=== PATIENT | male | born 1955 | race African-American/Black ===

== ENCOUNTER 2018-02-17 14:49 | Inpatient (IN) | payer OTHER ==
[~2018-02-17] VITALS: Ht 195.6 cm; Wt 140.7 kg
[~2018-02-17 14:49] MED LIST: CLOP75TA57 PO; DIAZ10TA PO; HYDR-2679 PO; LEVO50TA5 PO
[2018-02-17] MEDS ORDERED: MAG HYDROX/AL HYDROX/SIMETH 30 ML ORAL.SUSP PO PRN (15:15)
[2018-02-17] MEDS ORDERED: METHYL SALICYLATE/MENTHOL TOPICAL OINTMENT 29GM TUBE. TP PRN (15:15)
--- NOTE | 2018-02-17 15:15 | NUR ---
Admission Note with Justification for Admission to [facility] Patient admitted to [facility] for protective oversight for emergency stabilization of acute psychiatric crisis. Pt admitted from: [facility] Mode of arrival: EMS Accompanied By: EMS Precipitating behaviors that initiated intake and admission: making HI/SI statements, hallucinating, delusional Description of failure of out patient attempts at stabilization in previous setting list behavior and medication trials: Behaviors and assessment findings upon admission: Pt A/O to self and location, believes he is here for rehabilitation. Pt legally blind. Pt irritable with assessment questions. Pt arrived on unit with no personal belongings, except wheelchair and walker. Pt noted with hx of pretibial mexedema. Pictures taken. Plan: Admit for protective oversight for adjustment and stabilization of medications, behaviors and mood. Intense treatment regimen including groups, medication adjustments, therapy, consistent regimen for ADL's, self care, and sleep hygiene. Daily monitoring by Inpatient staff, Psychiatry, and Medical Physician.
--- NOTE | 2018-02-17 15:28 | NUR ---
[place] [id number]. Grejosesito Zan upon arrival. Observed him to participate in [employer] activity this afternoon.
[2018-02-17 16:03] VITALS: BP 156/83
[2018-02-17] MEDS ORDERED: PRAZ1CAP2 PO (17:07)
[2018-02-17] MEDS ORDERED: DIAZ5TAB4 PO (17:07)
[2018-02-17] MEDS ORDERED: CHOL10003 PO (17:07)
[2018-02-17] MEDS ORDERED: DOCU-109 PO (17:07)
[2018-02-17] MEDS ORDERED: GABA-585 PO (17:07)
[2018-02-17] MEDS ORDERED: LEVO125T PO (17:07)
[2018-02-17] MEDS ORDERED: ATOR40TA PO (17:07)
[2018-02-17] MEDS ORDERED: LIDO700A39 TP (17:07)
[2018-02-17] MEDS ORDERED: CARV12.5 PO (17:07)
[2018-02-17] MEDS ORDERED: LISI40TA PO (17:07)
[2018-02-17] MEDS ORDERED: INSU100I17 SQ (17:07)
[2018-02-17] MEDS ORDERED: AMLO10TA6 PO (17:07)
[2018-02-17] MEDS ORDERED: INSU100I13 SQ (17:07)
[2018-02-17] MEDS ORDERED: ASPI-630 PO (17:07)
[2018-02-17] MEDS ORDERED: RANI150T2 PO (17:07)
[2018-02-17] MEDS ORDERED: ENOX40DI SQ (17:07)
[2018-02-17] MEDS: GABAPENTIN 100 MG CAPSULE. PO SCH ×2 (18:00→20:52)
[2018-02-17] MEDS ORDERED: DIAZEPAM 10 MG PO SCH (18:00)
[2018-02-17] MEDS ORDERED: BISACODYL 10 MG SUPP.RECT PR PRN (20:45)
--- NOTE | 2018-02-17 20:46 | PDOC ---
Exam Note: Ishaan Note: Please also refer to the separate dictated note~for this date of service dictated separately.~Patient seen individually. Discussed the patient with Nursing staff reviewed the chart.~Reviewed interim history and current functioning. Reviewed vital signs,~Labs/ Radiology~and current medications noted below. Continue current treatment with the changes noted in the dictated addendum note Assessment: Vital Signs: Vital Signs Date Time Temp Pulse Resp B/P (MAP) Pulse Ox O2 Delivery O2 Flow Rate FiO2 02/17/18 16:03 97.3 78 20 156/83 (107) 97 Room Air Labs: Laboratory Tests Test 02/17/18 16:21 Glucose (Fingerstick) 146 mg/dL (70-99) H Current Medications: Meds: Current Medications Acetaminophen (Tylenol) 650 mg PRN Q6HRS PRN PO PAIN / TEMP; Start 02/17/18 at 15:15 Multi-Ingredient Ointment (Analgesic [place]) 1 neha PRN QID PRN TP MUSCLE PAIN; Start 02/17/18 at 15:15 Al Hydroxide/Mg Hydroxide (Mylanta Plus Xs) 15 ml PRN AFTMEALHC PRN PO DYSPEPSIA; Start 02/17/18 at 15:15 Magnesium Hydroxide (Milk Of Magnesia) 2,400 mg PRN QHS PRN PO CONSTIPATION; Start 02/17/18 at 15:15 Vitamin D (Vitamin D3) 1,000 unit DAILY PO ; Start 02/18/18 at 09:00 Diazepam (Valium) 5 mg Q8HRS PO ; Start 02/17/18 at 22:00 Gabapentin (Neurontin) 200 mg Q6HRS PO Last administered on 02/17/18at 18:00; Start 02/17/18 at 18:00 Insulin Glargine (Lantus) 45 units QHS SQ ; Start 02/17/18 at 21:00 Amlodipine Besylate (Norvasc) 10 mg DAILY PO ; Start 02/18/18 at 09:00 Aspirin (Children'S Aspirin) 81 mg DAILYWBKFT PO ; Start 02/18/18 at 08:00 Atorvastatin Calcium (Lipitor) 40 mg QHS PO ; Start 02/17/18 at 21:00 Carvedilol (Coreg) 12.5 mg BIDWMEALS PO ; Start 02/18/18 at 08:00 Non-Formulary Medication (Diazepam (Valium)) 10 mg Q6HRS PO ; Start 02/17/18 at 18:00; Status UNV Docusate Sodium (Colace) 100 mg DAILY PO ; Start 02/18/18 at 09:00 Enoxaparin Sodium (Lovenox 40mg Syringe) 40 mg QHS SQ ; Start 02/17/18 at 21:00 Insulin Human Lispro (HumaLOG) 12 units TIDWMEALS SQ ; Start 02/18/18 at 08:00 Levothyroxine Sodium (Synthroid) 125 mcg DAILY06 PO ; Start 02/18/18 at 06:00 Lidocaine (Lidoderm) 1 patch DAILY TD ; Start 02/18/18 at 09:00 Lisinopril (Prinivil) 40 mg DAILY PO ; Start 02/18/18 at 09:00 Prazosin HCl (Minipress) 1 mg QHS PO ; Start 02/17/18 at 21:00 Famotidine (Pepcid) 20 mg BID PO ; Start 02/17/18 at 21:00 Influenza Virus Vaccine (Afluria Trivalent [id number] Syringe) 0.5 ml ONCE ONCE VAX IM ; Start 02/18/18 at 09:00; Stop 02/18/18 at 09:01 Insulin Human Lispro (HumaLOG) 0-7 UNITS TIDWMEALS SQ ; Start 02/18/18 at 08:00 Miscellaneous (Lidoderm Patch Removal) 1 ea QHS MC ; Start 02/17/18 at 21:00 Bisacodyl (Dulcolax Supp) 10 mg PRN DAILY PRN [place] CONSTIPATION; Start 02/17/18 at 20:45; Status UNV Active Scripts Active Reported Lovenox (Enoxaparin Sodium) 40 Mg/0.4 Ml Disp.syrin 40 Mg SQ QHS Gabapentin 100 Mg Capsule 200 Mg PO Q6HRS Diazepam 5 Mg Tablet 5 Mg PO Q8HRS Ranitidine Hcl 150 Mg Tablet 150 Mg PO BID Amlodipine Besylate 10 Mg Tablet 10 Mg PO DAILY Aspirin 81 Mg Tab.chew 81 Mg PO DAILY Vitamin D3 (Cholecalciferol (Vitamin D3)) 1,000 Unit Tablet 1,000 Unit PO DAILY Synthroid (Levothyroxine Sodium) 125 Mcg Tablet 125 Mcg PO DAILYAC Lisinopril 40 Mg Tablet 40 Mg PO DAILY Lantus Solostar (Insulin Glargine,Hum.rec.anlog) 100 Unit/1 Ml Insuln.pen 45 Unit SQ QHS Lidocaine 1 Each Adh..patch 1 Each TP DAILY Lipitor (Atorvastatin Calcium) 40 Mg Tablet 40 Mg PO QHS Prazosin Hcl 1 Mg Capsule 1 Mg PO QHS Colace (Docusate Sodium) 100 Mg Capsule 100 Mg PO DAILY Coreg (Carvedilol) 12.5 Mg Tablet 12.5 Mg PO BIDWMEALS Novolog Flexpen (Insulin Aspart) 100 Unit/1 Ml Insuln.pen 12 Unit SQ TID Plavix (Clopidogrel Bisulfate) 75 Mg Tablet 75 Mg PO DAILY Levothyroxine Sodium 50 Mcg Tablet 50 Mcg PO DAILY Lortab 7.5-325 mg Tablet (Hydrocodone/Acetaminophen) 1 Each Tablet 1 Tab PO TID PRN I have reviewed the current psychotropics carefully including drug interactions. Risk benefit ratio favors no change other than as noted in my dictated progress note. Diagnosis: Problems: (1) Anxiety disorder (2) Impulse control disorder (3) Schizophrenia, disorganized, subchronic with acute exacerbation (4) Schizoaffective disorder, bipolar type (5) Major neurocognitive disorder, due to vascular disease, with behavioral disturbance, mild (6) Mixed Alzheimer's and vascular dementia with behavior disturbances JALEEL AGUIRRE MD Feb 17, 2018 20:46
[2018-02-17] MEDS: diazePAM 5 MG TABLET PO SCH (20:49)
[2018-02-17] MEDS: ATORVASTATIN CALCIUM 20 MG TABLET PO SCH (20:49)
[2018-02-17] MEDS: PRAZOSIN 1 MG CAPSULE. PO SCH (20:49)
[2018-02-17] MEDS: ENOXAPARIN 40 MG/0.4 ML SYRINGE. SQ SCH (20:49)
[2018-02-17] MEDS: FAMOTIDINE 20 MG TABLET PO SCH (20:52)
[2018-02-17] MEDS: INSULIN GLARGINE 300 UNITS/3 ML INSULN.PEN. SQ SCH (20:56)
[2018-02-17] MEDS: PATCH REMOVAL. MC SCH (21:00)
--- NOTE | 2018-02-17 21:00 | NUR ---
Behavior Intervention Response and Plan: BIRP Note: Behavior: Assumed Care of patient, patient located in Patient Room at shift change. Patient exhibited the following behavior Irritable, Restless, Cooperative. Brief assessment on rounds of vital signs, medication needs, lab studies, and pain. Treatment plan problems . Intervention: Patient assessed and the following interventions initiated safety checks 15 Minute Checks Cognitive Assessment , Head to toe Assessment , Medications. Response: After interactions and interventions patient responded in the following manner, Calm , Social ,Drowsy. Continue to assess behaviors and condition will continue to monitor throughout the shift as needed. Patient educated on ADL's, and hand hygiene. 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 Continue to assess patient for changes in above assessment. Monitor for medication needs, pain, and safety concerns. Hourly rounding performed to ensure safe environment.
[2018-02-18] MEDS: MAGNESIUM HYDROXIDE 2,400 MG/30 ML ORAL.SUSP. PO PRN (05:33)
[2018-02-18] MEDS: GABAPENTIN 100 MG CAPSULE. PO SCH ×3 (05:33→17:28)
[2018-02-18] MEDS: diazePAM 5 MG TABLET PO SCH ×3 (05:33→20:38)
[2018-02-18] MEDS: LEVOTHYROXINE 125 MCG TABLET PO SCH (05:33)
[2018-02-18 05:52] VITALS: BP 114/72
[2018-02-18 07:07] LABS: BACTERIA,URINE 0 /HPF (0-FEW); BILIRUBIN,URINE NEG (NEG); CLARITY,URINE CLEAR; COLOR,URINE YELLOW; GLUCOSE,URINE 100 mg/dL (NEG); NITRITE,URINE NEG (NEG); RBC,URINE 0 /HPF (0-2); SQUAMOUS EPITHELIAL CELL,UR OCC /LPF; UROBILINOGEN,URINE 0.2 mg/dL (0.2 mg/dL); WBC,URINE 0 /HPF (0-4)
[2018-02-18] MEDS: CARVEDILOL 12.5 MG TABLET PO SCH ×2 (08:00→17:00)
[2018-02-18] MEDS: ASPIRIN 81 MG TAB.CHEW PO SCH (08:35)
[2018-02-18] MEDS: amLODIPine BESYLATE 10 MG TABLET PO SCH (08:37)
[2018-02-18] MEDS: DOCUSATE SODIUM 100 MG CAPSULE PO SCH (08:37)
[2018-02-18] MEDS: FAMOTIDINE 20 MG TABLET PO SCH ×2 (08:38→20:37)
[2018-02-18] MEDS: LISINOPRIL 20 MG TABLET PO SCH (08:38)
[2018-02-18] MEDS: CHOLECALCIFEROL (VITAMIN D3) 1,000 UNIT TABLET PO SCH (08:38)
[2018-02-18] MEDS: LIDOCAINE (700MG/PATCH) PATCH. TD SCH (08:39)
[2018-02-18] MEDS: INSULIN LISPRO 300 UNITS/3 ML INSULN.PEN. SQ SCH ×6 (08:40→17:41)
[2018-02-18 12:17] LABS: BASO % 1 % (0-3); EOS # 0.1 x10^3/uL (0.0-0.7); EOS % 2 % (0-3); HEMATOCRIT 36.4 % (39.0-53.0); HEMOGLOBIN 12.3 g/dL (13.0-17.5); LYMPH % 28 % (24-48); MEAN CORPUSCULAR HEMOGLOBIN 30 pg (25-35); MEAN CORPUSCULAR HGB CONC 34 g/dL (31-37); MEAN CORPUSCULAR VOLUME 90 fL (79-100); MONO # 0.6 x10^3/uL (0.0-1.1); MONO % 8 % (0-9); NEUT # 4.6 x10^3uL (1.8-7.7); NEUT % 62 % (31-73); PLATELET COUNT 201 x10^3/uL (140-400); RED BLOOD COUNT 4.04 x10^6/uL (4.30-5.70); RED CELL DISTRIBUTION WIDTH 14.9 % (11.5-14.5); WHITE BLOOD COUNT 7.3 x10^3/uL (4.0-11.0)
[2018-02-18 12:21] LABS: ALBUMIN 3.4 g/dL (3.4-5.0); ALBUMIN/GLOBULIN RATIO 0.9 (1.0-1.7); CREATININE 1.5 mg/dL (0.7-1.3); GFR 57.4; MAGNESIUM 2.1 mg/dL (1.8-2.4); POTASSIUM 4.3 mmol/L (3.5-5.1); TOTAL BILIRUBIN 0.3 mg/dL (0.2-1.0)
--- NOTE | 2018-02-18 13:26 | NUR ---
Assumed care of pt @ approx 0700. Pt was sitting up in chair in the Dining Room @ the time of our initial encounter. Pt oriented to self and location. Pt states that he is "completely blind" and cannot see at all. Pt was pleasant, but very particular about how he gets his meds and insulin. Compliant w/meds. No signs of hallucinations, delusions, or paranoia noted. Pt has trouble feeding himself with utensils due to his blindness, so this RN called the kitchen and requested a finger food diet w/drinks in styrofoam cups, to make it easier for the pt to feed himself. Pt c/o pain in his lower back - lidoderm patch applied. Flu vaccine was administered, as well, as his sister, Richa (DPOA), gave consent upon his admission. The pt indicated that his sister "isn't really in charge of anything, I just chose her because she has pretty good judgement, but there are no papers or anything that put her in charge." However, he agreed to let me administer the flu shot because "it's probably a good idea." Pt worked briefly with therapist, transferred from chair to bed to use bedpan. Pt currently c/o constipation and requesting "something to help" with this issue. Will look at his eMAR and administer PRN med for constipation if ordered. Otherwise, will speak with Dr. Daniels re: this when he makes rounds. Will continue to monitor and assist pt in working towards his treatment and discharge goals.
[2018-02-18 15:48] VITALS: BP 101/61
[2018-02-18 15:54] LABS: THYROID STIM HORMONE (TSH) 27.325 uIU/mL (0.358-3.740)
[2018-02-18] MEDS: PRAZOSIN 1 MG CAPSULE. PO SCH (20:38)
[2018-02-18] MEDS: ATORVASTATIN CALCIUM 20 MG TABLET PO SCH (20:38)
[2018-02-18] MEDS: ENOXAPARIN 40 MG/0.4 ML SYRINGE. SQ SCH (20:39)
[2018-02-18] MEDS: PATCH REMOVAL. MC SCH (20:40)
--- NOTE | 2018-02-18 20:43 | HP ---
ADMIT DATE: 02/17/2018 PSYCHIATRIC ADMISSION HISTORY/EVALUATION This late entry 02/17/2018 covers elements not covered in my initial note of 02/17/2018. IDENTIFYING DATA: The patient is a 62-year-old -French male referred to us from the [facility] after he was evaluated there by a psychologist following the patient making vague suicidal and homicidal statements and noted to be extremely paranoid, having auditory and visual hallucinations within the context of his diagnosis of schizophrenia, chronic paranoid type with acute exacerbation. The patient was deemed a potential danger to himself and nonspecifically to others, referred for inpatient psychiatric stabilization. Prior to [facility], he had been living at the [facility] and had refused to return there consequent to his paranoia and nonspecific reasons. We were contacted by the nurse, collection coordinator from the [facility] requesting this admission for inpatient psychiatric stabilization and approved by his sister, who lives in [place], Gill Jessica, who is his power of real estate attorney. CHIEF COMPLAINT: ''Yes, I said that. They are doing things. My memory is fine." Despite the latter, the patient does have short-term memory deficits and as noted below, was unable to tell me who the president was, the one before the current president. HISTORY OF PRESENT ILLNESS: Reportedly, the patient has a long history of schizophrenia versus schizoaffective disorder, bipolar type. In addition, he is legally blind, which further impairs his communication. He was at [facility], transferred to the [facility], was increasingly psychotic, paranoid, depressed, making the above statements prompting this referral. He does have a history of mood swings. He denies active current suicidal or homicidal ideation as I questioned him shortly after he was admitted on the unit. PAST PSYCHIATRIC HISTORY: As above. The patient has a history of PTSD, details unclear. PAST MEDICAL HISTORY: Positive for hypothyroidism, hypertension, diabetes mellitus, legal blindness, status post VT, chronic kidney disease, hyperkalemia, neck pain, obesity, GERD, neuropathy, history of fall, schizophrenia, polysubstance abuse, personality disorder, coronary artery disease with stent, pretibial myxedema, diabetes mellitus. ACCU-CHEKS: A.c. and at bedtime. DIET: Regular. AMBULATES: Wheelchair, Mandy lift. CODE STATUS: Full code. ALLERGIES: THORAZINE, ABILIFY. CURRENT PSYCHOTROPICS: Valium 5 mg q. 8 hours. The patient refuses to take any other psychotropics. Prazosin 1 mg p.o. at bedtime. FAMILY HISTORY: Noncontributory. SOCIAL HISTORY: The patient had been living in his apartment prior to [facility], but apparently was unable to maintain himself there, then transferred to [facility] prior to the [facility]. Drug abuse history is noted. Details are unclear. The patient is not very forthcoming. No physical, sexual or elder abuse history is noted. Not known to be a perpetrator. REACTION TO HOSPITALIZATION: The patient accepting of it. ASSETS: Support from the [facility]. MENTAL STATUS EXAM: The patient was seen individually in evening of 02/17/2018. He is oriented to himself, knew it was 01/2018, was unaware of the name of the president, the one before him who he thought was president Zane. He refused to do serial 7's. Attention span short. Language function intact. Appears somewhat Paranoid, depressed. No active suicidal or homicidal ideation. Attention span short. Language function intact. LABORATORY DATA: Reviewed. IMPRESSION: Schizophrenia, chronic paranoid with acute exacerbation versus schizoaffective disorder, bipolar type, mixed with psychotic features; anxiety disorder, unspecified; impulse control disorder, unspecified. Rest as above. PLAN: Admit to Geropsychiatry Unit at [facility]. I will see the patient daily individually from a psychiatric standpoint, medical followup per Dr. Daniels/Dr. Pitts. Continue the patient on his current psychotropics. He does seem to need to be on an atypical antipsychotic, perhaps a mood stabilizer, but at this stage he is refusing to make any changes in his psychotropics and we will encourage him as he adjusted to the unit. We will get his past records. We will make further changes once we have a chance to evaluate him baseline. JALEEL AGIURRE MD DR: DIYA/valeria JOB#: [id number] / [id number]
--- NOTE | 2018-02-18 21:00 | NUR ---
Behavior Intervention Response and Plan: BIRP Note: Behavior: Assumed Care of patient, patient located in Patient Room at shift change. Patient exhibited the following behavior Disorganized, Irritable, Anxious. Brief assessment on rounds of vital signs, medication needs, lab studies, and pain. Treatment plan problems . Intervention: Patient assessed and the following interventions initiated safety checks 15 Minute Checks Cognitive Assessment , Head to toe Assessment , Medications. Response: After interactions and interventions patient responded in the following manner, Drowsy , Calm ,Cooperative. Continue to assess behaviors and condition will continue to monitor throughout the shift as needed. Patient educated on ADL's, and hand hygiene. Plan: Continue to monitor Master Treatment Plan for patient's progress toward short term goals of Decreased Agitation, No harm To self/ others, terminal computer operator goals to return to previous living setting vs placement. Continue to assess patient for changes in above assessment. Monitor for medication needs, pain, and safety concerns. Hourly rounding performed to ensure safe environment.
[2018-02-18] MEDS: INSULIN GLARGINE 300 UNITS/3 ML INSULN.PEN. SQ SCH (21:03)
--- NOTE | 2018-02-18 23:02 | PDOC ---
Exam Note: Ishaan Note: Please also refer to the separate dictated note~for this date of service dictated separately.~Patient seen individually. Discussed the patient with Nursing staff reviewed the chart.~Reviewed interim history and current functioning. Reviewed vital signs,~Labs/ Radiology~and current medications noted below. Continue current treatment with the changes noted in the dictated addendum note Assessment: Vital Signs: Vital Signs Date Time Temp Pulse Resp B/P (MAP) Pulse Ox O2 Delivery O2 Flow Rate FiO2 02/18/18 20:38 79 101/61 02/18/18 15:48 97.9 22 97 02/18/18 05:52 Room Air I&O Intake and Output 02/18/18 07:00 Intake Total 240 ml Balance 240 ml Intake Oral 240 ml # Bowel Movements 1 Labs: Laboratory Tests Test 02/18/18 06:27 02/18/18 07:17 02/18/18 11:40 02/18/18 11:47 Urine Collection Type Unknown Urine Color Yellow Urine Clarity Clear Urine pH 5.5 Urine Specific [place] 1.010 Urine Protein Neg (NEG-TRACE) Urine Glucose (UA) 100 mg/dL (NEG) Urine Ketones (Stick) Neg mg/dL (NEG) Urine Blood Neg (NEG) Urine Nitrite Neg (NEG) Urine Bilirubin Neg (NEG) Urine Urobilinogen Dipstick 0.2 mg/dL (0.2 mg/dL) Urine Leukocyte Esterase Neg (NEG) Urine RBC 0 /HPF (0-2) Urine WBC 0 /HPF (0-4) Urine Squamous Epithelial Cells Occ /LPF Urine Bacteria 0 /HPF (0-FEW) Glucose (Fingerstick) 151 mg/dL (70-99) H 266 mg/dL (70-99) H White Blood Count 7.3 x10^3/uL (4.0-11.0) Red Blood Count 4.04 x10^6/uL (4.30-5.70) L Hemoglobin 12.3 g/dL (13.0-17.5) L Hematocrit 36.4 % (39.0-53.0) L Mean Corpuscular Volume 90 fL (79-100) Mean Corpuscular Hemoglobin 30 pg (25-35) Mean Corpuscular Hemoglobin Concent 34 g/dL (31-37) Red Cell Distribution Width 14.9 % (11.5-14.5) H Platelet Count 201 x10^3/uL (140-400) Neutrophils (%) (Auto) 62 % (31-73) Lymphocytes (%) (Auto) 28 % (24-48) Monocytes (%) (Auto) 8 % (0-9) Eosinophils (%) (Auto) 2 % (0-3) Basophils (%) (Auto) 1 % (0-3) Neutrophils # (Auto) 4.6 x10^3uL (1.8-7.7) Lymphocytes # (Auto) 2.0 x10^3/uL (1.0-4.8) Monocytes # (Auto) 0.6 x10^3/uL (0.0-1.1) Eosinophils # (Auto) 0.1 x10^3/uL (0.0-0.7) Basophils # (Auto) 0.0 x10^3/uL (0.0-0.2) Sodium Level 137 mmol/L (136-145) Potassium Level 4.3 mmol/L (3.5-5.1) Chloride Level 100 mmol/L (98-107) Carbon Dioxide Level 33 mmol/L (21-32) H Anion Gap 4 (6-14) L Blood Urea Nitrogen 25 mg/dL (8-26) Creatinine 1.5 mg/dL (0.7-1.3) H Estimated GFR (Cockcroft-Gault) 57.4 BUN/Creatinine Ratio 17 (6-20) Glucose Level 271 mg/dL (70-99) H Calcium Level 9.0 mg/dL (8.5-10.1) Magnesium Level 2.1 mg/dL (1.8-2.4) Iron Level 90 ug/dL (65-175) Total Iron Binding Capacity 255 ug/dL (250-450) Iron Saturation 35 % (15-34) H Total Bilirubin 0.3 mg/dL (0.2-1.0) Aspartate Amino Transferase (AST) 28 U/L (15-37) Alanine Aminotransferase (ALT) 61 U/L (16-63) Alkaline Phosphatase 83 U/L (46-116) Total Protein 7.0 g/dL (6.4-8.2) Albumin 3.4 g/dL (3.4-5.0) Albumin/Globulin Ratio 0.9 (1.0-1.7) L Triglycerides Level 221 mg/dL (0-150) H Cholesterol Level 163 mg/dL (0-200) LDL Cholesterol, Calculated 77 mg/dL (0-100) VLDL Cholesterol, Calculated 44 mg/dL (0-40) H Non-HDL Cholesterol Calculated 121 mg/dL (0-129) HDL Cholesterol 42 mg/dL (40-60) Cholesterol/HDL Ratio 3.0 Thyroid Stimulating Hormone (TSH) 27.325 uIU/mL (0.358-3.740) Test 02/18/18 16:42 02/18/18 19:55 Glucose (Fingerstick) 137 mg/dL (70-99) H 222 mg/dL (70-99) H Current Medications: Meds: Current Medications Acetaminophen (Tylenol) 650 mg PRN Q6HRS PRN PO PAIN / TEMP; Start 02/17/18 at 15:15 Multi-Ingredient Ointment (Analgesic [place]) 1 neha PRN QID PRN TP MUSCLE PAIN; Start 02/17/18 at 15:15 Al Hydroxide/Mg Hydroxide (Mylanta Plus Xs) 15 ml PRN AFTMEALHC PRN PO DYSPEPSIA; Start 02/17/18 at 15:15 Magnesium Hydroxide (Milk Of Magnesia) 2,400 mg PRN QHS PRN PO CONSTIPATION Last administered on 02/18/18at 05:33; Start 02/17/18 at 15:15 Vitamin D (Vitamin D3) 1,000 unit DAILY PO Last administered on 02/18/18at 08:38 ; Start 02/18/18 at 09:00 Diazepam (Valium) 5 mg Q8HRS PO Last administered on 02/18/18at 20:38; Start at 22:00 Gabapentin (Neurontin) 200 mg Q6HRS PO Last administered on 02/18/18at 17:28; Start 02/17/18 at 18:00 Insulin Glargine (Lantus) 45 units QHS SQ Last administered on 02/18/18at 21:03 ; Start 02/17/18 at 21:00 Amlodipine Besylate (Norvasc) 10 mg DAILY PO ; Start 02/18/18 at 09:00 Aspirin (Children'S Aspirin) 81 mg DAILYWBKFT PO Last administered on at 08:35; Start 02/18/18 at 08:00 Atorvastatin Calcium (Lipitor) 40 mg QHS PO Last administered on 02/18/18at 20: 38; Start 02/17/18 at 21:00 Carvedilol (Coreg) 12.5 mg BIDWMEALS PO ; Start 02/18/18 at 08:00 Non-Formulary Medication (Diazepam (Valium)) 10 mg Q6HRS PO ; Start 02/17/18 at 18:00; Status UNV Docusate Sodium (Colace) 100 mg DAILY PO Last administered on 02/18/18 08:37; Start 02/18/18 at 09:00 Enoxaparin Sodium (Lovenox 40mg Syringe) 40 mg QHS SQ Last administered on 02/18 20:39; Start 02/17/18 at 21:00 Insulin Human Lispro (HumaLOG) 12 units TIDWMEALS SQ Last administered on 17:41; Start 02/18/18 at 08:00 Levothyroxine Sodium (Synthroid) 125 mcg DAILY06 PO Last administered on 05:33; Start 02/18/18 at 06:00 Lidocaine (Lidoderm) 1 patch DAILY TD Last administered on 02/18/18 08:39; Start 02/18/18 at 09:00 Lisinopril (Prinivil) 40 mg DAILY PO ; Start 02/18/18 at 09:00 Prazosin HCl (Minipress) 1 mg QHS PO Last administered on 02/18/18 20:38; Start 02/17/18 at 21:00 Famotidine (Pepcid) 20 mg BID PO Last administered on 02/18/18 20:37; Start at 21:00 Influenza Virus Vaccine (Afluria Trivalent [id number] Syringe) 0.5 ml ONCE ONCE VAX IM Last administered on 02/18/18 12:05; Start 02/18/18 at 09:00; Stop at 09:01; Status DC Insulin Human Lispro (HumaLOG) 0-7 UNITS TIDWMEALS SQ Last administered on 02/18 12:00; Start 02/18/18 at 08:00 Miscellaneous (Lidoderm Patch Removal) 1 ea QHS MC Last administered on 9/29/ 18at 20:40; Start 02/17/18 at 21:00 Bisacodyl (Dulcolax Supp) 10 mg PRN DAILY PRN [place] CONSTIPATION Last administered on 02/17/18at 21:40; Start 02/17/18 at 20:45 Active Scripts Active Reported Lovenox (Enoxaparin Sodium) 40 Mg/0.4 Ml Disp.syrin 40 Mg SQ QHS Gabapentin 100 Mg Capsule 200 Mg PO Q6HRS Diazepam 5 Mg Tablet 5 Mg PO Q8HRS Ranitidine Hcl 150 Mg Tablet 150 Mg PO BID Amlodipine Besylate 10 Mg Tablet 10 Mg PO DAILY Aspirin 81 Mg Tab.chew 81 Mg PO DAILY Vitamin D3 (Cholecalciferol (Vitamin D3)) 1,000 Unit Tablet 1,000 Unit PO DAILY Synthroid (Levothyroxine Sodium) 125 Mcg Tablet 125 Mcg PO DAILYAC Lisinopril 40 Mg Tablet 40 Mg PO DAILY Lantus Solostar (Insulin Glargine,Hum.rec.anlog) 100 Unit/1 Ml Insuln.pen 45 Unit SQ QHS Lidocaine 1 Each Adh..patch 1 Each TP DAILY Lipitor (Atorvastatin Calcium) 40 Mg Tablet 40 Mg PO QHS Prazosin Hcl 1 Mg Capsule 1 Mg PO QHS Colace (Docusate Sodium) 100 Mg Capsule 100 Mg PO DAILY Coreg (Carvedilol) 12.5 Mg Tablet 12.5 Mg PO BIDWMEALS Novolog Flexpen (Insulin Aspart) 100 Unit/1 Ml Insuln.pen 12 Unit SQ TID Plavix (Clopidogrel Bisulfate) 75 Mg Tablet 75 Mg PO DAILY Levothyroxine Sodium 50 Mcg Tablet 50 Mcg PO DAILY Lortab 7.5-325 mg Tablet (Hydrocodone/Acetaminophen) 1 Each Tablet 1 Tab PO TID PRN I have reviewed the current psychotropics carefully including drug interactions. Risk benefit ratio favors no change other than as noted in my dictated progress note. Diagnosis: Problems: (1) Anxiety disorder (2) Impulse control disorder (3) Schizophrenia, disorganized, subchronic with acute exacerbation (4) Schizoaffective disorder, bipolar type (5) Major neurocognitive disorder, due to vascular disease, with behavioral disturbance, mild (6) Mixed Alzheimer's and vascular dementia with behavior disturbances JALEEL AGUIRRE MD Feb 18, 2018 23:02
[2018-02-18 23:10] LABS: THYROXINE 5.8 ug/dL (4.5-12.0)
[2018-02-19 00:07] LABS: HEMOGLOBIN A1C 8.3 % (4.8-5.6)
--- NOTE | 2018-02-19 01:32 | PN ---
DATE: 02/18/2018 This note covers elements not covered in my initial note of 02/18/2018. SUBJECTIVE: The patient was seen individually evening of 02/18/2018. The patient slept 4 hours previous evening. He is alert, oriented to himself and his date of , compliant with medications, was irritable that he had to put his money in the hospital safe. States he did not sleep well last night, but refuses any addition to his psychotropics specifically for his schizophrenia/schizoaffective disorder. He lonely accepts continuation of Valium and prazosin for now and I addressed this with him at some length. REVIEW OF SYSTEMS: Bilateral blindness, impaired ambulation. No CV, , pulmonary system symptoms on review. MENTAL STATUS EXAM: Oriented as noted. Speech has some latency, coherent. Abstraction fair, computation unable to do any steps of serial sevens, remains paranoid, though he minimizes that. No active suicidal or homicidal ideation. IMPRESSION: Schizophrenia, chronic paranoid with acute exacerbation, schizoaffective disorder, bipolar type, mixed with psychotic features; anxiety disorder, unspecified; cognitive disorder, unspecified versus major neurocognitive disorder, possibly vascular with delusion, depression. PLAN: From a psychiatric standpoint, we will continue the Valium and prazosin for now, but he may benefit from the addition of Risperdal if he will accept it and Depakote as a mood stabilizer. We will get past psychiatric records as well for clarification of diagnosis. MAN Dilma AGUIRRE MD DR: DIYA/valeria JOB#: [id number] / [id number]
--- NOTE | 2018-02-19 03:29 | CONS ---
DATE OF CONSULTATION: 02/18/2018 REASON FOR CONSULTATION: Medical management. HISTORY OF PRESENT ILLNESS: The patient is a 62-year-old -[place] male patient, who apparently was transferred from [facility] on account of refusal to return to [facility]. He is suicidal or homicidal, threatening staff members, hallucinating, delusional, and was [facility] for inpatient psychiatric stabilization. PAST MEDICAL HISTORY: Significant for type 2 diabetes with peripheral neuropathy, acute kidney injury on chronic kidney disease, chronic pain syndrome, hypertension, hyperlipidemia, gastroesophageal reflux disease, coronary artery disease, status post PCI with stent deployment, anxiety, and excessive Valium use. He also has deconditioning, weakness, and hypothyroidism. He apparently has a history of Graves' disease, treated with surgery and radioactive iodine. PAST SURGICAL HISTORY: Significant for right eye enucleation, thyroidectomy. ALLERGIES: He is allergic to ARIPIPRAZOLE and CHLORPROMAZINE. MEDICATIONS: He is currently on following medications: He is on Lovenox 40 mg subcutaneous once a day for DVT prophylaxis, clopidogrel bisulfate 75 mg once a day, atorvastatin calcium 40 mg at bedtime, prazosin 1 mg at bedtime, carvedilol 12.5 mg twice a day, amlodipine 10 mg once a day, lisinopril 40 mg daily. He is on aspirin 81 mg once a day, hydrocodone/APAP 7.5/325 one tablet 3 times a day as needed for pain. He is on gabapentin 200 mg every 6 hours, diazepam 5 mg every 8 hours, Colace 100 mg once a day range, ranitidine 150 mg twice a day. He is on NovoLog insulin 12 units before meals and Lantus 45 units at bedtime. He is on levothyroxine, a total of 175 mcg once a day, Lidoderm patch 1 patch topically daily and vitamin D (ergocalciferol) 1000 international unit once a day. FAMILY HISTORY: Unremarkable. SOCIAL HISTORY: The patient stated that he has 4 sons and 1 daughter. It is difficult to know exactly where he lives as I am not unable to distinguish what is real and what is imagined. He was unable to tell me where actually he was living. PAST PSYCHIATRIC HISTORY: Significant for, he has anxiety disorder, impulse control disorder, schizophrenia, disorganized, sub-chronic with acute exacerbation. 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 PHYSICAL EXAMINATION: GENERAL: When I examined him this afternoon, he was sitting comfortably in his wheelchair, in no apparent distress. He was pale, he was not jaundiced, cyanosis or thyromegaly. No jugular venous distension, has marked bilateral lower extremity lymphedema. VITAL SIGNS: His heart rate was 51, blood pressure 114/72, temperature was 97.5, respiratory rate 22 and oxygen saturation was 98%. HEAD, EYES, EARS, NOSE, AND THROAT: Normocephalic, atraumatic. NECK: Supple. HEART: Showed normal first and second heart sounds with no gallop, rub or murmur. CHEST: Clear to auscultation. No crepitation or rhonchi. ABDOMEN: Distended, soft, nontender. No guarding or rigidity. No organomegaly. Hernial orifices intact. Bowel sounds normal. 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 He said that he appreciates light in his left eye with marked proptosis in the left thalamus. All his cranial nerves other than that are intact. He moves his upper extremities too much with a concern, the greater extent than his lower extremities. He is mostly bedbound, chair bound. EXTREMITIES: Examination of both lower extremities showed no clubbing, cyanosis, but marked bilateral lower extremity lymphedema. LABORATORY DATA: Showed a white cell count 7300, hemoglobin 12, hematocrit 36, MCV 90, and platelet count 202,000. His chemistry showed a serum sodium 137, potassium 4.3, chloride 100, bicarbonate 33, anion gap of 4, BUN 25, creatinine 1.5, estimated GFR was 57 mL per minute. His glucose was 271, calcium was 9, magnesium 2.1. Total bilirubin, AST, ALT, alkaline phosphatase were normal. His total protein 7, albumin was 3.4. Urinalysis was essentially unremarkable. ASSESSMENT AND PLAN: In summary, this is a 62-year-old -[place] male patient who was admitted from [facility] on the account of being suicidal and homicidal, hallucinating, delusional. He has multiple psychiatric problems including schizophrenia, disorganized subacute with acute exacerbation, schizoaffective disorder, major neurocognitive disorder, and Alzheimer disease. Medically, he has multiple medical problems including type 2 diabetes mellitus with diabetic peripheral neuropathy, chronic kidney disease, chronic hypertension, hyperlipidemia, gastroesophageal reflux disease, coronary artery disease, status post stent deployment, anxiety, and chronic volume use, deconditioning, weakness, and hypothyroidism with proptosis. He is blind in his right eye. 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 He also complained of severe constipation, has not had bowel movement for almost 10 days now. PLAN: According to him, my plan is to obviously continue with all his current medication. I will arrange for him to have a KUB. We will add also magnesium citrate and if the x-ray showed that he is severely constipated, we might have to add Relistor and Amitiza. Thank you, Dr. Christianson for allowing me to participate in the care of this patient. JESSICA SMALLS MD DR: RAVINDER/valeria JOB#: [id number] / [id number]
[2018-02-19 05:45] VITALS: BP 135/82
[2018-02-19] MEDS: diazePAM 5 MG TABLET PO SCH ×3 (06:14→19:56)
[2018-02-19] MEDS: GABAPENTIN 100 MG CAPSULE. PO SCH ×5 (06:14→16:59)
[2018-02-19] MEDS: LEVOTHYROXINE 125 MCG TABLET PO SCH (06:15)
[2018-02-19] MEDS: INSULIN LISPRO 300 UNITS/3 ML INSULN.PEN. SQ SCH ×6 (08:00→17:26)
[2018-02-19] MEDS: ASPIRIN 81 MG TAB.CHEW PO SCH (08:06)
[2018-02-19] MEDS: DOCUSATE SODIUM 100 MG CAPSULE PO SCH ×2 (08:07→19:56)
[2018-02-19] MEDS: CARVEDILOL 12.5 MG TABLET PO SCH ×2 (08:07→16:58)
[2018-02-19] MEDS: FAMOTIDINE 20 MG TABLET PO SCH ×2 (08:08→19:51)
[2018-02-19] MEDS: LISINOPRIL 20 MG TABLET PO SCH (08:08)
[2018-02-19] MEDS: amLODIPine BESYLATE 10 MG TABLET PO SCH (08:08)
[2018-02-19] MEDS: LIDOCAINE (700MG/PATCH) PATCH. TD SCH (08:09)
[2018-02-19] MEDS: CHOLECALCIFEROL (VITAMIN D3) 1,000 UNIT TABLET PO SCH (08:09)
--- NOTE | 2018-02-19 09:51 | NUR ---
Assumed care of pt @ approx 0700. Pt was sitting up in chair in the Dining Room @ the time of our initial encounter. Pt oriented to self and location. Pt states that he is "completely blind" and cannot see at all. Pt was pleasant, but very particular about how he gets his meds and insulin. Compliant w/meds. Pt delusional - talking about how the people at the last facility he was in carried guns. He also mentioned that he "escaped from that internment camp" before coming here. No signs of auditory or visual hallucinations at this time. Pt c/o pain in his lower back - lidoderm patch applied. Pt currently c/o constipation and requesting "something to help" with this issue. Per Dr. Daniels's instructions from yesterday, we are waiting results of KUB before addressing the pt's c/o constipation. Will continue to monitor and assist pt in working towards his treatment and discharge goals.
--- NOTE | 2018-02-19 10:03 | RAD ---
Examination: KUB History: chronic constipation, senior behavioral [facility] patient and had to do portable Comparison/Correlation: None Findings: Portable KUB exam was performed with the patient supine. Moderate to large quantity of stool is present within the colon. No suspicious abdominal calcifications. Pelvic calcifications probably represent phleboliths. No evidence of bowel obstruction. Impression: Moderate to large quantity of stool in the colon. Electronically signed by: Demario Gonzalez MD (02/19/2018 9:59 AM) [facility]
[2018-02-19] MEDS ORDERED: MAGNESIUM CITRATE 296 ML SOLUTION. PO ONE (12:15)
[2018-02-19 15:13] VITALS: BP 134/72
--- NOTE | 2018-02-19 18:58 | PN ---
DATE: SUBJECTIVE: The patient was seen yesterday. We did a KUB as he was complaining of constipation and it did show that he has a moderate to large quantity of stool in the colon. Therefore, I increased his to Colace 100 mg twice a day, started him on MiraLax. He is already on Dulcolax and milk of magnesia and was started on mag citrate 1 bottle once today. I reviewed also his labs that are pending yesterday and his TSH was elevated at 27.3. His total T4 was within normal range. However, total T3 was low at 55 and therefore, I increased his Synthroid to 175 mcg and will repeat his T3, T4, free T4 in a week's time. JESSICA SMALLS MD DR: RAVINDER/valeria JOB#: [id number] / [id number]
[2018-02-19] MEDS: ENOXAPARIN 40 MG/0.4 ML SYRINGE. SQ SCH (19:51)
[2018-02-19] MEDS: PRAZOSIN 1 MG CAPSULE. PO SCH (19:52)
[2018-02-19] MEDS: ATORVASTATIN CALCIUM 20 MG TABLET PO SCH (19:53)
[2018-02-19] MEDS: risperiDONE 0.5 MG TABLET. PO SCH (19:56)
[2018-02-19] MEDS: INSULIN GLARGINE 300 UNITS/3 ML INSULN.PEN. SQ SCH (19:58)
--- NOTE | 2018-02-19 20:02 | PDOC ---
Exam Note: Ishaan Note: Please also refer to the separate dictated note~for this date of service dictated separately.~Patient seen individually. Discussed the patient with Nursing staff reviewed the chart.~Reviewed interim history and current functioning. Reviewed vital signs,~Labs/ Radiology~and current medications noted below. Continue current treatment with the changes noted in the dictated addendum note Assessment: Vital Signs: Vital Signs Date Time Temp Pulse Resp B/P (MAP) Pulse Ox O2 Delivery O2 Flow Rate FiO2 02/19/18 19:52 80 134/72 02/19/18 15:13 97.4 20 96 02/19/18 05:45 Room Air I&O Intake and Output 02/19/18 07:00 Intake Total 550 ml Balance 550 ml Intake Oral 550 ml Labs: Laboratory Tests Test 02/19/18 07:17 02/19/18 11:13 02/19/18 16:56 Glucose (Fingerstick) 86 mg/dL (70-99) 226 mg/dL (70-99) H 178 mg/dL (70-99) H Current Medications: Meds: Current Medications Acetaminophen (Tylenol) 650 mg PRN Q6HRS PRN PO PAIN / TEMP; Start 02/17/18 at 15:15 Multi-Ingredient Ointment (Analgesic [place]) 1 neha PRN QID PRN TP MUSCLE PAIN; Start 02/17/18 at 15:15 Al Hydroxide/Mg Hydroxide (Mylanta Plus Xs) 15 ml PRN AFTMEALHC PRN PO DYSPEPSIA; Start 02/17/18 at 15:15 Magnesium Hydroxide (Milk Of Magnesia) 2,400 mg PRN QHS PRN PO CONSTIPATION Last administered on 02/18/18at 05:33; Start 02/17/18 at 15:15 Vitamin D (Vitamin D3) 1,000 unit DAILY PO Last administered on 02/19/18at 08:09 ; Start 02/18/18 at 09:00 Diazepam (Valium) 5 mg Q8HRS PO Last administered on 02/19/18at 19:56; Start at 22:00 Gabapentin (Neurontin) 200 mg Q6HRS PO Last administered on 02/19/18at 06:14; Start 02/17/18 at 18:00 Insulin Glargine (Lantus) 45 units QHS SQ Last administered on 02/19/18 19:58 ; Start 02/17/18 at 21:00 Amlodipine Besylate (Norvasc) 10 mg DAILY PO Last administered on 02/19/18 08: 08; Start 02/18/18 at 09:00 Aspirin (Children'S Aspirin) 81 mg DAILYWBKFT PO Last administered on 08:06; Start 02/18/18 at 08:00 Atorvastatin Calcium (Lipitor) 40 mg QHS PO Last administered on 02/19/18 19: 53; Start 02/17/18 at 21:00 Carvedilol (Coreg) 12.5 mg BIDWMEALS PO Last administered on 02/19/18 16:58; Start 02/18/18 at 08:00 Non-Formulary Medication (Diazepam (Valium)) 10 mg Q6HRS PO ; Start 02/17/18 at 18:00; Status UNV Docusate Sodium (Colace) 100 mg DAILY PO Last administered on 02/19/18 08:07; Start 02/18/18 at 09:00; Stop 02/19/18 at 12:17; Status DC Enoxaparin Sodium (Lovenox 40mg Syringe) 40 mg QHS SQ Last administered on 02/19 19:51; Start 02/17/18 at 21:00 Insulin Human Lispro (HumaLOG) 12 units TIDWMEALS SQ Last administered on 17:25; Start 02/18/18 at 08:00 Levothyroxine Sodium (Synthroid) 125 mcg DAILY06 PO Last administered on 06:15; Start 02/18/18 at 06:00; Stop 02/19/18 at 12:22; Status DC Lidocaine (Lidoderm) 1 patch DAILY TD Last administered on 02/19/18 08:09; Start 02/18/18 at 09:00 Lisinopril (Prinivil) 40 mg DAILY PO Last administered on 02/19/18 08:08; Start 02/18/18 at 09:00 Prazosin HCl (Minipress) 1 mg QHS PO Last administered on 02/19/18 19:52; Start 02/17/18 at 21:00 Famotidine (Pepcid) 20 mg BID PO Last administered on 02/19/18 19:51; Start at 21:00 Influenza Virus Vaccine (Afluria Trivalent [id number] Syringe) 0.5 ml ONCE ONCE VAX IM Last administered on 02/18/18at 12:05; Start 02/18/18 at 09:00; Stop at 09:01; Status DC Insulin Human Lispro (HumaLOG) 0-7 UNITS TIDWMEALS SQ Last administered on 02/19at 17:26; Start 02/18/18 at 08:00 Miscellaneous (Lidoderm Patch Removal) 1 ea QHS MC Last administered on 20:40; Start 02/17/18 at 21:00 Bisacodyl (Dulcolax Supp) 10 mg PRN DAILY PRN [place] CONSTIPATION Last administered on 02/17/18 21:40; Start 02/17/18 at 20:45 Docusate Sodium (Colace) 100 mg BID PO Last administered on 02/19/18at 19:56; Start 02/19/18 at 21:00 Polyethylene Glycol (miraLAX) 17 gm DAILY PO ; Start 02/20/18 at 09:00 Magnesium Citrate (Citroma) 296 ml 1X ONCE PO Last administered on 02/19/18 12:31; Start 02/19/18 at 12:15; Stop 02/19/18 at 12:21; Status DC Levothyroxine Sodium (Synthroid) 175 mcg DAILY06 PO ; Start 02/20/18 at 06:00 Risperidone (RisperDAL) 0.5 mg HS PO Last administered on 02/19/18at 19:56; Start 02/19/18 at 21:00 Active Scripts Active Reported Lovenox (Enoxaparin Sodium) 40 Mg/0.4 Ml Disp.syrin 40 Mg SQ QHS Gabapentin 100 Mg Capsule 200 Mg PO Q6HRS Diazepam 5 Mg Tablet 5 Mg PO Q8HRS Ranitidine Hcl 150 Mg Tablet 150 Mg PO BID Amlodipine Besylate 10 Mg Tablet 10 Mg PO DAILY Aspirin 81 Mg Tab.chew 81 Mg PO DAILY Vitamin D3 (Cholecalciferol (Vitamin D3)) 1,000 Unit Tablet 1,000 Unit PO DAILY Synthroid (Levothyroxine Sodium) 125 Mcg Tablet 125 Mcg PO DAILYAC Lisinopril 40 Mg Tablet 40 Mg PO DAILY Lantus Solostar (Insulin Glargine,Hum.rec.anlog) 100 Unit/1 Ml Insuln.pen 45 Unit SQ QHS Lidocaine 1 Each Adh..patch 1 Each TP DAILY Lipitor (Atorvastatin Calcium) 40 Mg Tablet 40 Mg PO QHS Prazosin Hcl 1 Mg Capsule 1 Mg PO QHS Colace (Docusate Sodium) 100 Mg Capsule 100 Mg PO DAILY Coreg (Carvedilol) 12.5 Mg Tablet 12.5 Mg PO BIDWMEALS Novolog Flexpen (Insulin Aspart) 100 Unit/1 Ml Insuln.pen 12 Unit SQ TID Plavix (Clopidogrel Bisulfate) 75 Mg Tablet 75 Mg PO DAILY Levothyroxine Sodium 50 Mcg Tablet 50 Mcg PO DAILY Lortab 7.5-325 mg Tablet (Hydrocodone/Acetaminophen) 1 Each Tablet 1 Tab PO TID PRN I have reviewed the current psychotropics carefully including drug interactions. Risk benefit ratio favors no change other than as noted in my dictated progress note. Diagnosis: Problems: (1) Anxiety disorder (2) Impulse control disorder (3) Schizophrenia, disorganized, subchronic with acute exacerbation (4) Schizoaffective disorder, bipolar type (5) Major neurocognitive disorder, due to vascular disease, with behavioral disturbance, mild (6) Mixed Alzheimer's and vascular dementia with behavior disturbances JALEEL AGUIRRE MD Feb 19, 2018 20:02
[2018-02-19] MEDS: PATCH REMOVAL. MC SCH (21:00)
[2018-02-19] MEDS: HYDROcodone/APAP 7.5/325MG 1 TAB TABLET PO PRN (21:25)
--- NOTE | 2018-02-19 23:05 | NUR ---
Nursing Note Pt pleasant and cooperative this pm. Is still delusional about his NH thinking that all staff carry 38 caliber pistols in their pockets. Consistent in his delusion, but is legally blind so possibly is misperceiving what he is seeing.
[2018-02-20 05:29] VITALS: BP 117/73
[2018-02-20] MEDS: GABAPENTIN 100 MG CAPSULE. PO SCH ×4 (06:15→17:34)
[2018-02-20] MEDS: diazePAM 5 MG TABLET PO SCH ×3 (06:15→23:32)
[2018-02-20] MEDS: LEVOTHYROXINE 125 MCG TABLET PO SCH (06:15)
[2018-02-20] MEDS: CARVEDILOL 12.5 MG TABLET PO SCH ×2 (08:53→17:41)
[2018-02-20] MEDS: ASPIRIN 81 MG TAB.CHEW PO SCH (08:53)
[2018-02-20] MEDS: INSULIN LISPRO 300 UNITS/3 ML INSULN.PEN. SQ SCH ×6 (08:55→17:43)
[2018-02-20] MEDS: POLYETHYLENE GLYCOL 3350 17 GM PACKET. PO SCH (08:56)
[2018-02-20] MEDS: DOCUSATE SODIUM 100 MG CAPSULE PO SCH ×2 (08:56→20:34)
[2018-02-20] MEDS: FAMOTIDINE 20 MG TABLET PO SCH ×2 (08:56→20:34)
[2018-02-20] MEDS: CHOLECALCIFEROL (VITAMIN D3) 1,000 UNIT TABLET PO SCH (08:57)
[2018-02-20] MEDS: amLODIPine BESYLATE 10 MG TABLET PO SCH (08:57)
[2018-02-20] MEDS: LIDOCAINE (700MG/PATCH) PATCH. TD SCH (08:58)
[2018-02-20] MEDS: LISINOPRIL 20 MG TABLET PO SCH (09:00)
[2018-02-20] MEDS: HYDROcodone/APAP 7.5/325MG 1 TAB TABLET PO PRN (09:09)
--- NOTE | 2018-02-20 10:00 | NUR ---
ACTIVITY THERAPY ASSESSMENT Completed based on observation and interview. Pt. was agreeable to speak with CAKE FORMER outside on the patio. Pt. stated he didn't know where he was exactly when asked if he knew his current location. CAKE FORMER explained he was in [facility] from the [place]. CAKE FORMER confirmed Pt. 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 When asked what other things he enjoyed doing now that he is no longer in the , Pt. stated he liked to watch TV about science stuff and news, likes to see what the President is doing. He went on to talk about war and how there are "no winners in war." He also explained when people thank those for being in the , they are really saying two things: thank you and "glad it wasn't me." He talked more about being called a "baby killer" in the past and explained the reality he faced. Pt. stated he has been in this facility for two weeks and when asked what brought him here, he explained he's mostly here to adjust his medication and pain management. He said he "escaped" from the " house," some place like [facility] which is normal during the day but bad at night with people walking the halls with pistols. When redirected to talk about more leisure preferences, Pt. stated he likes blues and jazz music. He reported he has 10 sisters and nine brothers but they were more like "enemies." He enjoys chatting with friends and stated anxiety and stress is not really an issue for him. He said his head is fine, he just needs help with pain. Pt. is visually impaired and has special shoes that help him balance when walking but doesn't have those here. He stated "stupid people" or "uneducated people" get in the way of him participating in activities. He went on to explain those people are into drugs and making "bathtub gin." Pt. was able to laugh and make a few jokes. He is pleasant to be around and willing to engage in activities with assistance as needed but doesn't appear to ask for help, it's usually offered. Initial goal aimed to increase socialization and assertiveness: Pt. will participate in at least one group per day and will ask for/ initiate help with a task at least once before discharge.
--- NOTE | 2018-02-20 15:58 | NUR ---
Assumed care of pt @ approx 0700. Pt was sitting up in chair in the Dining Room @ the time of our initial encounter. Pt oriented to self and location. Pt was pleasant, and compliant with meds and insulin. Pt c/o pain in his lower back - lidoderm patch applied. Pt indicated that the mag citrate that he was given yesterday afternoon worked very well for his constipation, and he is feeling much better. Will continue to monitor and assist pt in working towards his treatment and discharge goals.
[2018-02-20 16:11] VITALS: BP 127/91
--- NOTE | 2018-02-20 20:18 | PDOC ---
Exam Note: Ishaan Note: Please also refer to the separate dictated note~for this date of service dictated separately.~Patient seen individually. Discussed the patient with Nursing staff reviewed the chart.~Reviewed interim history and current functioning. Reviewed vital signs,~Labs/ Radiology~and current medications noted below. Continue current treatment with the changes noted in the dictated addendum note Assessment: Vital Signs: Vital Signs Date Time Temp Pulse Resp B/P (MAP) Pulse Ox O2 Delivery O2 Flow Rate FiO2 02/20/18 17:41 59 127/91 02/20/18 16:11 96.4 18 97 02/20/18 09:09 Room Air I&O Intake and Output 02/20/18 07:00 Intake Total 600 ml Balance 600 ml Intake Oral 600 ml # Bowel Movements 1 Labs: Laboratory Tests Test 02/20/18 07:19 02/20/18 11:57 02/20/18 17:02 Glucose (Fingerstick) 151 mg/dL (70-99) H 235 mg/dL (70-99) H 267 mg/dL (70-99) H Current Medications: Meds: Current Medications Acetaminophen (Tylenol) 650 mg PRN Q6HRS PRN PO PAIN / TEMP; Start 02/17/18 at 15:15 Multi-Ingredient Ointment (Analgesic [place]) 1 neha PRN QID PRN TP MUSCLE PAIN; Start 02/17/18 at 15:15 Al Hydroxide/Mg Hydroxide (Mylanta Plus Xs) 15 ml PRN AFTMEALHC PRN PO DYSPEPSIA; Start 02/17/18 at 15:15 Magnesium Hydroxide (Milk Of Magnesia) 2,400 mg PRN QHS PRN PO CONSTIPATION Last administered on 02/18/18at 05:33; Start 02/17/18 at 15:15 Vitamin D (Vitamin D3) 1,000 unit DAILY PO Last administered on 02/20/18at 08:57 ; Start 02/18/18 at 09:00 Diazepam (Valium) 5 mg Q8HRS PO Last administered on 02/20/18at 12:00; Start at 22:00 Gabapentin (Neurontin) 200 mg Q6HRS PO Last administered on 02/20/18at 06:15; Start 02/17/18 at 18:00 Insulin Glargine (Lantus) 45 units QHS SQ Last administered on 02/19/18 19:58 ; Start 02/17/18 at 21:00 Amlodipine Besylate (Norvasc) 10 mg DAILY PO Last administered on 02/20/18 08: 57; Start 02/18/18 at 09:00 Aspirin (Children'S Aspirin) 81 mg DAILYWBKFT PO Last administered on 08:53; Start 02/18/18 at 08:00 Atorvastatin Calcium (Lipitor) 40 mg QHS PO Last administered on 02/19/18 19: 53; Start 02/17/18 at 21:00 Carvedilol (Coreg) 12.5 mg BIDWMEALS PO Last administered on 02/20/18 17:41; Start 02/18/18 at 08:00 Non-Formulary Medication (Diazepam (Valium)) 10 mg Q6HRS PO ; Start 02/17/18 at 18:00; Status UNV Docusate Sodium (Colace) 100 mg DAILY PO Last administered on 02/19/18 08:07; Start 02/18/18 at 09:00; Stop 02/19/18 at 12:17; Status DC Enoxaparin Sodium (Lovenox 40mg Syringe) 40 mg QHS SQ Last administered on 02/19 19:51; Start 02/17/18 at 21:00 Insulin Human Lispro (HumaLOG) 12 units TIDWMEALS SQ Last administered on 17:42; Start 02/18/18 at 08:00 Levothyroxine Sodium (Synthroid) 125 mcg DAILY06 PO Last administered on 06:15; Start 02/18/18 at 06:00; Stop 02/19/18 at 12:22; Status DC Lidocaine (Lidoderm) 1 patch DAILY TD Last administered on 02/20/18 08:58; Start 02/18/18 at 09:00 Lisinopril (Prinivil) 40 mg DAILY PO Last administered on 02/20/18 09:00; Start 02/18/18 at 09:00 Prazosin HCl (Minipress) 1 mg QHS PO Last administered on 02/19/18 19:52; Start 02/17/18 at 21:00 Famotidine (Pepcid) 20 mg BID PO Last administered on 02/20/18 08:56; Start at 21:00 Influenza Virus Vaccine (Afluria Trivalent [id number] Syringe) 0.5 ml ONCE ONCE VAX IM Last administered on 02/18/18 12:05; Start 02/18/18 at 09:00; Stop at 09:01; Status DC Insulin Human Lispro (HumaLOG) 0-7 UNITS TIDWMEALS SQ Last administered on 02/20 17:43; Start 02/18/18 at 08:00 Miscellaneous (Lidoderm Patch Removal) 1 ea QHS MC Last administered on 21:00; Start 02/17/18 at 21:00 Bisacodyl (Dulcolax Supp) 10 mg PRN DAILY PRN [place] CONSTIPATION Last administered on 02/17/18 21:40; Start 02/17/18 at 20:45 Docusate Sodium (Colace) 100 mg BID PO Last administered on 02/20/18 08:56; Start 02/19/18 at 21:00 Polyethylene Glycol (miraLAX) 17 gm DAILY PO Last administered on 02/20/18 08: 56; Start 02/20/18 at 09:00 Magnesium Citrate (Citroma) 296 ml 1X ONCE PO Last administered on 02/19/18 12:31; Start 02/19/18 at 12:15; Stop 02/19/18 at 12:21; Status DC Levothyroxine Sodium (Synthroid) 175 mcg DAILY06 PO Last administered on 06:15; Start 02/20/18 at 06:00 Risperidone (RisperDAL) 0.5 mg HS PO Last administered on 02/19/18 19:56; Start 02/19/18 at 21:00 Acetaminophen/ Hydrocodone Bitart (Lortab 7.5/325) 1 tab PRN TID PRN PO PAIN Last administered on 02/20/18 09:09; Start 02/19/18 at 20:45 Active Scripts Active Reported Lovenox (Enoxaparin Sodium) 40 Mg/0.4 Ml Disp.syrin 40 Mg SQ QHS Gabapentin 100 Mg Capsule 200 Mg PO Q6HRS Diazepam 5 Mg Tablet 5 Mg PO Q8HRS Ranitidine Hcl 150 Mg Tablet 150 Mg PO BID Amlodipine Besylate 10 Mg Tablet 10 Mg PO DAILY Aspirin 81 Mg Tab.chew 81 Mg PO DAILY Vitamin D3 (Cholecalciferol (Vitamin D3)) 1,000 Unit Tablet 1,000 Unit PO DAILY Synthroid (Levothyroxine Sodium) 125 Mcg Tablet 125 Mcg PO DAILYAC Lisinopril 40 Mg Tablet 40 Mg PO DAILY Lantus Solostar (Insulin Glargine,Hum.rec.anlog) 100 Unit/1 Ml Insuln.pen 45 Unit SQ QHS Lidocaine 1 Each Adh..patch 1 Each TP DAILY Lipitor (Atorvastatin Calcium) 40 Mg Tablet 40 Mg PO QHS Prazosin Hcl 1 Mg Capsule 1 Mg PO QHS Colace (Docusate Sodium) 100 Mg Capsule 100 Mg PO DAILY Coreg (Carvedilol) 12.5 Mg Tablet 12.5 Mg PO BIDWMEALS Novolog Flexpen (Insulin Aspart) 100 Unit/1 Ml Insuln.pen 12 Unit SQ TID Plavix (Clopidogrel Bisulfate) 75 Mg Tablet 75 Mg PO DAILY Levothyroxine Sodium 50 Mcg Tablet 50 Mcg PO DAILY Lortab 7.5-325 mg Tablet (Hydrocodone/Acetaminophen) 1 Each Tablet 1 Tab PO TID PRN I have reviewed the current psychotropics carefully including drug interactions. Risk benefit ratio favors no change other than as noted in my dictated progress note. Diagnosis: Problems: (1) Anxiety disorder (2) Impulse control disorder (3) Schizophrenia, disorganized, subchronic with acute exacerbation (4) Schizoaffective disorder, bipolar type (5) Major neurocognitive disorder, due to vascular disease, with behavioral disturbance, mild (6) Mixed Alzheimer's and vascular dementia with behavior disturbances JALEEL AGUIRRE MD Feb 20, 2018 20:18
[2018-02-20] MEDS: PRAZOSIN 1 MG CAPSULE. PO SCH (20:34)
[2018-02-20] MEDS: ATORVASTATIN CALCIUM 20 MG TABLET PO SCH (20:34)
[2018-02-20] MEDS: risperiDONE 0.5 MG TABLET. PO SCH (20:34)
[2018-02-20] MEDS: ENOXAPARIN 40 MG/0.4 ML SYRINGE. SQ SCH (20:34)
[2018-02-20] MEDS: INSULIN GLARGINE 300 UNITS/3 ML INSULN.PEN. SQ SCH (20:36)
[2018-02-20] MEDS: PATCH REMOVAL. MC SCH (21:00)
--- NOTE | 2018-02-20 21:39 | PN ---
DATE: 02/19/2018 PSYCHIATRIC PROGRESS NOTE This late entry 02/19/2018 covers elements not covered in my initial note. SUBJECTIVE: I met with the patient at length on evening of 02/19/2018. The patient slept 7-1/2 hours previous evening. We have requested past psychiatric records. He was having some constipation. KUB showed stool plus plus and he has received mag citrate to help with this. He has been somewhat delusional, talking about having escaped from an internment camp and believes carrying guns and he is paranoid, suspicious, compliant with his medications. REVIEW OF SYSTEMS: Ambulation impaired, in wheelchair. Bilateral blindness. No CV, , pulmonary, eye, ENT system symptoms on review. MENTAL STATUS EXAM: Oriented to himself and situation. Speech has some latency, low in volume. Abstraction fair. Computation, unable to do serial 7's. Attention span short. Language function intact. Mood and affect somewhat withdrawn at times, labile, remains paranoid, delusional. No suicidal or homicidal ideation. LABORATORY DATA: Reviewed. IMPRESSION: Schizoaffective disorder, bipolar type, mixed with psychotic features, schizophrenia, chronic paranoid type with acute exacerbation; anxiety disorder, unspecified; major neurocognitive disorder, Alzheimer, vascular with delusion, depression. Rest unchanged. PLAN: Continue Valium 5 mg q. 8 hours, prazosin 1 mg at bedtime. Start Risperdal 0.5 mg p.o. at bedtime. Consider Depakote as a mood stabilizer. Await past records, then decide further course. MAN Dilma AGUIRRE MD DR: DIYA/valeria JOB#: [id number] / [id number]
--- NOTE | 2018-02-21 01:42 | NUR ---
Nursing Note Patient is located in patient room/day room for shift assessment and medication pass. Patient is alert and oriented to self only. Patient does not want this nurse to oriented him and becomes irritated when informed he is in [place]. The patient was compliant with cares and medications while in day room and patient room but was very disorganized, paranoid and argumentative when he was in bed. The patient made statements that the staff had locked him in the closet. This nurse and several other staff members discussed this with the patient but were unable to reorient the patient. The patient is currently sleeping in the patient room.
[2018-02-21 05:31] VITALS: BP 153/84
[2018-02-21] MEDS: LEVOTHYROXINE 125 MCG TABLET PO SCH (05:52)
[2018-02-21] MEDS: diazePAM 5 MG TABLET PO SCH ×3 (05:53→20:28)
[2018-02-21] MEDS: GABAPENTIN 100 MG CAPSULE. PO SCH ×4 (05:54→17:41)
[2018-02-21] MEDS: INSULIN LISPRO 300 UNITS/3 ML INSULN.PEN. SQ SCH ×6 (08:00→17:05)
[2018-02-21] MEDS: DOCUSATE SODIUM 100 MG CAPSULE PO SCH ×2 (08:29→20:25)
[2018-02-21] MEDS: CHOLECALCIFEROL (VITAMIN D3) 1,000 UNIT TABLET PO SCH (08:29)
[2018-02-21] MEDS: LIDOCAINE (700MG/PATCH) PATCH. TD SCH (08:29)
[2018-02-21] MEDS: amLODIPine BESYLATE 10 MG TABLET PO SCH (08:30)
[2018-02-21] MEDS: LISINOPRIL 20 MG TABLET PO SCH (08:30)
[2018-02-21] MEDS: ASPIRIN 81 MG TAB.CHEW PO SCH (08:31)
[2018-02-21] MEDS: CARVEDILOL 12.5 MG TABLET PO SCH ×2 (08:31→16:48)
[2018-02-21] MEDS: FAMOTIDINE 20 MG TABLET PO SCH ×2 (08:31→20:25)
[2018-02-21] MEDS: POLYETHYLENE GLYCOL 3350 17 GM PACKET. PO SCH (08:32)
--- NOTE | 2018-02-21 10:20 | NUR ---
Psychosocial Assessment Admit Date: 02/17/18 Psychiatrist: Faviola Medical Physician: Dr. Carbone Assessment Informants: Pt and pt sister Sex of Patient: Male Race: -Cymraes Age: 62 Living Situation: currently no placement Plans For Return: pt has no place to live at this time Legal status: DPOA Name of Legally Responsible Person: Richa Jessica -- sister Contacts: Name: Richa Jessica; sister Family Background and Relationships Marital status: Single; does have 3 kids (2 girls and a 1 boy) Marital (Cohabitation)/Sexual Orientation Issues: Heterosexual Family support And their Participation in therapy: pt sister Richa is his primary support person; is available to confirm information as needed; but pt is "his own person" Personal Background Education History: high school Vocational History: career 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 Pt is one of 12 (4 brothers and 7 sisters). Pt reports that his father had gotten into some trouble that ended his career. Cultural/Spiritual History Factors that may impact treatment: None History of Sexual/Physical Abuse of Neglect: None noted History of Substance Abuse: None in the last 12 months Psychiatric History: Pt reports prior stays at [place] facilities in [facility] Presenting Problems Presenting Problems/Criteria for admission: refusal to return to skilled nursing; SI, HI and threatening behaviors; hallucinations/delusions Patient's Current Intrinsic Strengths: vocal, financial support, [facility] support system Patient's Current Intrinsic Weaknesses: poor coping skills, potential embellishment of stories Social Work Treatment Plan Identified Problems 1.) no housing options 2.) poor local family support 3.) pt hx of psychiatric stays Goals for Treatment: behavior modification and appropriate placement at discharge Family Goals for Treatment: placement and medication management Social work Intervention: Group therapy per week:2-5x To increase positive, calm feelings. To Increase Socialization. To Teach and Practice Effective coping skills in a social setting. Individual Therapy Per Week: As needed. Using validation to increase calm and positive feelings. To encourage self-expression. To work on grief/loss and adjustment issues. To teach and practice effective coping skills. To educate about diagnoses, team recommendations etc.. Family Support and Education: As needed. Support family grief/adjustment process. Educate about Psychiatric/Behavioral problems and treatment recommendations. Patient's Educational Needs to be addressed in Treatment: Diagnosis, Treatment plan, Medication and Discharge Planning. Initial Discharge Plan: Continue to assess pt and discuss in team medications, goals and ELOS. Plan for communication of Psychiatric Follow up and Continuing Care Instructions to family and Care Givers: Written and verbal communication. Additional Notes: SW met with pt who was alert and very talkative. Pt reports that this is his first time on [facility] and hopes to discharge home from here. Pt reports that his sister, Richa is his DPOA in times that he cannot make decisions. But he is able to make decisions and "runs the show". Pt reports that his family has a town that they "own" as they were all raised there and has a cemetery between [facility]. Pt reports that his father got into trouble with bootlegging, tax invasion and running a prostitution ring, which ended his career. Pt parents both in 1998 one month apart from each other. Pt reports that his father had a heart attack and his mother followed. Pt feels that loneliness is his biggest barrier and felt that he needed to get himself together before he could hopefully discharge back into the community. Pt does not wish to live in a LTC facility. Pt sister was able to clarify information pertaining to pt assessment.
[2018-02-21 15:54] VITALS: BP 147/85
[2018-02-21] MEDS ORDERED: traZODone 100 MG TABLET. PO PRN (16:45)
--- NOTE | 2018-02-21 17:35 | NUR ---
Nursing Note Patient has been calm, cooperative and appropriate. He has been compliant with medications and assessment. Patient continues to have delusions throughout the day. He has been interactive, participating in all group activities and socializing with other patients and staff members. No negative moods or behaviors observed thus far. Will continue to monitor.
[2018-02-21] MEDS: HYDROcodone/APAP 7.5/325MG 1 TAB TABLET PO PRN (17:41)
[2018-02-21] MEDS: ATORVASTATIN CALCIUM 20 MG TABLET PO SCH (20:25)
[2018-02-21] MEDS: PATCH REMOVAL. MC SCH (20:25)
[2018-02-21] MEDS: risperiDONE 0.5 MG TABLET. PO SCH (20:26)
[2018-02-21] MEDS: PRAZOSIN 1 MG CAPSULE. PO SCH (20:26)
[2018-02-21] MEDS: ENOXAPARIN 40 MG/0.4 ML SYRINGE. SQ SCH (20:26)
[2018-02-21] MEDS: INSULIN GLARGINE 300 UNITS/3 ML INSULN.PEN. SQ SCH (20:29)
[2018-02-21] MEDS: traZODone 100 MG TABLET. PO SCH (20:30)
--- NOTE | 2018-02-21 20:42 | PDOC ---
Exam Note: Ishaan Note: Please also refer to the separate dictated note~for this date of service dictated separately.~Patient seen individually. Discussed the patient with Nursing staff reviewed the chart.~Reviewed interim history and current functioning. Reviewed vital signs,~Labs/ Radiology~and current medications noted below. Continue current treatment with the changes noted in the dictated addendum note Assessment: Vital Signs: Vital Signs Date Time Temp Pulse Resp B/P (MAP) Pulse Ox O2 Delivery O2 Flow Rate FiO2 02/21/18 20:26 96 147/85 02/21/18 18:41 20 93 02/21/18 15:54 97.1 Room Air I&O Intake and Output 02/21/18 07:00 Intake Total 960 ml Output Total 750 ml Balance 210 ml Intake Oral 960 ml Output Urine Total 750 ml Labs: Laboratory Tests Test 02/21/18 07:34 02/21/18 07:57 02/21/18 12:05 02/21/18 16:17 Glucose (Fingerstick) 67 mg/dL (70-99) L 74 mg/dL (70-99) 300 mg/dL (70-99) H 299 mg/dL (70-99) H Test 02/21/18 19:36 Glucose (Fingerstick) 253 mg/dL (70-99) H Current Medications: Meds: Current Medications Acetaminophen (Tylenol) 650 mg PRN Q6HRS PRN PO PAIN / TEMP; Start 02/17/18 at 15:15 Multi-Ingredient Ointment (Analgesic [place]) 1 neha PRN QID PRN TP MUSCLE PAIN; Start 02/17/18 at 15:15 Al Hydroxide/Mg Hydroxide (Mylanta Plus Xs) 15 ml PRN AFTMEALHC PRN PO DYSPEPSIA; Start 02/17/18 at 15:15 Magnesium Hydroxide (Milk Of Magnesia) 2,400 mg PRN QHS PRN PO CONSTIPATION Last administered on 02/18/18at 05:33; Start 02/17/18 at 15:15 Vitamin D (Vitamin D3) 1,000 unit DAILY PO Last administered on 02/21/18at 08:29 ; Start 02/18/18 at 09:00 Diazepam (Valium) 5 mg Q8HRS PO Last administered on 02/21/18at 20:28; Start at 22:00 Gabapentin (Neurontin) 200 mg Q6HRS PO Last administered on 02/21/18 17:41; Start 02/17/18 at 18:00 Insulin Glargine (Lantus) 45 units QHS SQ Last administered on 02/21/18 20:29 ; Start 02/17/18 at 21:00 Amlodipine Besylate (Norvasc) 10 mg DAILY PO Last administered on 02/21/18 08: 30; Start 02/18/18 at 09:00 Aspirin (Children'S Aspirin) 81 mg DAILYWBKFT PO Last administered on 08:31; Start 02/18/18 at 08:00 Atorvastatin Calcium (Lipitor) 40 mg QHS PO Last administered on 02/21/18 20: 25; Start 02/17/18 at 21:00 Carvedilol (Coreg) 12.5 mg BIDWMEALS PO Last administered on 02/21/18 16:48; Start 02/18/18 at 08:00 Non-Formulary Medication (Diazepam (Valium)) 10 mg Q6HRS PO ; Start 02/17/18 at 18:00; Status UNV Docusate Sodium (Colace) 100 mg DAILY PO Last administered on 02/19/18 08:07; Start 02/18/18 at 09:00; Stop 02/19/18 at 12:17; Status DC Enoxaparin Sodium (Lovenox 40mg Syringe) 40 mg QHS SQ Last administered on 02/21 20:26; Start 02/17/18 at 21:00 Insulin Human Lispro (HumaLOG) 12 units TIDWMEALS SQ Last administered on 16:50; Start 02/18/18 at 08:00 Levothyroxine Sodium (Synthroid) 125 mcg DAILY06 PO Last administered on 06:15; Start 02/18/18 at 06:00; Stop 02/19/18 at 12:22; Status DC Lidocaine (Lidoderm) 1 patch DAILY TD Last administered on 02/21/18 08:29; Start 02/18/18 at 09:00 Lisinopril (Prinivil) 40 mg DAILY PO Last administered on 02/21/18 08:30; Start 02/18/18 at 09:00 Prazosin HCl (Minipress) 1 mg QHS PO Last administered on 02/21/18 20:26; Start 02/17/18 at 21:00 Famotidine (Pepcid) 20 mg BID PO Last administered on 02/21/18 20:25; Start at 21:00 Influenza Virus Vaccine (Afluria Trivalent [id number] Syringe) 0.5 ml ONCE ONCE VAX IM Last administered on 02/18/18 12:05; Start 02/18/18 at 09:00; Stop at 09:01; Status DC Insulin Human Lispro (HumaLOG) 0-7 UNITS TIDWMEALS SQ Last administered on 02/21 17:05; Start 02/18/18 at 08:00 Miscellaneous (Lidoderm Patch Removal) 1 ea QHS MC Last administered on 20:25; Start 02/17/18 at 21:00 Bisacodyl (Dulcolax Supp) 10 mg PRN DAILY PRN [place] CONSTIPATION Last administered on 02/17/18 21:40; Start 02/17/18 at 20:45 Docusate Sodium (Colace) 100 mg BID PO Last administered on 02/21/18 20:25; Start 02/19/18 at 21:00 Polyethylene Glycol (miraLAX) 17 gm DAILY PO Last administered on 02/21/18 08: 32; Start 02/20/18 at 09:00 Magnesium Citrate (Citroma) 296 ml 1X ONCE PO Last administered on 02/19/18 12:31; Start 02/19/18 at 12:15; Stop 02/19/18 at 12:21; Status DC Levothyroxine Sodium (Synthroid) 175 mcg DAILY06 PO Last administered on 05:52; Start 02/20/18 at 06:00 Risperidone (RisperDAL) 0.5 mg HS PO Last administered on 02/21/18 20:26; Start 02/19/18 at 21:00 Acetaminophen/ Hydrocodone Bitart (Lortab 7.5/325) 1 tab PRN TID PRN PO PAIN Last administered on 02/21/18 17:41; Start 02/19/18 at 20:45 Trazodone HCl (Desyrel) 100 mg QHS PO Last administered on 02/21/18at 20:30; Start 02/21/18 at 21:00 Trazodone HCl (Desyrel) 100 mg PRN QHS PRN PO INSOMNIA; Start 02/21/18 at 16:45 Active Scripts Active Reported Lovenox (Enoxaparin Sodium) 40 Mg/0.4 Ml Disp.syrin 40 Mg SQ QHS Gabapentin 100 Mg Capsule 200 Mg PO Q6HRS Diazepam 5 Mg Tablet 5 Mg PO Q8HRS Ranitidine Hcl 150 Mg Tablet 150 Mg PO BID Amlodipine Besylate 10 Mg Tablet 10 Mg PO DAILY Aspirin 81 Mg Tab.chew 81 Mg PO DAILY Vitamin D3 (Cholecalciferol (Vitamin D3)) 1,000 Unit Tablet 1,000 Unit PO DAILY Synthroid (Levothyroxine Sodium) 125 Mcg Tablet 125 Mcg PO DAILYAC Lisinopril 40 Mg Tablet 40 Mg PO DAILY Lantus Solostar (Insulin Glargine,Hum.rec.anlog) 100 Unit/1 Ml Insuln.pen 45 Unit SQ QHS Lidocaine 1 Each Adh..patch 1 Each TP DAILY Lipitor (Atorvastatin Calcium) 40 Mg Tablet 40 Mg PO QHS Prazosin Hcl 1 Mg Capsule 1 Mg PO QHS Colace (Docusate Sodium) 100 Mg Capsule 100 Mg PO DAILY Coreg (Carvedilol) 12.5 Mg Tablet 12.5 Mg PO BIDWMEALS Novolog Flexpen (Insulin Aspart) 100 Unit/1 Ml Insuln.pen 12 Unit SQ TID Plavix (Clopidogrel Bisulfate) 75 Mg Tablet 75 Mg PO DAILY Levothyroxine Sodium 50 Mcg Tablet 50 Mcg PO DAILY Lortab 7.5-325 mg Tablet (Hydrocodone/Acetaminophen) 1 Each Tablet 1 Tab PO TID PRN I have reviewed the current psychotropics carefully including drug interactions. Risk benefit ratio favors no change other than as noted in my dictated progress note. Diagnosis: Problems: (1) Anxiety disorder (2) Impulse control disorder (3) Schizophrenia, disorganized, subchronic with acute exacerbation (4) Schizoaffective disorder, bipolar type (5) Major neurocognitive disorder, due to vascular disease, with behavioral disturbance, mild (6) Mixed Alzheimer's and vascular dementia with behavior disturbances JALEEL AGUIRRE MD Feb 21, 2018 20:42
--- NOTE | 2018-02-21 21:22 | PN ---
DATE: 02/20/2018 This is a late entry for 02/20/2018 covers elements not covered in my initial note. SUBJECTIVE: I met with the patient in the evening. Overall, per nursing report, the patient slept 7-1/2 hours previous night. He has been doing a little better, still paranoid, anxious. REVIEW OF SYSTEMS: Bilateral blindness, impaired ambulation, in wheelchair. No CV, , pulmonary system symptoms on review. MENTAL STATUS EXAM: Oriented to himself and situation. Speech moderate latency, low in volume, coherent, abstraction fair, computation impaired, language function intact. He remains somewhat paranoid, suspicious. No active suicidal or homicidal ideation. IMPRESSION: Schizoaffective disorder, bipolar type, mixed with psychotic features; major neurocognitive disorder, Alzheimer, vascular with delusion, depression. Rest unchanged. PLAN: Maintain prazosin 1 mg at bedtime, Risperdal 0.5 mg at bedtime, Valium p.r.n. May add Depakote as a mood stabilizer depending on his progress. JALEEL AGUIRRE MD DR: DIYA/valeria JOB#: [id number] / [id number]
--- NOTE | 2018-02-21 23:04 | NUR ---
Behavior Intervention Response and Plan: BIRP Note: Behavior: Assumed Care of patient, patient located in Day Room at shift change. Patient exhibited the following behavior Calm, Interactive, Able to Focus on Task. Brief assessment on rounds of vital signs, medication needs, lab studies, and pain. Treatment plan problems . Intervention: Patient assessed and the following interventions initiated safety checks 15 Minute Checks Head to toe Assessment , Cognitive Assessment , Medications. Response: After interactions and interventions patient responded in the following manner, Appropriate , Disorganized ,Social. Continue to assess behaviors and condition will continue to monitor throughout the shift as needed. Patient educated on ADL's, and hand hygiene. Plan: Continue to monitor Master Treatment Plan for patient's progress toward short term goals of Improved Mood, Decreased Agitation, ad terminal makeup operator goals to return to previous living setting vs placement. Continue to assess patient for changes in above assessment. Monitor for medication needs, pain, and safety concerns. Hourly rounding performed to ensure safe environment.
[2018-02-22 05:20] VITALS: BP 136/82
[2018-02-22] MEDS: diazePAM 5 MG TABLET PO SCH ×4 (05:58→20:12)
[2018-02-22] MEDS: LEVOTHYROXINE 125 MCG TABLET PO SCH (05:58)
[2018-02-22] MEDS: GABAPENTIN 100 MG CAPSULE. PO SCH ×5 (05:58→17:56)
[2018-02-22] MEDS: LIDOCAINE (700MG/PATCH) PATCH. TD SCH (07:41)
[2018-02-22] MEDS: DOCUSATE SODIUM 100 MG CAPSULE PO SCH ×2 (07:53→20:09)
[2018-02-22] MEDS: CHOLECALCIFEROL (VITAMIN D3) 1,000 UNIT TABLET PO SCH (07:54)
[2018-02-22] MEDS: FAMOTIDINE 20 MG TABLET PO SCH ×2 (07:54→20:09)
[2018-02-22] MEDS: ASPIRIN 81 MG TAB.CHEW PO SCH (07:54)
[2018-02-22] MEDS: POLYETHYLENE GLYCOL 3350 17 GM PACKET. PO SCH (07:55)
[2018-02-22] MEDS: INSULIN LISPRO 300 UNITS/3 ML INSULN.PEN. SQ SCH ×6 (08:00→17:59)
--- NOTE | 2018-02-22 08:07 | NUR ---
Assumed care of pt approx 0700. Pt sitting up in bed getting dressed for the day. Pt C/O mid to lower back pain- lidocaine patch applied. Pt compliant w/ assessment with oral meds in dining room. Pt oriented to self and year; however, thought he was in a jail house.
[2018-02-22] MEDS: amLODIPine BESYLATE 10 MG TABLET PO SCH (09:00)
[2018-02-22 09:01] VITALS: BP 139/81
[2018-02-22] MEDS: CARVEDILOL 12.5 MG TABLET PO SCH ×2 (09:02→17:59)
[2018-02-22] MEDS: LISINOPRIL 20 MG TABLET PO SCH (09:03)
[2018-02-22] MEDS: SULFACETAMIDE 10% OPHTH SOLUTION 15ML BOTTLE. OS SCH ×3 (13:47→20:29)
--- NOTE | 2018-02-22 14:17 | NUR ---
Nursing Note: Pt refused to work with OT saying that he could not perform the exercises on a full stomach. No matter how much OT staff tried to explain that the exercises would not be so strenuous enough to cause stomach upset, pt still refused and even found other reason not to participate.
[2018-02-22 16:31] VITALS: BP 124/91
[2018-02-22] MEDS: traZODone 100 MG TABLET. PO SCH (20:09)
[2018-02-22] MEDS: PRAZOSIN 1 MG CAPSULE. PO SCH (20:10)
[2018-02-22] MEDS: ATORVASTATIN CALCIUM 20 MG TABLET PO SCH (20:10)
[2018-02-22] MEDS: PATCH REMOVAL. MC SCH (20:10)
[2018-02-22] MEDS: ENOXAPARIN 40 MG/0.4 ML SYRINGE. SQ SCH (20:11)
[2018-02-22] MEDS: risperiDONE 0.25 MG TABLET. PO SCH (20:13)
[2018-02-22] MEDS: INSULIN GLARGINE 300 UNITS/3 ML INSULN.PEN. SQ SCH (20:15)
[2018-02-22] MEDS: ERYTHROMYCIN 0.5% OPHTH OINTMENT 1GM TUBE. OS SCH (21:00)
--- NOTE | 2018-02-22 21:06 | PDOC ---
Exam Note: Ishaan Note: Please also refer to the separate dictated note~for this date of service dictated separately.~Patient seen individually. Discussed the patient with Nursing staff reviewed the chart.~Reviewed interim history and current functioning. Reviewed vital signs,~Labs/ Radiology~and current medications noted below. Continue current treatment with the changes noted in the dictated addendum note Assessment: Vital Signs: Vital Signs Date Time Temp Pulse Resp B/P (MAP) Pulse Ox O2 Delivery O2 Flow Rate FiO2 02/22/18 20:10 73 124/91 02/22/18 16:31 97.4 18 97 Room Air I&O Intake and Output 02/22/18 07:00 Intake Total 960 ml Balance 960 ml Intake Oral 960 ml Labs: Laboratory Tests Test 02/22/18 07:30 02/22/18 09:58 02/22/18 11:43 02/22/18 16:26 Glucose (Fingerstick) 68 mg/dL (70-99) L 117 mg/dL (70-99) H 135 mg/dL (70-99) H 164 mg/dL (70-99) H Test 02/22/18 19:19 Glucose (Fingerstick) 193 mg/dL (70-99) H Current Medications: Meds: Current Medications Acetaminophen (Tylenol) 650 mg PRN Q6HRS PRN PO PAIN / TEMP; Start 02/17/18 at 15:15 Multi-Ingredient Ointment (Analgesic [place]) 1 neha PRN QID PRN TP MUSCLE PAIN; Start 02/17/18 at 15:15 Al Hydroxide/Mg Hydroxide (Mylanta Plus Xs) 15 ml PRN AFTMEALHC PRN PO DYSPEPSIA; Start 02/17/18 at 15:15 Magnesium Hydroxide (Milk Of Magnesia) 2,400 mg PRN QHS PRN PO CONSTIPATION Last administered on 02/18/18at 05:33; Start 02/17/18 at 15:15 Vitamin D (Vitamin D3) 1,000 unit DAILY PO Last administered on 02/22/18at 07:54 ; Start 02/18/18 at 09:00 Diazepam (Valium) 5 mg Q8HRS PO Last administered on 02/22/18at 20:12; Start at 22:00 Gabapentin (Neurontin) 200 mg Q6HRS PO Last administered on 02/22/18 17:56; Start 02/17/18 at 18:00 Insulin Glargine (Lantus) 45 units QHS SQ Last administered on 02/22/18 20:15 ; Start 02/17/18 at 21:00 Amlodipine Besylate (Norvasc) 10 mg DAILY PO Last administered on 02/22/18at 09: 00; Start 02/18/18 at 09:00 Aspirin (Children'S Aspirin) 81 mg DAILYWBKFT PO Last administered on at 07:54; Start 02/18/18 at 08:00 Atorvastatin Calcium (Lipitor) 40 mg QHS PO Last administered on 02/22/18 20: 10; Start 02/17/18 at 21:00 Carvedilol (Coreg) 12.5 mg BIDWMEALS PO Last administered on 02/22/18at 17:59; Start 02/18/18 at 08:00 Non-Formulary Medication (Diazepam (Valium)) 10 mg Q6HRS PO ; Start 02/17/18 at 18:00; Status UNV Docusate Sodium (Colace) 100 mg DAILY PO Last administered on 02/19/18 08:07; Start 02/18/18 at 09:00; Stop 02/19/18 at 12:17; Status DC Enoxaparin Sodium (Lovenox 40mg Syringe) 40 mg QHS SQ Last administered on 02/22at 20:11; Start 02/17/18 at 21:00 Insulin Human Lispro (HumaLOG) 12 units TIDWMEALS SQ Last administered on at 17:57; Start 02/18/18 at 08:00 Levothyroxine Sodium (Synthroid) 125 mcg DAILY06 PO Last administered on at 06:15; Start 02/18/18 at 06:00; Stop 02/19/18 at 12:22; Status DC Lidocaine (Lidoderm) 1 patch DAILY TD Last administered on 02/22/18at 07:41; Start 02/18/18 at 09:00 Lisinopril (Prinivil) 40 mg DAILY PO Last administered on 02/22/18at 09:03; Start 02/18/18 at 09:00 Prazosin HCl (Minipress) 1 mg QHS PO Last administered on 02/22/18 20:10; Start 02/17/18 at 21:00 Famotidine (Pepcid) 20 mg BID PO Last administered on 02/22/18 20:09; Start at 21:00 Influenza Virus Vaccine (Afluria Trivalent [id number] Syringe) 0.5 ml ONCE ONCE VAX IM Last administered on 02/18/18at 12:05; Start 02/18/18 at 09:00; Stop at 09:01; Status DC Insulin Human Lispro (HumaLOG) 0-7 UNITS TIDWMEALS SQ Last administered on 02/22 17:59; Start 02/18/18 at 08:00 Miscellaneous (Lidoderm Patch Removal) 1 ea QHS MC Last administered on 20:10; Start 02/17/18 at 21:00 Bisacodyl (Dulcolax Supp) 10 mg PRN DAILY PRN [place] CONSTIPATION Last administered on 02/17/18at 21:40; Start 02/17/18 at 20:45 Docusate Sodium (Colace) 100 mg BID PO Last administered on 02/22/18 20:09; Start 02/19/18 at 21:00 Polyethylene Glycol (miraLAX) 17 gm DAILY PO Last administered on 02/22/18at 07: 55; Start 02/20/18 at 09:00 Magnesium Citrate (Citroma) 296 ml 1X ONCE PO Last administered on 02/19/18at 12:31; Start 02/19/18 at 12:15; Stop 02/19/18 at 12:21; Status DC Levothyroxine Sodium (Synthroid) 175 mcg DAILY06 PO Last administered on 05:58; Start 02/20/18 at 06:00 Risperidone (RisperDAL) 0.5 mg HS PO Last administered on 02/21/18 20:26; Start 02/19/18 at 21:00; Stop 02/22/18 at 16:49; Status DC Acetaminophen/ Hydrocodone Bitart (Lortab 7.5/325) 1 tab PRN TID PRN PO PAIN Last administered on 02/21/18 17:41; Start 02/19/18 at 20:45 Trazodone HCl (Desyrel) 100 mg QHS PO Last administered on 02/22/18at 20:09; Start 02/21/18 at 21:00 Trazodone HCl (Desyrel) 100 mg PRN QHS PRN PO INSOMNIA; Start 02/21/18 at 16:45 Sulfacetamide Sodium (Sulf-10) 1 drop Q4H OS Last administered on 02/22/18at 13: 47; Start 02/22/18 at 12:30 Erythromycin (Romycin) 0.25 inch QHS OS ; Start 02/22/18 at 21:00 Risperidone (RisperDAL) 0.75 mg QHS PO Last administered on 02/22/18at 20:13; Start 02/22/18 at 21:00 Active Scripts Active Reported Lovenox (Enoxaparin Sodium) 40 Mg/0.4 Ml Disp.syrin 40 Mg SQ QHS Gabapentin 100 Mg Capsule 200 Mg PO Q6HRS Diazepam 5 Mg Tablet 5 Mg PO Q8HRS Ranitidine Hcl 150 Mg Tablet 150 Mg PO BID Amlodipine Besylate 10 Mg Tablet 10 Mg PO DAILY Aspirin 81 Mg Tab.chew 81 Mg PO DAILY Vitamin D3 (Cholecalciferol (Vitamin D3)) 1,000 Unit Tablet 1,000 Unit PO DAILY Synthroid (Levothyroxine Sodium) 125 Mcg Tablet 125 Mcg PO DAILYAC Lisinopril 40 Mg Tablet 40 Mg PO DAILY Lantus Solostar (Insulin Glargine,Hum.rec.anlog) 100 Unit/1 Ml Insuln.pen 45 Unit SQ QHS Lidocaine 1 Each Adh..patch 1 Each TP DAILY Lipitor (Atorvastatin Calcium) 40 Mg Tablet 40 Mg PO QHS Prazosin Hcl 1 Mg Capsule 1 Mg PO QHS Colace (Docusate Sodium) 100 Mg Capsule 100 Mg PO DAILY Coreg (Carvedilol) 12.5 Mg Tablet 12.5 Mg PO BIDWMEALS Novolog Flexpen (Insulin Aspart) 100 Unit/1 Ml Insuln.pen 12 Unit SQ TID Plavix (Clopidogrel Bisulfate) 75 Mg Tablet 75 Mg PO DAILY Levothyroxine Sodium 50 Mcg Tablet 50 Mcg PO DAILY Lortab 7.5-325 mg Tablet (Hydrocodone/Acetaminophen) 1 Each Tablet 1 Tab PO TID PRN I have reviewed the current psychotropics carefully including drug interactions. Risk benefit ratio favors no change other than as noted in my dictated progress note. Diagnosis: Problems: (1) Anxiety disorder (2) Impulse control disorder (3) Schizophrenia, disorganized, subchronic with acute exacerbation (4) Schizoaffective disorder, bipolar type (5) Major neurocognitive disorder, due to vascular disease, with behavioral disturbance, mild (6) Mixed Alzheimer's and vascular dementia with behavior disturbances JALEEL AGUIRRE MD Feb 22, 2018 21:06
--- NOTE | 2018-02-22 22:14 | NUR ---
Pt was sitting up in w/c at shift change. Pt A/O to self, [facility] not believe [facility] but from a home in [place]. Pt resistive but compliant w/HS medications when this nurse told pt what he was taking. Pt resistive w/his Risperdal and Prazosin stating " I don't need to take these psychiatric drugs. Those are the ones that mess you up." This nurse attempted to explain the medication indications and reasons for being compliant with the medication regime, however, pt remained insistent that he not take them. This nurse placed them in the med cup when pt not watching adn he took all of his medications. At approx 2130, pt sitting up in his w/c in the day room and it appeared he had vomit on his shirt. Pt VSS, and pt reports feeling fine. Pt then began to demand that someone bring him the urinal. Several staff explained to pt that he would be taken back to his room to use the urinal but pt became argumentative, yelling at staff to bring him the urinal. Staff explained to pt several times that he could not use the urinal in the day room to urinate. Pt then stated he did not have to urinate but wanted the urinal because staff had told him he vomited on his shirt. Staff then proceeded to tell pt that he would be provided with a basin in order to vomit should he need to but pt continued to argue and yell at staff. Pt was then told by several staff members that he would be getting his shower. Once staff had pt in shower room and were attempting to assist him to the shower chair, pt was uncooperative and combative attempting to hit the 3 NAILER HAND's that were transferring him. Pt then refused to help with the transfer, would not bear weight and staff then lowered him to the floor of the shower room and called for this nurse. This nurse attempted to talk to pt and ask him what was going on when pt began yelling at this nurse, calling staff names, was being very condescending. Pt refused to help staff get him up off the floor and then reported that he had " weighted" on purpose. Pt was assisted off of the floor and into his w/c by 4 staff members and taken to his room. Once in his room, pt again refused to stand to transfer at which point staff retrieved the sit to stand lift in order to help pt into bed. Pt initially refused to comply with staff orders to grab the safety handles on the lift and wanted to know "why are y'all handcuffing me?" Pt was assured that handcuffs were not being used and that we were just trying to help him into bed. Pt did eventually grab the safety bars on the lift and allowed staff to assist him to his bed where he insisted on sitting at the edge of the bed for "5 minutes" to which staff complied and waited in the room with the pt. Pt then allowed staff to assist him with laying down, pt covered up, bed lowered, and lights turned off.
--- NOTE | 2018-02-22 23:45 | PN ---
DATE: 02/21/2018 PSYCHIATRIC PROGRESS NOTE This late entry 02/21/2018 covers elements not covered in my initial note. SUBJECTIVE: I met with the patient in the evening. I have returned a call from Dr. Pati Maloney, patient's primary care physician on 2 or 3 separate occasions waiting for a call back as Dr. Maloney wanted an update on the patient with his upcoming discharge Per nursing report, the patient has been doing reasonably well. He remains somewhat hyperverbal, but no suicidal ideation noted. REVIEW OF SYSTEMS: Ambulation impaired, in wheelchair. No CV, , pulmonary, eye system symptoms on review. MENTAL STATUS EXAMINATION DICTATION ENDS HERE MAN Dilma AGUIRRE MD DR: DIYA/valeria JOB#: [id number] / [id number]
--- NOTE | 2018-02-22 23:54 | PN ---
DATE: 02/21/2018 PSYCHIATRIC PROGRESS NOTE This late entry 02/21/2018, covers elements not covered in my initial note. SUBJECTIVE: I met with the patient in the evening of 02/21/2018. Overall, the patient has been somewhat withdrawn, refused physical therapy, somewhat delusional per nursing report. Previous evening, he was telling the nursing staff that everyone is going to be put in a wall. He slept just 3 hours previous evening. REVIEW OF SYSTEMS: He has bilateral/legal blindness, impaired ambulation, in wheelchair. No CV, , pulmonary, ENT system symptoms on review. MENTAL STATUS EXAM: Oriented to himself and situation. Speech moderate latency, low in rate and rhythm, low in volume. Abstraction fair, computation impaired, language function intact, attention span short. Mood and affect withdrawn. LABORATORY DATA: Reviewed. IMPRESSION: Schizoaffective disorder, bipolar type, mixed with psychotic features; anxiety disorder, unspecified; major neurocognitive disorder, Alzheimer, vascular with delusion, depression. PLAN: Increase trazodone to 100 mg at bedtime, may repeat x 1 p.r.n. insomnia due to his marked insomnia. Continue Risperdal 0.5 mg at bedtime, may need to increase this, maintain Minipress 1 mg at bedtime for his PTSD symptoms and Valium, which we will attempt to taper in due course and consider adding Depakote as a mood stabilizer. MAN Dilma AGUIRRE MD DR: DIYA/valeria JOB#: [id number] / [id number]
[2018-02-23] MEDS: SULFACETAMIDE 10% OPHTH SOLUTION 15ML BOTTLE. OS SCH ×6 (00:16→21:01)
[2018-02-23 05:51] VITALS: BP 148/84
[2018-02-23] MEDS: GABAPENTIN 100 MG CAPSULE. PO SCH ×4 (06:00→18:00)
[2018-02-23] MEDS: diazePAM 5 MG TABLET PO SCH ×3 (06:00→21:02)
[2018-02-23] MEDS: LEVOTHYROXINE 125 MCG TABLET PO SCH (06:00)
--- NOTE | 2018-02-23 06:40 | NUR ---
Pt refused his morning medications. Pt stated, "If it's not time for breakfast, leave me alone."
[2018-02-23] MEDS: INSULIN LISPRO 300 UNITS/3 ML INSULN.PEN. SQ SCH ×6 (08:00→17:20)
--- NOTE | 2018-02-23 08:55 | NUR ---
Nursing Note: Pt speaking rudely to staff and refusing to assist staff in helping to get him dress for the day. This nurse informed pt that things are not going to be done on his time. Meals are served at a certain time and; therefore, he needed to assist staff and stop being resistive and argumentative. Pt continued to be resistive for 5 + minutes then assisted staff to include scooting himself to the side of the bed and performing most of the transferring of himself to the wheelchair.
[2018-02-23] MEDS: LISINOPRIL 20 MG TABLET PO SCH (09:20)
[2018-02-23] MEDS: ASPIRIN 81 MG TAB.CHEW PO SCH (09:21)
[2018-02-23] MEDS: CHOLECALCIFEROL (VITAMIN D3) 1,000 UNIT TABLET PO SCH (09:21)
[2018-02-23] MEDS: FAMOTIDINE 20 MG TABLET PO SCH ×2 (09:21→21:02)
[2018-02-23] MEDS: amLODIPine BESYLATE 10 MG TABLET PO SCH (09:21)
[2018-02-23] MEDS: POLYETHYLENE GLYCOL 3350 17 GM PACKET. PO SCH (09:21)
[2018-02-23] MEDS: CARVEDILOL 12.5 MG TABLET PO SCH ×2 (09:21→17:20)
[2018-02-23] MEDS: LIDOCAINE (700MG/PATCH) PATCH. TD SCH (09:22)
--- NOTE | 2018-02-23 09:25 | NUR ---
WEEKLY ACTIVITY THERAPY NOTE Date of Admission: 02/17/2018 Date of AT Assessment: 02/20/2018 Goal aimed: to increase socialization and assertiveness Initial goal: Pt. will participate in at least one group per day and will ask for/ initiate help with a task at least once before discharge. Weekly progress towards goal: achieved group participation goal; on track for initiate help goal Group participation level: moderate Behaviors observed: Pt. has become more engaged as the week has progressed. Pt. is generally pleasant in his interactions but is soft spoken at times; Pt. will engage with minimal prompting Plan: no change to goal
[2018-02-23] MEDS: DOCUSATE SODIUM 100 MG CAPSULE PO SCH ×2 (09:26→21:02)
[2018-02-23] MEDS ORDERED: traZODone 150 MG TABLET. PO PRN (10:00)
--- NOTE | 2018-02-23 14:40 | NUR ---
WEEKLY NOTE: Pt continues to be difficult in that he refuses certain medications and attempts to refuse groups and other staff requests. Pt does not wish to discharge to a facility and wants to discharge home. Pt has unrealistic expectations and believes that his way is the only way at this time. SW and staff will continue to attempt to work with pt on his expectations. Recommendations will be made for a more home-like setting but with appropriate nursing services available (e.g. domiciliary, [facility] or [place])
--- NOTE | 2018-02-23 14:45 | NUR ---
Nursing Note: Pt repeatedly argued that he had already been given his 1400 dose of Valium. Then he argued that he didn't understand why he was "sitting in the freezing part of the room." Offered pt a warm blanket, but pt just continued to repeat himself and then began to bring up issues from the shift coordinator. Asked pt again if he wanted to take his 1400 dose of Valium, pt again insisted that he had taken med from another person. Pt could not be convinced otherwise. Med hidden in drink. Will continue to monitor. Dr. Christianson had asked in treatment team what pt was taking Valim for and if it was for muscle spasm if Dr. Daniels could instead try Baclofen. After looking through pt's chart, Valium is being given for anxiety. Will pass this information to Dr. Christianson in report.
[2018-02-23 15:40] VITALS: BP 127/74
--- NOTE | 2018-02-23 15:57 | NUR ---
Behavior Intervention Response and Plan: BIRP Note: Behavior: Assumed Care of patient, patient located in Patient Room at shift change. Patient exhibited the following behavior Demanding, Irritable, Agitated. Brief assessment on rounds of vital signs, medication needs, lab studies, and pain. Treatment plan problems altered thought process and fall risk. Intervention: Patient assessed and the following interventions initiated safety checks 15 Minute Checks Head to toe Assessment , Cognitive Assessment , Medications. Response: After interactions and interventions patient responded in the following manner, Irritable , Resistive ,Agitated. Continue to assess behaviors and condition will continue to monitor throughout the shift as needed. Patient educated on ADL's, and hand hygiene. 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 Continue to assess patient for changes in above assessment. Monitor for medication needs, pain, and safety concerns. Hourly rounding performed to ensure safe environment.
--- NOTE | 2018-02-23 18:29 | NUR ---
Nursing Note: Pt refused Neurontin stating, "It makes my feet hurt more."
--- NOTE | 2018-02-23 20:49 | PDOC ---
Exam Note: Ishaan Note: Please also refer to the separate dictated note~for this date of service dictated separately.~Patient seen individually. Discussed the patient with Nursing staff reviewed the chart.~Reviewed interim history and current functioning. Reviewed vital signs,~Labs/ Radiology~and current medications noted below. Continue current treatment with the changes noted in the dictated addendum note Assessment: Vital Signs: Vital Signs Date Time Temp Pulse Resp B/P (MAP) Pulse Ox O2 Delivery O2 Flow Rate FiO2 02/23/18 17:20 70 127/74 02/23/18 15:40 97.1 22 98 02/22/18 16:31 Room Air I&O Intake and Output 02/23/18 07:00 Intake Total 1020 ml Balance 1020 ml Intake Oral 1020 ml # Voids 1 Labs: Laboratory Tests Test 02/22/18 21:19 02/23/18 07:24 02/23/18 11:31 02/23/18 16:31 Glucose (Fingerstick) 208 mg/dL (70-99) H 150 mg/dL (70-99) H 286 mg/dL (70-99) H 271 mg/dL (70-99) H Test 02/23/18 19:46 Glucose (Fingerstick) 365 mg/dL (70-99) H Current Medications: Meds: Current Medications Acetaminophen (Tylenol) 650 mg PRN Q6HRS PRN PO PAIN / TEMP; Start 02/17/18 at 15:15 Multi-Ingredient Ointment (Analgesic [place]) 1 neha PRN QID PRN TP MUSCLE PAIN; Start 02/17/18 at 15:15 Al Hydroxide/Mg Hydroxide (Mylanta Plus Xs) 15 ml PRN AFTMEALHC PRN PO DYSPEPSIA; Start 02/17/18 at 15:15 Magnesium Hydroxide (Milk Of Magnesia) 2,400 mg PRN QHS PRN PO CONSTIPATION Last administered on 02/18/18at 05:33; Start 02/17/18 at 15:15 Vitamin D (Vitamin D3) 1,000 unit DAILY PO Last administered on 02/23/18at 09:21 ; Start 02/18/18 at 09:00 Diazepam (Valium) 5 mg Q8HRS PO Last administered on 02/23/18at 14:58; Start at 22:00 Gabapentin (Neurontin) 200 mg Q6HRS PO Last administered on 02/23/18 12:35; Start 02/17/18 at 18:00 Insulin Glargine (Lantus) 45 units QHS SQ Last administered on 02/22/18 20:15 ; Start 02/17/18 at 21:00 Amlodipine Besylate (Norvasc) 10 mg DAILY PO Last administered on 02/23/18 09: 21; Start 02/18/18 at 09:00 Aspirin (Children'S Aspirin) 81 mg DAILYWBKFT PO Last administered on 09:21; Start 02/18/18 at 08:00 Atorvastatin Calcium (Lipitor) 40 mg QHS PO Last administered on 02/22/18 20: 10; Start 02/17/18 at 21:00 Carvedilol (Coreg) 12.5 mg BIDWMEALS PO Last administered on 02/23/18 17:20; Start 02/18/18 at 08:00 Non-Formulary Medication (Diazepam (Valium)) 10 mg Q6HRS PO ; Start 02/17/18 at 18:00; Status UNV Docusate Sodium (Colace) 100 mg DAILY PO Last administered on 02/19/18 08:07; Start 02/18/18 at 09:00; Stop 02/19/18 at 12:17; Status DC Enoxaparin Sodium (Lovenox 40mg Syringe) 40 mg QHS SQ Last administered on 02/22 20:11; Start 02/17/18 at 21:00 Insulin Human Lispro (HumaLOG) 12 units TIDWMEALS SQ Last administered on 17:18; Start 02/18/18 at 08:00 Levothyroxine Sodium (Synthroid) 125 mcg DAILY06 PO Last administered on 06:15; Start 02/18/18 at 06:00; Stop 02/19/18 at 12:22; Status DC Lidocaine (Lidoderm) 1 patch DAILY TD Last administered on 02/23/18 09:22; Start 02/18/18 at 09:00 Lisinopril (Prinivil) 40 mg DAILY PO Last administered on 02/23/18 09:20; Start 02/18/18 at 09:00 Prazosin HCl (Minipress) 1 mg QHS PO Last administered on 02/22/18 20:10; Start 02/17/18 at 21:00 Famotidine (Pepcid) 20 mg BID PO Last administered on 02/23/18 09:21; Start at 21:00 Influenza Virus Vaccine (Afluria Trivalent [id number] Syringe) 0.5 ml ONCE ONCE VAX IM Last administered on 02/18/18at 12:05; Start 02/18/18 at 09:00; Stop at 09:01; Status DC Insulin Human Lispro (HumaLOG) 0-7 UNITS TIDWMEALS SQ Last administered on 02/23 17:20; Start 02/18/18 at 08:00 Miscellaneous (Lidoderm Patch Removal) 1 ea QHS MC Last administered on 20:10; Start 02/17/18 at 21:00 Bisacodyl (Dulcolax Supp) 10 mg PRN DAILY PRN AR CONSTIPATION Last administered on 02/17/18at 21:40; Start 02/17/18 at 20:45 Docusate Sodium (Colace) 100 mg BID PO Last administered on 02/23/18 09:26; Start 02/19/18 at 21:00 Polyethylene Glycol (miraLAX) 17 gm DAILY PO Last administered on 02/23/18 09: 21; Start 02/20/18 at 09:00 Magnesium Citrate (Citroma) 296 ml 1X ONCE PO Last administered on 02/19/18 12:31; Start 02/19/18 at 12:15; Stop 02/19/18 at 12:21; Status DC Levothyroxine Sodium (Synthroid) 175 mcg DAILY06 PO Last administered on 05:58; Start 02/20/18 at 06:00 Risperidone (RisperDAL) 0.5 mg HS PO Last administered on 02/21/18 20:26; Start 02/19/18 at 21:00; Stop 02/22/18 at 16:49; Status DC Acetaminophen/ Hydrocodone Bitart (Lortab 7.5/325) 1 tab PRN TID PRN PO PAIN Last administered on 02/21/18 17:41; Start 02/19/18 at 20:45 Trazodone HCl (Desyrel) 100 mg QHS PO Last administered on 02/22/18at 20:09; Start 02/21/18 at 21:00; Stop 02/23/18 at 09:47; Status DC Trazodone HCl (Desyrel) 100 mg PRN QHS PRN PO INSOMNIA; Start 02/21/18 at 16:45 ; Stop 02/23/18 at 09:47; Status DC Sulfacetamide Sodium (Sulf-10) 1 drop Q4H OS Last administered on 02/23/18at 12: 35; Start 02/22/18 at 12:30 Erythromycin (Romycin) 0.25 inch QHS OS ; Start 02/22/18 at 21:00 Risperidone (RisperDAL) 0.75 mg QHS PO Last administered on 02/22/18at 20:13; Start 02/22/18 at 21:00 Trazodone HCl (Desyrel) 150 mg PRN QHS PRN PO INSOMNIA; Start 02/23/18 at 10:00 Trazodone HCl (Desyrel) 150 mg QHS PO ; Start 02/23/18 at 21:00 Divalproex Sodium (Depakote Er) 500 mg QHS PO ; Start 02/23/18 at 21:00 Active Scripts Active Reported Lovenox (Enoxaparin Sodium) 40 Mg/0.4 Ml Disp.syrin 40 Mg SQ QHS Gabapentin 100 Mg Capsule 200 Mg PO Q6HRS Diazepam 5 Mg Tablet 5 Mg PO Q8HRS Ranitidine Hcl 150 Mg Tablet 150 Mg PO BID Amlodipine Besylate 10 Mg Tablet 10 Mg PO DAILY Aspirin 81 Mg Tab.chew 81 Mg PO DAILY Vitamin D3 (Cholecalciferol (Vitamin D3)) 1,000 Unit Tablet 1,000 Unit PO DAILY Synthroid (Levothyroxine Sodium) 125 Mcg Tablet 125 Mcg PO DAILYAC Lisinopril 40 Mg Tablet 40 Mg PO DAILY Lantus Solostar (Insulin Glargine,Hum.rec.anlog) 100 Unit/1 Ml Insuln.pen 45 Unit SQ QHS Lidocaine 1 Each Adh..patch 1 Each TP DAILY Lipitor (Atorvastatin Calcium) 40 Mg Tablet 40 Mg PO QHS Prazosin Hcl 1 Mg Capsule 1 Mg PO QHS Colace (Docusate Sodium) 100 Mg Capsule 100 Mg PO DAILY Coreg (Carvedilol) 12.5 Mg Tablet 12.5 Mg PO BIDWMEALS Novolog Flexpen (Insulin Aspart) 100 Unit/1 Ml Insuln.pen 12 Unit SQ TID Plavix (Clopidogrel Bisulfate) 75 Mg Tablet 75 Mg PO DAILY Levothyroxine Sodium 50 Mcg Tablet 50 Mcg PO DAILY Lortab 7.5-325 mg Tablet (Hydrocodone/Acetaminophen) 1 Each Tablet 1 Tab PO TID PRN I have reviewed the current psychotropics carefully including drug interactions. Risk benefit ratio favors no change other than as noted in my dictated progress note. Diagnosis: Problems: (1) Anxiety disorder (2) Impulse control disorder (3) Schizophrenia, disorganized, subchronic with acute exacerbation (4) Schizoaffective disorder, bipolar type (5) Major neurocognitive disorder, due to vascular disease, with behavioral disturbance, mild (6) Mixed Alzheimer's and vascular dementia with behavior disturbances JALEEL AGUIRRE MD Feb 23, 2018 20:49
[2018-02-23] MEDS: PATCH REMOVAL. MC SCH (21:00)
[2018-02-23] MEDS: DIVALPROEX ER 500 MG TAB.ER.24H PO SCH (21:00)
[2018-02-23] MEDS: ENOXAPARIN 40 MG/0.4 ML SYRINGE. SQ SCH (21:01)
[2018-02-23] MEDS: ATORVASTATIN CALCIUM 20 MG TABLET PO SCH (21:01)
[2018-02-23] MEDS: traZODone 150 MG TABLET. PO SCH (21:01)
[2018-02-23] MEDS: risperiDONE 0.25 MG TABLET. PO SCH (21:02)
[2018-02-23] MEDS: PRAZOSIN 1 MG CAPSULE. PO SCH (21:02)
[2018-02-23] MEDS: ERYTHROMYCIN 0.5% OPHTH OINTMENT 1GM TUBE. OS SCH (21:02)
[2018-02-23] MEDS: INSULIN GLARGINE 300 UNITS/3 ML INSULN.PEN. SQ SCH (21:03)
--- NOTE | 2018-02-23 22:24 | NUR ---
Behavior Intervention Response and Plan: BIRP Note: Behavior: Assumed Care of patient, patient located in Day Room at shift change. Patient exhibited the following behavior Calm, Social, Cooperative. Brief assessment on rounds of vital signs, medication needs, lab studies, and pain. Treatment plan problems . Intervention: Patient assessed and the following interventions initiated safety checks 15 Minute Checks Personal Alarm in place , Cognitive Assessment , Head to toe Assessment. Response: After interactions and interventions patient responded in the following manner, Calm , Social ,Attention Seeking. Continue to assess behaviors and condition will continue to monitor throughout the shift as needed. Patient educated on ADL's, and hand hygiene. Plan: Continue to monitor Master Treatment Plan for patient's progress toward short term goals of Improved Mood, No harm To self/ others, residential goals to return to previous living setting vs placement. Continue to assess patient for changes in above assessment. Monitor for medication needs, pain, and safety concerns. Hourly rounding performed to ensure safe environment.
--- NOTE | 2018-02-23 23:08 | PN ---
DATE: 02/22/2018 This late entry for 02/22/2018 covers elements not covered in my initial note. SUBJECTIVE: I met with the patient in the evening. The patient slept 6 hours previous night. He is compliant with his medications. Per nursing report, he is quite demanding, wants everything on his timetable, oriented to the year and to himself. He felt he was in a longterm house rather than at a hospital. He is quite irritable, angry as I met with him in the evening, feeling staff are not attending to him as fast as he wants them to and just wants to go home. In fact, he has no home to go to. [facility]. REVIEW OF SYSTEMS: Bilateral blindness, impaired ambulation, in wheelchair. No CV, , pulmonary system symptoms on review. MENTAL STATUS EXAM: Oriented to himself. Insight, judgment, recent and remote memory, attention, concentration, fund of knowledge poor, consistent with his diagnosis. IMPRESSION: Schizoaffective disorder, bipolar type, mixed with psychotic features; major neurocognitive disorder, Alzheimer, vascular with delusion, behavioral disturbance. Rest unchanged. PLAN: Continue psychotropics. Continue Risperdal 0.5 mg at bedtime to 0.75 mg at bedtime. MAN Dilma AGUIRRE MD DR: DIYA/valeria JOB#: [id number] / [id number]
[2018-02-24] MEDS: SULFACETAMIDE 10% OPHTH SOLUTION 15ML BOTTLE. OS SCH ×6 (00:30→19:44)
--- NOTE | 2018-02-24 00:37 | NUR ---
Patient sleep during midnight eye drop and gabapentin administration. Did not administer meds.
[2018-02-24] MEDS: HYDROcodone/APAP 7.5/325MG 1 TAB TABLET PO PRN (05:45)
[2018-02-24] MEDS: LEVOTHYROXINE 125 MCG TABLET PO SCH (05:46)
--- NOTE | 2018-02-24 05:52 | NUR ---
Patient refused 0600 gabapentin and diazepam, will advise day nurse to attempt to administer them with his 0900 meds. Gave patient lortab 0545 c/o pain generalized 12/30
[2018-02-24 06:08] VITALS: BP 136/79
[2018-02-24] MEDS: ASPIRIN 81 MG TAB.CHEW PO SCH (07:43)
[2018-02-24] MEDS: DOCUSATE SODIUM 100 MG CAPSULE PO SCH ×2 (07:43→19:40)
[2018-02-24] MEDS: GABAPENTIN 100 MG CAPSULE. PO SCH ×3 (07:43→12:00)
[2018-02-24] MEDS: amLODIPine BESYLATE 10 MG TABLET PO SCH (07:43)
[2018-02-24] MEDS: diazePAM 5 MG TABLET PO SCH ×3 (07:44→19:41)
[2018-02-24] MEDS: FAMOTIDINE 20 MG TABLET PO SCH ×2 (07:44→19:40)
[2018-02-24] MEDS: CHOLECALCIFEROL (VITAMIN D3) 1,000 UNIT TABLET PO SCH (07:44)
[2018-02-24] MEDS: POLYETHYLENE GLYCOL 3350 17 GM PACKET. PO SCH (07:44)
[2018-02-24] MEDS: CARVEDILOL 12.5 MG TABLET PO SCH ×2 (07:44→18:29)
[2018-02-24] MEDS: LISINOPRIL 20 MG TABLET PO SCH (07:44)
[2018-02-24] MEDS: LIDOCAINE (700MG/PATCH) PATCH. TD SCH (07:45)
[2018-02-24] MEDS: INSULIN LISPRO 300 UNITS/3 ML INSULN.PEN. SQ SCH ×6 (07:47→18:32)
--- NOTE | 2018-02-24 10:52 | NUR ---
Behavior Intervention Response and Plan: BIRP Note: Behavior: Assumed Care of patient, patient located in Dining Room at shift change. Patient exhibited the following behavior Withdrawn, Calm, Compliant. Brief assessment on rounds of vital signs, medication needs, lab studies, and pain. Treatment plan problems . Intervention: Patient assessed and the following interventions initiated safety checks 15 Minute Checks Cognitive Assessment , Head to toe Assessment , Medications. Response: After interactions and interventions patient responded in the following manner, Calm , Compliant ,Drowsy. Continue to assess behaviors and condition will continue to monitor throughout the shift as needed. Patient educated on ADL's, and hand hygiene. 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 Continue to assess patient for changes in above assessment. Monitor for medication needs, pain, and safety concerns. Hourly rounding performed to ensure safe environment.
[2018-02-24 16:15] VITALS: BP 115/68
--- NOTE | 2018-02-24 16:54 | NUR ---
pt up in [place] for meals. compliant with meds. has been drowsy on and off today.
[2018-02-24] MEDS: PRAZOSIN 1 MG CAPSULE. PO SCH (19:39)
[2018-02-24] MEDS: DIVALPROEX ER 500 MG TAB.ER.24H PO SCH (19:40)
[2018-02-24] MEDS: risperiDONE 0.25 MG TABLET. PO SCH (19:40)
[2018-02-24] MEDS: ATORVASTATIN CALCIUM 20 MG TABLET PO SCH (19:40)
[2018-02-24] MEDS: traZODone 150 MG TABLET. PO SCH (19:40)
[2018-02-24] MEDS: ENOXAPARIN 40 MG/0.4 ML SYRINGE. SQ SCH (19:41)
[2018-02-24] MEDS: INSULIN GLARGINE 300 UNITS/3 ML INSULN.PEN. SQ SCH (19:42)
[2018-02-24] MEDS: ERYTHROMYCIN 0.5% OPHTH OINTMENT 1GM TUBE. OS SCH (19:43)
[2018-02-24] MEDS: PATCH REMOVAL. MC SCH (19:44)
--- NOTE | 2018-02-24 20:15 | PDOC ---
Exam Note: Ishaan Note: Please also refer to the separate dictated note~for this date of service dictated separately.~Patient seen individually. Discussed the patient with Nursing staff reviewed the chart.~Reviewed interim history and current functioning. Reviewed vital signs,~Labs/ Radiology~and current medications noted below. Continue current treatment with the changes noted in the dictated addendum note Assessment: Vital Signs: Vital Signs Date Time Temp Pulse Resp B/P (MAP) Pulse Ox O2 Delivery O2 Flow Rate FiO2 02/24/18 19:39 65 115/68 02/24/18 16:15 98.2 20 99 Room Air I&O Intake and Output 02/24/18 07:00 Intake Total 1680 ml Balance 1680 ml Intake Oral 1680 ml Labs: Laboratory Tests Test 02/24/18 07:43 02/24/18 11:25 02/24/18 16:32 02/24/18 19:09 Glucose (Fingerstick) 97 mg/dL (70-99) 111 mg/dL (70-99) H 198 mg/dL (70-99) H 177 mg/dL (70-99) H Current Medications: Meds: Current Medications Acetaminophen (Tylenol) 650 mg PRN Q6HRS PRN PO PAIN / TEMP; Start 02/17/18 at 15:15 Multi-Ingredient Ointment (Analgesic [place]) 1 neha PRN QID PRN TP MUSCLE PAIN; Start 02/17/18 at 15:15 Al Hydroxide/Mg Hydroxide (Mylanta Plus Xs) 15 ml PRN AFTMEALHC PRN PO DYSPEPSIA; Start 02/17/18 at 15:15 Magnesium Hydroxide (Milk Of Magnesia) 2,400 mg PRN QHS PRN PO CONSTIPATION Last administered on 02/18/18at 05:33; Start 02/17/18 at 15:15 Vitamin D (Vitamin D3) 1,000 unit DAILY PO Last administered on 02/24/18at 07:44 ; Start 02/18/18 at 09:00 Diazepam (Valium) 5 mg Q8HRS PO Last administered on 02/24/18at 19:41; Start at 22:00 Gabapentin (Neurontin) 200 mg Q6HRS PO Last administered on 02/24/18at 07:43; Start 02/17/18 at 18:00; Stop 02/24/18 at 16:23; Status DC Insulin Glargine (Lantus) 45 units QHS SQ Last administered on 02/24/18 19:42 ; Start 02/17/18 at 21:00 Amlodipine Besylate (Norvasc) 10 mg DAILY PO Last administered on 02/24/18 07: 43; Start 02/18/18 at 09:00 Aspirin (Children'S Aspirin) 81 mg DAILYWBKFT PO Last administered on 07:43; Start 02/18/18 at 08:00 Atorvastatin Calcium (Lipitor) 40 mg QHS PO Last administered on 02/24/18 19: 40; Start 02/17/18 at 21:00 Carvedilol (Coreg) 12.5 mg BIDWMEALS PO Last administered on 02/24/18 18:29; Start 02/18/18 at 08:00 Non-Formulary Medication (Diazepam (Valium)) 10 mg Q6HRS PO ; Start 02/17/18 at 18:00; Status UNV Docusate Sodium (Colace) 100 mg DAILY PO Last administered on 02/19/18 08:07; Start 02/18/18 at 09:00; Stop 02/19/18 at 12:17; Status DC Enoxaparin Sodium (Lovenox 40mg Syringe) 40 mg QHS SQ Last administered on 02/24 19:41; Start 02/17/18 at 21:00 Insulin Human Lispro (HumaLOG) 12 units TIDWMEALS SQ Last administered on 18:31; Start 02/18/18 at 08:00 Levothyroxine Sodium (Synthroid) 125 mcg DAILY06 PO Last administered on 06:15; Start 02/18/18 at 06:00; Stop 02/19/18 at 12:22; Status DC Lidocaine (Lidoderm) 1 patch DAILY TD Last administered on 02/24/18 07:45; Start 02/18/18 at 09:00 Lisinopril (Prinivil) 40 mg DAILY PO Last administered on 02/24/18 07:44; Start 02/18/18 at 09:00 Prazosin HCl (Minipress) 1 mg QHS PO Last administered on 02/24/18 19:39; Start 02/17/18 at 21:00 Famotidine (Pepcid) 20 mg BID PO Last administered on 02/24/18 19:40; Start at 21:00 Influenza Virus Vaccine (Afluria Trivalent 4449-0180 Syringe) 0.5 ml ONCE ONCE VAX IM Last administered on 02/18/18 12:05; Start 02/18/18 at 09:00; Stop at 09:01; Status DC Insulin Human Lispro (HumaLOG) 0-7 UNITS TIDWMEALS SQ Last administered on 02/24 18:32; Start 02/18/18 at 08:00 Miscellaneous (Lidoderm Patch Removal) 1 ea QHS MC Last administered on 19:44; Start 02/17/18 at 21:00 Bisacodyl (Dulcolax Supp) 10 mg PRN DAILY PRN [place] CONSTIPATION Last administered on 02/17/18 21:40; Start 02/17/18 at 20:45 Docusate Sodium (Colace) 100 mg BID PO Last administered on 02/24/18 19:40; Start 02/19/18 at 21:00 Polyethylene Glycol (miraLAX) 17 gm DAILY PO Last administered on 02/24/18 07: 44; Start 02/20/18 at 09:00 Magnesium Citrate (Citroma) 296 ml 1X ONCE PO Last administered on 02/19/18 12:31; Start 02/19/18 at 12:15; Stop 02/19/18 at 12:21; Status DC Levothyroxine Sodium (Synthroid) 175 mcg DAILY06 PO Last administered on 05:46; Start 02/20/18 at 06:00 Risperidone (RisperDAL) 0.5 mg HS PO Last administered on 02/21/18 20:26; Start 02/19/18 at 21:00; Stop 02/22/18 at 16:49; Status DC Acetaminophen/ Hydrocodone Bitart (Lortab 7.5/325) 1 tab PRN TID PRN PO PAIN Last administered on 02/24/18 05:45; Start 02/19/18 at 20:45 Trazodone HCl (Desyrel) 100 mg QHS PO Last administered on 10/3/18at 20:09; Start 02/21/18 at 21:00; Stop 02/23/18 at 09:47; Status DC Trazodone HCl (Desyrel) 100 mg PRN QHS PRN PO INSOMNIA; Start 02/21/18 at 16:45 ; Stop 02/23/18 at 09:47; Status DC Sulfacetamide Sodium (Sulf-10) 1 drop Q4H OS Last administered on 02/24/18 19: 44; Start 02/22/18 at 12:30 Erythromycin (Romycin) 0.25 inch QHS OS Last administered on 02/24/18 19:43; Start 02/22/18 at 21:00 Risperidone (RisperDAL) 0.75 mg QHS PO Last administered on 02/24/18 19:40; Start 02/22/18 at 21:00 Trazodone HCl (Desyrel) 150 mg PRN QHS PRN PO INSOMNIA; Start 02/23/18 at 10:00 Trazodone HCl (Desyrel) 150 mg QHS PO Last administered on 02/24/18 19:40; Start 02/23/18 at 21:00 Divalproex Sodium (Depakote Er) 500 mg QHS PO Last administered on 02/24/18 19 :40; Start 02/23/18 at 21:00 Active Scripts Active Reported Lovenox (Enoxaparin Sodium) 40 Mg/0.4 Ml Disp.syrin 40 Mg SQ QHS Gabapentin 100 Mg Capsule 200 Mg PO Q6HRS Diazepam 5 Mg Tablet 5 Mg PO Q8HRS Ranitidine Hcl 150 Mg Tablet 150 Mg PO BID Amlodipine Besylate 10 Mg Tablet 10 Mg PO DAILY Aspirin 81 Mg Tab.chew 81 Mg PO DAILY Vitamin D3 (Cholecalciferol (Vitamin D3)) 1,000 Unit Tablet 1,000 Unit PO DAILY Synthroid (Levothyroxine Sodium) 125 Mcg Tablet 125 Mcg PO DAILYAC Lisinopril 40 Mg Tablet 40 Mg PO DAILY Lantus Solostar (Insulin Glargine,Hum.rec.anlog) 100 Unit/1 Ml Insuln.pen 45 Unit SQ QHS Lidocaine 1 Each Adh..patch 1 Each TP DAILY Lipitor (Atorvastatin Calcium) 40 Mg Tablet 40 Mg PO QHS Prazosin Hcl 1 Mg Capsule 1 Mg PO QHS Colace (Docusate Sodium) 100 Mg Capsule 100 Mg PO DAILY Coreg (Carvedilol) 12.5 Mg Tablet 12.5 Mg PO BIDWMEALS Novolog Flexpen (Insulin Aspart) 100 Unit/1 Ml Insuln.pen 12 Unit SQ TID Plavix (Clopidogrel Bisulfate) 75 Mg Tablet 75 Mg PO DAILY Levothyroxine Sodium 50 Mcg Tablet 50 Mcg PO DAILY Lortab 7.5-325 mg Tablet (Hydrocodone/Acetaminophen) 1 Each Tablet 1 Tab PO TID PRN I have reviewed the current psychotropics carefully including drug interactions. Risk benefit ratio favors no change other than as noted in my dictated progress note. Diagnosis: Problems: (1) Anxiety disorder (2) Impulse control disorder (3) Schizophrenia, disorganized, subchronic with acute exacerbation (4) Schizoaffective disorder, bipolar type (5) Major neurocognitive disorder, due to vascular disease, with behavioral disturbance, mild (6) Mixed Alzheimer's and vascular dementia with behavior disturbances JALEEL AGUIRRE MD Feb 24, 2018 20:14
--- NOTE | 2018-02-24 22:55 | NUR ---
Nursing Note Pt provided with extensive discussion and education of medications. Pt was questioning every pill, dosage, purpose, side effects and frequency. Pt argues with each med, stating that he has never taken most of what I am educating him on. After much encouragement time and effort on my part, the patient finally took his HS medications, albeit reluctantly. Pt grumbles about the fact that he is here in the hospital and would like to just go home, that he is leaving here [place]. Seems grandiose this PM, stating that he has lived here for 40 years in this town and knows more than I do about local procedure and politics. Redirected patient and HS cares given.
[2018-02-25] MEDS: SULFACETAMIDE 10% OPHTH SOLUTION 15ML BOTTLE. OS SCH ×6 (00:30→20:42)
--- NOTE | 2018-02-25 04:10 | PN ---
DATE: 02/23/2018 This is a late entry for 02/23/2018 covers elements not covered in my initial note. SUBJECTIVE: I met with the patient in the evening, staffed at a treatment team meeting with the entire team in the morning. Lengthy discussion about placement options, [facility], but the patient wants to go home, but he does not have a home to go to. He has been rude, condescending per nursing staff, somewhat manic at times, irritable. Slept 3-1/4 hours. He has 2 brothers and sister in [place] and they have essentially relegated all his decision making to himself because they state he is cognitively intact enough to make those decisions. His judgment, however, is impaired in this respect. REVIEW OF SYSTEMS: Ambulation impaired, in wheelchair. He has bilateral blindness. No CV, , pulmonary, ENT system symptoms on review. MENTAL STATUS EXAM: Oriented to himself, situation. Insight limited, judgment marginal, language function intact. Attention span short. He remains somewhat paranoid, distractible. Mood and affect labile. LABORATORY DATA: Reviewed. IMPRESSION: Schizoaffective disorder, bipolar type, mixed with psychotic features. Rest unchanged. PLAN: Increase trazodone from 100 mg at bedtime to 150 at bedtime, may repeat x 1 for insomnia. Valium is being used 5 mg q. 8 hours for anxiety and we will attempt to taper it. Maintain Risperdal and Minipress, Prazosin for now. MAN Dilma AGUIRRE MD DR: DIYA/valeria JOB#: [id number] / [id number]
[2018-02-25 05:49] VITALS: BP 143/80
[2018-02-25] MEDS: diazePAM 5 MG TABLET PO SCH ×3 (06:00→20:38)
[2018-02-25] MEDS: LEVOTHYROXINE 125 MCG TABLET PO SCH (06:10)
[2018-02-25 07:16] LABS: BASO % 1 % (0-3); EOS # 0.1 x10^3/uL (0.0-0.7); EOS % 2 % (0-3); HEMATOCRIT 30.2 % (39.0-53.0); HEMOGLOBIN 10.4 g/dL (13.0-17.5); LYMPH # 2.4 x10^3/uL (1.0-4.8); LYMPH % 38 % (24-48); MEAN CORPUSCULAR HEMOGLOBIN 31 pg (25-35); MEAN CORPUSCULAR HGB CONC 34 g/dL (31-37); MEAN CORPUSCULAR VOLUME 89 fL (79-100); MONO # 0.5 x10^3/uL (0.0-1.1); MONO % 8 % (0-9); NEUT # 3.3 x10^3uL (1.8-7.7); NEUT % 52 % (31-73); PLATELET COUNT 176 x10^3/uL (140-400); RED CELL DISTRIBUTION WIDTH 14.9 % (11.5-14.5); WHITE BLOOD COUNT 6.3 x10^3/uL (4.0-11.0)
[2018-02-25 07:39] LABS: ALBUMIN 2.9 g/dL (3.4-5.0); ALBUMIN/GLOBULIN RATIO 0.9 (1.0-1.7); CALCIUM 8.9 mg/dL (8.5-10.1); CREATININE 1.3 mg/dL (0.7-1.3); GFR 67.7; POTASSIUM 4.2 mmol/L (3.5-5.1); TOTAL BILIRUBIN 0.2 mg/dL (0.2-1.0); TOTAL PROTEIN 6.1 g/dL (6.4-8.2)
[2018-02-25] MEDS: ASPIRIN 81 MG TAB.CHEW PO SCH (07:54)
[2018-02-25] MEDS: DOCUSATE SODIUM 100 MG CAPSULE PO SCH ×2 (07:54→20:38)
[2018-02-25] MEDS: FAMOTIDINE 20 MG TABLET PO SCH ×2 (07:54→20:39)
[2018-02-25] MEDS: CHOLECALCIFEROL (VITAMIN D3) 1,000 UNIT TABLET PO SCH (07:55)
[2018-02-25] MEDS: amLODIPine BESYLATE 10 MG TABLET PO SCH (07:55)
[2018-02-25] MEDS: LISINOPRIL 20 MG TABLET PO SCH (07:55)
[2018-02-25] MEDS: POLYETHYLENE GLYCOL 3350 17 GM PACKET. PO SCH (07:56)
[2018-02-25] MEDS: INSULIN LISPRO 300 UNITS/3 ML INSULN.PEN. SQ SCH ×6 (07:59→18:02)
[2018-02-25] MEDS: LIDOCAINE (700MG/PATCH) PATCH. TD SCH (08:01)
[2018-02-25] MEDS: CARVEDILOL 12.5 MG TABLET PO SCH ×2 (08:03→17:59)
--- NOTE | 2018-02-25 09:55 | NUR ---
Behavior Intervention Response and Plan: BIRP Note: Behavior: Assumed Care of patient, patient located in Dining Room at shift change. Patient exhibited the following behavior Withdrawn, Calm, Compliant. Brief assessment on rounds of vital signs, medication needs, lab studies, and pain. Treatment plan problems . Intervention: Patient assessed and the following interventions initiated safety checks 15 Minute Checks Cognitive Assessment , Head to toe Assessment , Medications. Response: After interactions and interventions patient responded in the following manner, Calm , Compliant ,Drowsy. Continue to assess behaviors and condition will continue to monitor throughout the shift as needed. Patient educated on ADL's, and hand hygiene. 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 Continue to assess patient for changes in above assessment. Monitor for medication needs, pain, and safety concerns. Hourly rounding performed to ensure safe environment.
[2018-02-25 15:43] VITALS: BP 136/78
[2018-02-25] MEDS: HYDROcodone/APAP 7.5/325MG 1 TAB TABLET PO PRN (17:59)
--- NOTE | 2018-02-25 18:15 | NUR ---
pt has been drowsy on and off. argumentative at times. sarcastic. has been compliant with meds and cares.
[2018-02-25] MEDS: DIVALPROEX ER 500 MG TAB.ER.24H PO SCH (20:37)
[2018-02-25] MEDS: ATORVASTATIN CALCIUM 20 MG TABLET PO SCH (20:37)
[2018-02-25] MEDS: ERYTHROMYCIN 0.5% OPHTH OINTMENT 1GM TUBE. OS SCH (20:37)
[2018-02-25] MEDS: risperiDONE 0.25 MG TABLET. PO SCH (20:38)
[2018-02-25] MEDS: PRAZOSIN 1 MG CAPSULE. PO SCH (20:38)
[2018-02-25] MEDS: traZODone 150 MG TABLET. PO SCH (20:38)
[2018-02-25] MEDS: ENOXAPARIN 40 MG/0.4 ML SYRINGE. SQ SCH (20:39)
[2018-02-25] MEDS: INSULIN GLARGINE 300 UNITS/3 ML INSULN.PEN. SQ SCH (20:44)
[2018-02-25] MEDS: PATCH REMOVAL. MC SCH (21:00)
--- NOTE | 2018-02-25 22:03 | NUR ---
Behavior Intervention Response and Plan: BIRP Note: Behavior: Assumed Care of patient, patient located in Day Room at shift change. Patient exhibited the following behavior Withdrawn, Drowsy, Resistive. Brief assessment on rounds of vital signs, medication needs, lab studies, and pain. Treatment plan problems . Intervention: Patient assessed and the following interventions initiated safety checks 15 Minute Checks Cognitive Assessment , Head to toe Assessment , Medications. Response: After interactions and interventions patient responded in the following manner, Meds with encouragement, Argumentative, Drowsy. Continue to assess behaviors and condition will continue to monitor throughout the shift as needed. Patient educated on ADL's, and hand hygiene. Plan: Continue to monitor Master Treatment Plan for patient's progress toward short term goals of Decreased Agitation, Decreased Aggression, longterm goals to return to previous living setting vs placement. Continue to assess patient for changes in above assessment. Monitor for medication needs, pain, and safety concerns. Hourly rounding performed to ensure safe environment.
[2018-02-26] MEDS: SULFACETAMIDE 10% OPHTH SOLUTION 15ML BOTTLE. OS SCH ×6 (00:30→19:53)
[2018-02-26] MEDS: LEVOTHYROXINE 125 MCG TABLET PO SCH (05:07)
[2018-02-26] MEDS: diazePAM 5 MG TABLET PO SCH ×3 (05:07→19:48)
[2018-02-26 06:24] VITALS: BP 127/82
[2018-02-26 07:12] LABS: BASO % 1 % (0-3); EOS # 0.1 x10^3/uL (0.0-0.7); EOS % 2 % (0-3); HEMATOCRIT 33.5 % (39.0-53.0); HEMOGLOBIN 11.5 g/dL (13.0-17.5); LYMPH # 2.7 x10^3/uL (1.0-4.8); LYMPH % 40 % (24-48); MEAN CORPUSCULAR HEMOGLOBIN 31 pg (25-35); MEAN CORPUSCULAR HGB CONC 35 g/dL (31-37); MEAN CORPUSCULAR VOLUME 89 fL (79-100); MONO # 0.6 x10^3/uL (0.0-1.1); MONO % 9 % (0-9); NEUT # 3.2 x10^3uL (1.8-7.7); NEUT % 48 % (31-73); PLATELET COUNT 196 x10^3/uL (140-400); RED BLOOD COUNT 3.76 x10^6/uL (4.30-5.70); RED CELL DISTRIBUTION WIDTH 14.7 % (11.5-14.5); WHITE BLOOD COUNT 6.7 x10^3/uL (4.0-11.0)
[2018-02-26 07:33] LABS: ALBUMIN 3.3 g/dL (3.4-5.0); ALBUMIN/GLOBULIN RATIO 0.9 (1.0-1.7); ALK PHOS 83 U/L (46-116); ALT (SGPT) 50 U/L (16-63); ANION GAP 1 (6-14); AST (SGOT) 23 U/L (15-37); BLOOD UREA NITROGEN 21 mg/dL (8-26); BUN/CREATININE RATIO 15 (6-20); CALCIUM 9.3 mg/dL (8.5-10.1); CARBON DIOXIDE 34 mmol/L (21-32); CHLORIDE 102 mmol/L (98-107); CREATININE 1.4 mg/dL (0.7-1.3); GFR 62.1; GLUCOSE 124 mg/dL (70-99); POTASSIUM 4.4 mmol/L (3.5-5.1); SODIUM 137 mmol/L (136-145); TOTAL BILIRUBIN 0.3 mg/dL (0.2-1.0); TOTAL PROTEIN 6.9 g/dL (6.4-8.2)
[2018-02-26 07:34] LABS: VAL ACID 26 mcg/mL (50-100)
[2018-02-26] MEDS: POLYETHYLENE GLYCOL 3350 17 GM PACKET. PO SCH (07:43)
[2018-02-26] MEDS: LIDOCAINE (700MG/PATCH) PATCH. TD SCH (07:43)
[2018-02-26] MEDS: amLODIPine BESYLATE 10 MG TABLET PO SCH (07:44)
[2018-02-26] MEDS: ASPIRIN 81 MG TAB.CHEW PO SCH (07:44)
[2018-02-26] MEDS: CARVEDILOL 12.5 MG TABLET PO SCH ×2 (07:44→18:30)
[2018-02-26] MEDS: FAMOTIDINE 20 MG TABLET PO SCH ×2 (07:44→19:47)
[2018-02-26] MEDS: LISINOPRIL 20 MG TABLET PO SCH (07:45)
[2018-02-26] MEDS: DOCUSATE SODIUM 100 MG CAPSULE PO SCH ×2 (07:45→19:47)
[2018-02-26] MEDS: CHOLECALCIFEROL (VITAMIN D3) 1,000 UNIT TABLET PO SCH (07:45)
[2018-02-26] MEDS: INSULIN LISPRO 300 UNITS/3 ML INSULN.PEN. SQ SCH ×6 (07:47→18:32)
--- NOTE | 2018-02-26 10:37 | NUR ---
Behavior Intervention Response and Plan: BIRP Note: Behavior: Assumed Care of patient, patient located in Dining Room at shift change. Patient exhibited the following behavior Withdrawn, Calm, Compliant. Brief assessment on rounds of vital signs, medication needs, lab studies, and pain. Treatment plan problems . Intervention: Patient assessed and the following interventions initiated safety checks 15 Minute Checks Cognitive Assessment , Head to toe Assessment , Medications. Response: After interactions and interventions patient responded in the following manner, Calm , Compliant ,Drowsy. Continue to assess behaviors and condition will continue to monitor throughout the shift as needed. Patient educated on ADL's, and hand hygiene. 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 Continue to assess patient for changes in above assessment. Monitor for medication needs, pain, and safety concerns. Hourly rounding performed to ensure safe environment.
[2018-02-26 15:20] VITALS: BP 136/89
--- NOTE | 2018-02-26 15:57 | NUR ---
pt has been up in [place] for meals and out to group. has been in better spirits today. compliant with meds and cares. pt wants to talk with dr about going back home. suggested he speak with SW in am as they arrange for transportation.
[2018-02-26] MEDS: ATORVASTATIN CALCIUM 20 MG TABLET PO SCH (19:47)
[2018-02-26] MEDS: traZODone 150 MG TABLET. PO SCH (19:47)
[2018-02-26] MEDS: risperiDONE 0.25 MG TABLET. PO SCH (19:48)
[2018-02-26] MEDS: DIVALPROEX ER 500 MG TAB.ER.24H PO SCH (19:48)
[2018-02-26] MEDS: PRAZOSIN 1 MG CAPSULE. PO SCH (19:48)
[2018-02-26] MEDS: ENOXAPARIN 40 MG/0.4 ML SYRINGE. SQ SCH (19:48)
[2018-02-26] MEDS: ERYTHROMYCIN 0.5% OPHTH OINTMENT 1GM TUBE. OS SCH (19:51)
--- NOTE | 2018-02-26 20:10 | PDOC ---
Exam Note: Ishaan Note: Late entry for date of service February. Please also refer to the separate dictated note~for this date of service dictated separately.~Patient seen individually. Discussed the patient with Nursing staff reviewed the chart.~ Reviewed interim history and current functioning. Reviewed vital signs,~Labs/ Radiology~and current medications noted below. Continue current treatment with the changes noted in the dictated addendum note Assessment: Vital Signs: VS - Last 72 Hours, by Label Date Time Temp Pulse Resp B/P (MAP) Pulse Ox O2 Delivery O2 Flow Rate FiO2 02/26/18 19:48 71 136/89 02/26/18 18:30 71 136/89 02/26/18 15:20 97.7 71 18 136/89 (105) 98 02/26/18 07:45 64 127/82 02/26/18 07:44 64 127/82 02/26/18 07:44 62 127/82 02/26/18 06:24 97.6 52 16 127/82 (97) 99 02/25/18 20:38 76 136/78 02/25/18 20:36 98 02/25/18 17:59 76 136/78 02/25/18 15:43 97.0 76 18 136/78 (97) 98 02/25/18 08:03 64 143/80 02/25/18 07:55 64 143/80 02/25/18 07:55 64 143/80 02/25/18 05:49 96.7 50 14 143/80 (101) 98 Room Air 02/24/18 19:39 65 115/68 02/24/18 18:29 65 115/68 02/24/18 16:15 98.2 65 20 115/68 (84) 99 Room Air 02/24/18 07:44 58 136/79 02/24/18 07:44 58 136/79 02/24/18 07:43 58 136/79 02/24/18 06:08 97.7 58 20 136/79 (98) 98 Room Air 02/24/18 05:45 18 98 02/23/18 21:02 70 127/74 Vital Signs Date Time Temp Pulse Resp B/P (MAP) Pulse Ox O2 Delivery O2 Flow Rate FiO2 02/26/18 19:48 71 136/89 02/26/18 15:20 97.7 18 98 02/25/18 05:49 Room Air I&O Intake and Output 02/26/18 06:59 Intake Total 560 ml Output Total 700 ml Balance -140 ml Intake Oral 560 ml Output Urine Total 700 ml Labs: Laboratory Tests Test 02/26/18 06:54 02/26/18 07:52 02/26/18 11:57 02/26/18 16:57 White Blood Count 6.7 x10^3/uL (4.0-11.0) Red Blood Count 3.76 x10^6/uL (4.30-5.70) L Hemoglobin 11.5 g/dL (13.0-17.5) L Hematocrit 33.5 % (39.0-53.0) L Mean Corpuscular Volume 89 fL (79-100) Mean Corpuscular Hemoglobin 31 pg (25-35) Mean Corpuscular Hemoglobin Concent 35 g/dL (31-37) Red Cell Distribution Width 14.7 % (11.5-14.5) H Platelet Count 196 x10^3/uL (140-400) Neutrophils (%) (Auto) 48 % (31-73) Lymphocytes (%) (Auto) 40 % (24-48) Monocytes (%) (Auto) 9 % (0-9) Eosinophils (%) (Auto) 2 % (0-3) Basophils (%) (Auto) 1 % (0-3) Neutrophils # (Auto) 3.2 x10^3uL (1.8-7.7) Lymphocytes # (Auto) 2.7 x10^3/uL (1.0-4.8) Monocytes # (Auto) 0.6 x10^3/uL (0.0-1.1) Eosinophils # (Auto) 0.1 x10^3/uL (0.0-0.7) Basophils # (Auto) 0.0 x10^3/uL (0.0-0.2) Sodium Level 137 mmol/L (136-145) Potassium Level 4.4 mmol/L (3.5-5.1) Chloride Level 102 mmol/L (98-107) Carbon Dioxide Level 34 mmol/L (21-32) H Anion Gap 1 (6-14) L Blood Urea Nitrogen 21 mg/dL (8-26) Creatinine 1.4 mg/dL (0.7-1.3) H Estimated GFR (Cockcroft-Gault) 62.1 BUN/Creatinine Ratio 15 (6-20) Glucose Level 124 mg/dL (70-99) H Calcium Level 9.3 mg/dL (8.5-10.1) Total Bilirubin 0.3 mg/dL (0.2-1.0) Aspartate Amino Transferase (AST) 23 U/L (15-37) Alanine Aminotransferase (ALT) 50 U/L (16-63) Alkaline Phosphatase 83 U/L (46-116) Total Protein 6.9 g/dL (6.4-8.2) Albumin 3.3 g/dL (3.4-5.0) L Albumin/Globulin Ratio 0.9 (1.0-1.7) L Valproic Acid Level 26 mcg/mL (50-100) L Valproic Acid Last Dose Date 02/25/18 Valproic Acid Last Dose Time 2100 Glucose (Fingerstick) 127 mg/dL (70-99) H 231 mg/dL (70-99) H 231 mg/dL (70-99) H Test 02/26/18 19:15 Glucose (Fingerstick) 264 mg/dL (70-99) H Current Medications: Meds: Current Medications Acetaminophen (Tylenol) 650 mg PRN Q6HRS PRN PO PAIN / TEMP; Start 02/17/18 at 15:15 Multi-Ingredient Ointment (Analgesic [place]) 1 neha PRN QID PRN TP MUSCLE PAIN; Start 02/17/18 at 15:15 Al Hydroxide/Mg Hydroxide (Mylanta Plus Xs) 15 ml PRN AFTMEALHC PRN PO DYSPEPSIA; Start 02/17/18 at 15:15 Magnesium Hydroxide (Milk Of Magnesia) 2,400 mg PRN QHS PRN PO CONSTIPATION Last administered on 02/18/18at 05:33; Start 02/17/18 at 15:15 Vitamin D (Vitamin D3) 1,000 unit DAILY PO Last administered on 02/26/18at 07:45 ; Start 02/18/18 at 09:00 Diazepam (Valium) 5 mg Q8HRS PO Last administered on 02/26/18at 19:48; Start at 22:00 Gabapentin (Neurontin) 200 mg Q6HRS PO Last administered on 02/24/18 07:43; Start 02/17/18 at 18:00; Stop 02/24/18 at 16:23; Status DC Insulin Glargine (Lantus) 45 units QHS SQ Last administered on 02/25/18 20:44 ; Start 02/17/18 at 21:00 Amlodipine Besylate (Norvasc) 10 mg DAILY PO Last administered on 02/26/18 07: 44; Start 02/18/18 at 09:00 Aspirin (Children'S Aspirin) 81 mg DAILYWBKFT PO Last administered on 07:44; Start 02/18/18 at 08:00 Atorvastatin Calcium (Lipitor) 40 mg QHS PO Last administered on 02/26/18 19: 47; Start 02/17/18 at 21:00 Carvedilol (Coreg) 12.5 mg BIDWMEALS PO Last administered on 02/26/18 18:30; Start 02/18/18 at 08:00 Non-Formulary Medication (Diazepam (Valium)) 10 mg Q6HRS PO ; Start 02/17/18 at 18:00; Status UNV Docusate Sodium (Colace) 100 mg DAILY PO Last administered on 02/19/18 08:07; Start 02/18/18 at 09:00; Stop 02/19/18 at 12:17; Status DC Enoxaparin Sodium (Lovenox 40mg Syringe) 40 mg QHS SQ Last administered on 02/26 19:48; Start 02/17/18 at 21:00 Insulin Human Lispro (HumaLOG) 12 units TIDWMEALS SQ Last administered on 18:31; Start 02/18/18 at 08:00 Levothyroxine Sodium (Synthroid) 125 mcg DAILY06 PO Last administered on 06:15; Start 02/18/18 at 06:00; Stop 02/19/18 at 12:22; Status DC Lidocaine (Lidoderm) 1 patch DAILY TD Last administered on 02/26/18 07:43; Start 02/18/18 at 09:00 Lisinopril (Prinivil) 40 mg DAILY PO Last administered on 02/26/18 07:45; Start 02/18/18 at 09:00 Prazosin HCl (Minipress) 1 mg QHS PO Last administered on 02/26/18 19:48; Start 02/17/18 at 21:00 Famotidine (Pepcid) 20 mg BID PO Last administered on 02/26/18 19:47; Start at 21:00 Influenza Virus Vaccine (Afluria Trivalent [id number] Syringe) 0.5 ml ONCE ONCE VAX IM Last administered on 02/18/18at 12:05; Start 02/18/18 at 09:00; Stop at 09:01; Status DC Insulin Human Lispro (HumaLOG) 0-7 UNITS TIDWMEALS SQ Last administered on 02/26 18:32; Start 02/18/18 at 08:00 Miscellaneous (Lidoderm Patch Removal) 1 ea QHS MC Last administered on 21:00; Start 02/17/18 at 21:00 Bisacodyl (Dulcolax Supp) 10 mg PRN DAILY PRN [place] CONSTIPATION Last administered on 02/17/18at 21:40; Start 02/17/18 at 20:45 Docusate Sodium (Colace) 100 mg BID PO Last administered on 02/26/18 19:47; Start 02/19/18 at 21:00 Polyethylene Glycol (miraLAX) 17 gm DAILY PO Last administered on 02/26/18 07: 43; Start 02/20/18 at 09:00 Magnesium Citrate (Citroma) 296 ml 1X ONCE PO Last administered on 02/19/18 12:31; Start 02/19/18 at 12:15; Stop 02/19/18 at 12:21; Status DC Levothyroxine Sodium (Synthroid) 175 mcg DAILY06 PO Last administered on 05:07; Start 02/20/18 at 06:00 Risperidone (RisperDAL) 0.5 mg HS PO Last administered on 02/21/18 20:26; Start 02/19/18 at 21:00; Stop 02/22/18 at 16:49; Status DC Acetaminophen/ Hydrocodone Bitart (Lortab 7.5/325) 1 tab PRN TID PRN PO PAIN Last administered on 02/25/18 17:59; Start 02/19/18 at 20:45 Trazodone HCl (Desyrel) 100 mg QHS PO Last administered on 02/22/18 20:09; Start 02/21/18 at 21:00; Stop 02/23/18 at 09:47; Status DC Trazodone HCl (Desyrel) 100 mg PRN QHS PRN PO INSOMNIA; Start 02/21/18 at 16:45 ; Stop 02/23/18 at 09:47; Status DC Sulfacetamide Sodium (Sulf-10) 1 drop Q4H OS Last administered on 02/26/18 19: 53; Start 02/22/18 at 12:30 Erythromycin (Romycin) 0.25 inch QHS OS Last administered on 02/26/18 19:51; Start 02/22/18 at 21:00 Risperidone (RisperDAL) 0.75 mg QHS PO Last administered on 02/26/18 19:48; Start 02/22/18 at 21:00 Trazodone HCl (Desyrel) 150 mg PRN QHS PRN PO INSOMNIA; Start 02/23/18 at 10:00 Trazodone HCl (Desyrel) 150 mg QHS PO Last administered on 02/26/18 19:47; Start 02/23/18 at 21:00 Divalproex Sodium (Depakote Er) 500 mg QHS PO Last administered on 02/26/18 19 :48; Start 02/23/18 at 21:00 Active Scripts Active Reported Lovenox (Enoxaparin Sodium) 40 Mg/0.4 Ml Disp.syrin 40 Mg SQ QHS Gabapentin 100 Mg Capsule 200 Mg PO Q6HRS Diazepam 5 Mg Tablet 5 Mg PO Q8HRS Ranitidine Hcl 150 Mg Tablet 150 Mg PO BID Amlodipine Besylate 10 Mg Tablet 10 Mg PO DAILY Aspirin 81 Mg Tab.chew 81 Mg PO DAILY Vitamin D3 (Cholecalciferol (Vitamin D3)) 1,000 Unit Tablet 1,000 Unit PO DAILY Synthroid (Levothyroxine Sodium) 125 Mcg Tablet 125 Mcg PO DAILYAC Lisinopril 40 Mg Tablet 40 Mg PO DAILY Lantus Solostar (Insulin Glargine,Hum.rec.anlog) 100 Unit/1 Ml Insuln.pen 45 Unit SQ QHS Lidocaine 1 Each Adh..patch 1 Each TP DAILY Lipitor (Atorvastatin Calcium) 40 Mg Tablet 40 Mg PO QHS Prazosin Hcl 1 Mg Capsule 1 Mg PO QHS Colace (Docusate Sodium) 100 Mg Capsule 100 Mg PO DAILY Coreg (Carvedilol) 12.5 Mg Tablet 12.5 Mg PO BIDWMEALS Novolog Flexpen (Insulin Aspart) 100 Unit/1 Ml Insuln.pen 12 Unit SQ TID Plavix (Clopidogrel Bisulfate) 75 Mg Tablet 75 Mg PO DAILY Levothyroxine Sodium 50 Mcg Tablet 50 Mcg PO DAILY Lortab 7.5-325 mg Tablet (Hydrocodone/Acetaminophen) 1 Each Tablet 1 Tab PO TID PRN I have reviewed the current psychotropics carefully including drug interactions. Risk benefit ratio favors no change other than as noted in my dictated progress note. 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
[2018-02-26] MEDS: INSULIN GLARGINE 300 UNITS/3 ML INSULN.PEN. SQ SCH (20:24)
[2018-02-26] MEDS: PATCH REMOVAL. MC SCH (21:00)
[2018-02-26] MEDS: HYDROcodone/APAP 7.5/325MG 1 TAB TABLET PO PRN (22:36)
--- NOTE | 2018-02-26 23:57 | PN ---
DATE: 02/24/2018 This is a late entry for 02/24/2018 and covers elements not covered in my initial note. SUBJECTIVE: I met with the patient in the evening. The patient slept 6-1/2 hours previous night, has been somewhat sleepy, compliant with medications, refused his Neurontin, fixated on wanting to go live in an apartment by himself, even though he does not have one and we are attempting to coordinate something with the [facility] dom[facility]. REVIEW OF SYSTEMS: Bilateral blindness, impaired ambulation, in wheelchair. No CV, , GI, or pulmonary system symptoms on review. MENTAL STATUS EXAM: Oriented to himself and situation. Speech has moderate latency, coherent. Abstraction fair, computation impaired, language function intact. Attention span short. He is still somewhat paranoid. No suicidal or homicidal ideation. LABORATORY DATA: Reviewed. IMPRESSION: Unchanged from initial note. PLAN: No change from initial note. JALEEL AGUIRRE MD DR: DIYA/valeria JOB#: [id number] / [id number]
[2018-02-27] MEDS: SULFACETAMIDE 10% OPHTH SOLUTION 15ML BOTTLE. OS SCH ×6 (00:08→20:22)
--- NOTE | 2018-02-27 00:13 | NUR ---
Nursing Note Pt up in day room at shift change, states that he "doesn't take those psycho active drugs", that "they were discontinued and you need to talk to my other doctor." Assured patient that he had been taking these meds all along, that nothing was different and that they were all current orders for him. He demands a list of the medications and then tells me what he will and won't take. Later he took all medications without complaint. Lortab was given later for generalized aches.
--- NOTE | 2018-02-27 01:37 | PN ---
DATE: 02/25/2018 This is a late entry for 02/25/2018 and covers elements not covered in my initial note. SUBJECTIVE: I met with the patient in the evening. Overall, the patient has been argumentative at times, drowsy. Medication compliant. REVIEW OF SYSTEMS: Bilateral blindness, impaired ambulation, in wheelchair. No CV, , pulmonary, eye, ENT system symptoms on review. MENTAL STATUS EXAM: Oriented to himself and situation. Speech has some latency, coherent. Abstraction fair, computation impaired, language function intact. Mood and affect remain somewhat dysphoric. He is fixated, obsessed about returning to his own apartment, oblivious of his medical needs of the bilateral blindness, wheelchair and ability to take care of himself. IMPRESSION: Schizoaffective disorder, bipolar type, mixed with psychotic features, in partial remission. PLAN: No change from initial note. MAN Dilma AGUIRRE MD DR: DIYA/valeria JOB#: [id number] / [id number]
--- NOTE | 2018-02-27 01:38 | PN ---
DATE: 02/26/2018 This note covers elements not covered in my note of 02/26/2018. SUBJECTIVE: The patient slept 6-1/4 hours previous evening. He is more pleasant today, wants to go home. Medication compliant. REVIEW OF SYSTEMS: Bilateral blindness, impaired ambulation, in a wheelchair. No CV, , pulmonary, eye, ENT system symptoms on review. MENTAL STATUS EXAM: Oriented to himself and situation. Speech has moderate latency, low in rate and rhythm, low in volume. Abstraction fair, computation impaired, language function intact. Mood and affect withdrawn. LABORATORY DATA: Reviewed. IMPRESSION: Unchanged from initial note. PLAN: No change from initial note. JALEEL AGUIRRE MD DR: DIYA/valeria JOB#: [id number] / [id number]
[2018-02-27 05:47] VITALS: BP 147/78
[2018-02-27] MEDS: LEVOTHYROXINE 125 MCG TABLET PO SCH (05:52)
[2018-02-27] MEDS: diazePAM 5 MG TABLET PO SCH ×3 (05:54→20:24)
[2018-02-27] MEDS: INSULIN LISPRO 300 UNITS/3 ML INSULN.PEN. SQ SCH ×6 (08:00→17:37)
[2018-02-27] MEDS: FAMOTIDINE 20 MG TABLET PO SCH ×2 (08:02→20:22)
[2018-02-27] MEDS: amLODIPine BESYLATE 10 MG TABLET PO SCH (08:03)
[2018-02-27] MEDS: DOCUSATE SODIUM 100 MG CAPSULE PO SCH ×2 (08:03→20:22)
[2018-02-27] MEDS: LISINOPRIL 20 MG TABLET PO SCH (08:03)
[2018-02-27] MEDS: CHOLECALCIFEROL (VITAMIN D3) 1,000 UNIT TABLET PO SCH (08:03)
[2018-02-27] MEDS: CARVEDILOL 12.5 MG TABLET PO SCH ×2 (08:03→17:35)
[2018-02-27] MEDS: ASPIRIN 81 MG TAB.CHEW PO SCH (08:03)
[2018-02-27] MEDS: LIDOCAINE (700MG/PATCH) PATCH. TD SCH (08:04)
[2018-02-27] MEDS: POLYETHYLENE GLYCOL 3350 17 GM PACKET. PO SCH (08:04)
[2018-02-27] MEDS: HYDROcodone/APAP 7.5/325MG 1 TAB TABLET PO PRN ×2 (09:35→21:31)
--- NOTE | 2018-02-27 09:35 | NUR ---
Behavior Intervention Response and Plan: BIRP Note: Behavior: Assumed Care of patient, patient located in Day Room at shift change. Patient exhibited the following behavior Restless, Disorganized, Compulsive. Brief assessment on rounds of vital signs, medication needs, lab studies, and pain. Treatment plan problems 1 & 2. Intervention: Patient assessed and the following interventions initiated safety checks 15 Minute Checks Cognitive Assessment , Head to toe Assessment , Medications. Response: After interactions and interventions patient responded in the following manner, Disorganized , Withdrawn ,Compliant. Continue to assess behaviors and condition will continue to monitor throughout the shift as needed. Patient educated on ADL's, and hand hygiene. 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 Continue to assess patient for changes in above assessment. Monitor for medication needs, pain, and safety concerns. Hourly rounding performed to ensure safe environment.
--- NOTE | 2018-02-27 09:35 | NUR ---
patient complains of lower baqck pain; prn med provided per eMAR, will continue to monitor.
[2018-02-27 15:48] VITALS: BP 134/84
[2018-02-27] MEDS: traZODone 150 MG TABLET. PO SCH (20:21)
[2018-02-27] MEDS: DIVALPROEX ER 500 MG TAB.ER.24H PO SCH (20:21)
[2018-02-27] MEDS: ATORVASTATIN CALCIUM 20 MG TABLET PO SCH (20:22)
[2018-02-27] MEDS: PATCH REMOVAL. MC SCH (20:22)
[2018-02-27] MEDS: PRAZOSIN 1 MG CAPSULE. PO SCH (20:22)
[2018-02-27] MEDS: risperiDONE 0.25 MG TABLET. PO SCH (20:22)
[2018-02-27] MEDS: ENOXAPARIN 40 MG/0.4 ML SYRINGE. SQ SCH (20:23)
[2018-02-27] MEDS: ERYTHROMYCIN 0.5% OPHTH OINTMENT 1GM TUBE. OS SCH (20:24)
[2018-02-27] MEDS: INSULIN GLARGINE 300 UNITS/3 ML INSULN.PEN. SQ SCH (20:25)
--- NOTE | 2018-02-27 20:49 | PDOC ---
Exam Note: Ishaan Note: Please also refer to the separate dictated note~for this date of service dictated separately.~Patient seen individually. Discussed the patient with Nursing staff reviewed the chart.~Reviewed interim history and current functioning. Reviewed vital signs,~Labs/ Radiology~and current medications noted below. Continue current treatment with the changes noted in the dictated addendum note Assessment: Vital Signs: Vital Signs Date Time Temp Pulse Resp B/P (MAP) Pulse Ox O2 Delivery O2 Flow Rate FiO2 02/27/18 20:22 65 134/84 02/27/18 15:48 97.5 18 97 02/27/18 10:50 Room Air I&O Intake and Output 02/27/18 07:00 Intake Total 840 ml Balance 840 ml Intake Oral 840 ml # Bowel Movements 1 Labs: Laboratory Tests Test 02/27/18 07:21 02/27/18 11:36 02/27/18 17:05 02/27/18 19:17 Glucose (Fingerstick) 145 mg/dL (70-99) H 289 mg/dL (70-99) H 217 mg/dL (70-99) H 304 mg/dL (70-99) H Current Medications: Meds: Current Medications Acetaminophen (Tylenol) 650 mg PRN Q6HRS PRN PO PAIN / TEMP; Start 02/17/18 at 15:15 Multi-Ingredient Ointment (Analgesic [place]) 1 neha PRN QID PRN TP MUSCLE PAIN; Start 02/17/18 at 15:15 Al Hydroxide/Mg Hydroxide (Mylanta Plus Xs) 15 ml PRN AFTMEALHC PRN PO DYSPEPSIA; Start 02/17/18 at 15:15 Magnesium Hydroxide (Milk Of Magnesia) 2,400 mg PRN QHS PRN PO CONSTIPATION Last administered on 02/18/18at 05:33; Start 02/17/18 at 15:15 Vitamin D (Vitamin D3) 1,000 unit DAILY PO Last administered on 02/27/18at 08:03 ; Start 02/18/18 at 09:00 Diazepam (Valium) 5 mg Q8HRS PO Last administered on 02/27/18at 20:24; Start at 22:00 Gabapentin (Neurontin) 200 mg Q6HRS PO Last administered on 02/24/18at 07:43; Start 02/17/18 at 18:00; Stop 02/24/18 at 16:23; Status DC Insulin Glargine (Lantus) 45 units QHS SQ Last administered on 02/27/18 20:25 ; Start 02/17/18 at 21:00 Amlodipine Besylate (Norvasc) 10 mg DAILY PO Last administered on 02/27/18 08: 03; Start 02/18/18 at 09:00 Aspirin (Children'S Aspirin) 81 mg DAILYWBKFT PO Last administered on 08:03; Start 02/18/18 at 08:00 Atorvastatin Calcium (Lipitor) 40 mg QHS PO Last administered on 02/27/18 20: 22; Start 02/17/18 at 21:00 Carvedilol (Coreg) 12.5 mg BIDWMEALS PO Last administered on 02/27/18 17:35; Start 02/18/18 at 08:00 Non-Formulary Medication (Diazepam (Valium)) 10 mg Q6HRS PO ; Start 02/17/18 at 18:00; Status UNV Docusate Sodium (Colace) 100 mg DAILY PO Last administered on 02/19/18 08:07; Start 02/18/18 at 09:00; Stop 02/19/18 at 12:17; Status DC Enoxaparin Sodium (Lovenox 40mg Syringe) 40 mg QHS SQ Last administered on 02/27 20:23; Start 02/17/18 at 21:00 Insulin Human Lispro (HumaLOG) 12 units TIDWMEALS SQ Last administered on 17:37; Start 02/18/18 at 08:00 Levothyroxine Sodium (Synthroid) 125 mcg DAILY06 PO Last administered on 06:15; Start 02/18/18 at 06:00; Stop 02/19/18 at 12:22; Status DC Lidocaine (Lidoderm) 1 patch DAILY TD Last administered on 02/27/18 08:04; Start 02/18/18 at 09:00 Lisinopril (Prinivil) 40 mg DAILY PO Last administered on 02/27/18 08:03; Start 02/18/18 at 09:00 Prazosin HCl (Minipress) 1 mg QHS PO Last administered on 02/27/18 20:22; Start 02/17/18 at 21:00 Famotidine (Pepcid) 20 mg BID PO Last administered on 02/27/18 20:22; Start at 21:00 Influenza Virus Vaccine (Afluria Trivalent [id number] Syringe) 0.5 ml ONCE ONCE VAX IM Last administered on 02/18/18 12:05; Start 02/18/18 at 09:00; Stop at 09:01; Status DC Insulin Human Lispro (HumaLOG) 0-7 UNITS TIDWMEALS SQ Last administered on 02/27 17:37; Start 02/18/18 at 08:00 Miscellaneous (Lidoderm Patch Removal) 1 ea QHS MC Last administered on 20:22; Start 02/17/18 at 21:00 Bisacodyl (Dulcolax Supp) 10 mg PRN DAILY PRN [place] CONSTIPATION Last administered on 02/17/18at 21:40; Start 02/17/18 at 20:45 Docusate Sodium (Colace) 100 mg BID PO Last administered on 02/27/18 20:22; Start 02/19/18 at 21:00 Polyethylene Glycol (miraLAX) 17 gm DAILY PO Last administered on 02/27/18 08: 04; Start 02/20/18 at 09:00 Magnesium Citrate (Citroma) 296 ml 1X ONCE PO Last administered on 02/19/18 12:31; Start 02/19/18 at 12:15; Stop 02/19/18 at 12:21; Status DC Levothyroxine Sodium (Synthroid) 175 mcg DAILY06 PO Last administered on 05:52; Start 02/20/18 at 06:00 Risperidone (RisperDAL) 0.5 mg HS PO Last administered on 02/21/18 20:26; Start 02/19/18 at 21:00; Stop 02/22/18 at 16:49; Status DC Acetaminophen/ Hydrocodone Bitart (Lortab 7.5/325) 1 tab PRN TID PRN PO PAIN Last administered on 02/27/18 09:35; Start 02/19/18 at 20:45 Trazodone HCl (Desyrel) 100 mg QHS PO Last administered on 02/22/18 20:09; Start 02/21/18 at 21:00; Stop 02/23/18 at 09:47; Status DC Trazodone HCl (Desyrel) 100 mg PRN QHS PRN PO INSOMNIA; Start 02/21/18 at 16:45 ; Stop 02/23/18 at 09:47; Status DC Sulfacetamide Sodium (Sulf-10) 1 drop Q4H OS Last administered on 02/27/18 20: 22; Start 02/22/18 at 12:30 Erythromycin (Romycin) 0.25 inch QHS OS Last administered on 02/27/18 20:24; Start 02/22/18 at 21:00 Risperidone (RisperDAL) 0.75 mg QHS PO Last administered on 02/27/18 20:22; Start 02/22/18 at 21:00 Trazodone HCl (Desyrel) 150 mg PRN QHS PRN PO INSOMNIA; Start 02/23/18 at 10:00 Trazodone HCl (Desyrel) 150 mg QHS PO Last administered on 02/27/18 20:21; Start 02/23/18 at 21:00 Divalproex Sodium (Depakote Er) 500 mg QHS PO Last administered on 02/26/18at 19 :48; Start 02/23/18 at 21:00; Stop 02/27/18 at 16:48; Status DC Divalproex Sodium (Depakote Er) 1,000 mg QHS PO Last administered on 02/27/18 20:21; Start 02/27/18 at 21:00 Active Scripts Active Reported Lovenox (Enoxaparin Sodium) 40 Mg/0.4 Ml Disp.syrin 40 Mg SQ QHS Gabapentin 100 Mg Capsule 200 Mg PO Q6HRS Diazepam 5 Mg Tablet 5 Mg PO Q8HRS Ranitidine Hcl 150 Mg Tablet 150 Mg PO BID Amlodipine Besylate 10 Mg Tablet 10 Mg PO DAILY Aspirin 81 Mg Tab.chew 81 Mg PO DAILY Vitamin D3 (Cholecalciferol (Vitamin D3)) 1,000 Unit Tablet 1,000 Unit PO DAILY Synthroid (Levothyroxine Sodium) 125 Mcg Tablet 125 Mcg PO DAILYAC Lisinopril 40 Mg Tablet 40 Mg PO DAILY Lantus Solostar (Insulin Glargine,Hum.rec.anlog) 100 Unit/1 Ml Insuln.pen 45 Unit SQ QHS Lidocaine 1 Each Adh..patch 1 Each TP DAILY Lipitor (Atorvastatin Calcium) 40 Mg Tablet 40 Mg PO QHS Prazosin Hcl 1 Mg Capsule 1 Mg PO QHS Colace (Docusate Sodium) 100 Mg Capsule 100 Mg PO DAILY Coreg (Carvedilol) 12.5 Mg Tablet 12.5 Mg PO BIDWMEALS Novolog Flexpen (Insulin Aspart) 100 Unit/1 Ml Insuln.pen 12 Unit SQ TID Plavix (Clopidogrel Bisulfate) 75 Mg Tablet 75 Mg PO DAILY Levothyroxine Sodium 50 Mcg Tablet 50 Mcg PO DAILY Lortab 7.5-325 mg Tablet (Hydrocodone/Acetaminophen) 1 Each Tablet 1 Tab PO TID PRN I have reviewed the current psychotropics carefully including drug interactions. Risk benefit ratio favors no change other than as noted in my dictated progress note. Diagnosis: Problems: (1) Anxiety disorder (2) Impulse control disorder (3) Schizophrenia, disorganized, subchronic with acute exacerbation (4) Schizoaffective disorder, bipolar type (5) Major neurocognitive disorder, due to vascular disease, with behavioral disturbance, mild (6) Mixed Alzheimer's and vascular dementia with behavior disturbances JALEEL AGUIRRE MD Feb 27, 2018 20:49
--- NOTE | 2018-02-27 21:42 | NUR ---
Patient requested PRN pain medication R/T back pain. Administered PRN hydrocodone.
--- NOTE | 2018-02-27 23:23 | NUR ---
Behavior Intervention Response and Plan: BIRP Note: Behavior: Assumed Care of patient, patient located in Day Room at shift change. Patient exhibited the following behavior Disorganized, Compliant, Resistive. Brief assessment on rounds of vital signs, medication needs, lab studies, and pain. Treatment plan problems . Intervention: Patient assessed and the following interventions initiated safety checks 15 Minute Checks Head to toe Assessment , Cognitive Assessment , Medications. Response: After interactions and interventions patient responded in the following manner, Delusions , Hallucinating ,Drowsy. Continue to assess behaviors and condition will continue to monitor throughout the shift as needed. Patient educated on ADL's, and hand hygiene. 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 Continue to assess patient for changes in above assessment. Monitor for medication needs, pain, and safety concerns. Hourly rounding performed to ensure safe environment.
[2018-02-28] MEDS: SULFACETAMIDE 10% OPHTH SOLUTION 15ML BOTTLE. OS SCH ×6 (00:30→21:34)
[2018-02-28 05:57] VITALS: BP 129/72
[2018-02-28] MEDS: diazePAM 5 MG TABLET PO SCH ×3 (06:21→21:36)
[2018-02-28] MEDS: LEVOTHYROXINE 125 MCG TABLET PO SCH (06:21)
[2018-02-28] MEDS: INSULIN LISPRO 300 UNITS/3 ML INSULN.PEN. SQ SCH ×6 (08:00→17:21)
[2018-02-28] MEDS: CARVEDILOL 12.5 MG TABLET PO SCH ×2 (09:36→17:23)
[2018-02-28] MEDS: ASPIRIN 81 MG TAB.CHEW PO SCH (09:36)
[2018-02-28] MEDS: FAMOTIDINE 20 MG TABLET PO SCH ×2 (09:37→21:35)
[2018-02-28] MEDS: LISINOPRIL 20 MG TABLET PO SCH (09:37)
[2018-02-28] MEDS: DOCUSATE SODIUM 100 MG CAPSULE PO SCH ×2 (09:37→21:35)
[2018-02-28] MEDS: CHOLECALCIFEROL (VITAMIN D3) 1,000 UNIT TABLET PO SCH (09:37)
[2018-02-28] MEDS: amLODIPine BESYLATE 10 MG TABLET PO SCH (09:38)
[2018-02-28] MEDS: LIDOCAINE (700MG/PATCH) PATCH. TD SCH ×2 (09:38→21:34)
[2018-02-28] MEDS: POLYETHYLENE GLYCOL 3350 17 GM PACKET. PO SCH (09:38)
[2018-02-28 16:37] VITALS: BP 129/81
[2018-02-28] MEDS: PATCH REMOVAL. MC SCH (21:00)
--- NOTE | 2018-02-28 21:02 | PDOC ---
Exam Note: Ishaan Note: Please also refer to the separate dictated note~for this date of service dictated separately.~Patient seen individually. Discussed the patient with Nursing staff reviewed the chart.~Reviewed interim history and current functioning. Reviewed vital signs,~Labs/ Radiology~and current medications noted below. Continue current treatment with the changes noted in the dictated addendum note Assessment: Vital Signs: Vital Signs Date Time Temp Pulse Resp B/P (MAP) Pulse Ox O2 Delivery O2 Flow Rate FiO2 02/28/18 17:23 63 129/81 02/28/18 16:37 97.1 20 97 Simple Mask I&O Intake and Output 02/28/18 07:00 Intake Total 840 ml Balance 840 ml Intake Oral 840 ml Labs: Laboratory Tests Test 02/28/18 07:18 02/28/18 11:17 02/28/18 16:27 02/28/18 19:15 Glucose (Fingerstick) 129 mg/dL (70-99) H 282 mg/dL (70-99) H 228 mg/dL (70-99) H 209 mg/dL (70-99) H Current Medications: Meds: Current Medications Acetaminophen (Tylenol) 650 mg PRN Q6HRS PRN PO PAIN / TEMP; Start 02/17/18 at 15:15 Multi-Ingredient Ointment (Analgesic [place]) 1 neha PRN QID PRN TP MUSCLE PAIN; Start 02/17/18 at 15:15 Al Hydroxide/Mg Hydroxide (Mylanta Plus Xs) 15 ml PRN AFTMEALHC PRN PO DYSPEPSIA; Start 02/17/18 at 15:15 Magnesium Hydroxide (Milk Of Magnesia) 2,400 mg PRN QHS PRN PO CONSTIPATION Last administered on 02/18/18at 05:33; Start 02/17/18 at 15:15 Vitamin D (Vitamin D3) 1,000 unit DAILY PO Last administered on 02/28/18at 09:37 ; Start 02/18/18 at 09:00 Diazepam (Valium) 5 mg Q8HRS PO Last administered on 02/28/18at 13:44; Start at 22:00 Gabapentin (Neurontin) 200 mg Q6HRS PO Last administered on 02/24/18at 07:43; Start 02/17/18 at 18:00; Stop 02/24/18 at 16:23; Status DC Insulin Glargine (Lantus) 45 units QHS SQ Last administered on 02/27/18 20:25 ; Start 02/17/18 at 21:00 Amlodipine Besylate (Norvasc) 10 mg DAILY PO Last administered on 02/28/18 09: 38; Start 02/18/18 at 09:00 Aspirin (Children'S Aspirin) 81 mg DAILYWBKFT PO Last administered on 09:36; Start 02/18/18 at 08:00 Atorvastatin Calcium (Lipitor) 40 mg QHS PO Last administered on 02/27/18 20: 22; Start 02/17/18 at 21:00 Carvedilol (Coreg) 12.5 mg BIDWMEALS PO Last administered on 02/28/18 17:23; Start 02/18/18 at 08:00 Non-Formulary Medication (Diazepam (Valium)) 10 mg Q6HRS PO ; Start 02/17/18 at 18:00; Status UNV Docusate Sodium (Colace) 100 mg DAILY PO Last administered on 02/19/18 08:07; Start 02/18/18 at 09:00; Stop 02/19/18 at 12:17; Status DC Enoxaparin Sodium (Lovenox 40mg Syringe) 40 mg QHS SQ Last administered on 02/27 20:23; Start 02/17/18 at 21:00 Insulin Human Lispro (HumaLOG) 12 units TIDWMEALS SQ Last administered on 17:20; Start 02/18/18 at 08:00 Levothyroxine Sodium (Synthroid) 125 mcg DAILY06 PO Last administered on 06:15; Start 02/18/18 at 06:00; Stop 02/19/18 at 12:22; Status DC Lidocaine (Lidoderm) 1 patch DAILY TD Last administered on 02/28/18 09:38; Start 02/18/18 at 09:00 Lisinopril (Prinivil) 40 mg DAILY PO Last administered on 02/28/18 09:37; Start 02/18/18 at 09:00 Prazosin HCl (Minipress) 1 mg QHS PO Last administered on 02/27/18 20:22; Start 02/17/18 at 21:00 Famotidine (Pepcid) 20 mg BID PO Last administered on 02/28/18 09:37; Start at 21:00 Influenza Virus Vaccine (Afluria Trivalent [id number] Syringe) 0.5 ml ONCE ONCE VAX IM Last administered on 02/18/18 12:05; Start 02/18/18 at 09:00; Stop at 09:01; Status DC Insulin Human Lispro (HumaLOG) 0-7 UNITS TIDWMEALS SQ Last administered on 02/28 17:21; Start 02/18/18 at 08:00 Miscellaneous (Lidoderm Patch Removal) 1 ea QHS MC Last administered on 20:22; Start 02/17/18 at 21:00 Bisacodyl (Dulcolax Supp) 10 mg PRN DAILY PRN [place] CONSTIPATION Last administered on 02/17/18 21:40; Start 02/17/18 at 20:45 Docusate Sodium (Colace) 100 mg BID PO Last administered on 02/28/18 09:37; Start 02/19/18 at 21:00 Polyethylene Glycol (miraLAX) 17 gm DAILY PO Last administered on 02/28/18 09: 38; Start 02/20/18 at 09:00 Magnesium Citrate (Citroma) 296 ml 1X ONCE PO Last administered on 02/19/18 12:31; Start 02/19/18 at 12:15; Stop 02/19/18 at 12:21; Status DC Levothyroxine Sodium (Synthroid) 175 mcg DAILY06 PO Last administered on 06:21; Start 02/20/18 at 06:00 Risperidone (RisperDAL) 0.5 mg HS PO Last administered on 02/21/18 20:26; Start 02/19/18 at 21:00; Stop 02/22/18 at 16:49; Status DC Acetaminophen/ Hydrocodone Bitart (Lortab 7.5/325) 1 tab PRN TID PRN PO PAIN Last administered on 02/27/18 21:31; Start 02/19/18 at 20:45 Trazodone HCl (Desyrel) 100 mg QHS PO Last administered on 02/22/18 20:09; Start 02/21/18 at 21:00; Stop 02/23/18 at 09:47; Status DC Trazodone HCl (Desyrel) 100 mg PRN QHS PRN PO INSOMNIA; Start 02/21/18 at 16:45 ; Stop 02/23/18 at 09:47; Status DC Sulfacetamide Sodium (Sulf-10) 1 drop Q4H OS Last administered on 02/28/18 17: 19; Start 02/22/18 at 12:30 Erythromycin (Romycin) 0.25 inch QHS OS Last administered on 02/27/18 20:24; Start 02/22/18 at 21:00 Risperidone (RisperDAL) 0.75 mg QHS PO Last administered on 02/27/18 20:22; Start 02/22/18 at 21:00 Trazodone HCl (Desyrel) 150 mg PRN QHS PRN PO INSOMNIA; Start 02/23/18 at 10:00 Trazodone HCl (Desyrel) 150 mg QHS PO Last administered on 02/27/18 20:21; Start 02/23/18 at 21:00 Divalproex Sodium (Depakote Er) 500 mg QHS PO Last administered on 02/26/18 19 :48; Start 02/23/18 at 21:00; Stop 02/27/18 at 16:48; Status DC Divalproex Sodium (Depakote Er) 1,000 mg QHS PO Last administered on 02/27/18 20:21; Start 02/27/18 at 21:00 Active Scripts Active Reported Lovenox (Enoxaparin Sodium) 40 Mg/0.4 Ml Disp.syrin 40 Mg SQ QHS Gabapentin 100 Mg Capsule 200 Mg PO Q6HRS Diazepam 5 Mg Tablet 5 Mg PO Q8HRS Ranitidine Hcl 150 Mg Tablet 150 Mg PO BID Amlodipine Besylate 10 Mg Tablet 10 Mg PO DAILY Aspirin 81 Mg Tab.chew 81 Mg PO DAILY Vitamin D3 (Cholecalciferol (Vitamin D3)) 1,000 Unit Tablet 1,000 Unit PO DAILY Synthroid (Levothyroxine Sodium) 125 Mcg Tablet 125 Mcg PO DAILYAC Lisinopril 40 Mg Tablet 40 Mg PO DAILY Lantus Solostar (Insulin Glargine,Hum.rec.anlog) 100 Unit/1 Ml Insuln.pen 45 Unit SQ QHS Lidocaine 1 Each Adh..patch 1 Each TP DAILY Lipitor (Atorvastatin Calcium) 40 Mg Tablet 40 Mg PO QHS Prazosin Hcl 1 Mg Capsule 1 Mg PO QHS Colace (Docusate Sodium) 100 Mg Capsule 100 Mg PO DAILY Coreg (Carvedilol) 12.5 Mg Tablet 12.5 Mg PO BIDWMEALS Novolog Flexpen (Insulin Aspart) 100 Unit/1 Ml Insuln.pen 12 Unit SQ TID Plavix (Clopidogrel Bisulfate) 75 Mg Tablet 75 Mg PO DAILY Levothyroxine Sodium 50 Mcg Tablet 50 Mcg PO DAILY Lortab 7.5-325 mg Tablet (Hydrocodone/Acetaminophen) 1 Each Tablet 1 Tab PO TID PRN I have reviewed the current psychotropics carefully including drug interactions. Risk benefit ratio favors no change other than as noted in my dictated progress note. 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
[2018-02-28] MEDS: ATORVASTATIN CALCIUM 20 MG TABLET PO SCH (21:35)
[2018-02-28] MEDS: DIVALPROEX ER 500 MG TAB.ER.24H PO SCH (21:35)
[2018-02-28] MEDS: ERYTHROMYCIN 0.5% OPHTH OINTMENT 1GM TUBE. OS SCH (21:35)
[2018-02-28] MEDS: traZODone 150 MG TABLET. PO SCH (21:36)
[2018-02-28] MEDS: risperiDONE 0.25 MG TABLET. PO SCH (21:36)
[2018-02-28] MEDS: PRAZOSIN 1 MG CAPSULE. PO SCH (21:36)
[2018-02-28] MEDS: INSULIN GLARGINE 300 UNITS/3 ML INSULN.PEN. SQ SCH (21:37)
[2018-02-28] MEDS: ENOXAPARIN 40 MG/0.4 ML SYRINGE. SQ SCH (21:38)
--- NOTE | 2018-02-28 22:17 | NUR ---
Behavior Intervention Response and Plan: BIRP Note: Behavior: Assumed Care of patient, patient located in Patient Room at shift change. Patient exhibited the following behavior Sleeping, Calm, Compliant. Brief assessment on rounds of vital signs, medication needs, lab studies, and pain. Treatment plan problems . Intervention: Patient assessed and the following interventions initiated safety checks 15 Minute Checks Personal Alarm in place , Cognitive Assessment , Head to toe Assessment. Response: After interactions and interventions patient responded in the following manner, Calm , Sleeping ,Compliant. Continue to assess behaviors and condition will continue to monitor throughout the shift as needed. Patient educated on ADL's, and hand hygiene. 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 Continue to assess patient for changes in above assessment. Monitor for medication needs, pain, and safety concerns. Hourly rounding performed to ensure safe environment.
--- NOTE | 2018-02-28 23:04 | PN ---
DATE: 02/27/2018 This is a late entry for 02/27/2018 covers elements not covered in my initial note of 02/27/2018. SUBJECTIVE: I met with the patient in the evening. The patient slept 5 hours previous evening. He has been somewhat withdrawn, anxious, but less psychotic, less labile in his mood. REVIEW OF SYSTEMS: Bilateral blindness, impaired ambulation, in wheelchair. No CV, , pulmonary, ENT system symptoms on review. MENTAL STATUS EXAM: The patient is reasonably oriented. Speech has some latency, coherent. Abstraction fair, computation impaired, language function intact. Able to do one step on serial sevens, remembered 2/3 objects at 3 minutes. No active suicidal or homicidal ideation. Mood and affect still somewhat withdrawn. LABORATORY DATA: Valproic acid level is 26 on Depakote ER 500 mg at bedtime. IMPRESSION: Unchanged from initial note, schizoaffective disorder, bipolar type, mixed with psychotic features, in partial remission. Rest unchanged. PLAN: Increase Depakote ER to 1000 mg p.o. at bedtime. Check CBC, CMP, valproic acid level in 3 days. Continue Risperdal 0.75 mg p.o. at bedtime, trazodone. Maintain Valium, prazosin for now, but may reduce the Valium gradually. MAN Dilma AGUIRRE MD DR: DIAY/valeria JOB#: [id number] / [id number]
[2018-03-01] MEDS: SULFACETAMIDE 10% OPHTH SOLUTION 15ML BOTTLE. OS SCH ×6 (00:30→21:01)
[2018-03-01 06:03] VITALS: BP 110/69
[2018-03-01] MEDS: diazePAM 5 MG TABLET PO SCH ×3 (06:32→21:04)
[2018-03-01] MEDS: LEVOTHYROXINE 125 MCG TABLET PO SCH (06:32)
[2018-03-01] MEDS ORDERED: DEXTROSE ORAL GEL 15 GM TUBE. ONE (06:42)
--- NOTE | 2018-03-01 07:04 | NUR ---
Patient 0625 blood sugar was 49L gave patient orange juice called Dr Pitts who stated no new orders repeat the orange juice and recheck until it comes back up, rechecked and it was 53L gave glucose gel and blood sugar increased to 71, will continue to monitor patient.
[2018-03-01] MEDS: INSULIN LISPRO 300 UNITS/3 ML INSULN.PEN. SQ SCH ×6 (08:00→17:44)
[2018-03-01] MEDS: FAMOTIDINE 20 MG TABLET PO SCH ×2 (08:19→21:01)
[2018-03-01] MEDS: DOCUSATE SODIUM 100 MG CAPSULE PO SCH ×2 (08:19→21:01)
[2018-03-01] MEDS: amLODIPine BESYLATE 10 MG TABLET PO SCH (08:19)
[2018-03-01] MEDS: LISINOPRIL 20 MG TABLET PO SCH (08:20)
[2018-03-01] MEDS: ASPIRIN 81 MG TAB.CHEW PO SCH (08:21)
[2018-03-01] MEDS: CHOLECALCIFEROL (VITAMIN D3) 1,000 UNIT TABLET PO SCH (08:21)
[2018-03-01] MEDS: CARVEDILOL 12.5 MG TABLET PO SCH ×2 (08:21→17:42)
[2018-03-01] MEDS: POLYETHYLENE GLYCOL 3350 17 GM PACKET. PO SCH (08:21)
--- NOTE | 2018-03-01 08:30 | NUR ---
Behavior Intervention Response and Plan: BIRP Note: Behavior: Assumed Care of patient, patient located in Day Room at shift change. Patient exhibited the following behavior Restless, Disorganized, Compulsive. Brief assessment on rounds of vital signs, medication needs, lab studies, and pain. Treatment plan problems 1 & 2. Intervention: Patient assessed and the following interventions initiated safety checks 15 Minute Checks Cognitive Assessment , Head to toe Assessment , Medications. Response: After interactions and interventions patient responded in the following manner, Disorganized , Withdrawn ,Compliant. Continue to assess behaviors and condition will continue to monitor throughout the shift as needed. Patient educated on ADL's, and hand hygiene. 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 Continue to assess patient for changes in above assessment. Monitor for medication needs, pain, and safety concerns. Hourly rounding performed to ensure safe environment.
[2018-03-01 16:11] VITALS: BP 147/83
--- NOTE | 2018-03-01 20:46 | PN ---
DATE: 02/28/2018 PSYCHIATRIC PROGRESS NOTE This late entry 02/28/2018 covers elements not covered in my initial note. SUBJECTIVE: I met with the patient in the evening. The patient slept 4-3/4 hours previous evening. Previous night he was resistive to medications saying that staff reporting on him. He has been calmer during the day 02/28/2018. REVIEW OF SYSTEMS: Poor vision, bilateral blindness; impaired ambulation, in wheelchair. No CV, , pulmonary, ENT system symptoms on review. MENTAL STATUS EXAM: Oriented to himself and situation. Speech moderate latency, often responses monosyllabic. Abstraction fair, computation impaired, language function intact, attention span short. Mood and affect, intermittently labile, but improved. LABORATORY DATA: Reviewed. IMPRESSION: Unchanged from initial note. PLAN: No change from initial note. MAN Dilma AGUIRRE MD DR: DIYA/valeria JOB#: [id number] / [id number]
--- NOTE | 2018-03-01 20:53 | PDOC ---
Exam Note: Ishaan Note: Please also refer to the separate dictated note~for this date of service dictated separately.~Patient seen individually. Discussed the patient with Nursing staff reviewed the chart.~Reviewed interim history and current functioning. Reviewed vital signs,~Labs/ Radiology~and current medications noted below. Continue current treatment with the changes noted in the dictated addendum note Assessment: Vital Signs: Vital Signs Date Time Temp Pulse Resp B/P (MAP) Pulse Ox O2 Delivery O2 Flow Rate FiO2 03/01/18 17:42 73 147/83 03/01/18 16:11 97.6 16 97 02/28/18 16:37 Simple Mask I&O Intake and Output 03/01/18 07:00 Intake Total 1440 ml Balance 1440 ml Intake Oral 1440 ml Labs: Laboratory Tests Test 03/01/18 06:20 03/01/18 06:40 03/01/18 06:59 03/01/18 07:40 Glucose (Fingerstick) 49 mg/dL (70-99) L 53 mg/dL (70-99) L 71 mg/dL (70-99) 131 mg/dL (70-99) H Test 03/01/18 11:34 03/01/18 16:53 03/01/18 19:15 Glucose (Fingerstick) 240 mg/dL (70-99) H 206 mg/dL (70-99) H 239 mg/dL (70-99) H Current Medications: Meds: Current Medications Acetaminophen (Tylenol) 650 mg PRN Q6HRS PRN PO PAIN / TEMP; Start 02/17/18 at 15:15 Multi-Ingredient Ointment (Analgesic [place]) 1 neha PRN QID PRN TP MUSCLE PAIN; Start 02/17/18 at 15:15 Al Hydroxide/Mg Hydroxide (Mylanta Plus Xs) 15 ml PRN AFTMEALHC PRN PO DYSPEPSIA; Start 02/17/18 at 15:15 Magnesium Hydroxide (Milk Of Magnesia) 2,400 mg PRN QHS PRN PO CONSTIPATION Last administered on 02/18/18at 05:33; Start 02/17/18 at 15:15 Vitamin D (Vitamin D3) 1,000 unit DAILY PO Last administered on 03/01/18at 08: 21; Start 02/18/18 at 09:00 Diazepam (Valium) 5 mg Q8HRS PO Last administered on 03/01/18 13:56; Start at 22:00 Gabapentin (Neurontin) 200 mg Q6HRS PO Last administered on 02/24/18 07:43; Start 02/17/18 at 18:00; Stop 02/24/18 at 16:23; Status DC Insulin Glargine (Lantus) 45 units QHS SQ Last administered on 02/28/18 21:37 ; Start 02/17/18 at 21:00 Amlodipine Besylate (Norvasc) 10 mg DAILY PO Last administered on 03/01/18 08 :19; Start 02/18/18 at 09:00 Aspirin (Children'S Aspirin) 81 mg DAILYWBKFT PO Last administered on 08:21; Start 02/18/18 at 08:00 Atorvastatin Calcium (Lipitor) 40 mg QHS PO Last administered on 02/28/18 21: 35; Start 02/17/18 at 21:00 Carvedilol (Coreg) 12.5 mg BIDWMEALS PO Last administered on 03/01/18 17:42; Start 02/18/18 at 08:00 Non-Formulary Medication (Diazepam (Valium)) 10 mg Q6HRS PO ; Start 02/17/18 at 18:00; Status UNV Docusate Sodium (Colace) 100 mg DAILY PO Last administered on 02/19/18 08:07; Start 02/18/18 at 09:00; Stop 02/19/18 at 12:17; Status DC Enoxaparin Sodium (Lovenox 40mg Syringe) 40 mg QHS SQ Last administered on 02/28 21:38; Start 02/17/18 at 21:00 Insulin Human Lispro (HumaLOG) 12 units TIDWMEALS SQ Last administered on 03/01 17:43; Start 02/18/18 at 08:00 Levothyroxine Sodium (Synthroid) 125 mcg DAILY06 PO Last administered on 06:15; Start 02/18/18 at 06:00; Stop 02/19/18 at 12:22; Status DC Lidocaine (Lidoderm) 1 patch DAILY TD Last administered on 02/28/18 21:34; Start 02/18/18 at 09:00 Lisinopril (Prinivil) 40 mg DAILY PO Last administered on 03/01/18 08:20; Start 02/18/18 at 09:00 Prazosin HCl (Minipress) 1 mg QHS PO Last administered on 02/28/18at 21:36; Start 02/17/18 at 21:00 Famotidine (Pepcid) 20 mg BID PO Last administered on 03/01/18 08:19; Start 02/17/18 at 21:00 Influenza Virus Vaccine (Afluria Trivalent [id number] Syringe) 0.5 ml ONCE ONCE VAX IM Last administered on 02/18/18 12:05; Start 02/18/18 at 09:00; Stop at 09:01; Status DC Insulin Human Lispro (HumaLOG) 0-7 UNITS TIDWMEALS SQ Last administered on 17:44; Start 02/18/18 at 08:00 Miscellaneous (Lidoderm Patch Removal) 1 ea QHS MC Last administered on 21:00; Start 02/17/18 at 21:00 Bisacodyl (Dulcolax Supp) 10 mg PRN DAILY PRN [place] CONSTIPATION Last administered on 02/17/18 21:40; Start 02/17/18 at 20:45 Docusate Sodium (Colace) 100 mg BID PO Last administered on 03/01/18 08:19; Start 02/19/18 at 21:00 Polyethylene Glycol (miraLAX) 17 gm DAILY PO Last administered on 03/01/18 08 :21; Start 02/20/18 at 09:00 Magnesium Citrate (Citroma) 296 ml 1X ONCE PO Last administered on 02/19/18 12:31; Start 02/19/18 at 12:15; Stop 02/19/18 at 12:21; Status DC Levothyroxine Sodium (Synthroid) 175 mcg DAILY06 PO Last administered on 06:32; Start 02/20/18 at 06:00 Risperidone (RisperDAL) 0.5 mg HS PO Last administered on 02/21/18 20:26; Start 02/19/18 at 21:00; Stop 02/22/18 at 16:49; Status DC Acetaminophen/ Hydrocodone Bitart (Lortab 7.5/325) 1 tab PRN TID PRN PO PAIN Last administered on 02/27/18 21:31; Start 02/19/18 at 20:45 Trazodone HCl (Desyrel) 100 mg QHS PO Last administered on 02/22/18 20:09; Start 02/21/18 at 21:00; Stop 02/23/18 at 09:47; Status DC Trazodone HCl (Desyrel) 100 mg PRN QHS PRN PO INSOMNIA; Start 02/21/18 at 16:45 ; Stop 02/23/18 at 09:47; Status DC Sulfacetamide Sodium (Sulf-10) 1 drop Q4H OS Last administered on 03/01/18 17 :42; Start 02/22/18 at 12:30 Erythromycin (Romycin) 0.25 inch QHS OS Last administered on 02/28/18 21:35; Start 02/22/18 at 21:00 Risperidone (RisperDAL) 0.75 mg QHS PO Last administered on 02/28/18 21:36; Start 02/22/18 at 21:00 Trazodone HCl (Desyrel) 150 mg PRN QHS PRN PO INSOMNIA; Start 02/23/18 at 10:00 Trazodone HCl (Desyrel) 150 mg QHS PO Last administered on 02/28/18 21:36; Start 02/23/18 at 21:00 Divalproex Sodium (Depakote Er) 500 mg QHS PO Last administered on 02/26/18at 19 :48; Start 02/23/18 at 21:00; Stop 02/27/18 at 16:48; Status DC Divalproex Sodium (Depakote Er) 1,000 mg QHS PO Last administered on 02/28/18 21:35; Start 02/27/18 at 21:00 Glucose (Insta-Glucose) 15 gm STK-MED ONCE .ROUTE Last administered on 06:42; Start 03/01/18 at 06:42; Stop 03/01/18 at 06:43; Status DC Active Scripts Active Reported Lovenox (Enoxaparin Sodium) 40 Mg/0.4 Ml Disp.syrin 40 Mg SQ QHS Gabapentin 100 Mg Capsule 200 Mg PO Q6HRS Diazepam 5 Mg Tablet 5 Mg PO Q8HRS Ranitidine Hcl 150 Mg Tablet 150 Mg PO BID Amlodipine Besylate 10 Mg Tablet 10 Mg PO DAILY Aspirin 81 Mg Tab.chew 81 Mg PO DAILY Vitamin D3 (Cholecalciferol (Vitamin D3)) 1,000 Unit Tablet 1,000 Unit PO DAILY Synthroid (Levothyroxine Sodium) 125 Mcg Tablet 125 Mcg PO DAILYAC Lisinopril 40 Mg Tablet 40 Mg PO DAILY Lantus Solostar (Insulin Glargine,Hum.rec.anlog) 100 Unit/1 Ml Insuln.pen 45 Unit SQ QHS Lidocaine 1 Each Adh..patch 1 Each TP DAILY Lipitor (Atorvastatin Calcium) 40 Mg Tablet 40 Mg PO QHS Prazosin Hcl 1 Mg Capsule 1 Mg PO QHS Colace (Docusate Sodium) 100 Mg Capsule 100 Mg PO DAILY Coreg (Carvedilol) 12.5 Mg Tablet 12.5 Mg PO BIDWMEALS Novolog Flexpen (Insulin Aspart) 100 Unit/1 Ml Insuln.pen 12 Unit SQ TID Plavix (Clopidogrel Bisulfate) 75 Mg Tablet 75 Mg PO DAILY Levothyroxine Sodium 50 Mcg Tablet 50 Mcg PO DAILY Lortab 7.5-325 mg Tablet (Hydrocodone/Acetaminophen) 1 Each Tablet 1 Tab PO TID PRN I have reviewed the current psychotropics carefully including drug interactions. Risk benefit ratio favors no change other than as noted in my dictated progress note. 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
[2018-03-01] MEDS: risperiDONE 0.25 MG TABLET. PO SCH (21:00)
[2018-03-01] MEDS: PATCH REMOVAL. MC SCH (21:00)
--- NOTE | 2018-03-01 21:00 | NUR ---
Behavior Intervention Response and Plan: BIRP Note: Behavior: Assumed Care of patient, patient located in Day Room at shift change. Patient exhibited the following behavior Calm, Interactive, Compliant. Brief assessment on rounds of vital signs, medication needs, lab studies, and pain. Treatment plan problems . Intervention: Patient assessed and the following interventions initiated safety checks 15 Minute Checks Cognitive Assessment , Head to toe Assessment , Medications. Response: After interactions and interventions patient responded in the following manner, Calm , Interactive ,Compliant. Continue to assess behaviors and condition will continue to monitor throughout the shift as needed. Patient educated on ADL's, and hand hygiene. 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 Continue to assess patient for changes in above assessment. Monitor for medication needs, pain, and safety concerns. Hourly rounding performed to ensure safe environment.
[2018-03-01] MEDS: DIVALPROEX ER 500 MG TAB.ER.24H PO SCH (21:01)
[2018-03-01] MEDS: PRAZOSIN 1 MG CAPSULE. PO SCH (21:01)
[2018-03-01] MEDS: ATORVASTATIN CALCIUM 20 MG TABLET PO SCH (21:01)
[2018-03-01] MEDS: ERYTHROMYCIN 0.5% OPHTH OINTMENT 1GM TUBE. OS SCH (21:02)
[2018-03-01] MEDS: traZODone 150 MG TABLET. PO SCH (21:03)
[2018-03-01] MEDS: ENOXAPARIN 40 MG/0.4 ML SYRINGE. SQ SCH (21:03)
[2018-03-01] MEDS: HYDROcodone/APAP 7.5/325MG 1 TAB TABLET PO PRN (21:37)
[2018-03-01] MEDS: INSULIN GLARGINE 300 UNITS/3 ML INSULN.PEN. SQ SCH (21:38)
[2018-03-02] MEDS: SULFACETAMIDE 10% OPHTH SOLUTION 15ML BOTTLE. OS SCH ×7 (00:30→20:54)
[2018-03-02] MEDS: LEVOTHYROXINE 125 MCG TABLET PO SCH (05:39)
[2018-03-02] MEDS: diazePAM 5 MG TABLET PO SCH ×4 (05:40→20:55)
[2018-03-02 06:07] VITALS: BP 104/70
[2018-03-02 07:24] LABS: BASO % 0 % (0-3); EOS # 0.1 x10^3/uL (0.0-0.7); EOS % 2 % (0-3); HEMATOCRIT 34.1 % (39.0-53.0); HEMOGLOBIN 11.7 g/dL (13.0-17.5); LYMPH # 2.3 x10^3/uL (1.0-4.8); LYMPH % 38 % (24-48); MEAN CORPUSCULAR HEMOGLOBIN 31 pg (25-35); MEAN CORPUSCULAR HGB CONC 34 g/dL (31-37); MEAN CORPUSCULAR VOLUME 90 fL (79-100); MONO # 0.6 x10^3/uL (0.0-1.1); MONO % 9 % (0-9); NEUT # 3.2 x10^3uL (1.8-7.7); NEUT % 51 % (31-73); PLATELET COUNT 192 x10^3/uL (140-400); WHITE BLOOD COUNT 6.2 x10^3/uL (4.0-11.0)
[2018-03-02 07:40] LABS: ALBUMIN 3.3 g/dL (3.4-5.0); ALBUMIN/GLOBULIN RATIO 0.9 (1.0-1.7); CALCIUM 9.3 mg/dL (8.5-10.1); CREATININE 1.3 mg/dL (0.7-1.3); GFR 67.7; POTASSIUM 4.2 mmol/L (3.5-5.1); TOTAL BILIRUBIN 0.3 mg/dL (0.2-1.0); TOTAL PROTEIN 6.9 g/dL (6.4-8.2)
[2018-03-02 07:43] LABS: VAL ACID 71 mcg/mL (50-100)
[2018-03-02] MEDS: INSULIN LISPRO 300 UNITS/3 ML INSULN.PEN. SQ SCH ×8 (08:00→18:20)
[2018-03-02] MEDS: FAMOTIDINE 20 MG TABLET PO SCH ×2 (09:12→20:55)
[2018-03-02] MEDS: CHOLECALCIFEROL (VITAMIN D3) 1,000 UNIT TABLET PO SCH (09:13)
[2018-03-02] MEDS: CARVEDILOL 12.5 MG TABLET PO SCH ×2 (09:13→18:17)
[2018-03-02] MEDS: LISINOPRIL 20 MG TABLET PO SCH (09:13)
[2018-03-02] MEDS: amLODIPine BESYLATE 10 MG TABLET PO SCH (09:13)
[2018-03-02] MEDS: POLYETHYLENE GLYCOL 3350 17 GM PACKET. PO SCH (09:14)
[2018-03-02] MEDS: DOCUSATE SODIUM 100 MG CAPSULE PO SCH ×2 (09:14→20:55)
[2018-03-02] MEDS: ASPIRIN 81 MG TAB.CHEW PO SCH (09:14)
[2018-03-02] MEDS: LIDOCAINE (700MG/PATCH) PATCH. TD SCH (09:15)
--- NOTE | 2018-03-02 09:15 | NUR ---
Behavior Intervention Response and Plan: BIRP Note: Behavior: Assumed Care of patient, patient located in Day Room at shift change. Patient exhibited the following behavior Restless, Disorganized, Compulsive. Brief assessment on rounds of vital signs, medication needs, lab studies, and pain. Treatment plan problems 1 & 2. Intervention: Patient assessed and the following interventions initiated safety checks 15 Minute Checks Cognitive Assessment , Head to toe Assessment , Medications. Response: After interactions and interventions patient responded in the following manner, Disorganized , Withdrawn ,Compliant. Continue to assess behaviors and condition will continue to monitor throughout the shift as needed. Patient educated on ADL's, and hand hygiene. 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 Continue to assess patient for changes in above assessment. Monitor for medication needs, pain, and safety concerns. Hourly rounding performed to ensure safe environment.
--- NOTE | 2018-03-02 09:16 | NUR ---
WEEKLY ACTIVITY THERAPY NOTE Date of Admission: 02/17/2018 Date of AT Assessment: 02/20/2018 Goal aimed: to increase socialization and assertiveness Initial goal: Pt. will participate in at least one group per day and will ask for/ initiate help with a task at least once before discharge. Weekly progress towards goal: achieved Group participation level: varies Behaviors observed: Pt. was more engaged earlier in the week but interest seems to be declined as the week has progressed. Usually around group but quiet, pleasant, more engaged perhaps in afternoon, enjoys talking groups Plan: no change to goal
--- NOTE | 2018-03-02 14:10 | NUR ---
patient refused his insulin at lunch, stating he wanted to wait until he was done eating. He then refused his insulin, eye drops, and diazepam, stating that another nurse had already given him these meds, and that this was the fifth time someone had tried to give him medications today. He also states that his money is missing. When informed that his money was in the safe and the amount, patient stated that he had twice that much money. Patient sitting quietly in day room, will continue to monitor.
--- NOTE | 2018-03-02 16:00 | NUR ---
wound care patient seen per wound care consult. see wound assessment. patient has small area of skin tears to the right dorsal foot, the area was cleaned and measured and unable to picture at this time, redressed with a contact layer with a non adhesive foam with kerlix and tape, recommendations of changing every 2-3 days. the area had not been pictured. went to take a picture and the camera battery needed charged. patients Medigrips reapplied at this time. wound care will continue to f/u. notified HAYDE Barr that the wound needed to be pictured with the next dressing change, and notified him of the recommendations.
[2018-03-02 16:35] VITALS: BP 127/83
--- NOTE | 2018-03-02 17:40 | NUR ---
WEEKLY NOTE: Pt continues to be rude, argumentative and is resistive to medications. [facility] an [facility] for [facility]. PAULETTE will contact Luis Felipe Stokes at [phone] to get this process started.
--- NOTE | 2018-03-02 20:43 | PDOC ---
Exam Note: Ishaan Note: Please also refer to the separate dictated note~for this date of service dictated separately.~Patient seen individually. Discussed the patient with Nursing staff reviewed the chart.~Reviewed interim history and current functioning. Reviewed vital signs,~Labs/ Radiology~and current medications noted below. Continue current treatment with the changes noted in the dictated addendum note Assessment: Vital Signs: Vital Signs Date Time Temp Pulse Resp B/P (MAP) Pulse Ox O2 Delivery O2 Flow Rate FiO2 03/02/18 18:17 72 127/83 03/02/18 16:35 97.7 18 98 Room Air I&O Intake and Output 03/02/18 07:00 Intake Total 600 ml Balance 600 ml Intake Oral 600 ml Labs: Laboratory Tests Test 03/02/18 06:53 03/02/18 07:09 03/02/18 11:43 03/02/18 16:49 White Blood Count 6.2 x10^3/uL (4.0-11.0) Red Blood Count 3.80 x10^6/uL (4.30-5.70) L Hemoglobin 11.7 g/dL (13.0-17.5) L Hematocrit 34.1 % (39.0-53.0) L Mean Corpuscular Volume 90 fL (79-100) Mean Corpuscular Hemoglobin 31 pg (25-35) Mean Corpuscular Hemoglobin Concent 34 g/dL (31-37) Red Cell Distribution Width 15.0 % (11.5-14.5) H Platelet Count 192 x10^3/uL (140-400) Neutrophils (%) (Auto) 51 % (31-73) Lymphocytes (%) (Auto) 38 % (24-48) Monocytes (%) (Auto) 9 % (0-9) Eosinophils (%) (Auto) 2 % (0-3) Basophils (%) (Auto) 0 % (0-3) Neutrophils # (Auto) 3.2 x10^3uL (1.8-7.7) Lymphocytes # (Auto) 2.3 x10^3/uL (1.0-4.8) Monocytes # (Auto) 0.6 x10^3/uL (0.0-1.1) Eosinophils # (Auto) 0.1 x10^3/uL (0.0-0.7) Basophils # (Auto) 0.0 x10^3/uL (0.0-0.2) Sodium Level 139 mmol/L (136-145) Potassium Level 4.2 mmol/L (3.5-5.1) Chloride Level 102 mmol/L (98-107) Carbon Dioxide Level 33 mmol/L (21-32) H Anion Gap 4 (6-14) L Blood Urea Nitrogen 22 mg/dL (8-26) Creatinine 1.3 mg/dL (0.7-1.3) Estimated GFR (Cockcroft-Gault) 67.7 BUN/Creatinine Ratio 17 (6-20) Glucose Level 114 mg/dL (70-99) H Calcium Level 9.3 mg/dL (8.5-10.1) Total Bilirubin 0.3 mg/dL (0.2-1.0) Aspartate Amino Transferase (AST) 22 U/L (15-37) Alanine Aminotransferase (ALT) 37 U/L (16-63) Alkaline Phosphatase 78 U/L (46-116) Total Protein 6.9 g/dL (6.4-8.2) Albumin 3.3 g/dL (3.4-5.0) L Albumin/Globulin Ratio 0.9 (1.0-1.7) L Valproic Acid Level 71 mcg/mL (50-100) Valproic Acid Last Dose Date 03/01/18 Valproic Acid Last Dose Time 2100 Glucose (Fingerstick) 97 mg/dL (70-99) 171 mg/dL (70-99) H 197 mg/dL (70-99) H Test 03/02/18 19:37 Glucose (Fingerstick) 207 mg/dL (70-99) H Current Medications: Meds: Current Medications Acetaminophen (Tylenol) 650 mg PRN Q6HRS PRN PO PAIN / TEMP; Start 02/17/18 at 15:15 Multi-Ingredient Ointment (Analgesic [place]) 1 neha PRN QID PRN TP MUSCLE PAIN; Start 02/17/18 at 15:15 Al Hydroxide/Mg Hydroxide (Mylanta Plus Xs) 15 ml PRN AFTMEALHC PRN PO DYSPEPSIA; Start 02/17/18 at 15:15 Magnesium Hydroxide (Milk Of Magnesia) 2,400 mg PRN QHS PRN PO CONSTIPATION Last administered on 9/29/18at 05:33; Start 02/17/18 at 15:15 Vitamin D (Vitamin D3) 1,000 unit DAILY PO Last administered on 03/02/18 09: 13; Start 02/18/18 at 09:00 Diazepam (Valium) 5 mg Q8HRS PO Last administered on 03/02/18 05:40; Start at 22:00 Gabapentin (Neurontin) 200 mg Q6HRS PO Last administered on 02/24/18 07:43; Start 02/17/18 at 18:00; Stop 02/24/18 at 16:23; Status DC Insulin Glargine (Lantus) 45 units QHS SQ Last administered on 03/01/18 21:38 ; Start 02/17/18 at 21:00 Amlodipine Besylate (Norvasc) 10 mg DAILY PO Last administered on 03/02/18 09 :13; Start 02/18/18 at 09:00 Aspirin (Children'S Aspirin) 81 mg DAILYWBKFT PO Last administered on 09:14; Start 02/18/18 at 08:00 Atorvastatin Calcium (Lipitor) 40 mg QHS PO Last administered on 03/01/18 21: 01; Start 02/17/18 at 21:00 Carvedilol (Coreg) 12.5 mg BIDWMEALS PO Last administered on 03/02/18 18:17; Start 02/18/18 at 08:00 Non-Formulary Medication (Diazepam (Valium)) 10 mg Q6HRS PO ; Start 02/17/18 at 18:00; Status UNV Docusate Sodium (Colace) 100 mg DAILY PO Last administered on 02/19/18 08:07; Start 02/18/18 at 09:00; Stop 02/19/18 at 12:17; Status DC Enoxaparin Sodium (Lovenox 40mg Syringe) 40 mg QHS SQ Last administered on 21:03; Start 02/17/18 at 21:00 Insulin Human Lispro (HumaLOG) 12 units TIDWMEALS SQ Last administered on 03/02 18:18; Start 02/18/18 at 08:00 Levothyroxine Sodium (Synthroid) 125 mcg DAILY06 PO Last administered on 06:15; Start 02/18/18 at 06:00; Stop 02/19/18 at 12:22; Status DC Lidocaine (Lidoderm) 1 patch DAILY TD Last administered on 03/02/18 09:15; Start 02/18/18 at 09:00 Lisinopril (Prinivil) 40 mg DAILY PO Last administered on 03/02/18 09:13; Start 02/18/18 at 09:00 Prazosin HCl (Minipress) 1 mg QHS PO Last administered on 03/01/18 21:01; Start 02/17/18 at 21:00 Famotidine (Pepcid) 20 mg BID PO Last administered on 03/02/18 09:12; Start 02/17/18 at 21:00 Influenza Virus Vaccine (Afluria Trivalent [id number] Syringe) 0.5 ml ONCE ONCE VAX IM Last administered on 02/18/18 12:05; Start 02/18/18 at 09:00; Stop at 09:01; Status DC Insulin Human Lispro (HumaLOG) 0-7 UNITS TIDWMEALS SQ Last administered on 18:20; Start 02/18/18 at 08:00 Miscellaneous (Lidoderm Patch Removal) 1 ea QHS MC Last administered on 21:00; Start 02/17/18 at 21:00 Bisacodyl (Dulcolax Supp) 10 mg PRN DAILY PRN [place] CONSTIPATION Last administered on 02/17/18at 21:40; Start 02/17/18 at 20:45 Docusate Sodium (Colace) 100 mg BID PO Last administered on 03/02/18 09:14; Start 02/19/18 at 21:00 Polyethylene Glycol (miraLAX) 17 gm DAILY PO Last administered on 03/02/18 09 :14; Start 02/20/18 at 09:00 Magnesium Citrate (Citroma) 296 ml 1X ONCE PO Last administered on 02/19/18 12:31; Start 02/19/18 at 12:15; Stop 02/19/18 at 12:21; Status DC Levothyroxine Sodium (Synthroid) 175 mcg DAILY06 PO Last administered on at 05:39; Start 02/20/18 at 06:00 Risperidone (RisperDAL) 0.5 mg HS PO Last administered on 02/21/18 20:26; Start 02/19/18 at 21:00; Stop 02/22/18 at 16:49; Status DC Acetaminophen/ Hydrocodone Bitart (Lortab 7.5/325) 1 tab PRN TID PRN PO PAIN Last administered on 03/01/18 21:37; Start 02/19/18 at 20:45 Trazodone HCl (Desyrel) 100 mg QHS PO Last administered on 02/22/18 20:09; Start 02/21/18 at 21:00; Stop 02/23/18 at 09:47; Status DC Trazodone HCl (Desyrel) 100 mg PRN QHS PRN PO INSOMNIA; Start 02/21/18 at 16:45 ; Stop 02/23/18 at 09:47; Status DC Sulfacetamide Sodium (Sulf-10) 1 drop Q4H OS Last administered on 03/02/18at 18 :15; Start 02/22/18 at 12:30 Erythromycin (Romycin) 0.25 inch QHS OS Last administered on 03/01/18 21:02; Start 02/22/18 at 21:00 Risperidone (RisperDAL) 0.75 mg QHS PO Last administered on 03/01/18 21:00; Start 02/22/18 at 21:00 Trazodone HCl (Desyrel) 150 mg PRN QHS PRN PO INSOMNIA; Start 02/23/18 at 10:00 Trazodone HCl (Desyrel) 150 mg QHS PO Last administered on 03/01/18 21:03; Start 02/23/18 at 21:00 Divalproex Sodium (Depakote Er) 500 mg QHS PO Last administered on 02/26/18 19 :48; Start 02/23/18 at 21:00; Stop 02/27/18 at 16:48; Status DC Divalproex Sodium (Depakote Er) 1,000 mg QHS PO Last administered on 21:01; Start 02/27/18 at 21:00 Glucose (Insta-Glucose) 15 gm STK-MED ONCE .ROUTE Last administered on 10/10/ 18at 06:42; Start 03/01/18 at 06:42; Stop 03/01/18 at 06:43; Status DC Active Scripts Active Reported Lovenox (Enoxaparin Sodium) 40 Mg/0.4 Ml Disp.syrin 40 Mg SQ QHS Gabapentin 100 Mg Capsule 200 Mg PO Q6HRS Diazepam 5 Mg Tablet 5 Mg PO Q8HRS Ranitidine Hcl 150 Mg Tablet 150 Mg PO BID Amlodipine Besylate 10 Mg Tablet 10 Mg PO DAILY Aspirin 81 Mg Tab.chew 81 Mg PO DAILY Vitamin D3 (Cholecalciferol (Vitamin D3)) 1,000 Unit Tablet 1,000 Unit PO DAILY Synthroid (Levothyroxine Sodium) 125 Mcg Tablet 125 Mcg PO DAILYAC Lisinopril 40 Mg Tablet 40 Mg PO DAILY Lantus Solostar (Insulin Glargine,Hum.rec.anlog) 100 Unit/1 Ml Insuln.pen 45 Unit SQ QHS Lidocaine 1 Each Adh..patch 1 Each TP DAILY Lipitor (Atorvastatin Calcium) 40 Mg Tablet 40 Mg PO QHS Prazosin Hcl 1 Mg Capsule 1 Mg PO QHS Colace (Docusate Sodium) 100 Mg Capsule 100 Mg PO DAILY Coreg (Carvedilol) 12.5 Mg Tablet 12.5 Mg PO BIDWMEALS Novolog Flexpen (Insulin Aspart) 100 Unit/1 Ml Insuln.pen 12 Unit SQ TID Plavix (Clopidogrel Bisulfate) 75 Mg Tablet 75 Mg PO DAILY Levothyroxine Sodium 50 Mcg Tablet 50 Mcg PO DAILY Lortab 7.5-325 mg Tablet (Hydrocodone/Acetaminophen) 1 Each Tablet 1 Tab PO TID PRN I have reviewed the current psychotropics carefully including drug interactions. Risk benefit ratio favors no change other than as noted in my dictated progress note. 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
[2018-03-02] MEDS: ERYTHROMYCIN 0.5% OPHTH OINTMENT 1GM TUBE. OS SCH (20:54)
[2018-03-02] MEDS: traZODone 150 MG TABLET. PO SCH (20:54)
[2018-03-02] MEDS: PATCH REMOVAL. MC SCH (20:54)
[2018-03-02] MEDS: DIVALPROEX ER 500 MG TAB.ER.24H PO SCH (20:55)
[2018-03-02] MEDS: ATORVASTATIN CALCIUM 20 MG TABLET PO SCH (20:56)
[2018-03-02] MEDS: risperiDONE 0.25 MG TABLET. PO SCH (20:56)
[2018-03-02] MEDS: PRAZOSIN 1 MG CAPSULE. PO SCH (20:56)
[2018-03-02] MEDS: ENOXAPARIN 40 MG/0.4 ML SYRINGE. SQ SCH (20:57)
[2018-03-02] MEDS: INSULIN GLARGINE 300 UNITS/3 ML INSULN.PEN. SQ SCH (20:58)
[2018-03-02] MEDS: HYDROcodone/APAP 7.5/325MG 1 TAB TABLET PO PRN (22:30)
--- NOTE | 2018-03-02 22:43 | NUR ---
Behavior Intervention Response and Plan: BIRP Note: Behavior: Assumed Care of patient, patient located in Day Room at shift change. Patient exhibited the following behavior Calm, Cooperative, Compliant. Brief assessment on rounds of vital signs, medication needs, lab studies, and pain. Treatment plan problems . Intervention: Patient assessed and the following interventions initiated safety checks 15 Minute Checks Personal Alarm in place , Cognitive Assessment , Head to toe Assessment. Response: After interactions and interventions patient responded in the following manner, Calm , Compliant ,Cooperative. Continue to assess behaviors and condition will continue to monitor throughout the shift as needed. Patient educated on ADL's, and hand hygiene. 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 Continue to assess patient for changes in above assessment. Monitor for medication needs, pain, and safety concerns. Hourly rounding performed to ensure safe environment.
[2018-03-03] MEDS: SULFACETAMIDE 10% OPHTH SOLUTION 15ML BOTTLE. OS SCH ×4 (00:16→12:30)
[2018-03-03] MEDS: diazePAM 5 MG TABLET PO SCH ×3 (05:43→20:49)
[2018-03-03] MEDS: LEVOTHYROXINE 125 MCG TABLET PO SCH (05:43)
[2018-03-03 06:05] VITALS: BP 137/82
[2018-03-03] MEDS: INSULIN LISPRO 300 UNITS/3 ML INSULN.PEN. SQ SCH ×6 (08:00→17:00)
[2018-03-03] MEDS: LIDOCAINE (700MG/PATCH) PATCH. TD SCH (08:02)
[2018-03-03] MEDS: FAMOTIDINE 20 MG TABLET PO SCH ×2 (08:03→20:47)
[2018-03-03] MEDS: POLYETHYLENE GLYCOL 3350 17 GM PACKET. PO SCH (08:03)
[2018-03-03] MEDS: DOCUSATE SODIUM 100 MG CAPSULE PO SCH ×2 (08:03→20:47)
[2018-03-03] MEDS: ASPIRIN 81 MG TAB.CHEW PO SCH (08:03)
[2018-03-03] MEDS: CHOLECALCIFEROL (VITAMIN D3) 1,000 UNIT TABLET PO SCH (08:03)
[2018-03-03] MEDS: amLODIPine BESYLATE 10 MG TABLET PO SCH (08:07)
[2018-03-03] MEDS: CARVEDILOL 12.5 MG TABLET PO SCH ×2 (08:08→18:25)
[2018-03-03] MEDS: LISINOPRIL 20 MG TABLET PO SCH (08:08)
--- NOTE | 2018-03-03 09:24 | NUR ---
PAULETTE faxed over updated nursing and psychiatry notes to [facility] for continued hospital stay.
--- NOTE | 2018-03-03 10:05 | NUR ---
PAULETTE contacted Luis Felipe Stokes at [facility] [id number] and he reports that pt is not appropriate for their setting as he has been there multiple times. Pt is not physically independent enough to be at the [facility]; furthermore, they have set pt up in his home multiple times and he fails every time. Pt has had services through multiple agencies in [facility]; in which they all have refused to work with pt as he is belligerent, demanding and uses intimidation when he is not able to get his way. Luis Felipe will send PAULETTE a list of PA contracts that they have in order to show pt this is his only pt. Is free for him and appears to be his only option at this time. Luis Felipe did say if the team absolutely felt that pt can be at the [facility] because he is able to physically care for himself, and has enough mental capacity to participate in the program, then they will complete the admission process.
--- NOTE | 2018-03-03 10:33 | NUR ---
Behavior Intervention Response and Plan: BIRP Note: Behavior: Assumed Care of patient, patient located in Dining Room at shift change. Patient exhibited the following behavior Compliant, Withdrawn, Compliant. Brief assessment on rounds of vital signs, medication needs, lab studies, and pain. Treatment plan problems . Intervention: Patient assessed and the following interventions initiated safety checks 15 Minute Checks Cognitive Assessment , Head to toe Assessment , Medications. Response: After interactions and interventions patient responded in the following manner, Calm , Withdrawn ,Compliant. Continue to assess behaviors and condition will continue to monitor throughout the shift as needed. Patient educated on ADL's, and hand hygiene. 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 Continue to assess patient for changes in above assessment. Monitor for medication needs, pain, and safety concerns. Hourly rounding performed to ensure safe environment.
[2018-03-03 15:43] VITALS: BP 129/87
--- NOTE | 2018-03-03 16:37 | NUR ---
pt up in chair for meals. has been compliant with meds and cares. quiet and withdrawn.
--- NOTE | 2018-03-03 20:27 | PN ---
DATE: 03/01/2018 PSYCHIATRIC PROGRESS NOTE This late entry 03/01/2018 covers elements not covered in my initial note. SUBJECTIVE: I met with the patient in the evening. The patient slept 6-1/2 hours previous night. He is otherwise cooperative, somewhat withdrawn, stays in his wheelchair. REVIEW OF SYSTEMS: Ambulation impaired, in wheelchair, bilateral blindness. No CV, , GI, ENT system symptoms on review. MENTAL STATUS EXAM: The patient is oriented to himself and situation. Eye contact is poor. Speech moderate latency, often responses monosyllabic. Abstraction fair. Computation, able to do one step serial 7's. No active suicidal or homicidal ideation. LABORATORY DATA: Reviewed. IMPRESSION: Schizoaffective disorder, bipolar type, mixed. Rest unchanged. PLAN: No change from initial note. MAN iDlma AGUIRRE MD DR: DIYA/valeria JOB#: [id number] / [id number]
--- NOTE | 2018-03-03 20:45 | PDOC ---
Exam Note: Ishaan Note: Please also refer to the separate dictated note~for this date of service dictated separately.~Patient seen individually. Discussed the patient with Nursing staff reviewed the chart.~Reviewed interim history and current functioning. Reviewed vital signs,~Labs/ Radiology~and current medications noted below. Continue current treatment with the changes noted in the dictated addendum note Assessment: Vital Signs: Vital Signs Date Time Temp Pulse Resp B/P (MAP) Pulse Ox O2 Delivery O2 Flow Rate FiO2 03/03/18 18:25 83 129/87 03/03/18 15:43 97.3 19 97 Room Air I&O Intake and Output 03/03/18 07:00 Intake Total 1320 ml Balance 1320 ml Intake Oral 1320 ml Labs: Laboratory Tests Test 03/03/18 07:16 03/03/18 11:39 03/03/18 16:51 03/03/18 19:08 Glucose (Fingerstick) 71 mg/dL (70-99) 249 mg/dL (70-99) H 257 mg/dL (70-99) H 271 mg/dL (70-99) H Current Medications: Meds: Current Medications Acetaminophen (Tylenol) 650 mg PRN Q6HRS PRN PO PAIN / TEMP; Start 02/17/18 at 15:15 Multi-Ingredient Ointment (Analgesic Adel) 1 neha PRN QID PRN TP MUSCLE PAIN; Start 02/17/18 at 15:15 Al Hydroxide/Mg Hydroxide (Mylanta Plus Xs) 15 ml PRN AFTMEALHC PRN PO DYSPEPSIA; Start 02/17/18 at 15:15 Magnesium Hydroxide (Milk Of Magnesia) 2,400 mg PRN QHS PRN PO CONSTIPATION Last administered on 02/18/18at 05:33; Start 02/17/18 at 15:15 Vitamin D (Vitamin D3) 1,000 unit DAILY PO Last administered on 03/03/18at 08: 03; Start 02/18/18 at 09:00 Diazepam (Valium) 5 mg Q8HRS PO Last administered on 03/03/18at 14:16; Start at 22:00; Stop 03/03/18 at 16:36; Status DC Gabapentin (Neurontin) 200 mg Q6HRS PO Last administered on 02/24/18at 07:43; Start 02/17/18 at 18:00; Stop 02/24/18 at 16:23; Status DC Insulin Glargine (Lantus) 45 units QHS SQ Last administered on 03/02/18at 20:58 ; Start 02/17/18 at 21:00 Amlodipine Besylate (Norvasc) 10 mg DAILY PO Last administered on 03/03/18at 08 :07; Start 02/18/18 at 09:00 Aspirin (Children'S Aspirin) 81 mg DAILYWBKFT PO Last administered on at 08:03; Start 02/18/18 at 08:00 Atorvastatin Calcium (Lipitor) 40 mg QHS PO Last administered on 03/02/18 20: 56; Start 02/17/18 at 21:00 Carvedilol (Coreg) 12.5 mg BIDWMEALS PO Last administered on 03/03/18at 18:25; Start 02/18/18 at 08:00 Non-Formulary Medication (Diazepam (Valium)) 10 mg Q6HRS PO ; Start 02/17/18 at 18:00; Status UNV Docusate Sodium (Colace) 100 mg DAILY PO Last administered on 02/19/18at 08:07; Start 02/18/18 at 09:00; Stop 02/19/18 at 12:17; Status DC Enoxaparin Sodium (Lovenox 40mg Syringe) 40 mg QHS SQ Last administered on 04/09at 20:57; Start 02/17/18 at 21:00 Insulin Human Lispro (HumaLOG) 12 units TIDWMEALS SQ Last administered on 03/03at 17:00; Start 02/18/18 at 08:00 Levothyroxine Sodium (Synthroid) 125 mcg DAILY06 PO Last administered on at 06:15; Start 02/18/18 at 06:00; Stop 02/19/18 at 12:22; Status DC Lidocaine (Lidoderm) 1 patch DAILY TD Last administered on 03/03/18at 08:02; Start 02/18/18 at 09:00 Lisinopril (Prinivil) 40 mg DAILY PO Last administered on 03/03/18 08:08; Start 02/18/18 at 09:00 Prazosin HCl (Minipress) 1 mg QHS PO Last administered on 03/02/18at 20:56; Start 02/17/18 at 21:00 Famotidine (Pepcid) 20 mg BID PO Last administered on 03/03/18 08:03; Start 02/17/18 at 21:00 Influenza Virus Vaccine (Afluria Trivalent [id number] Syringe) 0.5 ml ONCE ONCE VAX IM Last administered on 02/18/18 12:05; Start 02/18/18 at 09:00; Stop at 09:01; Status DC Insulin Human Lispro (HumaLOG) 0-7 UNITS TIDWMEALS SQ Last administered on 17:00; Start 02/18/18 at 08:00 Miscellaneous (Lidoderm Patch Removal) 1 ea QHS MC Last administered on at 20:54; Start 02/17/18 at 21:00 Bisacodyl (Dulcolax Supp) 10 mg PRN DAILY PRN [place] CONSTIPATION Last administered on 02/17/18at 21:40; Start 02/17/18 at 20:45 Docusate Sodium (Colace) 100 mg BID PO Last administered on 03/03/18 08:03; Start 02/19/18 at 21:00 Polyethylene Glycol (miraLAX) 17 gm DAILY PO Last administered on 03/03/18 08 :03; Start 02/20/18 at 09:00 Magnesium Citrate (Citroma) 296 ml 1X ONCE PO Last administered on 02/19/18at 12:31; Start 02/19/18 at 12:15; Stop 02/19/18 at 12:21; Status DC Levothyroxine Sodium (Synthroid) 175 mcg DAILY06 PO Last administered on 05:43; Start 02/20/18 at 06:00 Risperidone (RisperDAL) 0.5 mg HS PO Last administered on 02/21/18 20:26; Start 02/19/18 at 21:00; Stop 02/22/18 at 16:49; Status DC Acetaminophen/ Hydrocodone Bitart (Lortab 7.5/325) 1 tab PRN TID PRN PO PAIN Last administered on 03/02/18 22:30; Start 02/19/18 at 20:45 Trazodone HCl (Desyrel) 100 mg QHS PO Last administered on 02/22/18at 20:09; Start 02/21/18 at 21:00; Stop 02/23/18 at 09:47; Status DC Trazodone HCl (Desyrel) 100 mg PRN QHS PRN PO INSOMNIA; Start 02/21/18 at 16:45 ; Stop 02/23/18 at 09:47; Status DC Sulfacetamide Sodium (Sulf-10) 1 drop Q4H OS Last administered on 03/03/18at 08 :03; Start 02/22/18 at 12:30; Stop 03/03/18 at 14:03; Status DC Erythromycin (Romycin) 0.25 inch QHS OS Last administered on 03/02/18at 20:54; Start 02/22/18 at 21:00 Risperidone (RisperDAL) 0.75 mg QHS PO Last administered on 03/02/18at 20:56; Start 02/22/18 at 21:00 Trazodone HCl (Desyrel) 150 mg PRN QHS PRN PO INSOMNIA; Start 02/23/18 at 10:00 Trazodone HCl (Desyrel) 150 mg QHS PO Last administered on 03/02/18at 20:54; Start 02/23/18 at 21:00 Divalproex Sodium (Depakote Er) 500 mg QHS PO Last administered on 02/26/18at 19 :48; Start 02/23/18 at 21:00; Stop 02/27/18 at 16:48; Status DC Divalproex Sodium (Depakote Er) 1,000 mg QHS PO Last administered on at 20:55; Start 02/27/18 at 21:00 Glucose (Insta-Glucose) 15 gm STK-MED ONCE .ROUTE Last administered on at 06:42; Start 03/01/18 at 06:42; Stop 03/01/18 at 06:43; Status DC Diazepam (Valium) 5 mg BID PO ; Start 03/03/18 at 21:00 Diazepam (Valium) 2.5 mg DAILY@1400 PO ; Start 03/04/18 at 14:00 Active Scripts Active Reported Lovenox (Enoxaparin Sodium) 40 Mg/0.4 Ml Disp.syrin 40 Mg SQ QHS Gabapentin 100 Mg Capsule 200 Mg PO Q6HRS Diazepam 5 Mg Tablet 5 Mg PO Q8HRS Ranitidine Hcl 150 Mg Tablet 150 Mg PO BID Amlodipine Besylate 10 Mg Tablet 10 Mg PO DAILY Aspirin 81 Mg Tab.chew 81 Mg PO DAILY Vitamin D3 (Cholecalciferol (Vitamin D3)) 1,000 Unit Tablet 1,000 Unit PO DAILY Synthroid (Levothyroxine Sodium) 125 Mcg Tablet 125 Mcg PO DAILYAC Lisinopril 40 Mg Tablet 40 Mg PO DAILY Lantus Solostar (Insulin Glargine,Hum.rec.anlog) 100 Unit/1 Ml Insuln.pen 45 Unit SQ QHS Lidocaine 1 Each Adh..patch 1 Each TP DAILY Lipitor (Atorvastatin Calcium) 40 Mg Tablet 40 Mg PO QHS Prazosin Hcl 1 Mg Capsule 1 Mg PO QHS Colace (Docusate Sodium) 100 Mg Capsule 100 Mg PO DAILY Coreg (Carvedilol) 12.5 Mg Tablet 12.5 Mg PO BIDWMEALS Novolog Flexpen (Insulin Aspart) 100 Unit/1 Ml Insuln.pen 12 Unit SQ TID Plavix (Clopidogrel Bisulfate) 75 Mg Tablet 75 Mg PO DAILY Levothyroxine Sodium 50 Mcg Tablet 50 Mcg PO DAILY Lortab 7.5-325 mg Tablet (Hydrocodone/Acetaminophen) 1 Each Tablet 1 Tab PO TID PRN I have reviewed the current psychotropics carefully including drug interactions. Risk benefit ratio favors no change other than as noted in my dictated progress note. Diagnosis: Problems: (1) Anxiety disorder (2) Impulse control disorder (3) Schizophrenia, disorganized, subchronic with acute exacerbation (4) Schizoaffective disorder, bipolar type (5) Major neurocognitive disorder, due to vascular disease, with behavioral disturbance, mild (6) Mixed Alzheimer's and vascular dementia with behavior disturbances JALEEL AGUIRRE MD Mar 03, 2018 20:45
[2018-03-03] MEDS: ERYTHROMYCIN 0.5% OPHTH OINTMENT 1GM TUBE. OS SCH (20:47)
[2018-03-03] MEDS: PRAZOSIN 1 MG CAPSULE. PO SCH (20:47)
[2018-03-03] MEDS: traZODone 150 MG TABLET. PO SCH (20:47)
[2018-03-03] MEDS: ATORVASTATIN CALCIUM 20 MG TABLET PO SCH (20:48)
[2018-03-03] MEDS: DIVALPROEX ER 500 MG TAB.ER.24H PO SCH (20:48)
[2018-03-03] MEDS: risperiDONE 0.25 MG TABLET. PO SCH (20:48)
[2018-03-03] MEDS: ENOXAPARIN 40 MG/0.4 ML SYRINGE. SQ SCH (20:49)
[2018-03-03] MEDS: PATCH REMOVAL. MC SCH (20:49)
[2018-03-03] MEDS: INSULIN GLARGINE 300 UNITS/3 ML INSULN.PEN. SQ SCH (20:53)
--- NOTE | 2018-03-03 22:09 | NUR ---
Behavior Intervention Response and Plan: BIRP Note: Behavior: Assumed Care of patient, patient located in Day Room at shift change. Patient exhibited the following behavior Calm, Cooperative, Compliant. Brief assessment on rounds of vital signs, medication needs, lab studies, and pain. Treatment plan problems . Intervention: Patient assessed and the following interventions initiated safety checks 15 Minute Checks Personal Alarm in place , Cognitive Assessment , Head to toe Assessment. Response: After interactions and interventions patient responded in the following manner, Calm , Compliant ,Compliant. Continue to assess behaviors and condition will continue to monitor throughout the shift as needed. Patient educated on ADL's, and hand hygiene. 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 Continue to assess patient for changes in above assessment. Monitor for medication needs, pain, and safety concerns. Hourly rounding performed to ensure safe environment.
--- NOTE | 2018-03-03 22:26 | PN ---
DATE: 03/02/2018 PSYCHIATRIC PROGRESS NOTE This is a late entry 03/02/2018 covers elements not covered in my initial note. SUBJECTIVE: I met with the patient in the evenings. The patient was also staffed at treatment team meeting in the morning. The patient has been fairly cooperative. The social service staff had been in contact with the [facility] dom[facility] staff to help arrange placement. REVIEW OF SYSTEMS: Ambulation impaired, in wheelchair. No CV, , GI, or pulmonary system symptoms on review. He has bilateral blindness. MENTAL STATUS EXAM: Oriented to himself and situation. Speech is low in rate and rhythm, low in volume, coherent, abstraction fair, computation impaired, language function intact, attention span short. Mood and affect somewhat withdrawn. LABORATORY DATA: Reviewed. IMPRESSION: Unchanged from initial note. PLAN: No change from initial note. MAN Dilma AGUIRRE MD DR: DIYA/valeria JOB#: [id number] / [id number]
[2018-03-04 05:39] VITALS: BP 148/60
[2018-03-04] MEDS: LEVOTHYROXINE 125 MCG TABLET PO SCH (06:09)
[2018-03-04] MEDS: ASPIRIN 81 MG TAB.CHEW PO SCH (07:55)
[2018-03-04] MEDS: DOCUSATE SODIUM 100 MG CAPSULE PO SCH ×2 (07:55→21:38)
[2018-03-04] MEDS: CARVEDILOL 12.5 MG TABLET PO SCH ×2 (07:55→18:26)
[2018-03-04] MEDS: LISINOPRIL 20 MG TABLET PO SCH (07:55)
[2018-03-04] MEDS: LIDOCAINE (700MG/PATCH) PATCH. TD SCH (07:55)
[2018-03-04] MEDS: CHOLECALCIFEROL (VITAMIN D3) 1,000 UNIT TABLET PO SCH (07:55)
[2018-03-04] MEDS: FAMOTIDINE 20 MG TABLET PO SCH ×2 (07:55→21:38)
[2018-03-04] MEDS: amLODIPine BESYLATE 10 MG TABLET PO SCH (07:56)
[2018-03-04] MEDS: diazePAM 5 MG TABLET PO SCH ×3 (07:56→21:38)
[2018-03-04] MEDS: POLYETHYLENE GLYCOL 3350 17 GM PACKET. PO SCH (07:56)
[2018-03-04] MEDS: INSULIN LISPRO 300 UNITS/3 ML INSULN.PEN. SQ SCH ×6 (08:00→17:00)
--- NOTE | 2018-03-04 10:02 | NUR ---
Behavior Intervention Response and Plan: BIRP Note: Behavior: Assumed Care of patient, patient located in Dining Room at shift change. Patient exhibited the following behavior Compliant, Withdrawn, Compliant. Brief assessment on rounds of vital signs, medication needs, lab studies, and pain. Treatment plan problems . Intervention: Patient assessed and the following interventions initiated safety checks 15 Minute Checks Cognitive Assessment , Head to toe Assessment , Medications. Response: After interactions and interventions patient responded in the following manner, Calm , Withdrawn ,Compliant. Continue to assess behaviors and condition will continue to monitor throughout the shift as needed. Patient educated on ADL's, and hand hygiene. 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 Continue to assess patient for changes in above assessment. Monitor for medication needs, pain, and safety concerns. Hourly rounding performed to ensure safe environment.
[2018-03-04 16:27] VITALS: BP 158/83
--- NOTE | 2018-03-04 18:30 | PN ---
DATE: 03/03/2018 PSYCHIATRIC PROGRESS NOTE This late entry 03/03/2018 covers elements not covered in my initial note. SUBJECTIVE: I met with the patient in the evening. The patient slept 6 hours previous night, has done better, somewhat withdrawn, may get placement at the [facility]. REVIEW OF SYSTEMS: Bilateral blindness, impaired ambulation, in wheelchair. No CV, , pulmonary, ENT system symptoms on review. Reliability varies. MENTAL STATUS EXAM: Oriented to himself and situation. Speech is low in rate and rhythm, low in volume, often responses monosyllabic. Abstraction fair, computation impaired, language function intact. Mood and affect somewhat withdrawn. LABORATORY DATA: Reviewed. IMPRESSION: Unchanged from initial note. PLAN: No change from initial note. MAN Dilma AGUIRRE MD DR: DIYA/valeria JOB#: [id number] / [id number]
--- NOTE | 2018-03-04 18:38 | NUR ---
pt up in for meals. out to day room. has been compliant with meds and cares. quiet and withdrawn. asked pt if he knee when he was leaving. pt thinks he is returning to his home. states he can transfer self to and from toilet and bed although he has not done so here. states a nurse usually sets up his meds.
[2018-03-04] MEDS: PATCH REMOVAL. MC SCH (21:00)
[2018-03-04] MEDS: traZODone 150 MG TABLET. PO SCH (21:38)
[2018-03-04] MEDS: ENOXAPARIN 40 MG/0.4 ML SYRINGE. SQ SCH (21:38)
[2018-03-04] MEDS: PRAZOSIN 1 MG CAPSULE. PO SCH (21:39)
[2018-03-04] MEDS: ATORVASTATIN CALCIUM 20 MG TABLET PO SCH (21:40)
[2018-03-04] MEDS: risperiDONE 0.25 MG TABLET. PO SCH (21:40)
[2018-03-04] MEDS: DIVALPROEX ER 500 MG TAB.ER.24H PO SCH (21:40)
[2018-03-04] MEDS: INSULIN GLARGINE 300 UNITS/3 ML INSULN.PEN. SQ SCH (21:41)
[2018-03-04] MEDS: ERYTHROMYCIN 0.5% OPHTH OINTMENT 1GM TUBE. OS SCH (21:41)
--- NOTE | 2018-03-04 22:16 | NUR ---
Behavior Intervention Response and Plan: BIRP Note: Behavior: Assumed Care of patient, patient located in Day Room at shift change. Patient exhibited the following behavior Calm, Sleeping, Cooperative. Brief assessment on rounds of vital signs, medication needs, lab studies, and pain. Treatment plan problems . Intervention: Patient assessed and the following interventions initiated safety checks 15 Minute Checks Personal Alarm in place , Cognitive Assessment , Head to toe Assessment. Response: After interactions and interventions patient responded in the following manner, Calm , Sleeping ,Compliant. Continue to assess behaviors and condition will continue to monitor throughout the shift as needed. Patient educated on ADL's, and hand hygiene. 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 Continue to assess patient for changes in above assessment. Monitor for medication needs, pain, and safety concerns. Hourly rounding performed to ensure safe environment.
--- NOTE | 2018-03-04 22:42 | PDOC ---
Exam Note: Ishaan Note: Please also refer to the separate dictated note~for this date of service dictated separately.~Patient seen individually. Discussed the patient with Nursing staff reviewed the chart.~Reviewed interim history and current functioning. Reviewed vital signs,~Labs/ Radiology~and current medications noted below. Continue current treatment with the changes noted in the dictated addendum note Assessment: Vital Signs: Vital Signs Date Time Temp Pulse Resp B/P (MAP) Pulse Ox O2 Delivery O2 Flow Rate FiO2 03/04/18 21:39 63 158/83 03/04/18 16:27 98.1 20 98 03/03/18 15:43 Room Air I&O Intake and Output 03/04/18 07:00 Intake Total 1080 ml Output Total 800 ml Balance 280 ml Intake Oral 1080 ml Output Urine Total 800 ml Labs: Laboratory Tests Test 03/04/18 07:51 03/04/18 12:00 03/04/18 16:07 03/04/18 19:19 Glucose (Fingerstick) 217 mg/dL (70-99) H 239 mg/dL (70-99) H 277 mg/dL (70-99) H 290 mg/dL (70-99) H Current Medications: Meds: Current Medications Acetaminophen (Tylenol) 650 mg PRN Q6HRS PRN PO PAIN / TEMP; Start 02/17/18 at 15:15 Multi-Ingredient Ointment (Analgesic [place]) 1 neha PRN QID PRN TP MUSCLE PAIN; Start 02/17/18 at 15:15 Al Hydroxide/Mg Hydroxide (Mylanta Plus Xs) 15 ml PRN AFTMEALHC PRN PO DYSPEPSIA; Start 02/17/18 at 15:15 Magnesium Hydroxide (Milk Of Magnesia) 2,400 mg PRN QHS PRN PO CONSTIPATION Last administered on 02/18/18at 05:33; Start 02/17/18 at 15:15 Vitamin D (Vitamin D3) 1,000 unit DAILY PO Last administered on 03/04/18at 07: 55; Start 02/18/18 at 09:00 Diazepam (Valium) 5 mg Q8HRS PO Last administered on 03/03/18at 14:16; Start at 22:00; Stop 03/03/18 at 16:36; Status DC Gabapentin (Neurontin) 200 mg Q6HRS PO Last administered on 02/24/18 07:43; Start 02/17/18 at 18:00; Stop 02/24/18 at 16:23; Status DC Insulin Glargine (Lantus) 45 units QHS SQ Last administered on 03/04/18 21:41 ; Start 02/17/18 at 21:00 Amlodipine Besylate (Norvasc) 10 mg DAILY PO Last administered on 03/04/18 07 :56; Start 02/18/18 at 09:00 Aspirin (Children'S Aspirin) 81 mg DAILYWBKFT PO Last administered on 07:55; Start 02/18/18 at 08:00 Atorvastatin Calcium (Lipitor) 40 mg QHS PO Last administered on 03/04/18 21: 40; Start 02/17/18 at 21:00 Carvedilol (Coreg) 12.5 mg BIDWMEALS PO Last administered on 03/04/18 18:26; Start 02/18/18 at 08:00 Non-Formulary Medication (Diazepam (Valium)) 10 mg Q6HRS PO ; Start 02/17/18 at 18:00; Status UNV Docusate Sodium (Colace) 100 mg DAILY PO Last administered on 02/19/18 08:07; Start 02/18/18 at 09:00; Stop 02/19/18 at 12:17; Status DC Enoxaparin Sodium (Lovenox 40mg Syringe) 40 mg QHS SQ Last administered on at 21:38; Start 02/17/18 at 21:00 Insulin Human Lispro (HumaLOG) 12 units TIDWMEALS SQ Last administered on 03/04 17:00; Start 02/18/18 at 08:00 Levothyroxine Sodium (Synthroid) 125 mcg DAILY06 PO Last administered on 06:15; Start 02/18/18 at 06:00; Stop 02/19/18 at 12:22; Status DC Lidocaine (Lidoderm) 1 patch DAILY TD Last administered on 03/04/18 07:55; Start 02/18/18 at 09:00 Lisinopril (Prinivil) 40 mg DAILY PO Last administered on 03/04/18 07:55; Start 02/18/18 at 09:00 Prazosin HCl (Minipress) 1 mg QHS PO Last administered on 03/04/18 21:39; Start 02/17/18 at 21:00 Famotidine (Pepcid) 20 mg BID PO Last administered on 03/04/18 21:38; Start 02/17/18 at 21:00 Influenza Virus Vaccine (Afluria Trivalent [id number] Syringe) 0.5 ml ONCE ONCE VAX IM Last administered on 02/18/18at 12:05; Start 02/18/18 at 09:00; Stop at 09:01; Status DC Insulin Human Lispro (HumaLOG) 0-7 UNITS TIDWMEALS SQ Last administered on 17:00; Start 02/18/18 at 08:00 Miscellaneous (Lidoderm Patch Removal) 1 ea QHS MC Last administered on 21:00; Start 02/17/18 at 21:00 Bisacodyl (Dulcolax Supp) 10 mg PRN DAILY PRN [place] CONSTIPATION Last administered on 02/17/18 21:40; Start 02/17/18 at 20:45 Docusate Sodium (Colace) 100 mg BID PO Last administered on 03/04/18 21:38; Start 02/19/18 at 21:00 Polyethylene Glycol (miraLAX) 17 gm DAILY PO Last administered on 03/04/18 07 :56; Start 02/20/18 at 09:00 Magnesium Citrate (Citroma) 296 ml 1X ONCE PO Last administered on 02/19/18 12:31; Start 02/19/18 at 12:15; Stop 02/19/18 at 12:21; Status DC Levothyroxine Sodium (Synthroid) 175 mcg DAILY06 PO Last administered on 06:09; Start 02/20/18 at 06:00 Risperidone (RisperDAL) 0.5 mg HS PO Last administered on 02/21/18 20:26; Start 02/19/18 at 21:00; Stop 02/22/18 at 16:49; Status DC Acetaminophen/ Hydrocodone Bitart (Lortab 7.5/325) 1 tab PRN TID PRN PO PAIN Last administered on 03/02/18 22:30; Start 02/19/18 at 20:45 Trazodone HCl (Desyrel) 100 mg QHS PO Last administered on 02/22/18 20:09; Start 02/21/18 at 21:00; Stop 02/23/18 at 09:47; Status DC Trazodone HCl (Desyrel) 100 mg PRN QHS PRN PO INSOMNIA; Start 02/21/18 at 16:45 ; Stop 02/23/18 at 09:47; Status DC Sulfacetamide Sodium (Sulf-10) 1 drop Q4H OS Last administered on 03/03/18 08 :03; Start 02/22/18 at 12:30; Stop 03/03/18 at 14:03; Status DC Erythromycin (Romycin) 0.25 inch QHS OS Last administered on 03/04/18 21:41; Start 02/22/18 at 21:00 Risperidone (RisperDAL) 0.75 mg QHS PO Last administered on 03/04/18 21:40; Start 02/22/18 at 21:00 Trazodone HCl (Desyrel) 150 mg PRN QHS PRN PO INSOMNIA; Start 02/23/18 at 10:00 Trazodone HCl (Desyrel) 150 mg QHS PO Last administered on 03/04/18 21:38; Start 02/23/18 at 21:00 Divalproex Sodium (Depakote Er) 500 mg QHS PO Last administered on 02/26/18at 19 :48; Start 02/23/18 at 21:00; Stop 02/27/18 at 16:48; Status DC Divalproex Sodium (Depakote Er) 1,000 mg QHS PO Last administered on 21:40; Start 02/27/18 at 21:00 Glucose (Insta-Glucose) 15 gm STK-MED ONCE .ROUTE Last administered on 06:42; Start 03/01/18 at 06:42; Stop 03/01/18 at 06:43; Status DC Diazepam (Valium) 5 mg BID PO Last administered on 03/04/18 21:38; Start 05/09 at 21:00 Diazepam (Valium) 2.5 mg DAILY@1400 PO Last administered on 10/13/18at 13:31; Start 03/04/18 at 14:00 Active Scripts Active Reported Lovenox (Enoxaparin Sodium) 40 Mg/0.4 Ml Disp.syrin 40 Mg SQ QHS Gabapentin 100 Mg Capsule 200 Mg PO Q6HRS Diazepam 5 Mg Tablet 5 Mg PO Q8HRS Ranitidine Hcl 150 Mg Tablet 150 Mg PO BID Amlodipine Besylate 10 Mg Tablet 10 Mg PO DAILY Aspirin 81 Mg Tab.chew 81 Mg PO DAILY Vitamin D3 (Cholecalciferol (Vitamin D3)) 1,000 Unit Tablet 1,000 Unit PO DAILY Synthroid (Levothyroxine Sodium) 125 Mcg Tablet 125 Mcg PO DAILYAC Lisinopril 40 Mg Tablet 40 Mg PO DAILY Lantus Solostar (Insulin Glargine,Hum.rec.anlog) 100 Unit/1 Ml Insuln.pen 45 Unit SQ QHS Lidocaine 1 Each Adh..patch 1 Each TP DAILY Lipitor (Atorvastatin Calcium) 40 Mg Tablet 40 Mg PO QHS Prazosin Hcl 1 Mg Capsule 1 Mg PO QHS Colace (Docusate Sodium) 100 Mg Capsule 100 Mg PO DAILY Coreg (Carvedilol) 12.5 Mg Tablet 12.5 Mg PO BIDWMEALS Novolog Flexpen (Insulin Aspart) 100 Unit/1 Ml Insuln.pen 12 Unit SQ TID Plavix (Clopidogrel Bisulfate) 75 Mg Tablet 75 Mg PO DAILY Levothyroxine Sodium 50 Mcg Tablet 50 Mcg PO DAILY Lortab 7.5-325 mg Tablet (Hydrocodone/Acetaminophen) 1 Each Tablet 1 Tab PO TID PRN I have reviewed the current psychotropics carefully including drug interactions. Risk benefit ratio favors no change other than as noted in my dictated progress note. 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
[2018-03-05] MEDS: LEVOTHYROXINE 125 MCG TABLET PO SCH (06:04)
[2018-03-05 06:20] VITALS: BP 133/77
[2018-03-05] MEDS: LIDOCAINE (700MG/PATCH) PATCH. TD SCH (07:43)
[2018-03-05] MEDS: DOCUSATE SODIUM 100 MG CAPSULE PO SCH ×2 (07:43→21:27)
[2018-03-05] MEDS: POLYETHYLENE GLYCOL 3350 17 GM PACKET. PO SCH (07:43)
[2018-03-05] MEDS: amLODIPine BESYLATE 10 MG TABLET PO SCH (07:44)
[2018-03-05] MEDS: diazePAM 5 MG TABLET PO SCH ×3 (07:44→21:27)
[2018-03-05] MEDS: ASPIRIN 81 MG TAB.CHEW PO SCH (07:44)
[2018-03-05] MEDS: CARVEDILOL 12.5 MG TABLET PO SCH ×2 (07:44→17:00)
[2018-03-05] MEDS: FAMOTIDINE 20 MG TABLET PO SCH ×2 (07:44→21:26)
[2018-03-05] MEDS: LISINOPRIL 20 MG TABLET PO SCH (07:58)
[2018-03-05] MEDS: CHOLECALCIFEROL (VITAMIN D3) 1,000 UNIT TABLET PO SCH (07:58)
[2018-03-05] MEDS: INSULIN LISPRO 300 UNITS/3 ML INSULN.PEN. SQ SCH ×6 (08:00→17:00)
[2018-03-05 16:06] VITALS: BP 126/82
--- NOTE | 2018-03-05 18:20 | NUR ---
pt up in [place] for meals. has been quiet and withdrawn. compliant with meds and cares.
--- NOTE | 2018-03-05 20:47 | PDOC ---
Exam Note: Ishaan Note: Please also refer to the separate dictated note~for this date of service dictated separately.~Patient seen individually. Discussed the patient with Nursing staff reviewed the chart.~Reviewed interim history and current functioning. Reviewed vital signs,~Labs/ Radiology~and current medications noted below. Continue current treatment with the changes noted in the dictated addendum note Assessment: Vital Signs: Vital Signs Date Time Temp Pulse Resp B/P (MAP) Pulse Ox O2 Delivery O2 Flow Rate FiO2 03/05/18 17:00 61 126/82 03/05/18 16:06 97.8 18 98 03/03/18 15:43 Room Air I&O Intake and Output 03/05/18 07:00 Intake Total 840 ml Balance 840 ml Intake Oral 840 ml Labs: Laboratory Tests Test 03/05/18 07:20 03/05/18 11:39 03/05/18 16:28 03/05/18 19:22 Glucose (Fingerstick) 218 mg/dL (70-99) H 255 mg/dL (70-99) H 222 mg/dL (70-99) H 250 mg/dL (70-99) H Current Medications: Meds: Current Medications Acetaminophen (Tylenol) 650 mg PRN Q6HRS PRN PO PAIN / TEMP; Start 02/17/18 at 15:15 Multi-Ingredient Ointment (Analgesic [place]) 1 neha PRN QID PRN TP MUSCLE PAIN; Start 02/17/18 at 15:15 Al Hydroxide/Mg Hydroxide (Mylanta Plus Xs) 15 ml PRN AFTMEALHC PRN PO DYSPEPSIA; Start 02/17/18 at 15:15 Magnesium Hydroxide (Milk Of Magnesia) 2,400 mg PRN QHS PRN PO CONSTIPATION Last administered on 02/18/18at 05:33; Start 02/17/18 at 15:15 Vitamin D (Vitamin D3) 1,000 unit DAILY PO Last administered on 03/05/18at 07: 58; Start 02/18/18 at 09:00 Diazepam (Valium) 5 mg Q8HRS PO Last administered on 03/03/18at 14:16; Start at 22:00; Stop 03/03/18 at 16:36; Status DC Gabapentin (Neurontin) 200 mg Q6HRS PO Last administered on 10/5/18at 07:43; Start 02/17/18 at 18:00; Stop 02/24/18 at 16:23; Status DC Insulin Glargine (Lantus) 45 units QHS SQ Last administered on 03/04/18at 21:41 ; Start 02/17/18 at 21:00 Amlodipine Besylate (Norvasc) 10 mg DAILY PO Last administered on 03/05/18 07 :44; Start 02/18/18 at 09:00 Aspirin (Children'S Aspirin) 81 mg DAILYWBKFT PO Last administered on 07:44; Start 02/18/18 at 08:00 Atorvastatin Calcium (Lipitor) 40 mg QHS PO Last administered on 03/04/18 21: 40; Start 02/17/18 at 21:00 Carvedilol (Coreg) 12.5 mg BIDWMEALS PO Last administered on 03/05/18at 17:00; Start 02/18/18 at 08:00 Non-Formulary Medication (Diazepam (Valium)) 10 mg Q6HRS PO ; Start 02/17/18 at 18:00; Status UNV Docusate Sodium (Colace) 100 mg DAILY PO Last administered on 02/19/18 08:07; Start 02/18/18 at 09:00; Stop 02/19/18 at 12:17; Status DC Enoxaparin Sodium (Lovenox 40mg Syringe) 40 mg QHS SQ Last administered on at 21:38; Start 02/17/18 at 21:00 Insulin Human Lispro (HumaLOG) 12 units TIDWMEALS SQ Last administered on 03/05at 17:00; Start 02/18/18 at 08:00 Levothyroxine Sodium (Synthroid) 125 mcg DAILY06 PO Last administered on at 06:15; Start 02/18/18 at 06:00; Stop 02/19/18 at 12:22; Status DC Lidocaine (Lidoderm) 1 patch DAILY TD Last administered on 03/05/18 07:43; Start 02/18/18 at 09:00 Lisinopril (Prinivil) 40 mg DAILY PO Last administered on 03/05/18 07:58; Start 02/18/18 at 09:00 Prazosin HCl (Minipress) 1 mg QHS PO Last administered on 03/04/18 21:39; Start 02/17/18 at 21:00 Famotidine (Pepcid) 20 mg BID PO Last administered on 03/05/18 07:44; Start 02/17/18 at 21:00 Influenza Virus Vaccine (Afluria Trivalent [id number] Syringe) 0.5 ml ONCE ONCE VAX IM Last administered on 02/18/18at 12:05; Start 02/18/18 at 09:00; Stop at 09:01; Status DC Insulin Human Lispro (HumaLOG) 0-7 UNITS TIDWMEALS SQ Last administered on 17:00; Start 02/18/18 at 08:00 Miscellaneous (Lidoderm Patch Removal) 1 ea QHS MC Last administered on 21:00; Start 02/17/18 at 21:00 Bisacodyl (Dulcolax Supp) 10 mg PRN DAILY PRN [place] CONSTIPATION Last administered on 02/17/18at 21:40; Start 02/17/18 at 20:45 Docusate Sodium (Colace) 100 mg BID PO Last administered on 03/05/18 07:43; Start 02/19/18 at 21:00 Polyethylene Glycol (miraLAX) 17 gm DAILY PO Last administered on 03/05/18 07 :43; Start 02/20/18 at 09:00 Magnesium Citrate (Citroma) 296 ml 1X ONCE PO Last administered on 02/19/18at 12:31; Start 02/19/18 at 12:15; Stop 02/19/18 at 12:21; Status DC Levothyroxine Sodium (Synthroid) 175 mcg DAILY06 PO Last administered on 06:04; Start 02/20/18 at 06:00 Risperidone (RisperDAL) 0.5 mg HS PO Last administered on 02/21/18 20:26; Start 02/19/18 at 21:00; Stop 02/22/18 at 16:49; Status DC Acetaminophen/ Hydrocodone Bitart (Lortab 7.5/325) 1 tab PRN TID PRN PO PAIN Last administered on 03/02/18 22:30; Start 02/19/18 at 20:45 Trazodone HCl (Desyrel) 100 mg QHS PO Last administered on 02/22/18 20:09; Start 02/21/18 at 21:00; Stop 02/23/18 at 09:47; Status DC Trazodone HCl (Desyrel) 100 mg PRN QHS PRN PO INSOMNIA; Start 02/21/18 at 16:45 ; Stop 02/23/18 at 09:47; Status DC Sulfacetamide Sodium (Sulf-10) 1 drop Q4H OS Last administered on 03/03/18at 08 :03; Start 02/22/18 at 12:30; Stop 03/03/18 at 14:03; Status DC Erythromycin (Romycin) 0.25 inch QHS OS Last administered on 03/04/18at 21:41; Start 02/22/18 at 21:00 Risperidone (RisperDAL) 0.75 mg QHS PO Last administered on 03/04/18at 21:40; Start 02/22/18 at 21:00 Trazodone HCl (Desyrel) 150 mg PRN QHS PRN PO INSOMNIA; Start 02/23/18 at 10:00 Trazodone HCl (Desyrel) 150 mg QHS PO Last administered on 03/04/18at 21:38; Start 02/23/18 at 21:00 Divalproex Sodium (Depakote Er) 500 mg QHS PO Last administered on 02/26/18at 19 :48; Start 02/23/18 at 21:00; Stop 02/27/18 at 16:48; Status DC Divalproex Sodium (Depakote Er) 1,000 mg QHS PO Last administered on at 21:40; Start 02/27/18 at 21:00 Glucose (Insta-Glucose) 15 gm STK-MED ONCE .ROUTE Last administered on at 06:42; Start 03/01/18 at 06:42; Stop 03/01/18 at 06:43; Status DC Diazepam (Valium) 5 mg BID PO Last administered on 03/05/18at 07:44; Start 05/09 at 21:00 Diazepam (Valium) 2.5 mg DAILY@1400 PO Last administered on 03/05/18at 14:01; Start 03/04/18 at 14:00 Active Scripts Active Reported Lovenox (Enoxaparin Sodium) 40 Mg/0.4 Ml Disp.syrin 40 Mg SQ QHS Gabapentin 100 Mg Capsule 200 Mg PO Q6HRS Diazepam 5 Mg Tablet 5 Mg PO Q8HRS Ranitidine Hcl 150 Mg Tablet 150 Mg PO BID Amlodipine Besylate 10 Mg Tablet 10 Mg PO DAILY Aspirin 81 Mg Tab.chew 81 Mg PO DAILY Vitamin D3 (Cholecalciferol (Vitamin D3)) 1,000 Unit Tablet 1,000 Unit PO DAILY Synthroid (Levothyroxine Sodium) 125 Mcg Tablet 125 Mcg PO DAILYAC Lisinopril 40 Mg Tablet 40 Mg PO DAILY Lantus Solostar (Insulin Glargine,Hum.rec.anlog) 100 Unit/1 Ml Insuln.pen 45 Unit SQ QHS Lidocaine 1 Each Adh..patch 1 Each TP DAILY Lipitor (Atorvastatin Calcium) 40 Mg Tablet 40 Mg PO QHS Prazosin Hcl 1 Mg Capsule 1 Mg PO QHS Colace (Docusate Sodium) 100 Mg Capsule 100 Mg PO DAILY Coreg (Carvedilol) 12.5 Mg Tablet 12.5 Mg PO BIDWMEALS Novolog Flexpen (Insulin Aspart) 100 Unit/1 Ml Insuln.pen 12 Unit SQ TID Plavix (Clopidogrel Bisulfate) 75 Mg Tablet 75 Mg PO DAILY Levothyroxine Sodium 50 Mcg Tablet 50 Mcg PO DAILY Lortab 7.5-325 mg Tablet (Hydrocodone/Acetaminophen) 1 Each Tablet 1 Tab PO TID PRN I have reviewed the current psychotropics carefully including drug interactions. Risk benefit ratio favors no change other than as noted in my dictated progress note. 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
[2018-03-05] MEDS: PATCH REMOVAL. MC SCH (21:00)
[2018-03-05] MEDS: PRAZOSIN 1 MG CAPSULE. PO SCH (21:26)
[2018-03-05] MEDS: ERYTHROMYCIN 0.5% OPHTH OINTMENT 1GM TUBE. OS SCH (21:26)
[2018-03-05] MEDS: traZODone 150 MG TABLET. PO SCH (21:26)
[2018-03-05] MEDS: ENOXAPARIN 40 MG/0.4 ML SYRINGE. SQ SCH (21:26)
[2018-03-05] MEDS: DIVALPROEX ER 500 MG TAB.ER.24H PO SCH (21:27)
[2018-03-05] MEDS: ATORVASTATIN CALCIUM 20 MG TABLET PO SCH (21:27)
[2018-03-05] MEDS: risperiDONE 0.25 MG TABLET. PO SCH (21:27)
[2018-03-05] MEDS: INSULIN GLARGINE 300 UNITS/3 ML INSULN.PEN. SQ SCH (21:28)
--- NOTE | 2018-03-05 22:49 | NUR ---
Behavior Intervention Response and Plan: BIRP Note: Behavior: Assumed Care of patient, patient located in Day Room at shift change. Patient exhibited the following behavior Calm, Social, Cooperative. Brief assessment on rounds of vital signs, medication needs, lab studies, and pain. Treatment plan problems . Intervention: Patient assessed and the following interventions initiated safety checks 15 Minute Checks Personal Alarm in place , Cognitive Assessment , Head to toe Assessment. Response: After interactions and interventions patient responded in the following manner, Calm , Compliant ,Cooperative. Continue to assess behaviors and condition will continue to monitor throughout the shift as needed. Patient educated on ADL's, and hand hygiene. Plan: Continue to monitor Master Treatment Plan for patient's progress toward short term goals of Decreased Agitation, Improved Mood, longterm goals to return to previous living setting vs placement. Continue to assess patient for changes in above assessment. Monitor for medication needs, pain, and safety concerns. Hourly rounding performed to ensure safe environment.
[2018-03-05] MEDS: HYDROcodone/APAP 7.5/325MG 1 TAB TABLET PO PRN (23:00)
--- NOTE | 2018-03-06 03:28 | PN ---
DATE: 03/04/2018 This is a late entry for 03/04/2018 covers elements not covered in my initial note. SUBJECTIVE: I met with the patient in the evening. The patient slept 5-1/2 hours previous evening. He remains somewhat withdrawn. REVIEW OF SYSTEMS: Ambulation impaired, in wheelchair poor. He has bilateral blindness. No CV, , GI, pulmonary system symptoms on review. MENTAL STATUS EXAM: Poor eye contact, psychomotor activity, reduced, oriented to himself and situation. Speech, low in rate and rhythm, low in volume, often responses monosyllabic. Abstraction fair. Computation able to do one step serial 7's. No suicidal or homicidal ideation. Attention span short. Language function intact. IMPRESSION: Unchanged from initial note. PLAN: No change from initial note. Valproic acid level is therapeutic. To further taper the Valium. Transition to domiciliary at the [facility] this week. MAN Dilma AGUIRRE MD DR: DIYA/valeria JOB#: [id number] / [id number]
[2018-03-06] MEDS: LEVOTHYROXINE 125 MCG TABLET PO SCH (06:27)
[2018-03-06 06:31] VITALS: BP 111/70
[2018-03-06] MEDS: FAMOTIDINE 20 MG TABLET PO SCH ×2 (08:07→20:08)
[2018-03-06] MEDS: DOCUSATE SODIUM 100 MG CAPSULE PO SCH ×2 (08:08→20:08)
[2018-03-06] MEDS: amLODIPine BESYLATE 10 MG TABLET PO SCH (08:08)
[2018-03-06] MEDS: LISINOPRIL 20 MG TABLET PO SCH (08:08)
[2018-03-06] MEDS: diazePAM 5 MG TABLET PO SCH ×3 (08:09→20:13)
[2018-03-06] MEDS: CHOLECALCIFEROL (VITAMIN D3) 1,000 UNIT TABLET PO SCH (08:09)
[2018-03-06] MEDS: ASPIRIN 81 MG TAB.CHEW PO SCH (08:09)
[2018-03-06] MEDS: CARVEDILOL 12.5 MG TABLET PO SCH ×2 (08:09→17:21)
[2018-03-06] MEDS: POLYETHYLENE GLYCOL 3350 17 GM PACKET. PO SCH (08:09)
[2018-03-06] MEDS: LIDOCAINE (700MG/PATCH) PATCH. TD SCH (08:10)
[2018-03-06] MEDS: INSULIN LISPRO 300 UNITS/3 ML INSULN.PEN. SQ SCH ×6 (08:12→17:22)
--- NOTE | 2018-03-06 14:28 | NUR ---
Behavior Intervention Response and Plan: BIRP Note: Behavior: Assumed Care of patient, patient located in Patient Room at shift change. Patient exhibited the following behavior Sleeping, , . Brief assessment on rounds of vital signs, medication needs, lab studies, and pain. Treatment plan problems 1 and 2. Intervention: Patient assessed and the following interventions initiated safety checks 15 Minute Checks Head to toe Assessment , Cognitive Assessment , Medications. Response: After interactions and interventions patient responded in the following manner, Calm , Compliant ,Withdrawn. Continue to assess behaviors and condition will continue to monitor throughout the shift as needed. Patient educated on ADL's, and hand hygiene. Plan: Continue to monitor Master Treatment Plan for patient's progress toward short term goals of Decreased Anxiety, Medication Compliance, assisted goals to return to previous living setting vs placement. Continue to assess patient for changes in above assessment. Monitor for medication needs, pain, and safety concerns. Hourly rounding performed to ensure safe environment.
[2018-03-06 16:15] VITALS: BP 126/81
[2018-03-06] MEDS: risperiDONE 0.25 MG TABLET. PO SCH (20:07)
[2018-03-06] MEDS: traZODone 150 MG TABLET. PO SCH (20:07)
[2018-03-06] MEDS: ATORVASTATIN CALCIUM 20 MG TABLET PO SCH (20:07)
[2018-03-06] MEDS: DIVALPROEX ER 500 MG TAB.ER.24H PO SCH (20:07)
[2018-03-06] MEDS: PRAZOSIN 1 MG CAPSULE. PO SCH (20:08)
[2018-03-06] MEDS: ENOXAPARIN 40 MG/0.4 ML SYRINGE. SQ SCH (20:09)
[2018-03-06] MEDS: ERYTHROMYCIN 0.5% OPHTH OINTMENT 1GM TUBE. OS SCH (20:09)
[2018-03-06] MEDS: PATCH REMOVAL. MC SCH (20:09)
[2018-03-06] MEDS: INSULIN GLARGINE 300 UNITS/3 ML INSULN.PEN. SQ SCH (20:11)
[2018-03-06] MEDS: HYDROcodone/APAP 7.5/325MG 1 TAB TABLET PO PRN (20:22)
--- NOTE | 2018-03-06 22:37 | NUR ---
Behavior Intervention Response and Plan: BIRP Note: Behavior: Assumed Care of patient, patient located in Patient Room at shift change. Patient exhibited the following behavior Calm, Able to Focus on Task, Appropriate. Brief assessment on rounds of vital signs, medication needs, lab studies, and pain. Treatment plan problems . Intervention: Patient assessed and the following interventions initiated safety checks 15 Minute Checks Head to toe Assessment , Cognitive Assessment , Medications. Response: After interactions and interventions patient responded in the following manner, Compliant , Cooperative ,Withdrawn. Continue to assess behaviors and condition will continue to monitor throughout the shift as needed. Patient educated on ADL's, and hand hygiene. Plan: Continue to monitor Master Treatment Plan for patient's progress toward short term goals of Improved Mood, Medication Compliance, half-way goals to return to previous living setting vs placement. Continue to assess patient for changes in above assessment. Monitor for medication needs, pain, and safety concerns. Hourly rounding performed to ensure safe environment.
--- NOTE | 2018-03-06 22:46 | PN ---
DATE: 03/05/2018 PSYCHIATRIC PROGRESS NOTE This late entry 03/05/2018 covers elements not covered in my initial note. SUBJECTIVE: I met with the patient in the evening. The patient slept for 7-1/4 hours previous night. He has been somewhat withdrawn, little sedated, but appropriate. REVIEW OF SYSTEMS: Bilateral blindness, impaired ambulation, in wheelchair. No CV, , pulmonary, ENT system symptoms on review. MENTAL STATUS EXAM: Oriented to himself, situation. Eye contact is poor. Psychomotor activity reduced. Speech low in rate and rhythm, low in volume, often responses monosyllabic. Mood and affect withdrawn. No active suicidal or homicidal ideation. No clear psychotic symptoms. LABORATORY DATA: Reviewed. IMPRESSION: Unchanged from initial note, schizoaffective disorder, bipolar type, mixed with psychotic features, in partial remission. Rest unchanged. PLAN: No change from initial note. To be tapering the Valium, continue Minipress, Risperdal, trazodone, and Depakote. Valproic acid level therapeutic at 71. MAN Dilma AGUIRRE MD DR: DIYA/valeria JOB#: [id number] / [id number]
[2018-03-07] MEDS: LEVOTHYROXINE 125 MCG TABLET PO SCH (06:02)
[2018-03-07 06:25] VITALS: BP 130/73
[2018-03-07] MEDS: INSULIN LISPRO 300 UNITS/3 ML INSULN.PEN. SQ SCH ×6 (08:00→17:41)
[2018-03-07] MEDS: FAMOTIDINE 20 MG TABLET PO SCH ×2 (09:48→19:37)
[2018-03-07] MEDS: DOCUSATE SODIUM 100 MG CAPSULE PO SCH ×2 (09:50→19:36)
[2018-03-07] MEDS: ASPIRIN 81 MG TAB.CHEW PO SCH (09:50)
[2018-03-07] MEDS: CHOLECALCIFEROL (VITAMIN D3) 1,000 UNIT TABLET PO SCH (09:50)
[2018-03-07] MEDS: CARVEDILOL 12.5 MG TABLET PO SCH ×2 (09:50→17:38)
--- NOTE | 2018-03-07 09:50 | NUR ---
Behavior Intervention Response and Plan: BIRP Note: Behavior: Assumed Care of patient, patient located in Day Room at shift change. Patient exhibited the following behavior Restless, Disorganized, Compulsive. Brief assessment on rounds of vital signs, medication needs, lab studies, and pain. Treatment plan problems 1 & 2. Intervention: Patient assessed and the following interventions initiated safety checks 15 Minute Checks Cognitive Assessment , Head to toe Assessment , Medications. Response: After interactions and interventions patient responded in the following manner, Disorganized , Withdrawn ,Compliant. Continue to assess behaviors and condition will continue to monitor throughout the shift as needed. Patient educated on ADL's, and hand hygiene. 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 Continue to assess patient for changes in above assessment. Monitor for medication needs, pain, and safety concerns. Hourly rounding performed to ensure safe environment.
[2018-03-07] MEDS: LISINOPRIL 20 MG TABLET PO SCH (09:51)
[2018-03-07] MEDS: POLYETHYLENE GLYCOL 3350 17 GM PACKET. PO SCH (09:51)
[2018-03-07] MEDS: amLODIPine BESYLATE 10 MG TABLET PO SCH (09:51)
[2018-03-07] MEDS: LIDOCAINE (700MG/PATCH) PATCH. TD SCH (09:52)
[2018-03-07] MEDS: diazePAM 5 MG TABLET PO SCH ×3 (09:55→19:40)
--- NOTE | 2018-03-07 10:30 | NUR ---
PAULETTE attempted to contact Breann at the [facility] to give her updates on pt case. PAULETTE informed Breann that pt was not approved to go to the [facility], so PAULETTE was sending out referrals to [facility] contracted homes.
[2018-03-07 16:29] VITALS: BP 122/74
[2018-03-07] MEDS: MAGNESIUM HYDROXIDE 2,400 MG/30 ML ORAL.SUSP. PO PRN (17:38)
[2018-03-07] MEDS: ATORVASTATIN CALCIUM 20 MG TABLET PO SCH (19:36)
[2018-03-07] MEDS: DIVALPROEX ER 500 MG TAB.ER.24H PO SCH (19:36)
[2018-03-07] MEDS: traZODone 150 MG TABLET. PO SCH (19:36)
[2018-03-07] MEDS: risperiDONE 0.25 MG TABLET. PO SCH (19:36)
[2018-03-07] MEDS: PRAZOSIN 1 MG CAPSULE. PO SCH (19:37)
[2018-03-07] MEDS: ERYTHROMYCIN 0.5% OPHTH OINTMENT 1GM TUBE. OS SCH (19:37)
[2018-03-07] MEDS: ENOXAPARIN 40 MG/0.4 ML SYRINGE. SQ SCH (19:38)
[2018-03-07] MEDS: PATCH REMOVAL. MC SCH (19:38)
[2018-03-07] MEDS: INSULIN GLARGINE 300 UNITS/3 ML INSULN.PEN. SQ SCH (19:40)
--- NOTE | 2018-03-07 22:43 | NUR ---
Behavior Intervention Response and Plan: BIRP Note: Behavior: Assumed Care of patient, patient located in Patient Room at shift change. Patient exhibited the following behavior Calm, Disorganized, Able to Focus on Task. Brief assessment on rounds of vital signs, medication needs, lab studies, and pain. Treatment plan problems . Intervention: Patient assessed and the following interventions initiated safety checks 15 Minute Checks Head to toe Assessment , Cognitive Assessment , Medications. Response: After interactions and interventions patient responded in the following manner, Withdrawn , Compliant ,Cooperative. Continue to assess behaviors and condition will continue to monitor throughout the shift as needed. Patient educated on ADL's, and hand hygiene. 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 Continue to assess patient for changes in above assessment. Monitor for medication needs, pain, and safety concerns. Hourly rounding performed to ensure safe environment.
--- NOTE | 2018-03-07 23:15 | PDOC ---
Exam Note: Ishaan Note: Please also refer to the separate dictated note~for this date of service dictated separately.~Patient seen individually. Discussed the patient with Nursing staff reviewed the chart.~Reviewed interim history and current functioning. Reviewed vital signs,~Labs/ Radiology~and current medications noted below. Continue current treatment with the changes noted in the dictated addendum note Assessment: Vital Signs: Vital Signs Date Time Temp Pulse Resp B/P (MAP) Pulse Ox O2 Delivery O2 Flow Rate FiO2 03/07/18 19:37 58 122/74 03/07/18 16:29 97.0 19 98 03/03/18 15:43 Room Air I&O Intake and Output 03/07/18 07:00 Intake Total 480 ml Balance 480 ml Intake Oral 480 ml Labs: Laboratory Tests Test 03/07/18 07:37 03/07/18 11:33 03/07/18 16:18 03/07/18 19:15 Glucose (Fingerstick) 93 mg/dL (70-99) 265 mg/dL (70-99) H 214 mg/dL (70-99) H 251 mg/dL (70-99) H Current Medications: Meds: Current Medications Acetaminophen (Tylenol) 650 mg PRN Q6HRS PRN PO PAIN / TEMP; Start 02/17/18 at 15:15 Multi-Ingredient Ointment (Analgesic [place]) 1 neha PRN QID PRN TP MUSCLE PAIN; Start 02/17/18 at 15:15 Al Hydroxide/Mg Hydroxide (Mylanta Plus Xs) 15 ml PRN AFTMEALHC PRN PO DYSPEPSIA; Start 02/17/18 at 15:15 Magnesium Hydroxide (Milk Of Magnesia) 2,400 mg PRN QHS PRN PO CONSTIPATION Last administered on 03/07/18at 17:38; Start 02/17/18 at 15:15 Vitamin D (Vitamin D3) 1,000 unit DAILY PO Last administered on 03/07/18at 09: 50; Start 02/18/18 at 09:00 Diazepam (Valium) 5 mg Q8HRS PO Last administered on 03/03/18at 14:16; Start at 22:00; Stop 03/03/18 at 16:36; Status DC Gabapentin (Neurontin) 200 mg Q6HRS PO Last administered on 02/24/18at 07:43; Start 02/17/18 at 18:00; Stop 02/24/18 at 16:23; Status DC Insulin Glargine (Lantus) 45 units QHS SQ Last administered on 03/07/18at 19:40 ; Start 02/17/18 at 21:00 Amlodipine Besylate (Norvasc) 10 mg DAILY PO Last administered on 03/07/18at 09 :51; Start 02/18/18 at 09:00 Aspirin (Children'S Aspirin) 81 mg DAILYWBKFT PO Last administered on at 09:50; Start 02/18/18 at 08:00 Atorvastatin Calcium (Lipitor) 40 mg QHS PO Last administered on 03/07/18 19: 36; Start 02/17/18 at 21:00 Carvedilol (Coreg) 12.5 mg BIDWMEALS PO Last administered on 03/07/18at 17:38; Start 02/18/18 at 08:00 Non-Formulary Medication (Diazepam (Valium)) 10 mg Q6HRS PO ; Start 02/17/18 at 18:00; Status UNV Docusate Sodium (Colace) 100 mg DAILY PO Last administered on 02/19/18 08:07; Start 02/18/18 at 09:00; Stop 02/19/18 at 12:17; Status DC Enoxaparin Sodium (Lovenox 40mg Syringe) 40 mg QHS SQ Last administered on at 19:38; Start 02/17/18 at 21:00 Insulin Human Lispro (HumaLOG) 12 units TIDWMEALS SQ Last administered on 03/07at 17:39; Start 02/18/18 at 08:00 Levothyroxine Sodium (Synthroid) 125 mcg DAILY06 PO Last administered on at 06:15; Start 02/18/18 at 06:00; Stop 02/19/18 at 12:22; Status DC Lidocaine (Lidoderm) 1 patch DAILY TD Last administered on 03/07/18at 09:52; Start 02/18/18 at 09:00 Lisinopril (Prinivil) 40 mg DAILY PO Last administered on 03/07/18at 09:51; Start 02/18/18 at 09:00 Prazosin HCl (Minipress) 1 mg QHS PO Last administered on 03/07/18 19:37; Start 02/17/18 at 21:00 Famotidine (Pepcid) 20 mg BID PO Last administered on 03/07/18 19:37; Start 02/17/18 at 21:00 Influenza Virus Vaccine (Afluria Trivalent [id number] Syringe) 0.5 ml ONCE ONCE VAX IM Last administered on 02/18/18at 12:05; Start 02/18/18 at 09:00; Stop at 09:01; Status DC Insulin Human Lispro (HumaLOG) 0-7 UNITS TIDWMEALS SQ Last administered on 17:41; Start 02/18/18 at 08:00 Miscellaneous (Lidoderm Patch Removal) 1 ea QHS MC Last administered on 19:38; Start 02/17/18 at 21:00 Bisacodyl (Dulcolax Supp) 10 mg PRN DAILY PRN [place] CONSTIPATION Last administered on 02/17/18at 21:40; Start 02/17/18 at 20:45 Docusate Sodium (Colace) 100 mg BID PO Last administered on 03/07/18 19:36; Start 02/19/18 at 21:00 Polyethylene Glycol (miraLAX) 17 gm DAILY PO Last administered on 03/07/18 09 :51; Start 02/20/18 at 09:00 Magnesium Citrate (Citroma) 296 ml 1X ONCE PO Last administered on 02/19/18at 12:31; Start 02/19/18 at 12:15; Stop 02/19/18 at 12:21; Status DC Levothyroxine Sodium (Synthroid) 175 mcg DAILY06 PO Last administered on 06:02; Start 02/20/18 at 06:00 Risperidone (RisperDAL) 0.5 mg HS PO Last administered on 02/21/18 20:26; Start 02/19/18 at 21:00; Stop 02/22/18 at 16:49; Status DC Acetaminophen/ Hydrocodone Bitart (Lortab 7.5/325) 1 tab PRN TID PRN PO PAIN Last administered on 03/06/18 20:22; Start 02/19/18 at 20:45 Trazodone HCl (Desyrel) 100 mg QHS PO Last administered on 02/22/18 20:09; Start 02/21/18 at 21:00; Stop 02/23/18 at 09:47; Status DC Trazodone HCl (Desyrel) 100 mg PRN QHS PRN PO INSOMNIA; Start 02/21/18 at 16:45 ; Stop 02/23/18 at 09:47; Status DC Sulfacetamide Sodium (Sulf-10) 1 drop Q4H OS Last administered on 03/03/18at 08 :03; Start 02/22/18 at 12:30; Stop 03/03/18 at 14:03; Status DC Erythromycin (Romycin) 0.25 inch QHS OS Last administered on 03/07/18at 19:37; Start 02/22/18 at 21:00 Risperidone (RisperDAL) 0.75 mg QHS PO Last administered on 03/07/18at 19:36; Start 02/22/18 at 21:00 Trazodone HCl (Desyrel) 150 mg PRN QHS PRN PO INSOMNIA; Start 02/23/18 at 10:00 Trazodone HCl (Desyrel) 150 mg QHS PO Last administered on 03/07/18at 19:36; Start 02/23/18 at 21:00 Divalproex Sodium (Depakote Er) 500 mg QHS PO Last administered on 02/26/18at 19 :48; Start 02/23/18 at 21:00; Stop 02/27/18 at 16:48; Status DC Divalproex Sodium (Depakote Er) 1,000 mg QHS PO Last administered on 19:36; Start 02/27/18 at 21:00 Glucose (Insta-Glucose) 15 gm STK-MED ONCE .ROUTE Last administered on at 06:42; Start 03/01/18 at 06:42; Stop 03/01/18 at 06:43; Status DC Diazepam (Valium) 5 mg BID PO Last administered on 03/06/18 08:09; Start 05/09 at 21:00; Stop 03/06/18 at 16:34; Status DC Diazepam (Valium) 2.5 mg DAILY@1400 PO Last administered on 03/06/18at 14:13; Start 03/04/18 at 14:00; Stop 03/06/18 at 16:34; Status DC Diazepam (Valium) 5 mg HS PO Last administered on 03/07/18at 19:40; Start at 21:00 Diazepam (Valium) 2.5 mg BID92 PO Last administered on 03/07/18at 13:52; Start 03/07/18 at 09:00 Artificial Tears (Refresh Classic) 1 drop PRN Q2HR PRN OS DRY EYE; Start 03/07 at 13:15 Active Scripts Active Reported Lovenox (Enoxaparin Sodium) 40 Mg/0.4 Ml Disp.syrin 40 Mg SQ QHS Gabapentin 100 Mg Capsule 200 Mg PO Q6HRS Diazepam 5 Mg Tablet 5 Mg PO Q8HRS Ranitidine Hcl 150 Mg Tablet 150 Mg PO BID Amlodipine Besylate 10 Mg Tablet 10 Mg PO DAILY Aspirin 81 Mg Tab.chew 81 Mg PO DAILY Vitamin D3 (Cholecalciferol (Vitamin D3)) 1,000 Unit Tablet 1,000 Unit PO DAILY Synthroid (Levothyroxine Sodium) 125 Mcg Tablet 125 Mcg PO DAILYAC Lisinopril 40 Mg Tablet 40 Mg PO DAILY Lantus Solostar (Insulin Glargine,Hum.rec.anlog) 100 Unit/1 Ml Insuln.pen 45 Unit SQ QHS Lidocaine 1 Each Adh..patch 1 Each TP DAILY Lipitor (Atorvastatin Calcium) 40 Mg Tablet 40 Mg PO QHS Prazosin Hcl 1 Mg Capsule 1 Mg PO QHS Colace (Docusate Sodium) 100 Mg Capsule 100 Mg PO DAILY Coreg (Carvedilol) 12.5 Mg Tablet 12.5 Mg PO BIDWMEALS Novolog Flexpen (Insulin Aspart) 100 Unit/1 Ml Insuln.pen 12 Unit SQ TID Plavix (Clopidogrel Bisulfate) 75 Mg Tablet 75 Mg PO DAILY Levothyroxine Sodium 50 Mcg Tablet 50 Mcg PO DAILY Lortab 7.5-325 mg Tablet (Hydrocodone/Acetaminophen) 1 Each Tablet 1 Tab PO TID PRN I have reviewed the current psychotropics carefully including drug interactions. Risk benefit ratio favors no change other than as noted in my dictated progress note. 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
--- NOTE | 2018-03-08 04:51 | PN ---
DATE: 03/06/2018 This is a late entry for 03/06/2018 covers elements not covered in my initial note. SUBJECTIVE: I met with the patient in the evening. The patient has been somewhat withdrawn, slept 5-3/4 hours previous evening. REVIEW OF SYSTEMS: Ambulation impaired, in wheelchair. No CV, , pulmonary, eye system symptoms on review. He has bilateral blindness, legally blind. MENTAL STATUS EXAM: Oriented to himself and situation. Speech, low in rate and rhythm, low in volume, often responses monosyllabic. Abstraction fair, computation impaired, language function intact, attention span short. Mood and affect somewhat withdrawn. He is still fixated on wanting to live on his own, limited insight into his limited ability to do this given his physical limitations including blindness, impaired ambulation. Social service staff are looking for domiciliary placement at the [facility]. No active suicidal or homicidal ideation. Attention span short. Language function intact. IMPRESSION: Schizoaffective disorder, bipolar type, mixed versus depressed with psychotic features in partial remission; anxiety disorder, unspecified. Rest unchanged. PLAN: The patient is on Valium 5 mg b.i.d., 2.5 mg a day. We will taper down 1 more step to 2.5 mg twice a day and 5 mg in the evening. Continue rest unchanged. Valproic acid level therapeutic at 71. MAN Dilma AGUIRRE MD DR: DIYA/valeria JOB#: [id number] / [id number]
[2018-03-08 06:00] VITALS: BP 118/76
[2018-03-08] MEDS: LEVOTHYROXINE 125 MCG TABLET PO SCH (06:25)
[2018-03-08] MEDS: INSULIN LISPRO 300 UNITS/3 ML INSULN.PEN. SQ SCH ×6 (08:00→17:40)
[2018-03-08] MEDS: DOCUSATE SODIUM 100 MG CAPSULE PO SCH ×2 (09:18→19:58)
[2018-03-08] MEDS: LISINOPRIL 20 MG TABLET PO SCH (09:18)
[2018-03-08] MEDS: FAMOTIDINE 20 MG TABLET PO SCH ×2 (09:18→20:01)
[2018-03-08] MEDS: ASPIRIN 81 MG TAB.CHEW PO SCH (09:18)
[2018-03-08] MEDS: amLODIPine BESYLATE 10 MG TABLET PO SCH (09:19)
[2018-03-08] MEDS: CARVEDILOL 12.5 MG TABLET PO SCH ×2 (09:20→17:37)
[2018-03-08] MEDS: LIDOCAINE (700MG/PATCH) PATCH. TD SCH (09:20)
[2018-03-08] MEDS: CHOLECALCIFEROL (VITAMIN D3) 1,000 UNIT TABLET PO SCH (09:20)
[2018-03-08] MEDS: POLYETHYLENE GLYCOL 3350 17 GM PACKET. PO SCH (09:20)
[2018-03-08] MEDS: diazePAM 5 MG TABLET PO SCH ×3 (09:23→20:06)
[2018-03-08] MEDS: POLYVINYL ALCOHOL/POVIDONE/PF OPHTH SOLUTION DROPERETTE. OS PRN ×2 (09:35→14:12)
--- NOTE | 2018-03-08 09:50 | NUR ---
Patient complains of discomfort in left eye. His left eye appears bloodshot and teary. PRN med provided per eMAR, will continue to monitor.
--- NOTE | 2018-03-08 09:50 | NUR ---
Behavior Intervention Response and Plan: BIRP Note: Behavior: Assumed Care of patient, patient located in Day Room at shift change. Patient exhibited the following behavior Restless, Disorganized, Compulsive. Brief assessment on rounds of vital signs, medication needs, lab studies, and pain. Treatment plan problems 1 & 2. Intervention: Patient assessed and the following interventions initiated safety checks 15 Minute Checks Cognitive Assessment , Head to toe Assessment , Medications. Response: After interactions and interventions patient responded in the following manner, Disorganized , Withdrawn ,Compliant. Continue to assess behaviors and condition will continue to monitor throughout the shift as needed. Patient educated on ADL's, and hand hygiene. 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 Continue to assess patient for changes in above assessment. Monitor for medication needs, pain, and safety concerns. Hourly rounding performed to ensure safe environment.
--- NOTE | 2018-03-08 14:59 | NUR ---
wound care patient seen per f/u of wound care consult. see wound assessment. patient has small area of skin tears to the right dorsal foot, left lateral lower leg and left dorsal foot, the areas were cleaned and if the 2 new wounds were measured and pictured at this time, redressed with xeroform gauz with a non adhesive foam with kerlix and tape, recommendations of changing every 2-3 days. the area had not been pictured. went to take a picture and the camera battery needed charged. patients Medigrips reapplied at this time. wound care will continue to f/u. notified HAYDE Barr that the wound needed to be pictured with the next dressing change, and notified him of the recommendations. Addendum: 03/08/18 at 1503 by CHRISTAL DE LOS SANTOS RN error to note- the pictures were taken and placed in patients chart at this time
[2018-03-08 16:27] VITALS: BP 134/84
[2018-03-08] MEDS: ERYTHROMYCIN 0.5% OPHTH OINTMENT 1GM TUBE. OS SCH ×2 (19:58→21:00)
[2018-03-08] MEDS: PATCH REMOVAL. MC SCH (19:58)
[2018-03-08] MEDS: DIVALPROEX ER 500 MG TAB.ER.24H PO SCH (19:59)
[2018-03-08] MEDS: traZODone 150 MG TABLET. PO SCH (19:59)
[2018-03-08] MEDS: ATORVASTATIN CALCIUM 20 MG TABLET PO SCH (20:00)
[2018-03-08] MEDS: risperiDONE 0.25 MG TABLET. PO SCH (20:01)
[2018-03-08] MEDS: PRAZOSIN 1 MG CAPSULE. PO SCH (20:01)
[2018-03-08] MEDS: ENOXAPARIN 40 MG/0.4 ML SYRINGE. SQ SCH (20:02)
[2018-03-08] MEDS: INSULIN GLARGINE 300 UNITS/3 ML INSULN.PEN. SQ SCH (20:04)
--- NOTE | 2018-03-08 22:45 | PN ---
DATE: 03/07/2018 PSYCHIATRIC PROGRESS NOTE This late entry 03/07/2018 covers elements not covered in my initial note. SUBJECTIVE: I met with the patient in the evening. Per nursing report, the patient slept 7 hours previous night. He has been somewhat withdrawn. 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 When I questioned him on this, he stated he had $230,000 in his bank and could use it to live alone in his home where he would be able to cook and clean for himself and get around without any help. REVIEW OF SYSTEMS: Ambulation impaired, in wheelchair, bilateral blindness. No CV, , GI, or pulmonary system symptoms on review. MENTAL STATUS EXAM: Oriented to himself, situation. Eye contact is poor. Psychomotor activity reduced. Speech, low in rate and rhythm, low in volume. Abstraction fair, computation impaired, language function intact, attention span short. Mood and affect somewhat withdrawn. LABORATORY DATA: Reviewed. IMPRESSION: Schizoaffective disorder, bipolar type, mixed with psychotic features, in partial remission. Rest unchanged. PLAN: Continue psychotropics noted in my initial note. We will continue to gradually taper the Valium. Maintain Depakote, Risperdal, prazosin, and trazodone for now. We will defer to social service staff for appropriate placement. Reportedly, he has been rejected by the [facility]. JALEEL AGUIRRE MD DR: DIYA/valeria JOB#: [id number] / [id number]
--- NOTE | 2018-03-08 23:19 | PDOC ---
Exam Note: [place] Note: Please also refer to the separate dictated note~for this date of service dictated separately.~Patient seen individually. Discussed the patient with Nursing staff reviewed the chart.~Reviewed interim history and current functioning. Reviewed vital signs,~Labs/ Radiology~and current medications noted below. Continue current treatment with the changes noted in the dictated addendum note Assessment: Vital Signs: Vital Signs Date Time Temp Pulse Resp B/P (MAP) Pulse Ox O2 Delivery O2 Flow Rate FiO2 03/08/18 20:01 71 134/84 03/08/18 16:27 98.1 20 100 03/03/18 15:43 Room Air I&O Intake and Output 03/08/18 07:00 Intake Total 1200 ml Balance 1200 ml Intake Oral 1200 ml Labs: Laboratory Tests Test 03/08/18 07:28 03/08/18 11:16 03/08/18 16:54 03/08/18 18:59 Glucose (Fingerstick) 70 mg/dL (70-99) 224 mg/dL (70-99) H 221 mg/dL (70-99) H 244 mg/dL (70-99) H Current Medications: Meds: Current Medications Acetaminophen (Tylenol) 650 mg PRN Q6HRS PRN PO PAIN / TEMP; Start 02/17/18 at 15:15 Multi-Ingredient Ointment (Analgesic Reading) 1 neha PRN QID PRN TP MUSCLE PAIN; Start 02/17/18 at 15:15 Al Hydroxide/Mg Hydroxide (Mylanta Plus Xs) 15 ml PRN AFTMEALHC PRN PO DYSPEPSIA; Start 02/17/18 at 15:15 Magnesium Hydroxide (Milk Of Magnesia) 2,400 mg PRN QHS PRN PO CONSTIPATION Last administered on 03/07/18at 17:38; Start 02/17/18 at 15:15 Vitamin D (Vitamin D3) 1,000 unit DAILY PO Last administered on 03/08/18at 09: 20; Start 02/18/18 at 09:00 Diazepam (Valium) 5 mg Q8HRS PO Last administered on 03/03/18at 14:16; Start at 22:00; Stop 03/03/18 at 16:36; Status DC Gabapentin (Neurontin) 200 mg Q6HRS PO Last administered on 02/24/18at 07:43; Start 02/17/18 at 18:00; Stop 02/24/18 at 16:23; Status DC Insulin Glargine (Lantus) 45 units QHS SQ Last administered on 03/08/18at 20:04 ; Start 02/17/18 at 21:00 Amlodipine Besylate (Norvasc) 10 mg DAILY PO Last administered on 03/08/18at 09 :19; Start 02/18/18 at 09:00 Aspirin (Children'S Aspirin) 81 mg DAILYWBKFT PO Last administered on at 09:18; Start 02/18/18 at 08:00 Atorvastatin Calcium (Lipitor) 40 mg QHS PO Last administered on 03/08/18at 20: 00; Start 02/17/18 at 21:00 Carvedilol (Coreg) 12.5 mg BIDWMEALS PO Last administered on 03/08/18at 17:37; Start 02/18/18 at 08:00 Non-Formulary Medication (Diazepam (Valium)) 10 mg Q6HRS PO ; Start 02/17/18 at 18:00; Status UNV Docusate Sodium (Colace) 100 mg DAILY PO Last administered on 02/19/18at 08:07; Start 02/18/18 at 09:00; Stop 02/19/18 at 12:17; Status DC Enoxaparin Sodium (Lovenox 40mg Syringe) 40 mg QHS SQ Last administered on at 20:02; Start 02/17/18 at 21:00 Insulin Human Lispro (HumaLOG) 12 units TIDWMEALS SQ Last administered on 03/08at 17:39; Start 02/18/18 at 08:00 Levothyroxine Sodium (Synthroid) 125 mcg DAILY06 PO Last administered on at 06:15; Start 02/18/18 at 06:00; Stop 02/19/18 at 12:22; Status DC Lidocaine (Lidoderm) 1 patch DAILY TD Last administered on 03/08/18at 09:20; Start 02/18/18 at 09:00 Lisinopril (Prinivil) 40 mg DAILY PO Last administered on 03/08/18at 09:18; Start 02/18/18 at 09:00 Prazosin HCl (Minipress) 1 mg QHS PO Last administered on 03/08/18 20:01; Start 02/17/18 at 21:00 Famotidine (Pepcid) 20 mg BID PO Last administered on 03/08/18at 20:01; Start 02/17/18 at 21:00 Influenza Virus Vaccine (Afluria Trivalent 8029-2755 Syringe) 0.5 ml ONCE ONCE VAX IM Last administered on 02/18/18at 12:05; Start 02/18/18 at 09:00; Stop at 09:01; Status DC Insulin Human Lispro (HumaLOG) 0-7 UNITS TIDWMEALS SQ Last administered on at 17:40; Start 02/18/18 at 08:00 Miscellaneous (Lidoderm Patch Removal) 1 ea QHS MC Last administered on 19:58; Start 02/17/18 at 21:00 Bisacodyl (Dulcolax Supp) 10 mg PRN DAILY PRN ND CONSTIPATION Last administered on 02/17/18at 21:40; Start 02/17/18 at 20:45 Docusate Sodium (Colace) 100 mg BID PO Last administered on 03/08/18 19:58; Start 02/19/18 at 21:00 Polyethylene Glycol (miraLAX) 17 gm DAILY PO Last administered on 03/08/18at 09 :20; Start 02/20/18 at 09:00 Magnesium Citrate (Citroma) 296 ml 1X ONCE PO Last administered on 02/19/18at 12:31; Start 02/19/18 at 12:15; Stop 02/19/18 at 12:21; Status DC Levothyroxine Sodium (Synthroid) 175 mcg DAILY06 PO Last administered on 06:25; Start 02/20/18 at 06:00 Risperidone (RisperDAL) 0.5 mg HS PO Last administered on 02/21/18 20:26; Start 02/19/18 at 21:00; Stop 02/22/18 at 16:49; Status DC Acetaminophen/ Hydrocodone Bitart (Lortab 7.5/325) 1 tab PRN TID PRN PO PAIN Last administered on 03/06/18 20:22; Start 02/19/18 at 20:45 Trazodone HCl (Desyrel) 100 mg QHS PO Last administered on 02/22/18 20:09; Start 02/21/18 at 21:00; Stop 02/23/18 at 09:47; Status DC Trazodone HCl (Desyrel) 100 mg PRN QHS PRN PO INSOMNIA; Start 02/21/18 at 16:45 ; Stop 02/23/18 at 09:47; Status DC Sulfacetamide Sodium (Sulf-10) 1 drop Q4H OS Last administered on 03/03/18at 08 :03; Start 02/22/18 at 12:30; Stop 03/03/18 at 14:03; Status DC Erythromycin (Romycin) 0.25 inch QHS OS Last administered on 03/07/18at 19:37; Start 02/22/18 at 21:00 Risperidone (RisperDAL) 0.75 mg QHS PO Last administered on 03/08/18at 20:01; Start 02/22/18 at 21:00 Trazodone HCl (Desyrel) 150 mg PRN QHS PRN PO INSOMNIA; Start 02/23/18 at 10:00 Trazodone HCl (Desyrel) 150 mg QHS PO Last administered on 03/08/18at 19:59; Start 02/23/18 at 21:00 Divalproex Sodium (Depakote Er) 500 mg QHS PO Last administered on 02/26/18at 19 :48; Start 02/23/18 at 21:00; Stop 02/27/18 at 16:48; Status DC Divalproex Sodium (Depakote Er) 1,000 mg QHS PO Last administered on at 19:59; Start 02/27/18 at 21:00 Glucose (Insta-Glucose) 15 gm STK-MED ONCE .ROUTE Last administered on at 06:42; Start 03/01/18 at 06:42; Stop 03/01/18 at 06:43; Status DC Diazepam (Valium) 5 mg BID PO Last administered on 03/06/18at 08:09; Start 05/09 at 21:00; Stop 03/06/18 at 16:34; Status DC Diazepam (Valium) 2.5 mg DAILY@1400 PO Last administered on 03/06/18at 14:13; Start 03/04/18 at 14:00; Stop 03/06/18 at 16:34; Status DC Diazepam (Valium) 5 mg HS PO Last administered on 03/08/18at 20:06; Start at 21:00 Diazepam (Valium) 2.5 mg BID92 PO Last administered on 03/08/18at 14:12; Start 03/07/18 at 09:00 Artificial Tears (Refresh Classic) 1 drop PRN Q2HR PRN OS DRY EYE Last administered on 03/08/18at 14:12; Start 03/07/18 at 13:15 Active Scripts Active Reported Lovenox (Enoxaparin Sodium) 40 Mg/0.4 Ml Disp.syrin 40 Mg SQ QHS Gabapentin 100 Mg Capsule 200 Mg PO Q6HRS Diazepam 5 Mg Tablet 5 Mg PO Q8HRS Ranitidine Hcl 150 Mg Tablet 150 Mg PO BID Amlodipine Besylate 10 Mg Tablet 10 Mg PO DAILY Aspirin 81 Mg Tab.chew 81 Mg PO DAILY Vitamin D3 (Cholecalciferol (Vitamin D3)) 1,000 Unit Tablet 1,000 Unit PO DAILY Synthroid (Levothyroxine Sodium) 125 Mcg Tablet 125 Mcg PO DAILYAC Lisinopril 40 Mg Tablet 40 Mg PO DAILY Lantus Solostar (Insulin Glargine,Hum.rec.anlog) 100 Unit/1 Ml Insuln.pen 45 Unit SQ QHS Lidocaine 1 Each Adh..patch 1 Each TP DAILY Lipitor (Atorvastatin Calcium) 40 Mg Tablet 40 Mg PO QHS Prazosin Hcl 1 Mg Capsule 1 Mg PO QHS Colace (Docusate Sodium) 100 Mg Capsule 100 Mg PO DAILY Coreg (Carvedilol) 12.5 Mg Tablet 12.5 Mg PO BIDWMEALS Novolog Flexpen (Insulin Aspart) 100 Unit/1 Ml Insuln.pen 12 Unit SQ TID Plavix (Clopidogrel Bisulfate) 75 Mg Tablet 75 Mg PO DAILY Levothyroxine Sodium 50 Mcg Tablet 50 Mcg PO DAILY Lortab 7.5-325 mg Tablet (Hydrocodone/Acetaminophen) 1 Each Tablet 1 Tab PO TID PRN I have reviewed the current psychotropics carefully including drug interactions. Risk benefit ratio favors no change other than as noted in my dictated progress note. 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
--- NOTE | 2018-03-08 23:21 | NUR ---
Assumed care of pt @ approx 1900. Pt was sitting up in W/C in Day Room at the time of our initial encounter. Pt has a flat affect, but is cooperative & compliant w/meds. Refused his eye ointment, but took all of his other medications. No signs of hallucinations, delusions, or paranoia noted this evening. Pt currently in bed, resting quietly w/eyes closed. No needs voiced @ this time. Will continue to monitor and assist pt in working towards his treatment and discharge goals.
[2018-03-09 06:10] VITALS: BP 144/73
[2018-03-09] MEDS: LEVOTHYROXINE 125 MCG TABLET PO SCH (06:23)
[2018-03-09 06:51] LABS: BASO % 0 % (0-3); EOS # 0.1 x10^3/uL (0.0-0.7); EOS % 2 % (0-3); HEMATOCRIT 31.5 % (39.0-53.0); HEMOGLOBIN 10.8 g/dL (13.0-17.5); LYMPH # 1.8 x10^3/uL (1.0-4.8); LYMPH % 27 % (24-48); MEAN CORPUSCULAR HEMOGLOBIN 31 pg (25-35); MEAN CORPUSCULAR HGB CONC 34 g/dL (31-37); MEAN CORPUSCULAR VOLUME 90 fL (79-100); MONO # 0.8 x10^3/uL (0.0-1.1); MONO % 12 % (0-9); NEUT # 3.9 x10^3uL (1.8-7.7); NEUT % 59 % (31-73); PLATELET COUNT 179 x10^3/uL (140-400); RED BLOOD COUNT 3.52 x10^6/uL (4.30-5.70); RED CELL DISTRIBUTION WIDTH 14.9 % (11.5-14.5); WHITE BLOOD COUNT 6.6 x10^3/uL (4.0-11.0)
[2018-03-09 07:12] LABS: ALBUMIN 2.6 g/dL (3.4-5.0); ALBUMIN/GLOBULIN RATIO 0.7 (1.0-1.7); CALCIUM 8.6 mg/dL (8.5-10.1); CREATININE 1.2 mg/dL (0.7-1.3); GFR 74.2; POTASSIUM 4.2 mmol/L (3.5-5.1); TOTAL BILIRUBIN 0.2 mg/dL (0.2-1.0); TOTAL PROTEIN 6.1 g/dL (6.4-8.2)
[2018-03-09] MEDS: CARVEDILOL 12.5 MG TABLET PO SCH ×2 (10:04→17:01)
[2018-03-09] MEDS: LISINOPRIL 20 MG TABLET PO SCH (10:04)
[2018-03-09] MEDS: ASPIRIN 81 MG TAB.CHEW PO SCH (10:04)
[2018-03-09] MEDS: LIDOCAINE (700MG/PATCH) PATCH. TD SCH (10:05)
[2018-03-09] MEDS: DOCUSATE SODIUM 100 MG CAPSULE PO SCH ×2 (10:05→19:50)
[2018-03-09] MEDS: POLYETHYLENE GLYCOL 3350 17 GM PACKET. PO SCH (10:05)
[2018-03-09] MEDS: CHOLECALCIFEROL (VITAMIN D3) 1,000 UNIT TABLET PO SCH (10:05)
[2018-03-09] MEDS: FAMOTIDINE 20 MG TABLET PO SCH ×2 (10:05→19:59)
[2018-03-09] MEDS: INSULIN LISPRO 300 UNITS/3 ML INSULN.PEN. SQ SCH ×6 (10:08→17:02)
[2018-03-09] MEDS: diazePAM 5 MG TABLET PO SCH ×3 (10:13→19:59)
[2018-03-09] MEDS: amLODIPine BESYLATE 10 MG TABLET PO SCH (10:16)
--- NOTE | 2018-03-09 10:20 | NUR ---
Behavior Intervention Response and Plan: BIRP Note: Behavior: Assumed Care of patient, patient located in Day Room at shift change. Patient exhibited the following behavior Restless, Disorganized, Compulsive. Brief assessment on rounds of vital signs, medication needs, lab studies, and pain. Treatment plan problems 1 & 2. Intervention: Patient assessed and the following interventions initiated safety checks 15 Minute Checks Cognitive Assessment , Head to toe Assessment , Medications. Response: After interactions and interventions patient responded in the following manner, Disorganized , Withdrawn ,Compliant. Continue to assess behaviors and condition will continue to monitor throughout the shift as needed. Patient educated on ADL's, and hand hygiene. 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 Continue to assess patient for changes in above assessment. Monitor for medication needs, pain, and safety concerns. Hourly rounding performed to ensure safe environment.
--- NOTE | 2018-03-09 10:58 | NUR ---
WEEKLY ACTIVITY THERAPY NOTE Date of Admission: 02/17/2018 Date of AT Assessment: 02/20/2018 Goal aimed: to increase socialization and assertiveness Initial goal: Pt. will participate in at least one group per day and will ask for/ initiate help with a task at least once before discharge. Weekly progress towards goal: achieved; in progress Group participation level: varies Behaviors observed: Pt. is often around group and will engage with some prompting; Pt. seems to be more engaged in the afternoon and evenings; Pt. is appropriate in his interactions with therapists and is generally compliant Plan: no change to goal
--- NOTE | 2018-03-09 12:15 | NUR ---
WEEKLY NOTE: Pt continues to refuse placement in a [facility]. Staff will need to continue to work with pt on understanding that this is his only option for placement as the [facility] will not pay for pt to have his own apartment; nor will he receive care at home as the agencies contracted through the [facility] will work with him. Pt was assessed by [facility] who has denied placement for pt. will continue to send out referrals for pt.
[2018-03-09 16:08] VITALS: BP 130/86
[2018-03-09] MEDS: ERYTHROMYCIN 0.5% OPHTH OINTMENT 1GM TUBE. OS SCH (19:49)
[2018-03-09] MEDS: PATCH REMOVAL. MC SCH (19:49)
[2018-03-09] MEDS: traZODone 150 MG TABLET. PO SCH (19:53)
[2018-03-09] MEDS: DIVALPROEX ER 500 MG TAB.ER.24H PO SCH (19:53)
[2018-03-09] MEDS: ATORVASTATIN CALCIUM 20 MG TABLET PO SCH (19:54)
[2018-03-09] MEDS: PRAZOSIN 1 MG CAPSULE. PO SCH (19:55)
[2018-03-09] MEDS: risperiDONE 0.25 MG TABLET. PO SCH (19:55)
[2018-03-09] MEDS: ENOXAPARIN 40 MG/0.4 ML SYRINGE. SQ SCH (20:00)
[2018-03-09] MEDS: INSULIN GLARGINE 300 UNITS/3 ML INSULN.PEN. SQ SCH (21:48)
[2018-03-09] MEDS: HYDROcodone/APAP 7.5/325MG 1 TAB TABLET PO PRN (21:55)
--- NOTE | 2018-03-09 22:59 | PN ---
DATE: 03/08/2018 PSYCHIATRIC PROGRESS NOTE This late entry 03/08/2018 covers elements not covered in my initial note. SUBJECTIVE: I met with the patient in the evening. Overall, the patient slept 8-1/4 hours previous evening. He has been more cooperative, stays in his wheelchair, has bilateral blindness. Eye contact remains poor, somewhat withdrawn, fixated on the fact that he can function alone in his own home and take care of everything himself and needs to get to work and to find a job. REVIEW OF SYSTEMS: No CV, , pulmonary system symptoms on review. MENTAL STATUS EXAM: Oriented to himself and situation. Speech moderate latency, low in rate and rhythm, low in volume. Abstraction fair. Computation, able to do one step on serial 7's. Attention span short. Mood and affect somewhat withdrawn. No suicidal or homicidal ideation. LABORATORY DATA: Reviewed. IMPRESSION: Schizoaffective disorder, bipolar type, mixed with psychotic features; anxiety disorder, unspecified; cognitive disorder, unspecified. PLAN: No change from initial note. MAN Dilma AGUIRRE MD DR: DIYA/valeria JOB#: [id number] / [id number]
--- NOTE | 2018-03-09 23:12 | NUR ---
Assumed care of pt @ approx 1900. Pt was sitting up in W/C in Day Room at the time of our initial encounter. Pt has a flat affect, but is cooperative & compliant w/meds. Refused his eye ointment, but took all of his other medications. Pt was noted to be "talking to himself" (hallucinating?) in the Day Room, but this RN was unable to hear what he was saying. Pt has previously expressed the delusion that they carry guns at his prior facility. Pt c/o of generalized pain at bedtime - PRN Lortab administered. Pt currently in bed, resting quietly w/eyes closed. No additional needs voiced @ this time. Will continue to monitor and assist pt in working towards his treatment and discharge goals.
--- NOTE | 2018-03-09 23:37 | PDOC ---
Exam Note: Ishaan Note: Please also refer to the separate dictated note~for this date of service dictated separately.~Patient seen individually. Discussed the patient with Nursing staff reviewed the chart.~Reviewed interim history and current functioning. Reviewed vital signs,~Labs/ Radiology~and current medications noted below. Continue current treatment with the changes noted in the dictated addendum note Assessment: Vital Signs: Vital Signs Date Time Temp Pulse Resp B/P (MAP) Pulse Ox O2 Delivery O2 Flow Rate FiO2 03/09/18 22:57 14 Room Air 03/09/18 19:55 61 130/86 03/09/18 16:08 97.3 96 I&O Intake and Output 03/09/18 07:00 Intake Total 780 ml Balance 780 ml Intake Oral 780 ml # Bowel Movements 1 Labs: Laboratory Tests Test 03/09/18 06:38 03/09/18 07:09 03/09/18 11:28 03/09/18 16:23 White Blood Count 6.6 x10^3/uL (4.0-11.0) Red Blood Count 3.52 x10^6/uL (4.30-5.70) L Hemoglobin 10.8 g/dL (13.0-17.5) L Hematocrit 31.5 % (39.0-53.0) L Mean Corpuscular Volume 90 fL (79-100) Mean Corpuscular Hemoglobin 31 pg (25-35) Mean Corpuscular Hemoglobin Concent 34 g/dL (31-37) Red Cell Distribution Width 14.9 % (11.5-14.5) H Platelet Count 179 x10^3/uL (140-400) Neutrophils (%) (Auto) 59 % (31-73) Lymphocytes (%) (Auto) 27 % (24-48) Monocytes (%) (Auto) 12 % (0-9) H Eosinophils (%) (Auto) 2 % (0-3) Basophils (%) (Auto) 0 % (0-3) Neutrophils # (Auto) 3.9 x10^3uL (1.8-7.7) Lymphocytes # (Auto) 1.8 x10^3/uL (1.0-4.8) Monocytes # (Auto) 0.8 x10^3/uL (0.0-1.1) Eosinophils # (Auto) 0.1 x10^3/uL (0.0-0.7) Basophils # (Auto) 0.0 x10^3/uL (0.0-0.2) Sodium Level 137 mmol/L (136-145) Potassium Level 4.2 mmol/L (3.5-5.1) Chloride Level 102 mmol/L (98-107) Carbon Dioxide Level 35 mmol/L (21-32) H Anion Gap 0 (6-14) L Blood Urea Nitrogen 19 mg/dL (8-26) Creatinine 1.2 mg/dL (0.7-1.3) Estimated GFR (Cockcroft-Gault) 74.2 BUN/Creatinine Ratio 16 (6-20) Glucose Level 193 mg/dL (70-99) H Calcium Level 8.6 mg/dL (8.5-10.1) Total Bilirubin 0.2 mg/dL (0.2-1.0) Aspartate Amino Transferase (AST) 22 U/L (15-37) Alanine Aminotransferase (ALT) 33 U/L (16-63) Alkaline Phosphatase 77 U/L (46-116) Total Protein 6.1 g/dL (6.4-8.2) L Albumin 2.6 g/dL (3.4-5.0) L Albumin/Globulin Ratio 0.7 (1.0-1.7) L Glucose (Fingerstick) 173 mg/dL (70-99) H 304 mg/dL (70-99) H 258 mg/dL (70-99) H Test 03/09/18 19:15 Glucose (Fingerstick) 190 mg/dL (70-99) H Current Medications: Meds: Current Medications Acetaminophen (Tylenol) 650 mg PRN Q6HRS PRN PO PAIN / TEMP; Start 02/17/18 at 15:15 Multi-Ingredient Ointment (Analgesic [place]) 1 neha PRN QID PRN TP MUSCLE PAIN; Start 02/17/18 at 15:15 Al Hydroxide/Mg Hydroxide (Mylanta Plus Xs) 15 ml PRN AFTMEALHC PRN PO DYSPEPSIA; Start 02/17/18 at 15:15 Magnesium Hydroxide (Milk Of Magnesia) 2,400 mg PRN QHS PRN PO CONSTIPATION Last administered on 03/07/18at 17:38; Start 02/17/18 at 15:15 Vitamin D (Vitamin D3) 1,000 unit DAILY PO Last administered on 03/09/18 10: 05; Start 02/18/18 at 09:00 Diazepam (Valium) 5 mg Q8HRS PO Last administered on 03/03/18at 14:16; Start at 22:00; Stop 03/03/18 at 16:36; Status DC Gabapentin (Neurontin) 200 mg Q6HRS PO Last administered on 02/24/18at 07:43; Start 02/17/18 at 18:00; Stop 02/24/18 at 16:23; Status DC Insulin Glargine (Lantus) 45 units QHS SQ Last administered on 03/09/18at 21:48 ; Start 02/17/18 at 21:00 Amlodipine Besylate (Norvasc) 10 mg DAILY PO Last administered on 03/09/18 10 :16; Start 02/18/18 at 09:00 Aspirin (Children'S Aspirin) 81 mg DAILYWBKFT PO Last administered on at 10:04; Start 02/18/18 at 08:00 Atorvastatin Calcium (Lipitor) 40 mg QHS PO Last administered on 03/09/18at 19: 54; Start 02/17/18 at 21:00 Carvedilol (Coreg) 12.5 mg BIDWMEALS PO Last administered on 03/09/18at 17:01; Start 02/18/18 at 08:00 Non-Formulary Medication (Diazepam (Valium)) 10 mg Q6HRS PO ; Start 02/17/18 at 18:00; Status UNV Docusate Sodium (Colace) 100 mg DAILY PO Last administered on 02/19/18 08:07; Start 02/18/18 at 09:00; Stop 02/19/18 at 12:17; Status DC Enoxaparin Sodium (Lovenox 40mg Syringe) 40 mg QHS SQ Last administered on at 20:00; Start 02/17/18 at 21:00 Insulin Human Lispro (HumaLOG) 12 units TIDWMEALS SQ Last administered on 03/09at 17:01; Start 02/18/18 at 08:00 Levothyroxine Sodium (Synthroid) 125 mcg DAILY06 PO Last administered on 06:15; Start 02/18/18 at 06:00; Stop 02/19/18 at 12:22; Status DC Lidocaine (Lidoderm) 1 patch DAILY TD Last administered on 03/09/18at 10:05; Start 02/18/18 at 09:00 Lisinopril (Prinivil) 40 mg DAILY PO Last administered on 03/09/18 10:04; Start 02/18/18 at 09:00 Prazosin HCl (Minipress) 1 mg QHS PO Last administered on 03/09/18at 19:55; Start 02/17/18 at 21:00 Famotidine (Pepcid) 20 mg BID PO Last administered on 03/09/18 19:59; Start 02/17/18 at 21:00 Influenza Virus Vaccine (Afluria Trivalent [id number] Syringe) 0.5 ml ONCE ONCE VAX IM Last administered on 02/18/18 12:05; Start 02/18/18 at 09:00; Stop at 09:01; Status DC Insulin Human Lispro (HumaLOG) 0-7 UNITS TIDWMEALS SQ Last administered on 17:02; Start 02/18/18 at 08:00 Miscellaneous (Lidoderm Patch Removal) 1 ea QHS MC Last administered on 19:49; Start 02/17/18 at 21:00 Bisacodyl (Dulcolax Supp) 10 mg PRN DAILY PRN [place] CONSTIPATION Last administered on 02/17/18at 21:40; Start 02/17/18 at 20:45 Docusate Sodium (Colace) 100 mg BID PO Last administered on 03/09/18at 19:50; Start 02/19/18 at 21:00 Polyethylene Glycol (miraLAX) 17 gm DAILY PO Last administered on 03/09/18 10 :05; Start 02/20/18 at 09:00 Magnesium Citrate (Citroma) 296 ml 1X ONCE PO Last administered on 02/19/18at 12:31; Start 02/19/18 at 12:15; Stop 02/19/18 at 12:21; Status DC Levothyroxine Sodium (Synthroid) 175 mcg DAILY06 PO Last administered on at 06:23; Start 02/20/18 at 06:00 Risperidone (RisperDAL) 0.5 mg HS PO Last administered on 02/21/18at 20:26; Start 02/19/18 at 21:00; Stop 02/22/18 at 16:49; Status DC Acetaminophen/ Hydrocodone Bitart (Lortab 7.5/325) 1 tab PRN TID PRN PO PAIN Last administered on 03/09/18at 21:55; Start 02/19/18 at 20:45 Trazodone HCl (Desyrel) 100 mg QHS PO Last administered on 02/22/18at 20:09; Start 02/21/18 at 21:00; Stop 02/23/18 at 09:47; Status DC Trazodone HCl (Desyrel) 100 mg PRN QHS PRN PO INSOMNIA; Start 02/21/18 at 16:45 ; Stop 02/23/18 at 09:47; Status DC Sulfacetamide Sodium (Sulf-10) 1 drop Q4H OS Last administered on 03/03/18at 08 :03; Start 02/22/18 at 12:30; Stop 03/03/18 at 14:03; Status DC Erythromycin (Romycin) 0.25 inch QHS OS Last administered on 03/07/18at 19:37; Start 02/22/18 at 21:00 Risperidone (RisperDAL) 0.75 mg QHS PO Last administered on 03/09/18at 19:55; Start 02/22/18 at 21:00 Trazodone HCl (Desyrel) 150 mg PRN QHS PRN PO INSOMNIA; Start 02/23/18 at 10:00 Trazodone HCl (Desyrel) 150 mg QHS PO Last administered on 03/09/18at 19:53; Start 02/23/18 at 21:00 Divalproex Sodium (Depakote Er) 500 mg QHS PO Last administered on 02/26/18at 19 :48; Start 02/23/18 at 21:00; Stop 02/27/18 at 16:48; Status DC Divalproex Sodium (Depakote Er) 1,000 mg QHS PO Last administered on at 19:53; Start 02/27/18 at 21:00 Glucose (Insta-Glucose) 15 gm STK-MED ONCE .ROUTE Last administered on at 06:42; Start 03/01/18 at 06:42; Stop 03/01/18 at 06:43; Status DC Diazepam (Valium) 5 mg BID PO Last administered on 03/06/18at 08:09; Start 05/09 at 21:00; Stop 03/06/18 at 16:34; Status DC Diazepam (Valium) 2.5 mg DAILY@1400 PO Last administered on 03/06/18at 14:13; Start 03/04/18 at 14:00; Stop 03/06/18 at 16:34; Status DC Diazepam (Valium) 5 mg HS PO Last administered on 03/09/18at 19:59; Start at 21:00 Diazepam (Valium) 2.5 mg BID92 PO Last administered on 03/09/18at 14:14; Start 03/07/18 at 09:00 Artificial Tears (Refresh Classic) 1 drop PRN Q2HR PRN OS DRY EYE Last administered on 03/08/18at 14:12; Start 03/07/18 at 13:15 Active Scripts Active Reported Lovenox (Enoxaparin Sodium) 40 Mg/0.4 Ml Disp.syrin 40 Mg SQ QHS Gabapentin 100 Mg Capsule 200 Mg PO Q6HRS Diazepam 5 Mg Tablet 5 Mg PO Q8HRS Ranitidine Hcl 150 Mg Tablet 150 Mg PO BID Amlodipine Besylate 10 Mg Tablet 10 Mg PO DAILY Aspirin 81 Mg Tab.chew 81 Mg PO DAILY Vitamin D3 (Cholecalciferol (Vitamin D3)) 1,000 Unit Tablet 1,000 Unit PO DAILY Synthroid (Levothyroxine Sodium) 125 Mcg Tablet 125 Mcg PO DAILYAC Lisinopril 40 Mg Tablet 40 Mg PO DAILY Lantus Solostar (Insulin Glargine,Hum.rec.anlog) 100 Unit/1 Ml Insuln.pen 45 Unit SQ QHS Lidocaine 1 Each Adh..patch 1 Each TP DAILY Lipitor (Atorvastatin Calcium) 40 Mg Tablet 40 Mg PO QHS Prazosin Hcl 1 Mg Capsule 1 Mg PO QHS Colace (Docusate Sodium) 100 Mg Capsule 100 Mg PO DAILY Coreg (Carvedilol) 12.5 Mg Tablet 12.5 Mg PO BIDWMEALS Novolog Flexpen (Insulin Aspart) 100 Unit/1 Ml Insuln.pen 12 Unit SQ TID Plavix (Clopidogrel Bisulfate) 75 Mg Tablet 75 Mg PO DAILY Levothyroxine Sodium 50 Mcg Tablet 50 Mcg PO DAILY Lortab 7.5-325 mg Tablet (Hydrocodone/Acetaminophen) 1 Each Tablet 1 Tab PO TID PRN I have reviewed the current psychotropics carefully including drug interactions. Risk benefit ratio favors no change other than as noted in my dictated progress note. 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
[2018-03-10] MEDS: LEVOTHYROXINE 125 MCG TABLET PO SCH (06:17)
[2018-03-10 06:22] VITALS: BP 127/80
[2018-03-10] MEDS: INSULIN LISPRO 300 UNITS/3 ML INSULN.PEN. SQ SCH ×6 (08:00→17:27)
--- NOTE | 2018-03-10 08:39 | NUR ---
[facility] updated [facility] on [facility] progress and plans for discharge, with placement pending.
--- NOTE | 2018-03-10 09:13 | RAD ---
Portable chest, 03/10/2018: History: Cough, coarse lung sounds The heart is mildly enlarged. There is calcific plaquing and tortuosity of the thoracic aorta. The pulmonary vascularity is normal. No pulmonary infiltrate is seen. There is no evidence of pleural fluid. IMPRESSION: 1. Mild cardiomegaly and aortic atherosclerosis. 2. No acute infiltrates. Electronically signed by: Israel Montes MD (03/10/2018 9:09 AM) [facility]
--- NOTE | 2018-03-10 09:50 | NUR ---
[facility]: [facility] Note: Behavior: Assumed Care of patient, patient located in Day Room at shift change. Patient exhibited the following behavior Restless, Disorganized, Compulsive. Brief assessment on rounds of vital signs, medication needs, lab studies, and pain. Treatment plan problems 1 & 2. Intervention: Patient assessed and the following interventions initiated safety checks 15 Minute Checks Cognitive Assessment , Head to toe Assessment , Medications. Response: After interactions and interventions patient responded in the following manner, Disorganized , Withdrawn ,Compliant. Continue to assess behaviors and condition will continue to monitor throughout the shift as needed. Patient educated on ADL's, and hand hygiene. 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 Continue to assess patient for changes in above assessment. Monitor for medication needs, pain, and safety concerns. Hourly rounding performed to ensure safe environment.
[2018-03-10] MEDS: DOCUSATE SODIUM 100 MG CAPSULE PO SCH ×2 (10:10→20:19)
[2018-03-10] MEDS: LIDOCAINE (700MG/PATCH) PATCH. TD SCH (10:10)
[2018-03-10] MEDS: POLYETHYLENE GLYCOL 3350 17 GM PACKET. PO SCH (10:10)
[2018-03-10] MEDS: CARVEDILOL 12.5 MG TABLET PO SCH ×2 (10:11→17:26)
[2018-03-10] MEDS: FAMOTIDINE 20 MG TABLET PO SCH ×2 (10:11→20:20)
[2018-03-10] MEDS: ASPIRIN 81 MG TAB.CHEW PO SCH (10:11)
[2018-03-10] MEDS: LISINOPRIL 20 MG TABLET PO SCH (10:11)
[2018-03-10] MEDS: amLODIPine BESYLATE 10 MG TABLET PO SCH (10:11)
[2018-03-10] MEDS: CHOLECALCIFEROL (VITAMIN D3) 1,000 UNIT TABLET PO SCH (10:13)
[2018-03-10] MEDS: diazePAM 5 MG TABLET PO SCH ×4 (10:14→20:19)
--- NOTE | 2018-03-10 14:00 | NUR ---
patient is refusing hsi 14:00 Valium, stating that it is too small a dose to do anything for him. He also states taht when we split the pills, it goes from milligrams to micrograms, and that he should be getting at least 10mg. Wasted the valium with a witness, will monitor for behaviours.
[2018-03-10 15:53] VITALS: BP 131/83
[2018-03-10] MEDS: PATCH REMOVAL. MC SCH (20:19)
[2018-03-10] MEDS: risperiDONE 0.25 MG TABLET. PO SCH (20:20)
[2018-03-10] MEDS: PRAZOSIN 1 MG CAPSULE. PO SCH (20:20)
[2018-03-10] MEDS: traZODone 150 MG TABLET. PO SCH (20:20)
[2018-03-10] MEDS: ATORVASTATIN CALCIUM 20 MG TABLET PO SCH (20:20)
[2018-03-10] MEDS: DIVALPROEX ER 500 MG TAB.ER.24H PO SCH (20:20)
[2018-03-10] MEDS: ERYTHROMYCIN 0.5% OPHTH OINTMENT 1GM TUBE. OS SCH (20:21)
[2018-03-10] MEDS: ENOXAPARIN 40 MG/0.4 ML SYRINGE. SQ SCH (20:23)
[2018-03-10] MEDS: INSULIN GLARGINE 300 UNITS/3 ML INSULN.PEN. SQ SCH (20:24)
--- NOTE | 2018-03-10 21:53 | NUR ---
Behavior Intervention Response and Plan: [facility] Note: Behavior: Assumed Care of patient, patient located in Day Room at shift change. Patient exhibited the following behavior Sleeping, Compliant, Calm. Brief assessment on rounds of vital signs, medication needs, lab studies, and pain. Treatment plan problems . Intervention: Patient assessed and the following interventions initiated safety checks 15 Minute Checks Personal Alarm in place , Cognitive Assessment , Head to toe Assessment. Response: After interactions and interventions patient responded in the following manner, Calm , Compliant ,Cooperative. Continue to assess behaviors and condition will continue to monitor throughout the shift as needed. Patient educated on ADL's, and hand hygiene. Plan: Continue to monitor Master Treatment Plan for patient's progress toward short term goals of Medication Compliance, Improved Mood, skilled nursing goals to return to previous living setting vs placement. Continue to assess patient for changes in above assessment. Monitor for medication needs, pain, and safety concerns. Hourly rounding performed to ensure safe environment.
--- NOTE | 2018-03-10 23:20 | PDOC ---
Exam Note: Ishaan Note: Please also refer to the separate dictated note~for this date of service dictated separately.~Patient seen individually. Discussed the patient with Nursing staff reviewed the chart.~Reviewed interim history and current functioning. Reviewed vital signs,~Labs/ Radiology~and current medications noted below. Continue current treatment with the changes noted in the dictated addendum note Assessment: Vital Signs: Vital Signs Date Time Temp Pulse Resp B/P (MAP) Pulse Ox O2 Delivery O2 Flow Rate FiO2 03/10/18 20:20 58 131/83 03/10/18 15:53 97.3 19 97 Room Air I&O Intake and Output 03/10/18 07:00 Intake Total 540 ml Balance 540 ml Intake Oral 540 ml Labs: Laboratory Tests Test 03/10/18 07:04 03/10/18 07:06 03/10/18 07:45 03/10/18 08:13 Glucose (Fingerstick) 46 mg/dL (70-99) L 43 mg/dL (70-99) L 54 mg/dL (70-99) L 78 mg/dL (70-99) Test 03/10/18 11:53 03/10/18 16:28 03/10/18 19:09 Glucose (Fingerstick) 200 mg/dL (70-99) H 280 mg/dL (70-99) H 275 mg/dL (70-99) H Current Medications: Meds: Current Medications Acetaminophen (Tylenol) 650 mg PRN Q6HRS PRN PO PAIN / TEMP; Start 02/17/18 at 15:15 Multi-Ingredient Ointment (Analgesic [place]) 1 neha PRN QID PRN TP MUSCLE PAIN; Start 02/17/18 at 15:15 Al Hydroxide/Mg Hydroxide (Mylanta Plus Xs) 15 ml PRN AFTMEALHC PRN PO DYSPEPSIA; Start 02/17/18 at 15:15 Magnesium Hydroxide (Milk Of Magnesia) 2,400 mg PRN QHS PRN PO CONSTIPATION Last administered on 03/07/18at 17:38; Start 02/17/18 at 15:15 Vitamin D (Vitamin D3) 1,000 unit DAILY PO Last administered on 03/10/18at 10: 13; Start 02/18/18 at 09:00 Diazepam (Valium) 5 mg Q8HRS PO Last administered on 03/03/18at 14:16; Start at 22:00; Stop 03/03/18 at 16:36; Status DC Gabapentin (Neurontin) 200 mg Q6HRS PO Last administered on 02/24/18at 07:43; Start 02/17/18 at 18:00; Stop 02/24/18 at 16:23; Status DC Insulin Glargine (Lantus) 45 units QHS SQ Last administered on 03/10/18at 20:24 ; Start 02/17/18 at 21:00 Amlodipine Besylate (Norvasc) 10 mg DAILY PO Last administered on 03/10/18 10 :11; Start 02/18/18 at 09:00 Aspirin (Children'S Aspirin) 81 mg DAILYWBKFT PO Last administered on 10:11; Start 02/18/18 at 08:00 Atorvastatin Calcium (Lipitor) 40 mg QHS PO Last administered on 03/10/18at 20: 20; Start 02/17/18 at 21:00 Carvedilol (Coreg) 12.5 mg BIDWMEALS PO Last administered on 03/10/18 17:26; Start 02/18/18 at 08:00 Non-Formulary Medication (Diazepam (Valium)) 10 mg Q6HRS PO ; Start 02/17/18 at 18:00; Status UNV Docusate Sodium (Colace) 100 mg DAILY PO Last administered on 02/19/18at 08:07; Start 02/18/18 at 09:00; Stop 02/19/18 at 12:17; Status DC Enoxaparin Sodium (Lovenox 40mg Syringe) 40 mg QHS SQ Last administered on at 20:23; Start 02/17/18 at 21:00 Insulin Human Lispro (HumaLOG) 12 units TIDWMEALS SQ Last administered on 03/10 17:26; Start 02/18/18 at 08:00 Levothyroxine Sodium (Synthroid) 125 mcg DAILY06 PO Last administered on at 06:15; Start 02/18/18 at 06:00; Stop 02/19/18 at 12:22; Status DC Lidocaine (Lidoderm) 1 patch DAILY TD Last administered on 03/10/18at 10:10; Start 02/18/18 at 09:00 Lisinopril (Prinivil) 40 mg DAILY PO Last administered on 03/10/18at 10:11; Start 02/18/18 at 09:00 Prazosin HCl (Minipress) 1 mg QHS PO Last administered on 03/10/18at 20:20; Start 02/17/18 at 21:00 Famotidine (Pepcid) 20 mg BID PO Last administered on 03/10/18at 20:20; Start 02/17/18 at 21:00 Influenza Virus Vaccine (Afluria Trivalent [id number] Syringe) 0.5 ml ONCE ONCE VAX IM Last administered on 02/18/18at 12:05; Start 02/18/18 at 09:00; Stop at 09:01; Status DC Insulin Human Lispro (HumaLOG) 0-7 UNITS TIDWMEALS SQ Last administered on at 17:27; Start 02/18/18 at 08:00 Miscellaneous (Lidoderm Patch Removal) 1 ea QHS MC Last administered on at 20:19; Start 02/17/18 at 21:00 Bisacodyl (Dulcolax Supp) 10 mg PRN DAILY PRN [place] CONSTIPATION Last administered on 02/17/18at 21:40; Start 02/17/18 at 20:45 Docusate Sodium (Colace) 100 mg BID PO Last administered on 03/10/18at 20:19; Start 02/19/18 at 21:00 Polyethylene Glycol (miraLAX) 17 gm DAILY PO Last administered on 03/10/18at 10 :10; Start 02/20/18 at 09:00 Magnesium Citrate (Citroma) 296 ml 1X ONCE PO Last administered on 02/19/18at 12:31; Start 02/19/18 at 12:15; Stop 02/19/18 at 12:21; Status DC Levothyroxine Sodium (Synthroid) 175 mcg DAILY06 PO Last administered on at 06:17; Start 02/20/18 at 06:00 Risperidone (RisperDAL) 0.5 mg HS PO Last administered on 02/21/18 20:26; Start 02/19/18 at 21:00; Stop 02/22/18 at 16:49; Status DC Acetaminophen/ Hydrocodone Bitart (Lortab 7.5/325) 1 tab PRN TID PRN PO PAIN Last administered on 03/09/18at 21:55; Start 02/19/18 at 20:45 Trazodone HCl (Desyrel) 100 mg QHS PO Last administered on 02/22/18 20:09; Start 02/21/18 at 21:00; Stop 02/23/18 at 09:47; Status DC Trazodone HCl (Desyrel) 100 mg PRN QHS PRN PO INSOMNIA; Start 02/21/18 at 16:45 ; Stop 02/23/18 at 09:47; Status DC Sulfacetamide Sodium (Sulf-10) 1 drop Q4H OS Last administered on 03/03/18at 08 :03; Start 02/22/18 at 12:30; Stop 03/03/18 at 14:03; Status DC Erythromycin (Romycin) 0.25 inch QHS OS Last administered on 03/10/18at 20:21; Start 02/22/18 at 21:00 Risperidone (RisperDAL) 0.75 mg QHS PO Last administered on 03/10/18 20:20; Start 02/22/18 at 21:00 Trazodone HCl (Desyrel) 150 mg PRN QHS PRN PO INSOMNIA; Start 02/23/18 at 10:00 Trazodone HCl (Desyrel) 150 mg QHS PO Last administered on 03/10/18at 20:20; Start 02/23/18 at 21:00 Divalproex Sodium (Depakote Er) 500 mg QHS PO Last administered on 02/26/18at 19 :48; Start 02/23/18 at 21:00; Stop 02/27/18 at 16:48; Status DC Divalproex Sodium (Depakote Er) 1,000 mg QHS PO Last administered on 20:20; Start 02/27/18 at 21:00 Glucose (Insta-Glucose) 15 gm STK-MED ONCE .ROUTE Last administered on 06:42; Start 03/01/18 at 06:42; Stop 03/01/18 at 06:43; Status DC Diazepam (Valium) 5 mg BID PO Last administered on 10/15/18at 08:09; Start 05/09 at 21:00; Stop 03/06/18 at 16:34; Status DC Diazepam (Valium) 2.5 mg DAILY@1400 PO Last administered on 03/06/18at 14:13; Start 03/04/18 at 14:00; Stop 03/06/18 at 16:34; Status DC Diazepam (Valium) 5 mg HS PO Last administered on 03/10/18at 20:19; Start at 21:00 Diazepam (Valium) 2.5 mg BID92 PO Last administered on 03/10/18at 10:14; Start 03/07/18 at 09:00 Artificial Tears (Refresh Classic) 1 drop PRN Q2HR PRN OS DRY EYE Last administered on 03/08/18at 14:12; Start 03/07/18 at 13:15 Active Scripts Active Reported Lovenox (Enoxaparin Sodium) 40 Mg/0.4 Ml Disp.syrin 40 Mg SQ QHS Gabapentin 100 Mg Capsule 200 Mg PO Q6HRS Diazepam 5 Mg Tablet 5 Mg PO Q8HRS Ranitidine Hcl 150 Mg Tablet 150 Mg PO BID Amlodipine Besylate 10 Mg Tablet 10 Mg PO DAILY Aspirin 81 Mg Tab.chew 81 Mg PO DAILY Vitamin D3 (Cholecalciferol (Vitamin D3)) 1,000 Unit Tablet 1,000 Unit PO DAILY Synthroid (Levothyroxine Sodium) 125 Mcg Tablet 125 Mcg PO DAILYAC Lisinopril 40 Mg Tablet 40 Mg PO DAILY Lantus Solostar (Insulin Glargine,Hum.rec.anlog) 100 Unit/1 Ml Insuln.pen 45 Unit SQ QHS Lidocaine 1 Each Adh..patch 1 Each TP DAILY Lipitor (Atorvastatin Calcium) 40 Mg Tablet 40 Mg PO QHS Prazosin Hcl 1 Mg Capsule 1 Mg PO QHS Colace (Docusate Sodium) 100 Mg Capsule 100 Mg PO DAILY Coreg (Carvedilol) 12.5 Mg Tablet 12.5 Mg PO BIDWMEALS Novolog Flexpen (Insulin Aspart) 100 Unit/1 Ml Insuln.pen 12 Unit SQ TID Plavix (Clopidogrel Bisulfate) 75 Mg Tablet 75 Mg PO DAILY Levothyroxine Sodium 50 Mcg Tablet 50 Mcg PO DAILY Lortab 7.5-325 mg Tablet (Hydrocodone/Acetaminophen) 1 Each Tablet 1 Tab PO TID PRN I have reviewed the current psychotropics carefully including drug interactions. Risk benefit ratio favors no change other than as noted in my dictated progress note. 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
--- NOTE | 2018-03-10 23:25 | PN ---
DATE: 03/09/2018 PSYCHIATRIC PROGRESS NOTE This late entry 03/09/2018 covers elements not covered in my initial note. SUBJECTIVE: I met with the patient in the evening, staffed at a treatment team meeting with the entire team in the morning. The patient slept 7-3/4 hours previous night. He has been refused admission to the [facility] , failed that placement in the past. Social Service staff discussed about possible [facility] placement as well. REVIEW OF SYSTEMS: Bilateral blindness, impaired ambulation, in wheelchair. No CV, , GI, or pulmonary system symptoms on review. MENTAL STATUS EXAM: The patient is reasonably oriented to place and situation. Speech, low in rate and rhythm, low in volume, often responses monosyllabic. Eye contact is poor. Psychomotor activity somewhat reduced. Abstraction fair. Computation, 1 step on serial 7's. Mood and affect somewhat withdrawn. No suicidal or homicidal ideation. LABORATORY DATA: Reviewed. IMPRESSION: Schizoaffective disorder, bipolar type, mixed versus depressed; anxiety disorder, unspecified; impulse control disorder, unspecified. PLAN: We will continue to taper the Valium. Maintain Risperdal 0.75 mg at bedtime, Depakote ER 1000 mg at bedtime, level therapeutic at 71, trazodone 150 at bedtime, september repeat x 1. MAN Dilma AGUIRRE MD DR: DIYA/valeria JOB#: [id number] / [id number]
[2018-03-11] MEDS: LEVOTHYROXINE 125 MCG TABLET PO SCH (05:40)
[2018-03-11 06:32] VITALS: BP 122/70
[2018-03-11] MEDS: ASPIRIN 81 MG TAB.CHEW PO SCH (09:38)
[2018-03-11] MEDS: FAMOTIDINE 20 MG TABLET PO SCH ×2 (09:38→20:20)
[2018-03-11] MEDS: CHOLECALCIFEROL (VITAMIN D3) 1,000 UNIT TABLET PO SCH (09:39)
[2018-03-11] MEDS: amLODIPine BESYLATE 10 MG TABLET PO SCH (09:39)
[2018-03-11] MEDS: CARVEDILOL 12.5 MG TABLET PO SCH ×2 (09:39→17:20)
[2018-03-11] MEDS: DOCUSATE SODIUM 100 MG CAPSULE PO SCH ×2 (09:39→20:20)
[2018-03-11] MEDS: LIDOCAINE (700MG/PATCH) PATCH. TD SCH (09:40)
[2018-03-11] MEDS: LISINOPRIL 20 MG TABLET PO SCH (09:40)
[2018-03-11] MEDS: POLYETHYLENE GLYCOL 3350 17 GM PACKET. PO SCH (09:40)
--- NOTE | 2018-03-11 09:40 | NUR ---
Behavior Intervention Response and Plan: [facility] Note: Behavior: Assumed Care of patient, patient located in Day Room at shift change. Patient exhibited the following behavior Restless, Disorganized, Compulsive. Brief assessment on rounds of vital signs, medication needs, lab studies, and pain. Treatment plan problems 1 & 2. Intervention: Patient assessed and the following interventions initiated safety checks 15 Minute Checks Cognitive Assessment , Head to toe Assessment , Medications. Response: After interactions and interventions patient responded in the following manner, Disorganized , Withdrawn ,Compliant. Continue to assess behaviors and condition will continue to monitor throughout the shift as needed. Patient educated on ADL's, and hand hygiene. 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 Continue to assess patient for changes in above assessment. Monitor for medication needs, pain, and safety concerns. Hourly rounding performed to ensure safe environment.
--- NOTE | 2018-03-11 09:40 | NUR ---
Patient complians of increased back pain; prn med provided per eMAR
[2018-03-11] MEDS: INSULIN LISPRO 300 UNITS/3 ML INSULN.PEN. SQ SCH ×6 (09:42→17:22)
[2018-03-11] MEDS: diazePAM 5 MG TABLET PO SCH ×3 (09:45→20:20)
[2018-03-11] MEDS: HYDROcodone/APAP 7.5/325MG 1 TAB TABLET PO PRN (09:46)
[2018-03-11 16:01] VITALS: BP 132/65
--- NOTE | 2018-03-11 19:52 | PN ---
DATE: 03/11/2018 SUBJECTIVE: The patient was seen today, met with the staff, chart reviewed and also covering for Dr. Christianson. Staff reports no major behavioral issues. The patient apparently has a history of auditory and visual hallucinations. He has been paranoid and delusional at times. HOSPITAL COURSE: The patient had a physical exam, routine lab work. VITAL SIGNS: Temperature 97, blood pressure 122/70, pulse 72, respirations 22, O2 sat 98%. Slept about 4 hours last night. The patient is quiet, withdrawn, makes eye contact, does not hold a conversation. The patient is also totally blind, impaired ambulation on wheelchair. The patient's medications are reviewed and is currently on diazepam 2.5 mg b.i.d. and 5 mg at night, Depakote 1000 mg at night, trazodone 150 mg at night, also Risperdal 0.75 mg at night. The patient is not having any major side effects. ASSESSMENT: Schizophrenia, chronic, paranoid. PLAN: To continue with the current treatment. JB HAWKINS MD DR: CHRIS/valeria JOB#: [id number] / [id number]
[2018-03-11] MEDS: PRAZOSIN 1 MG CAPSULE. PO SCH (20:20)
[2018-03-11] MEDS: ERYTHROMYCIN 0.5% OPHTH OINTMENT 1GM TUBE. OS SCH (20:20)
[2018-03-11] MEDS: traZODone 150 MG TABLET. PO SCH (20:20)
[2018-03-11] MEDS: risperiDONE 0.25 MG TABLET. PO SCH (20:20)
[2018-03-11] MEDS: ATORVASTATIN CALCIUM 20 MG TABLET PO SCH (20:21)
[2018-03-11] MEDS: DIVALPROEX ER 500 MG TAB.ER.24H PO SCH (20:21)
[2018-03-11] MEDS: ENOXAPARIN 40 MG/0.4 ML SYRINGE. SQ SCH (20:21)
[2018-03-11] MEDS: INSULIN GLARGINE 300 UNITS/3 ML INSULN.PEN. SQ SCH (20:22)
[2018-03-11] MEDS: PATCH REMOVAL. MC SCH (21:00)
--- NOTE | 2018-03-12 00:42 | NUR ---
Pt sitting in dayroom at shift change. Pt withdrawn to self. Compliant with medications and assessment. Denies pain. No adverse behaviors noted.
[2018-03-12] MEDS: LEVOTHYROXINE 125 MCG TABLET PO SCH (06:16)
[2018-03-12 06:20] VITALS: BP 130/83
[2018-03-12] MEDS: amLODIPine BESYLATE 10 MG TABLET PO SCH (07:50)
[2018-03-12] MEDS: DOCUSATE SODIUM 100 MG CAPSULE PO SCH ×2 (07:50→20:36)
[2018-03-12] MEDS: LISINOPRIL 20 MG TABLET PO SCH (07:51)
[2018-03-12] MEDS: CHOLECALCIFEROL (VITAMIN D3) 1,000 UNIT TABLET PO SCH (07:51)
[2018-03-12] MEDS: FAMOTIDINE 20 MG TABLET PO SCH ×2 (07:51→20:36)
[2018-03-12] MEDS: CARVEDILOL 12.5 MG TABLET PO SCH ×2 (07:51→16:51)
[2018-03-12] MEDS: INSULIN LISPRO 300 UNITS/3 ML INSULN.PEN. SQ SCH ×6 (07:52→17:49)
[2018-03-12] MEDS: POLYETHYLENE GLYCOL 3350 17 GM PACKET. PO SCH (07:52)
[2018-03-12] MEDS: LIDOCAINE (700MG/PATCH) PATCH. TD SCH (07:52)
[2018-03-12] MEDS: diazePAM 5 MG TABLET PO SCH ×3 (07:54→20:36)
[2018-03-12] MEDS: ASPIRIN 81 MG TAB.CHEW PO SCH (07:55)
--- NOTE | 2018-03-12 12:36 | NUR ---
Nursing Note Patient is up to wheelchair, he has been lethargic most of the day, hard to understand at times. He was compliant with his medications. No negative moods or behaviors observed thus far. Will continue to monitor.
[2018-03-12 16:27] VITALS: BP 129/86
[2018-03-12] MEDS: ATORVASTATIN CALCIUM 20 MG TABLET PO SCH (20:35)
[2018-03-12] MEDS: traZODone 150 MG TABLET. PO SCH (20:36)
[2018-03-12] MEDS: PRAZOSIN 1 MG CAPSULE. PO SCH (20:36)
[2018-03-12] MEDS: ERYTHROMYCIN 0.5% OPHTH OINTMENT 1GM TUBE. OS SCH (20:37)
[2018-03-12] MEDS: DIVALPROEX ER 500 MG TAB.ER.24H PO SCH (20:37)
[2018-03-12] MEDS: risperiDONE 0.25 MG TABLET. PO SCH (20:37)
[2018-03-12] MEDS: ENOXAPARIN 40 MG/0.4 ML SYRINGE. SQ SCH (20:37)
[2018-03-12] MEDS: INSULIN GLARGINE 300 UNITS/3 ML INSULN.PEN. SQ SCH (20:44)
[2018-03-12] MEDS: PATCH REMOVAL. MC SCH (21:00)
--- NOTE | 2018-03-13 00:57 | NUR ---
Behavior Intervention Response and Plan: BIRP Note: Behavior: Assumed Care of patient, patient located in Day Room at shift change. Patient exhibited the following behavior Drowsy, Calm, Cooperative. Brief assessment on rounds of vital signs, medication needs, lab studies, and pain. Treatment plan problems . Intervention: Patient assessed and the following interventions initiated safety checks 15 Minute Checks Cognitive Assessment , Head to toe Assessment , Medications. Response: After interactions and interventions patient responded in the following manner, Drowsy , Calm ,Cooperative. Continue to assess behaviors and condition will continue to monitor throughout the shift as needed. Patient educated on ADL's, and hand hygiene. Plan: Continue to monitor Master Treatment Plan for patient's progress toward short term goals of Decreased Agitation, Decreased Anxiety, [facility] goals to return to previous living setting vs placement. Continue to assess patient for changes in above assessment. Monitor for medication needs, pain, and safety concerns. Hourly rounding performed to ensure safe environment.
--- NOTE | 2018-03-13 01:04 | NUR ---
Pt in dayroom at shift change. Compliant with HS medications and assessment. No negative behaviors noted. Compliant with bed bath and dressing change.
--- NOTE | 2018-03-13 04:14 | PN ---
DATE: 03/10/2018 PSYCHIATRIC PROGRESS NOTE This late entry 03/10/2018 covers elements not covered in my initial note. SUBJECTIVE: I met with the patient in the morning. The patient slept 7 hours previous night. He sounds like he congested in the chest. Chest x-ray is negative, will defer to Dr. Daniels. He remains somewhat withdrawn. REVIEW OF SYSTEMS: Ambulation impaired, in wheelchair. Swelling of his extremities secondary to lymphedema. Bilateral blindness. No CV, , ENT system symptoms on review. MENTAL STATUS EXAMINATION: Oriented to himself and situation. Eye contact is poor and he is in a wheelchair, head bent forward typical for him. Speech moderate latency, often responses monosyllabic. Abstraction and computation, able to do one step on serial 7, did not try the second. He remembered 2/3 objects at 3 minutes. No active psychotic symptoms, suicidal or homicidal ideation. Mood and affect remain somewhat withdrawn. LABORATORY DATA: Reviewed. IMPRESSION: Schizoaffective disorder, bipolar type, mixed with psychotic features, in partial remission. Cognitive disorder, unspecified. Rest unchanged. PLAN: No change from initial note. MAN Dilma AGUIRRE MD DR: DIYA/valeria JOB#: [id number] / [id number]
[2018-03-13 06:15] VITALS: BP 132/86
[2018-03-13] MEDS: LEVOTHYROXINE 125 MCG TABLET PO SCH (06:17)
[2018-03-13] MEDS: POLYETHYLENE GLYCOL 3350 17 GM PACKET. PO SCH (07:48)
[2018-03-13] MEDS: LIDOCAINE (700MG/PATCH) PATCH. TD SCH (07:48)
[2018-03-13] MEDS: FAMOTIDINE 20 MG TABLET PO SCH ×2 (07:48→19:56)
[2018-03-13] MEDS: ASPIRIN 81 MG TAB.CHEW PO SCH (07:48)
[2018-03-13] MEDS: DOCUSATE SODIUM 100 MG CAPSULE PO SCH ×2 (07:48→19:56)
[2018-03-13] MEDS: amLODIPine BESYLATE 10 MG TABLET PO SCH (07:49)
[2018-03-13] MEDS: CHOLECALCIFEROL (VITAMIN D3) 1,000 UNIT TABLET PO SCH (07:50)
[2018-03-13] MEDS: CARVEDILOL 12.5 MG TABLET PO SCH ×2 (07:51→17:08)
[2018-03-13] MEDS: LISINOPRIL 20 MG TABLET PO SCH (07:51)
[2018-03-13] MEDS: diazePAM 5 MG TABLET PO SCH ×3 (07:52→20:04)
[2018-03-13] MEDS: INSULIN LISPRO 300 UNITS/3 ML INSULN.PEN. SQ SCH ×6 (08:00→17:10)
[2018-03-13 16:27] VITALS: BP 126/80
[2018-03-13] MEDS: DIVALPROEX ER 500 MG TAB.ER.24H PO SCH (19:56)
[2018-03-13] MEDS: ATORVASTATIN CALCIUM 20 MG TABLET PO SCH (19:56)
[2018-03-13] MEDS: traZODone 150 MG TABLET. PO SCH (20:03)
[2018-03-13] MEDS: risperiDONE 0.25 MG TABLET. PO SCH (20:03)
[2018-03-13] MEDS: PRAZOSIN 1 MG CAPSULE. PO SCH (20:04)
[2018-03-13] MEDS: ENOXAPARIN 40 MG/0.4 ML SYRINGE. SQ SCH (20:05)
[2018-03-13] MEDS: INSULIN GLARGINE 300 UNITS/3 ML INSULN.PEN. SQ SCH (20:05)
[2018-03-13] MEDS: PATCH REMOVAL. MC SCH (20:06)
[2018-03-13] MEDS: ERYTHROMYCIN 0.5% OPHTH OINTMENT 1GM TUBE. OS SCH (20:07)
--- NOTE | 2018-03-13 23:20 | PDOC ---
Exam Note: Ishaan Note: Please also refer to the separate dictated note~for this date of service dictated separately.~Patient seen individually. Discussed the patient with Nursing staff reviewed the chart.~Reviewed interim history and current functioning. Reviewed vital signs,~Labs/ Radiology~and current medications noted below. Continue current treatment with the changes noted in the dictated addendum note Assessment: Vital Signs: Vital Signs Date Time Temp Pulse Resp B/P (MAP) Pulse Ox O2 Delivery O2 Flow Rate FiO2 03/13/18 20:04 57 126/80 03/13/18 16:27 97.6 17 97 Room Air I&O Intake and Output 03/13/18 07:00 Intake Total 620 ml Output Total 400 ml Balance 220 ml Intake Oral 620 ml Output Urine Total 400 ml Labs: Laboratory Tests Test 03/13/18 07:10 03/13/18 11:38 03/13/18 16:46 03/13/18 19:45 Glucose (Fingerstick) 75 mg/dL (70-99) 169 mg/dL (70-99) H 199 mg/dL (70-99) H 196 mg/dL (70-99) H Current Medications: Meds: Current Medications Acetaminophen (Tylenol) 650 mg PRN Q6HRS PRN PO PAIN / TEMP; Start 02/17/18 at 15:15 Multi-Ingredient Ointment (Analgesic [place]) 1 neha PRN QID PRN TP MUSCLE PAIN; Start 02/17/18 at 15:15 Al Hydroxide/Mg Hydroxide (Mylanta Plus Xs) 15 ml PRN AFTMEALHC PRN PO DYSPEPSIA; Start 02/17/18 at 15:15 Magnesium Hydroxide (Milk Of Magnesia) 2,400 mg PRN QHS PRN PO CONSTIPATION Last administered on 03/07/18at 17:38; Start 02/17/18 at 15:15 Vitamin D (Vitamin D3) 1,000 unit DAILY PO Last administered on 03/13/18at 07: 50; Start 02/18/18 at 09:00 Diazepam (Valium) 5 mg Q8HRS PO Last administered on 03/03/18at 14:16; Start at 22:00; Stop 03/03/18 at 16:36; Status DC Gabapentin (Neurontin) 200 mg Q6HRS PO Last administered on 02/24/18at 07:43; Start 02/17/18 at 18:00; Stop 02/24/18 at 16:23; Status DC Insulin Glargine (Lantus) 45 units QHS SQ Last administered on 03/13/18 20:05 ; Start 02/17/18 at 21:00 Amlodipine Besylate (Norvasc) 10 mg DAILY PO Last administered on 03/13/18at 07 :49; Start 02/18/18 at 09:00 Aspirin (Children'S Aspirin) 81 mg DAILYWBKFT PO Last administered on 07:48; Start 02/18/18 at 08:00 Atorvastatin Calcium (Lipitor) 40 mg QHS PO Last administered on 03/13/18 19: 56; Start 02/17/18 at 21:00 Carvedilol (Coreg) 12.5 mg BIDWMEALS PO Last administered on 03/13/18at 17:08; Start 02/18/18 at 08:00 Non-Formulary Medication (Diazepam (Valium)) 10 mg Q6HRS PO ; Start 02/17/18 at 18:00; Status UNV Docusate Sodium (Colace) 100 mg DAILY PO Last administered on 02/19/18 08:07; Start 02/18/18 at 09:00; Stop 02/19/18 at 12:17; Status DC Enoxaparin Sodium (Lovenox 40mg Syringe) 40 mg QHS SQ Last administered on at 20:05; Start 02/17/18 at 21:00 Insulin Human Lispro (HumaLOG) 12 units TIDWMEALS SQ Last administered on 03/13at 17:09; Start 02/18/18 at 08:00 Levothyroxine Sodium (Synthroid) 125 mcg DAILY06 PO Last administered on at 06:15; Start 02/18/18 at 06:00; Stop 02/19/18 at 12:22; Status DC Lidocaine (Lidoderm) 1 patch DAILY TD Last administered on 03/13/18at 07:48; Start 02/18/18 at 09:00 Lisinopril (Prinivil) 40 mg DAILY PO Last administered on 03/13/18at 07:51; Start 02/18/18 at 09:00 Prazosin HCl (Minipress) 1 mg QHS PO Last administered on 03/13/18 20:04; Start 02/17/18 at 21:00 Famotidine (Pepcid) 20 mg BID PO Last administered on 03/13/18 19:56; Start 02/17/18 at 21:00 Influenza Virus Vaccine (Afluria Trivalent [id number] Syringe) 0.5 ml ONCE ONCE VAX IM Last administered on 02/18/18at 12:05; Start 02/18/18 at 09:00; Stop at 09:01; Status DC Insulin Human Lispro (HumaLOG) 0-7 UNITS TIDWMEALS SQ Last administered on 17:10; Start 02/18/18 at 08:00 Miscellaneous (Lidoderm Patch Removal) 1 ea QHS MC Last administered on 20:06; Start 02/17/18 at 21:00 Bisacodyl (Dulcolax Supp) 10 mg PRN DAILY PRN OR CONSTIPATION Last administered on 02/17/18at 21:40; Start 02/17/18 at 20:45 Docusate Sodium (Colace) 100 mg BID PO Last administered on 03/13/18 19:56; Start 02/19/18 at 21:00 Polyethylene Glycol (miraLAX) 17 gm DAILY PO Last administered on 03/13/18 07 :48; Start 02/20/18 at 09:00 Magnesium Citrate (Citroma) 296 ml 1X ONCE PO Last administered on 02/19/18at 12:31; Start 02/19/18 at 12:15; Stop 02/19/18 at 12:21; Status DC Levothyroxine Sodium (Synthroid) 175 mcg DAILY06 PO Last administered on 06:17; Start 02/20/18 at 06:00 Risperidone (RisperDAL) 0.5 mg HS PO Last administered on 02/21/18 20:26; Start 02/19/18 at 21:00; Stop 02/22/18 at 16:49; Status DC Acetaminophen/ Hydrocodone Bitart (Lortab 7.5/325) 1 tab PRN TID PRN PO PAIN Last administered on 03/11/18at 09:46; Start 02/19/18 at 20:45 Trazodone HCl (Desyrel) 100 mg QHS PO Last administered on 02/22/18 20:09; Start 02/21/18 at 21:00; Stop 02/23/18 at 09:47; Status DC Trazodone HCl (Desyrel) 100 mg PRN QHS PRN PO INSOMNIA; Start 02/21/18 at 16:45 ; Stop 02/23/18 at 09:47; Status DC Sulfacetamide Sodium (Sulf-10) 1 drop Q4H OS Last administered on 03/03/18at 08 :03; Start 02/22/18 at 12:30; Stop 03/03/18 at 14:03; Status DC Erythromycin (Romycin) 0.25 inch QHS OS Last administered on 03/13/18at 20:07; Start 02/22/18 at 21:00 Risperidone (RisperDAL) 0.75 mg QHS PO Last administered on 03/13/18at 20:03; Start 02/22/18 at 21:00 Trazodone HCl (Desyrel) 150 mg PRN QHS PRN PO INSOMNIA; Start 02/23/18 at 10:00 Trazodone HCl (Desyrel) 150 mg QHS PO Last administered on 03/13/18at 20:03; Start 02/23/18 at 21:00 Divalproex Sodium (Depakote Er) 500 mg QHS PO Last administered on 02/26/18at 19 :48; Start 02/23/18 at 21:00; Stop 02/27/18 at 16:48; Status DC Divalproex Sodium (Depakote Er) 1,000 mg QHS PO Last administered on at 19:56; Start 02/27/18 at 21:00 Glucose (Insta-Glucose) 15 gm STK-MED ONCE .ROUTE Last administered on 06:42; Start 03/01/18 at 06:42; Stop 03/01/18 at 06:43; Status DC Diazepam (Valium) 5 mg BID PO Last administered on 03/06/18 08:09; Start 05/09 at 21:00; Stop 03/06/18 at 16:34; Status DC Diazepam (Valium) 2.5 mg DAILY@1400 PO Last administered on 03/06/18at 14:13; Start 03/04/18 at 14:00; Stop 03/06/18 at 16:34; Status DC Diazepam (Valium) 5 mg HS PO Last administered on 03/13/18at 20:04; Start at 21:00 Diazepam (Valium) 2.5 mg BID92 PO Last administered on 03/13/18at 17:07; Start 03/07/18 at 09:00; Stop 03/13/18 at 17:59; Status DC Artificial Tears (Refresh Classic) 1 drop PRN Q2HR PRN OS DRY EYE Last administered on 03/08/18at 14:12; Start 03/07/18 at 13:15 Diazepam (Valium) 2.5 mg 1400 PO ; Start 03/14/18 at 14:00 Active Scripts Active Reported Lovenox (Enoxaparin Sodium) 40 Mg/0.4 Ml Disp.syrin 40 Mg SQ QHS Gabapentin 100 Mg Capsule 200 Mg PO Q6HRS Diazepam 5 Mg Tablet 5 Mg PO Q8HRS Ranitidine Hcl 150 Mg Tablet 150 Mg PO BID Amlodipine Besylate 10 Mg Tablet 10 Mg PO DAILY Aspirin 81 Mg Tab.chew 81 Mg PO DAILY Vitamin D3 (Cholecalciferol (Vitamin D3)) 1,000 Unit Tablet 1,000 Unit PO DAILY Synthroid (Levothyroxine Sodium) 125 Mcg Tablet 125 Mcg PO DAILYAC Lisinopril 40 Mg Tablet 40 Mg PO DAILY Lantus Solostar (Insulin Glargine,Hum.rec.anlog) 100 Unit/1 Ml Insuln.pen 45 Unit SQ QHS Lidocaine 1 Each Adh..patch 1 Each TP DAILY Lipitor (Atorvastatin Calcium) 40 Mg Tablet 40 Mg PO QHS Prazosin Hcl 1 Mg Capsule 1 Mg PO QHS Colace (Docusate Sodium) 100 Mg Capsule 100 Mg PO DAILY Coreg (Carvedilol) 12.5 Mg Tablet 12.5 Mg PO BIDWMEALS Novolog Flexpen (Insulin Aspart) 100 Unit/1 Ml Insuln.pen 12 Unit SQ TID Plavix (Clopidogrel Bisulfate) 75 Mg Tablet 75 Mg PO DAILY Levothyroxine Sodium 50 Mcg Tablet 50 Mcg PO DAILY Lortab 7.5-325 mg Tablet (Hydrocodone/Acetaminophen) 1 Each Tablet 1 Tab PO TID PRN I have reviewed the current psychotropics carefully including drug interactions. Risk benefit ratio favors no change other than as noted in my dictated progress note. Diagnosis: Problems: (1) Anxiety disorder (2) Impulse control disorder (3) Schizophrenia, disorganized, subchronic with acute exacerbation (4) Schizoaffective disorder, bipolar type (5) Major neurocognitive disorder, due to vascular disease, with behavioral disturbance, mild (6) Mixed Alzheimer's and vascular dementia with behavior disturbances JALEEL AGUIRRE MD Mar 13, 2018 23:20
[2018-03-14 05:36] VITALS: BP 147/63
[2018-03-14] MEDS: LEVOTHYROXINE 125 MCG TABLET PO SCH (05:51)
[2018-03-14] MEDS: LIDOCAINE (700MG/PATCH) PATCH. TD SCH (09:19)
[2018-03-14] MEDS: DOCUSATE SODIUM 100 MG CAPSULE PO SCH ×2 (09:21→20:01)
[2018-03-14] MEDS: FAMOTIDINE 20 MG TABLET PO SCH ×2 (09:21→20:01)
[2018-03-14] MEDS: ASPIRIN 81 MG TAB.CHEW PO SCH (09:21)
[2018-03-14] MEDS: CHOLECALCIFEROL (VITAMIN D3) 1,000 UNIT TABLET PO SCH (09:21)
[2018-03-14] MEDS: POLYETHYLENE GLYCOL 3350 17 GM PACKET. PO SCH (09:22)
[2018-03-14] MEDS: CARVEDILOL 12.5 MG TABLET PO SCH ×2 (09:26→18:03)
[2018-03-14] MEDS: LISINOPRIL 20 MG TABLET PO SCH (09:27)
[2018-03-14] MEDS: amLODIPine BESYLATE 10 MG TABLET PO SCH (09:28)
[2018-03-14] MEDS: INSULIN LISPRO 300 UNITS/3 ML INSULN.PEN. SQ SCH ×6 (09:30→18:07)
--- NOTE | 2018-03-14 12:00 | NUR ---
Earlier today PAULETTE did a review with the [facility] and they report [facility] to discharge [facility]. PAULETTE reports that is the goal for [facility]; however, the biggest barrier that we have encountered is that these facilities are meeting with pt and he refuses and says that he is going home; in which pt does not have a home to go to. PAULETTE will continue to send out referrals and see about getting pt out this week. PAULETTE and the [facility] rep, Breann, discussed having pt sister involved and having her talk to pt as he is not fully capable and in denial about being able to make this decision. SW did attempt to call pt sister and left a message asking her to return call to . She did return SW call an hour later and left a message reporting that she is in a real estate exam and would prefer to talk to SW tomorrow. SW will call sister tomorrow and ask her to have a conversation with pt as he is not able to understand that living on his own is not an option as he is not ambulatory and needs around the clock nursing care (e.g. medications, transfers, bathing, toileting). PAULETTE contacted Piedad at the [facility] to question if she knew of any potential home facilities that are run like them. They are not a [facility] contract but have a physician assisted unit that would allow them to care for and all of his needs as a high acuity unit. Piedad reports that the unit is $8200 per month which is higher than what pt receives at this time. Piedad will keep in contact with PAULETTE, as she understand PAULETTE is sending out referrals to [place] contracted facilities. PAULETTE sent referrals to: [facility] ([place]) [facility] ([place]) [facility] ([place]) [facility] ([place]) [facility] ([place]) [facility] ([place]) [facility] ([place]) [facility] ([place]) Will continue to work with pt and pt family in making arrangements for discharge within this week.
[2018-03-14] MEDS: diazePAM 5 MG TABLET PO SCH ×2 (13:30→20:02)
[2018-03-14 16:04] VITALS: BP 116/82
[2018-03-14] MEDS: ATORVASTATIN CALCIUM 20 MG TABLET PO SCH (20:00)
[2018-03-14] MEDS: ERYTHROMYCIN 0.5% OPHTH OINTMENT 1GM TUBE. OS SCH (20:01)
[2018-03-14] MEDS: DIVALPROEX ER 500 MG TAB.ER.24H PO SCH (20:01)
[2018-03-14] MEDS: PRAZOSIN 1 MG CAPSULE. PO SCH (20:01)
[2018-03-14] MEDS: risperiDONE 0.25 MG TABLET. PO SCH (20:01)
[2018-03-14] MEDS: traZODone 150 MG TABLET. PO SCH (20:01)
[2018-03-14] MEDS: ENOXAPARIN 40 MG/0.4 ML SYRINGE. SQ SCH (20:02)
[2018-03-14] MEDS: INSULIN GLARGINE 300 UNITS/3 ML INSULN.PEN. SQ SCH (20:06)
[2018-03-14] MEDS: PATCH REMOVAL. MC SCH (21:00)
--- NOTE | 2018-03-15 00:32 | NUR ---
Pt sitting in dayroom at shift change. Compliant with HS medications, assessment and evening shower. No adverse behaviors noted.
[2018-03-15 06:04] VITALS: BP 123/85
[2018-03-15] MEDS: LEVOTHYROXINE 125 MCG TABLET PO SCH (06:19)
[2018-03-15] MEDS: POLYETHYLENE GLYCOL 3350 17 GM PACKET. PO SCH (07:25)
[2018-03-15] MEDS: FAMOTIDINE 20 MG TABLET PO SCH ×2 (07:26→20:30)
[2018-03-15] MEDS: LIDOCAINE (700MG/PATCH) PATCH. TD SCH (07:26)
[2018-03-15] MEDS: CARVEDILOL 12.5 MG TABLET PO SCH ×2 (07:29→16:47)
[2018-03-15] MEDS: DOCUSATE SODIUM 100 MG CAPSULE PO SCH ×2 (07:29→20:30)
[2018-03-15] MEDS: ASPIRIN 81 MG TAB.CHEW PO SCH (07:29)
[2018-03-15] MEDS: amLODIPine BESYLATE 10 MG TABLET PO SCH (07:30)
[2018-03-15] MEDS: LISINOPRIL 20 MG TABLET PO SCH (07:30)
[2018-03-15] MEDS: CHOLECALCIFEROL (VITAMIN D3) 1,000 UNIT TABLET PO SCH (07:30)
[2018-03-15] MEDS: INSULIN LISPRO 300 UNITS/3 ML INSULN.PEN. SQ SCH ×6 (08:00→17:05)
--- NOTE | 2018-03-15 11:28 | NUR ---
Pt has been compliant and calm so far this shift. Pt took medications with no issues, lidocaine patch placed on the middle of spine. Pt ate all of breakfast and is currently participating in group.
[2018-03-15] MEDS: diazePAM 5 MG TABLET PO SCH ×2 (13:33→20:32)
[2018-03-15] MEDS: ACETAMINOPHEN 325 MG TABLET PO PRN (13:38)
[2018-03-15 16:08] VITALS: BP 108/70
--- NOTE | 2018-03-15 16:53 | PN ---
DATE: 03/13/2018 PSYCHIATRIC PROGRESS NOTE This late entry 03/13/2018 covers elements not covered in my initial note. SUBJECTIVE: I met with the patient in the evening. Overall, the patient slept 6 hours previous evening. He remains somewhat withdrawn, sedated. We will go ahead and stop the Valium 2.5 mg at 0900 and for now, continue 2.5 at 1405 mg at bedtime, then taper this further gradually. I have reviewed information from social service staff and placement is still being secured. He remains somewhat isolative, withdrawn. REVIEW OF SYSTEMS: Ambulation impaired, in wheelchair. He has bilateral blindness. No CV, , pulmonary system symptoms on review. MENTAL STATUS EXAM: Oriented to himself and situation. Speech moderate latency, low in rate and rhythm, often responses monosyllabic. Abstraction fair, computation impaired, language function intact. Psychomotor activity is reduced. No suicidal or homicidal ideation. LABORATORY DATA: Reviewed. IMPRESSION: Schizoaffective disorder, bipolar type, mixed with psychotic features, in partial remission. Rest unchanged. PLAN: No change from initial note. We will go ahead and stop the 0900 Valium 2.5 mg. Rest unchanged. MAN Dilma AGUIRRE MD DR: DIYA/valeria JOB#: [id number] / [id number]
[2018-03-15] MEDS: risperiDONE 0.25 MG TABLET. PO SCH (20:30)
[2018-03-15] MEDS: ENOXAPARIN 40 MG/0.4 ML SYRINGE. SQ SCH (20:30)
[2018-03-15] MEDS: traZODone 150 MG TABLET. PO SCH (20:30)
[2018-03-15] MEDS: PRAZOSIN 1 MG CAPSULE. PO SCH (20:31)
[2018-03-15] MEDS: DIVALPROEX ER 500 MG TAB.ER.24H PO SCH (20:31)
[2018-03-15] MEDS: ATORVASTATIN CALCIUM 20 MG TABLET PO SCH (20:31)
[2018-03-15] MEDS: ERYTHROMYCIN 0.5% OPHTH OINTMENT 1GM TUBE. OS SCH (20:33)
[2018-03-15] MEDS: INSULIN GLARGINE 300 UNITS/3 ML INSULN.PEN. SQ SCH (20:33)
[2018-03-15] MEDS: PATCH REMOVAL. MC SCH (21:00)
--- NOTE | 2018-03-15 21:16 | PDOC ---
Exam Note: Ishaan Note: Late entry for DOS 03/14/2018. Please also refer to the separate dictated note~ for this date of service dictated separately.~Patient seen individually. Discussed the patient with Nursing staff reviewed the chart.~Reviewed interim history and current functioning. Reviewed vital signs,~Labs/ Radiology~and current medications noted below. Continue current treatment with the changes noted in the dictated addendum note Assessment: Vital Signs: VS - Last 72 Hours, by Label Date Time Temp Pulse Resp B/P (MAP) Pulse Ox O2 Delivery O2 Flow Rate FiO2 03/15/18 20:31 50 108/70 03/15/18 16:47 50 108/70 03/15/18 16:08 97.5 50 20 108/70 (83) 95 03/15/18 07:30 65 123/85 03/15/18 07:30 65 123/85 03/15/18 07:29 65 123/85 03/15/18 06:04 95.6 65 20 123/85 (98) 98 03/14/18 20:01 64 116/82 03/14/18 18:03 64 116/82 03/14/18 16:04 97.6 64 20 116/82 (93) 97 Room Air 03/14/18 09:28 81 109/69 03/14/18 09:27 81 109/69 03/14/18 09:26 81 109/69 03/14/18 05:36 96.5 50 18 147/63 (91) 99 03/13/18 20:04 57 126/80 03/13/18 17:08 57 126/80 03/13/18 16:27 97.6 57 17 126/80 (95) 97 Room Air 03/13/18 07:51 52 132/86 03/13/18 07:51 52 132/86 03/13/18 07:49 52 132/86 03/13/18 06:15 97.2 52 18 132/86 (101) 99 Room Air Vital Signs Date Time Temp Pulse Resp B/P (MAP) Pulse Ox O2 Delivery O2 Flow Rate FiO2 03/15/18 20:31 50 108/70 03/15/18 16:08 97.5 20 95 03/14/18 16:04 Room Air I&O Intake and Output 03/15/18 07:00 Intake Total 580 ml Balance 580 ml Intake Oral 580 ml Labs: Laboratory Tests Test 03/15/18 07:39 03/15/18 12:03 03/15/18 16:46 03/15/18 19:33 Glucose (Fingerstick) 90 mg/dL (70-99) 193 mg/dL (70-99) H 193 mg/dL (70-99) H 155 mg/dL (70-99) H Current Medications: Meds: Current Medications Acetaminophen (Tylenol) 650 mg PRN Q6HRS PRN PO PAIN / TEMP Last administered on 03/15/18at 13:38; Start 02/17/18 at 15:15 Multi-Ingredient Ointment (Analgesic [place]) 1 neha PRN QID PRN TP MUSCLE PAIN; Start 02/17/18 at 15:15 Al Hydroxide/Mg Hydroxide (Mylanta Plus Xs) 15 ml PRN AFTMEALHC PRN PO DYSPEPSIA; Start 02/17/18 at 15:15 Magnesium Hydroxide (Milk Of Magnesia) 2,400 mg PRN QHS PRN PO CONSTIPATION Last administered on 03/07/18at 17:38; Start 02/17/18 at 15:15 Vitamin D (Vitamin D3) 1,000 unit DAILY PO Last administered on 03/15/18 07: 30; Start 02/18/18 at 09:00 Diazepam (Valium) 5 mg Q8HRS PO Last administered on 03/03/18at 14:16; Start at 22:00; Stop 03/03/18 at 16:36; Status DC Gabapentin (Neurontin) 200 mg Q6HRS PO Last administered on 02/24/18at 07:43; Start 02/17/18 at 18:00; Stop 02/24/18 at 16:23; Status DC Insulin Glargine (Lantus) 45 units QHS SQ Last administered on 03/15/18at 20:33 ; Start 02/17/18 at 21:00 Amlodipine Besylate (Norvasc) 10 mg DAILY PO Last administered on 03/15/18at 07 :30; Start 02/18/18 at 09:00 Aspirin (Children'S Aspirin) 81 mg DAILYWBKFT PO Last administered on at 07:29; Start 02/18/18 at 08:00 Atorvastatin Calcium (Lipitor) 40 mg QHS PO Last administered on 03/15/18 20: 31; Start 02/17/18 at 21:00 Carvedilol (Coreg) 12.5 mg BIDWMEALS PO Last administered on 03/15/18 16:47; Start 02/18/18 at 08:00 Non-Formulary Medication (Diazepam (Valium)) 10 mg Q6HRS PO ; Start 02/17/18 at 18:00; Status UNV Docusate Sodium (Colace) 100 mg DAILY PO Last administered on 02/19/18 08:07; Start 02/18/18 at 09:00; Stop 02/19/18 at 12:17; Status DC Enoxaparin Sodium (Lovenox 40mg Syringe) 40 mg QHS SQ Last administered on 20:30; Start 02/17/18 at 21:00 Insulin Human Lispro (HumaLOG) 12 units TIDWMEALS SQ Last administered on 03/15 17:04; Start 02/18/18 at 08:00 Levothyroxine Sodium (Synthroid) 125 mcg DAILY06 PO Last administered on 06:15; Start 02/18/18 at 06:00; Stop 02/19/18 at 12:22; Status DC Lidocaine (Lidoderm) 1 patch DAILY TD Last administered on 03/15/18 07:26; Start 02/18/18 at 09:00 Lisinopril (Prinivil) 40 mg DAILY PO Last administered on 03/15/18 07:30; Start 02/18/18 at 09:00 Prazosin HCl (Minipress) 1 mg QHS PO Last administered on 03/15/18 20:31; Start 02/17/18 at 21:00 Famotidine (Pepcid) 20 mg BID PO Last administered on 03/15/18 20:30; Start 02/17/18 at 21:00 Influenza Virus Vaccine (Afluria Trivalent [id number] Syringe) 0.5 ml ONCE ONCE VAX IM Last administered on 02/18/18 12:05; Start 02/18/18 at 09:00; Stop at 09:01; Status DC Insulin Human Lispro (HumaLOG) 0-7 UNITS TIDWMEALS SQ Last administered on 17:05; Start 02/18/18 at 08:00 Miscellaneous (Lidoderm Patch Removal) 1 ea QHS MC Last administered on 21:00; Start 02/17/18 at 21:00 Bisacodyl (Dulcolax Supp) 10 mg PRN DAILY PRN [place] CONSTIPATION Last administered on 02/17/18 21:40; Start 02/17/18 at 20:45 Docusate Sodium (Colace) 100 mg BID PO Last administered on 03/15/18 20:30; Start 02/19/18 at 21:00 Polyethylene Glycol (miraLAX) 17 gm DAILY PO Last administered on 03/15/18 07 :25; Start 02/20/18 at 09:00 Magnesium Citrate (Citroma) 296 ml 1X ONCE PO Last administered on 02/19/18 12:31; Start 02/19/18 at 12:15; Stop 02/19/18 at 12:21; Status DC Levothyroxine Sodium (Synthroid) 175 mcg DAILY06 PO Last administered on 06:19; Start 02/20/18 at 06:00 Risperidone (RisperDAL) 0.5 mg HS PO Last administered on 02/21/18 20:26; Start 02/19/18 at 21:00; Stop 02/22/18 at 16:49; Status DC Acetaminophen/ Hydrocodone Bitart (Lortab 7.5/325) 1 tab PRN TID PRN PO PAIN Last administered on 03/11/18 09:46; Start 02/19/18 at 20:45 Trazodone HCl (Desyrel) 100 mg QHS PO Last administered on 02/22/18at 20:09; Start 02/21/18 at 21:00; Stop 02/23/18 at 09:47; Status DC Trazodone HCl (Desyrel) 100 mg PRN QHS PRN PO INSOMNIA; Start 02/21/18 at 16:45 ; Stop 02/23/18 at 09:47; Status DC Sulfacetamide Sodium (Sulf-10) 1 drop Q4H OS Last administered on 03/03/18at 08 :03; Start 02/22/18 at 12:30; Stop 03/03/18 at 14:03; Status DC Erythromycin (Romycin) 0.25 inch QHS OS Last administered on 03/15/18 20:33; Start 02/22/18 at 21:00 Risperidone (RisperDAL) 0.75 mg QHS PO Last administered on 03/15/18 20:30; Start 02/22/18 at 21:00 Trazodone HCl (Desyrel) 150 mg PRN QHS PRN PO INSOMNIA; Start 02/23/18 at 10:00 Trazodone HCl (Desyrel) 150 mg QHS PO Last administered on 03/15/18 20:30; Start 02/23/18 at 21:00 Divalproex Sodium (Depakote Er) 500 mg QHS PO Last administered on 02/26/18 19 :48; Start 02/23/18 at 21:00; Stop 02/27/18 at 16:48; Status DC Divalproex Sodium (Depakote Er) 1,000 mg QHS PO Last administered on 20:31; Start 02/27/18 at 21:00 Glucose (Insta-Glucose) 15 gm STK-MED ONCE .ROUTE Last administered on 06:42; Start 03/01/18 at 06:42; Stop 03/01/18 at 06:43; Status DC Diazepam (Valium) 5 mg BID PO Last administered on 03/06/18 08:09; Start 05/09 at 21:00; Stop 03/06/18 at 16:34; Status DC Diazepam (Valium) 2.5 mg DAILY@1400 PO Last administered on 03/06/18at 14:13; Start 03/04/18 at 14:00; Stop 03/06/18 at 16:34; Status DC Diazepam (Valium) 5 mg HS PO Last administered on 03/15/18 20:32; Start at 21:00 Diazepam (Valium) 2.5 mg BID92 PO Last administered on 03/13/18 17:07; Start 03/07/18 at 09:00; Stop 03/13/18 at 17:59; Status DC Artificial Tears (Refresh Classic) 1 drop PRN Q2HR PRN OS DRY EYE Last administered on 03/08/18at 14:12; Start 03/07/18 at 13:15 Diazepam (Valium) 2.5 mg 1400 PO Last administered on 03/15/18at 13:33; Start 03/14/18 at 14:00; Stop 03/16/18 at 13:00 Active Scripts Active Reported Lovenox (Enoxaparin Sodium) 40 Mg/0.4 Ml Disp.syrin 40 Mg SQ QHS Gabapentin 100 Mg Capsule 200 Mg PO Q6HRS Diazepam 5 Mg Tablet 5 Mg PO Q8HRS Ranitidine Hcl 150 Mg Tablet 150 Mg PO BID Amlodipine Besylate 10 Mg Tablet 10 Mg PO DAILY Aspirin 81 Mg Tab.chew 81 Mg PO DAILY Vitamin D3 (Cholecalciferol (Vitamin D3)) 1,000 Unit Tablet 1,000 Unit PO DAILY Synthroid (Levothyroxine Sodium) 125 Mcg Tablet 125 Mcg PO DAILYAC Lisinopril 40 Mg Tablet 40 Mg PO DAILY Lantus Solostar (Insulin Glargine,Hum.rec.anlog) 100 Unit/1 Ml Insuln.pen 45 Unit SQ QHS Lidocaine 1 Each Adh..patch 1 Each TP DAILY Lipitor (Atorvastatin Calcium) 40 Mg Tablet 40 Mg PO QHS Prazosin Hcl 1 Mg Capsule 1 Mg PO QHS Colace (Docusate Sodium) 100 Mg Capsule 100 Mg PO DAILY Coreg (Carvedilol) 12.5 Mg Tablet 12.5 Mg PO BIDWMEALS Novolog Flexpen (Insulin Aspart) 100 Unit/1 Ml Insuln.pen 12 Unit SQ TID Plavix (Clopidogrel Bisulfate) 75 Mg Tablet 75 Mg PO DAILY Levothyroxine Sodium 50 Mcg Tablet 50 Mcg PO DAILY Lortab 7.5-325 mg Tablet (Hydrocodone/Acetaminophen) 1 Each Tablet 1 Tab PO TID PRN I have reviewed the current psychotropics carefully including drug interactions. Risk benefit ratio favors no change other than as noted in my dictated progress note. 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
--- NOTE | 2018-03-15 23:25 | PDOC ---
Exam Note: Ishaan Note: Please also refer to the separate dictated note~for this date of service dictated separately.~Patient seen individually. Discussed the patient with Nursing staff reviewed the chart.~Reviewed interim history and current functioning. Reviewed vital signs,~Labs/ Radiology~and current medications noted below. Continue current treatment with the changes noted in the dictated addendum note Assessment: Vital Signs: Vital Signs Date Time Temp Pulse Resp B/P (MAP) Pulse Ox O2 Delivery O2 Flow Rate FiO2 03/15/18 20:31 50 108/70 03/15/18 16:08 97.5 20 95 03/14/18 16:04 Room Air I&O Intake and Output 03/15/18 07:00 Intake Total 580 ml Balance 580 ml Intake Oral 580 ml Labs: Laboratory Tests Test 03/15/18 07:39 03/15/18 12:03 03/15/18 16:46 03/15/18 19:33 Glucose (Fingerstick) 90 mg/dL (70-99) 193 mg/dL (70-99) H 193 mg/dL (70-99) H 155 mg/dL (70-99) H Current Medications: Meds: Current Medications Acetaminophen (Tylenol) 650 mg PRN Q6HRS PRN PO PAIN / TEMP Last administered on 03/15/18at 13:38; Start 02/17/18 at 15:15 Multi-Ingredient Ointment (Analgesic [place]) 1 neha PRN QID PRN TP MUSCLE PAIN; Start 02/17/18 at 15:15 Al Hydroxide/Mg Hydroxide (Mylanta Plus Xs) 15 ml PRN AFTMEALHC PRN PO DYSPEPSIA; Start 02/17/18 at 15:15 Magnesium Hydroxide (Milk Of Magnesia) 2,400 mg PRN QHS PRN PO CONSTIPATION Last administered on 03/07/18at 17:38; Start 02/17/18 at 15:15 Vitamin D (Vitamin D3) 1,000 unit DAILY PO Last administered on 03/15/18at 07: 30; Start 02/18/18 at 09:00 Diazepam (Valium) 5 mg Q8HRS PO Last administered on 03/03/18at 14:16; Start at 22:00; Stop 03/03/18 at 16:36; Status DC Gabapentin (Neurontin) 200 mg Q6HRS PO Last administered on 02/24/18 07:43; Start 02/17/18 at 18:00; Stop 02/24/18 at 16:23; Status DC Insulin Glargine (Lantus) 45 units QHS SQ Last administered on 03/15/18 20:33 ; Start 02/17/18 at 21:00 Amlodipine Besylate (Norvasc) 10 mg DAILY PO Last administered on 03/15/18 07 :30; Start 02/18/18 at 09:00 Aspirin (Children'S Aspirin) 81 mg DAILYWBKFT PO Last administered on 07:29; Start 02/18/18 at 08:00 Atorvastatin Calcium (Lipitor) 40 mg QHS PO Last administered on 03/15/18 20: 31; Start 02/17/18 at 21:00 Carvedilol (Coreg) 12.5 mg BIDWMEALS PO Last administered on 03/15/18 16:47; Start 02/18/18 at 08:00 Non-Formulary Medication (Diazepam (Valium)) 10 mg Q6HRS PO ; Start 02/17/18 at 18:00; Status UNV Docusate Sodium (Colace) 100 mg DAILY PO Last administered on 02/19/18 08:07; Start 02/18/18 at 09:00; Stop 02/19/18 at 12:17; Status DC Enoxaparin Sodium (Lovenox 40mg Syringe) 40 mg QHS SQ Last administered on 20:30; Start 02/17/18 at 21:00 Insulin Human Lispro (HumaLOG) 12 units TIDWMEALS SQ Last administered on 03/15 17:04; Start 02/18/18 at 08:00 Levothyroxine Sodium (Synthroid) 125 mcg DAILY06 PO Last administered on 06:15; Start 02/18/18 at 06:00; Stop 02/19/18 at 12:22; Status DC Lidocaine (Lidoderm) 1 patch DAILY TD Last administered on 03/15/18 07:26; Start 02/18/18 at 09:00 Lisinopril (Prinivil) 40 mg DAILY PO Last administered on 03/15/18 07:30; Start 02/18/18 at 09:00 Prazosin HCl (Minipress) 1 mg QHS PO Last administered on 03/15/18 20:31; Start 02/17/18 at 21:00 Famotidine (Pepcid) 20 mg BID PO Last administered on 03/15/18 20:30; Start 02/17/18 at 21:00 Influenza Virus Vaccine (Afluria Trivalent [id number] Syringe) 0.5 ml ONCE ONCE VAX IM Last administered on 02/18/18 12:05; Start 02/18/18 at 09:00; Stop at 09:01; Status DC Insulin Human Lispro (HumaLOG) 0-7 UNITS TIDWMEALS SQ Last administered on 17:05; Start 02/18/18 at 08:00 Miscellaneous (Lidoderm Patch Removal) 1 ea QHS MC Last administered on 21:00; Start 02/17/18 at 21:00 Bisacodyl (Dulcolax Supp) 10 mg PRN DAILY PRN [place] CONSTIPATION Last administered on 02/17/18at 21:40; Start 02/17/18 at 20:45 Docusate Sodium (Colace) 100 mg BID PO Last administered on 03/15/18 20:30; Start 02/19/18 at 21:00 Polyethylene Glycol (miraLAX) 17 gm DAILY PO Last administered on 03/15/18 07 :25; Start 02/20/18 at 09:00 Magnesium Citrate (Citroma) 296 ml 1X ONCE PO Last administered on 02/19/18 12:31; Start 02/19/18 at 12:15; Stop 02/19/18 at 12:21; Status DC Levothyroxine Sodium (Synthroid) 175 mcg DAILY06 PO Last administered on 06:19; Start 02/20/18 at 06:00 Risperidone (RisperDAL) 0.5 mg HS PO Last administered on 02/21/18 20:26; Start 02/19/18 at 21:00; Stop 02/22/18 at 16:49; Status DC Acetaminophen/ Hydrocodone Bitart (Lortab 7.5/325) 1 tab PRN TID PRN PO PAIN Last administered on 03/11/18 09:46; Start 02/19/18 at 20:45 Trazodone HCl (Desyrel) 100 mg QHS PO Last administered on 02/22/18 20:09; Start 02/21/18 at 21:00; Stop 02/23/18 at 09:47; Status DC Trazodone HCl (Desyrel) 100 mg PRN QHS PRN PO INSOMNIA; Start 02/21/18 at 16:45 ; Stop 02/23/18 at 09:47; Status DC Sulfacetamide Sodium (Sulf-10) 1 drop Q4H OS Last administered on 03/03/18at 08 :03; Start 02/22/18 at 12:30; Stop 03/03/18 at 14:03; Status DC Erythromycin (Romycin) 0.25 inch QHS OS Last administered on 03/15/18at 20:33; Start 02/22/18 at 21:00 Risperidone (RisperDAL) 0.75 mg QHS PO Last administered on 03/15/18 20:30; Start 02/22/18 at 21:00 Trazodone HCl (Desyrel) 150 mg PRN QHS PRN PO INSOMNIA; Start 02/23/18 at 10:00 Trazodone HCl (Desyrel) 150 mg QHS PO Last administered on 03/15/18 20:30; Start 02/23/18 at 21:00 Divalproex Sodium (Depakote Er) 500 mg QHS PO Last administered on 02/26/18at 19 :48; Start 02/23/18 at 21:00; Stop 02/27/18 at 16:48; Status DC Divalproex Sodium (Depakote Er) 1,000 mg QHS PO Last administered on at 20:31; Start 02/27/18 at 21:00 Glucose (Insta-Glucose) 15 gm STK-MED ONCE .ROUTE Last administered on at 06:42; Start 03/01/18 at 06:42; Stop 03/01/18 at 06:43; Status DC Diazepam (Valium) 5 mg BID PO Last administered on 03/06/18at 08:09; Start 05/09 at 21:00; Stop 03/06/18 at 16:34; Status DC Diazepam (Valium) 2.5 mg DAILY@1400 PO Last administered on 03/06/18at 14:13; Start 03/04/18 at 14:00; Stop 03/06/18 at 16:34; Status DC Diazepam (Valium) 5 mg HS PO Last administered on 03/15/18at 20:32; Start at 21:00 Diazepam (Valium) 2.5 mg BID92 PO Last administered on 03/13/18at 17:07; Start 03/07/18 at 09:00; Stop 03/13/18 at 17:59; Status DC Artificial Tears (Refresh Classic) 1 drop PRN Q2HR PRN OS DRY EYE Last administered on 03/08/18at 14:12; Start 03/07/18 at 13:15 Diazepam (Valium) 2.5 mg 1400 PO Last administered on 03/15/18at 13:33; Start 03/14/18 at 14:00; Stop 03/16/18 at 13:00 Active Scripts Active Reported Lovenox (Enoxaparin Sodium) 40 Mg/0.4 Ml Disp.syrin 40 Mg SQ QHS Gabapentin 100 Mg Capsule 200 Mg PO Q6HRS Diazepam 5 Mg Tablet 5 Mg PO Q8HRS Ranitidine Hcl 150 Mg Tablet 150 Mg PO BID Amlodipine Besylate 10 Mg Tablet 10 Mg PO DAILY Aspirin 81 Mg Tab.chew 81 Mg PO DAILY Vitamin D3 (Cholecalciferol (Vitamin D3)) 1,000 Unit Tablet 1,000 Unit PO DAILY Synthroid (Levothyroxine Sodium) 125 Mcg Tablet 125 Mcg PO DAILYAC Lisinopril 40 Mg Tablet 40 Mg PO DAILY Lantus Solostar (Insulin Glargine,Hum.rec.anlog) 100 Unit/1 Ml Insuln.pen 45 Unit SQ QHS Lidocaine 1 Each Adh..patch 1 Each TP DAILY Lipitor (Atorvastatin Calcium) 40 Mg Tablet 40 Mg PO QHS Prazosin Hcl 1 Mg Capsule 1 Mg PO QHS Colace (Docusate Sodium) 100 Mg Capsule 100 Mg PO DAILY Coreg (Carvedilol) 12.5 Mg Tablet 12.5 Mg PO BIDWMEALS Novolog Flexpen (Insulin Aspart) 100 Unit/1 Ml Insuln.pen 12 Unit SQ TID Plavix (Clopidogrel Bisulfate) 75 Mg Tablet 75 Mg PO DAILY Levothyroxine Sodium 50 Mcg Tablet 50 Mcg PO DAILY Lortab 7.5-325 mg Tablet (Hydrocodone/Acetaminophen) 1 Each Tablet 1 Tab PO TID PRN I have reviewed the current psychotropics carefully including drug interactions. Risk benefit ratio favors no change other than as noted in my dictated progress note. 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
--- NOTE | 2018-03-15 23:28 | PN ---
DATE: 03/14/2018 PSYCHIATRIC PROGRESS NOTE This late entry 03/14/2018 covers elements not covered in my initial note. SUBJECTIVE: I met with the patient in the evening. The patient slept 5-1/2 hours previous evening. He is withdrawn, spends much time in his wheelchair, looking downwards. He has bilateral blindness, impaired ambulation, and we will check. Otherwise, compliant with his medications. He did attend groups, which is an improvement. REVIEW OF SYSTEMS: Bilateral blindness, impaired ambulation, in wheelchair. No CV, , GI, eye, ENT system symptoms on review. MENTAL STATUS EXAM: Oriented to himself and situation. Speech moderate latency, often responses monosyllabic. Abstraction fair. Computation, able to do one step on serial sevens. No suicidal or homicidal ideation. Mood and affect is withdrawn. IMPRESSION: Schizoaffective disorder, bipolar type, depressed with psychotic features in partial remission; anxiety disorder, unspecified; cognitive disorder, unspecified. PLAN: Stop the 1400 Valium 2.5 mg on 03/16/2018. The morning Valium 2.5 mg was previously discontinued. He remains on Valium 5 mg at bedtime. We will taper this further in a few days. Maintain Risperdal 0.75 mg at bedtime, trazodone 150 mg at bedtime, may repeat x 1, Depakote ER 1000 mg at bedtime with a therapeutic blood level of 71. MAN Dilma AGUIRRE MD DR: DIYA/valeria JOB#: [id number] / [id number]
--- NOTE | 2018-03-15 23:50 | NUR ---
Pt in dayroom at shift change, sitting calmly and listening to music. Pt compliant with HS medications and assessment. No adverse behaviors noted.
[2018-03-16] MEDS: LEVOTHYROXINE 125 MCG TABLET PO SCH (06:00)
[2018-03-16 06:14] VITALS: BP 148/75
[2018-03-16] MEDS ORDERED: DEXTROSE ORAL GEL 15 GM TUBE. ONE (06:53)
[2018-03-16 07:06] LABS: BASO % 0 % (0-3); EOS # 0.1 x10^3/uL (0.0-0.7); EOS % 1 % (0-3); HEMATOCRIT 34.8 % (39.0-53.0); HEMOGLOBIN 11.8 g/dL (13.0-17.5); LYMPH % 29 % (24-48); MEAN CORPUSCULAR HEMOGLOBIN 31 pg (25-35); MEAN CORPUSCULAR HGB CONC 34 g/dL (31-37); MEAN CORPUSCULAR VOLUME 90 fL (79-100); MONO # 0.8 x10^3/uL (0.0-1.1); MONO % 11 % (0-9); NEUT % 58 % (31-73); PLATELET COUNT 191 x10^3/uL (140-400); RED BLOOD COUNT 3.86 x10^6/uL (4.30-5.70); RED CELL DISTRIBUTION WIDTH 15.6 % (11.5-14.5); WHITE BLOOD COUNT 6.8 x10^3/uL (4.0-11.0)
[2018-03-16 07:13] LABS: ALBUMIN 2.9 g/dL (3.4-5.0); ALBUMIN/GLOBULIN RATIO 0.8 (1.0-1.7); CALCIUM 9.1 mg/dL (8.5-10.1); CREATININE 1.2 mg/dL (0.7-1.3); GFR 74.2; POTASSIUM 4.1 mmol/L (3.5-5.1); TOTAL BILIRUBIN 0.1 mg/dL (0.2-1.0); TOTAL PROTEIN 6.5 g/dL (6.4-8.2)
--- NOTE | 2018-03-16 07:31 | NUR ---
Pt's blood sugar this morning was 44. Pt asymptomatic. Pt given 2 orange juices and a yogurt. Blood sugar rechecked 15 min later and was 43. Glucose gel pulled from [employer] and administered. Blood sugar rechecked 15 min later and was 89.
[2018-03-16] MEDS: INSULIN LISPRO 300 UNITS/3 ML INSULN.PEN. SQ SCH ×8 (08:00→17:10)
[2018-03-16] MEDS: LIDOCAINE (700MG/PATCH) PATCH. TD SCH (08:06)
[2018-03-16] MEDS: POLYETHYLENE GLYCOL 3350 17 GM PACKET. PO SCH (08:06)
[2018-03-16] MEDS: ASPIRIN 81 MG TAB.CHEW PO SCH (08:07)
[2018-03-16] MEDS: FAMOTIDINE 20 MG TABLET PO SCH ×2 (08:07→19:37)
[2018-03-16] MEDS: LISINOPRIL 20 MG TABLET PO SCH (08:07)
[2018-03-16] MEDS: CARVEDILOL 12.5 MG TABLET PO SCH ×2 (08:07→17:07)
[2018-03-16] MEDS: amLODIPine BESYLATE 10 MG TABLET PO SCH (08:07)
[2018-03-16] MEDS: CHOLECALCIFEROL (VITAMIN D3) 1,000 UNIT TABLET PO SCH (08:08)
[2018-03-16] MEDS: DOCUSATE SODIUM 100 MG CAPSULE PO SCH ×2 (08:08→19:37)
[2018-03-16] MEDS: ACETAMINOPHEN 325 MG TABLET PO PRN (10:20)
--- NOTE | 2018-03-16 11:00 | NUR ---
Behavior Intervention Response and Plan: BIRP Note: Behavior: Assumed Care of patient, patient located in Day Room at shift change. Patient exhibited the following behavior Drowsy, Calm, Cooperative. Brief assessment on rounds of vital signs, medication needs, lab studies, and pain. Treatment plan problems . Intervention: Patient assessed and the following interventions initiated safety checks 15 Minute Checks Cognitive Assessment , Head to toe Assessment , Medications. Response: After interactions and interventions patient responded in the following manner, Drowsy , Calm ,Cooperative. Continue to assess behaviors and condition will continue to monitor throughout the shift as needed. Patient educated on ADL's, and hand hygiene. Plan: Continue to monitor Master Treatment Plan for patient's progress toward short term goals of Decreased Agitation, Decreased Anxiety, mcc goals to return to previous living setting vs placement. Continue to assess patient for changes in above assessment. Monitor for medication needs, pain, and safety concerns. Hourly rounding performed to ensure safe environment.
--- NOTE | 2018-03-16 11:55 | NUR ---
PAULETTE spoke with pt sister Gill to discuss pt need to discharge to a facility; however, pt is refusing to go. Pt sister understands that pt needs more care and is not able to be in a home alone or with other help whether from family, the [facility] or local agencies. SW has requested that his sister contact pt, after lunch, and talk to him. Pt is not listening to staff who have repeatedly mentioned that he does not have a home to go to and needs 24/7 nursing care. It is pt sister's hope that he may eventually further down the road get to go "home"; however, she understands he is not physically or mentally capable of doing so at the time. She will plan to talk to pt and tell him he has to go to a facility.
--- NOTE | 2018-03-16 13:39 | NUR ---
WEEKLY UPDATE: Pt continues to be withdrawn from his peers; pt attends group but puts more focus on staff. Pt is eating and sleeping well; not negative or physically aggressive behaviors noted. PAULETTE reached out to pt sister, Richa, to request that she speak with pt re: his refusal to be placed at a facility. At this time, pt is a 2-person transfer or uses the sit to stand as he cannot transfer on his own. Pt needs total pt care for bathing and toileting, as well as monitoring on his medications. PAULETTE spoke with Holly at the [facility] [phone] who reports that they have received a request from [facility] about getting authorization for Z[facility]; if anything changes, PAULETTE will notify Holly. PAULETTE also contacted Breann at the [facility] [phone] about pt progression with placement. Once placement has been confirmed PAULETTE will keep Breann or Leslie up to date. PAULETTE received a call from Elaina at [facility]. From her standpoint, she would like to approve pt; however, she is still waiting to hear back from the DON and [employer] administrator. Once she receives approval, she will let PAULETTE know. A care assessment has been asked to be completed. PAULETTE will get that request sent SUJATA.
[2018-03-16 16:10] VITALS: BP 106/59
--- NOTE | 2018-03-16 16:22 | NUR ---
wound care patient seen per f/u of wound care consult. see wound assessment. patient has small area of skin tears to the right dorsal foot, left lateral lower leg and left dorsal foot, the areas were cleaned and dressed with iodoflex, ABD pad and kerlix with tape, secured with medigrip G. recommendations of changing every 3 days. Please ensure medigrips go from toes to knees. wound care will continue to f/u. notified HAYDE Gomes of the recommendations.
[2018-03-16] MEDS: traZODone 150 MG TABLET. PO SCH (19:35)
[2018-03-16] MEDS: ATORVASTATIN CALCIUM 20 MG TABLET PO SCH (19:36)
[2018-03-16] MEDS: DIVALPROEX ER 500 MG TAB.ER.24H PO SCH (19:36)
[2018-03-16] MEDS: PRAZOSIN 1 MG CAPSULE. PO SCH (19:37)
[2018-03-16] MEDS: risperiDONE 0.25 MG TABLET. PO SCH (19:37)
[2018-03-16] MEDS: PATCH REMOVAL. MC SCH (19:38)
[2018-03-16] MEDS: ERYTHROMYCIN 0.5% OPHTH OINTMENT 1GM TUBE. OS SCH (19:45)
[2018-03-16] MEDS: diazePAM 5 MG TABLET PO SCH (19:46)
[2018-03-16] MEDS: BENZONATATE 100 MG CAPSULE. PO SCH (19:46)
[2018-03-16] MEDS: ENOXAPARIN 40 MG/0.4 ML SYRINGE. SQ SCH (19:47)
[2018-03-16] MEDS ORDERED: INSULIN GLARGINE 300 UNITS/3 ML INSULN.PEN. SQ SCH (21:00)
--- NOTE | 2018-03-16 21:00 | NUR ---
Behavior Intervention Response and Plan: BIRP Note: Behavior: Assumed Care of patient, patient located in Patient Room at shift change. Patient exhibited the following behavior Drowsy, Calm, Cooperative. Brief assessment on rounds of vital signs, medication needs, lab studies, and pain. Treatment plan problems . Intervention: Patient assessed and the following interventions initiated safety checks 15 Minute Checks Cognitive Assessment , Head to toe Assessment , Medications. Response: After interactions and interventions patient responded in the following manner, Drowsy , Sleeping ,Calm. Continue to assess behaviors and condition will continue to monitor throughout the shift as needed. Patient educated on ADL's, and hand hygiene. 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 Continue to assess patient for changes in above assessment. Monitor for medication needs, pain, and safety concerns. Hourly rounding performed to ensure safe environment.
--- NOTE | 2018-03-16 23:21 | PDOC ---
Exam Note: Ishaan Note: Please also refer to the separate dictated note~for this date of service dictated separately.~Patient seen individually. Discussed the patient with Nursing staff reviewed the chart.~Reviewed interim history and current functioning. Reviewed vital signs,~Labs/ Radiology~and current medications noted below. Continue current treatment with the changes noted in the dictated addendum note Assessment: Vital Signs: Vital Signs Date Time Temp Pulse Resp B/P (MAP) Pulse Ox O2 Delivery O2 Flow Rate FiO2 03/16/18 19:37 55 106/59 03/16/18 16:10 97.8 20 99 Room Air I&O Intake and Output 03/16/18 07:00 Intake Total 540 ml Balance 540 ml Intake Oral 540 ml Labs: Laboratory Tests Test 03/16/18 06:21 03/16/18 06:43 03/16/18 06:51 03/16/18 07:24 Glucose (Fingerstick) 44 mg/dL (70-99) L 43 mg/dL (70-99) L 85 mg/dL (70-99) White Blood Count 6.8 x10^3/uL (4.0-11.0) Red Blood Count 3.86 x10^6/uL (4.30-5.70) L Hemoglobin 11.8 g/dL (13.0-17.5) L Hematocrit 34.8 % (39.0-53.0) L Mean Corpuscular Volume 90 fL (79-100) Mean Corpuscular Hemoglobin 31 pg (25-35) Mean Corpuscular Hemoglobin Concent 34 g/dL (31-37) Red Cell Distribution Width 15.6 % (11.5-14.5) H Platelet Count 191 x10^3/uL (140-400) Neutrophils (%) (Auto) 58 % (31-73) Lymphocytes (%) (Auto) 29 % (24-48) Monocytes (%) (Auto) 11 % (0-9) H Eosinophils (%) (Auto) 1 % (0-3) Basophils (%) (Auto) 0 % (0-3) Neutrophils # (Auto) 4.0 x10^3uL (1.8-7.7) Lymphocytes # (Auto) 2.0 x10^3/uL (1.0-4.8) Monocytes # (Auto) 0.8 x10^3/uL (0.0-1.1) Eosinophils # (Auto) 0.1 x10^3/uL (0.0-0.7) Basophils # (Auto) 0.0 x10^3/uL (0.0-0.2) Sodium Level 140 mmol/L (136-145) Potassium Level 4.1 mmol/L (3.5-5.1) Chloride Level 103 mmol/L (98-107) Carbon Dioxide Level 36 mmol/L (21-32) H Anion Gap 1 (6-14) L Blood Urea Nitrogen 18 mg/dL (8-26) Creatinine 1.2 mg/dL (0.7-1.3) Estimated GFR (Cockcroft-Gault) 74.2 BUN/Creatinine Ratio 15 (6-20) Glucose Level 52 mg/dL (70-99) L Calcium Level 9.1 mg/dL (8.5-10.1) Total Bilirubin 0.1 mg/dL (0.2-1.0) L Aspartate Amino Transferase (AST) 25 U/L (15-37) Alanine Aminotransferase (ALT) 35 U/L (16-63) Alkaline Phosphatase 82 U/L (46-116) Total Protein 6.5 g/dL (6.4-8.2) Albumin 2.9 g/dL (3.4-5.0) L Albumin/Globulin Ratio 0.8 (1.0-1.7) L Test 03/16/18 11:46 03/16/18 16:39 03/16/18 19:46 Glucose (Fingerstick) 241 mg/dL (70-99) H 235 mg/dL (70-99) H 182 mg/dL (70-99) H Current Medications: Meds: Current Medications Acetaminophen (Tylenol) 650 mg PRN Q6HRS PRN PO PAIN / TEMP Last administered on 03/16/18at 10:20; Start 02/17/18 at 15:15 Multi-Ingredient Ointment (Analgesic [place]) 1 neha PRN QID PRN TP MUSCLE PAIN; Start 02/17/18 at 15:15 Al Hydroxide/Mg Hydroxide (Mylanta Plus Xs) 15 ml PRN AFTMEALHC PRN PO DYSPEPSIA; Start 02/17/18 at 15:15 Magnesium Hydroxide (Milk Of Magnesia) 2,400 mg PRN QHS PRN PO CONSTIPATION Last administered on 03/07/18 17:38; Start 02/17/18 at 15:15 Vitamin D (Vitamin D3) 1,000 unit DAILY PO Last administered on 03/16/18 08: 08; Start 02/18/18 at 09:00 Diazepam (Valium) 5 mg Q8HRS PO Last administered on 03/03/18 14:16; Start at 22:00; Stop 03/03/18 at 16:36; Status DC Gabapentin (Neurontin) 200 mg Q6HRS PO Last administered on 02/24/18 07:43; Start 02/17/18 at 18:00; Stop 02/24/18 at 16:23; Status DC Insulin Glargine (Lantus) 45 units QHS SQ Last administered on 03/15/18 20:33 ; Start 02/17/18 at 21:00; Stop 03/16/18 at 15:54; Status DC Amlodipine Besylate (Norvasc) 10 mg DAILY PO Last administered on 03/16/18 08 :07; Start 02/18/18 at 09:00 Aspirin (Children'S Aspirin) 81 mg DAILYWBKFT PO Last administered on 08:07; Start 02/18/18 at 08:00 Atorvastatin Calcium (Lipitor) 40 mg QHS PO Last administered on 03/16/18 19: 36; Start 02/17/18 at 21:00 Carvedilol (Coreg) 12.5 mg BIDWMEALS PO Last administered on 03/16/18 17:07; Start 02/18/18 at 08:00 Non-Formulary Medication (Diazepam (Valium)) 10 mg Q6HRS PO ; Start 02/17/18 at 18:00; Status UNV Docusate Sodium (Colace) 100 mg DAILY PO Last administered on 02/19/18 08:07; Start 02/18/18 at 09:00; Stop 02/19/18 at 12:17; Status DC Enoxaparin Sodium (Lovenox 40mg Syringe) 40 mg QHS SQ Last administered on 19:47; Start 02/17/18 at 21:00 Insulin Human Lispro (HumaLOG) 12 units TIDWMEALS SQ Last administered on 03/16 13:14; Start 02/18/18 at 08:00 Levothyroxine Sodium (Synthroid) 125 mcg DAILY06 PO Last administered on 06:15; Start 02/18/18 at 06:00; Stop 02/19/18 at 12:22; Status DC Lidocaine (Lidoderm) 1 patch DAILY TD Last administered on 03/16/18 08:06; Start 02/18/18 at 09:00 Lisinopril (Prinivil) 40 mg DAILY PO Last administered on 03/16/18 08:07; Start 02/18/18 at 09:00 Prazosin HCl (Minipress) 1 mg QHS PO Last administered on 03/16/18 19:37; Start 02/17/18 at 21:00 Famotidine (Pepcid) 20 mg BID PO Last administered on 03/16/18 19:37; Start 02/17/18 at 21:00 Influenza Virus Vaccine (Afluria Trivalent [id number] Syringe) 0.5 ml ONCE ONCE VAX IM Last administered on 02/18/18 12:05; Start 02/18/18 at 09:00; Stop at 09:01; Status DC Insulin Human Lispro (HumaLOG) 0-7 UNITS TIDWMEALS SQ Last administered on 13:16; Start 02/18/18 at 08:00 Miscellaneous (Lidoderm Patch Removal) 1 ea QHS MC Last administered on 19:38; Start 02/17/18 at 21:00 Bisacodyl (Dulcolax Supp) 10 mg PRN DAILY PRN [place] CONSTIPATION Last administered on 02/17/18 21:40; Start 02/17/18 at 20:45 Docusate Sodium (Colace) 100 mg BID PO Last administered on 03/16/18 19:37; Start 02/19/18 at 21:00 Polyethylene Glycol (miraLAX) 17 gm DAILY PO Last administered on 03/16/18 08 :06; Start 02/20/18 at 09:00 Magnesium Citrate (Citroma) 296 ml 1X ONCE PO Last administered on 02/19/18 12:31; Start 02/19/18 at 12:15; Stop 02/19/18 at 12:21; Status DC Levothyroxine Sodium (Synthroid) 175 mcg DAILY06 PO Last administered on 06:19; Start 02/20/18 at 06:00 Risperidone (RisperDAL) 0.5 mg HS PO Last administered on 02/21/18 20:26; Start 02/19/18 at 21:00; Stop 02/22/18 at 16:49; Status DC Acetaminophen/ Hydrocodone Bitart (Lortab 7.5/325) 1 tab PRN TID PRN PO PAIN Last administered on 03/11/18at 09:46; Start 02/19/18 at 20:45 Trazodone HCl (Desyrel) 100 mg QHS PO Last administered on 02/22/18 20:09; Start 02/21/18 at 21:00; Stop 02/23/18 at 09:47; Status DC Trazodone HCl (Desyrel) 100 mg PRN QHS PRN PO INSOMNIA; Start 02/21/18 at 16:45 ; Stop 02/23/18 at 09:47; Status DC Sulfacetamide Sodium (Sulf-10) 1 drop Q4H OS Last administered on 03/03/18 08 :03; Start 02/22/18 at 12:30; Stop 03/03/18 at 14:03; Status DC Erythromycin (Romycin) 0.25 inch QHS OS Last administered on 03/16/18 19:45; Start 02/22/18 at 21:00 Risperidone (RisperDAL) 0.75 mg QHS PO Last administered on 03/16/18 19:37; Start 02/22/18 at 21:00 Trazodone HCl (Desyrel) 150 mg PRN QHS PRN PO INSOMNIA; Start 02/23/18 at 10:00 Trazodone HCl (Desyrel) 150 mg QHS PO Last administered on 03/16/18at 19:35; Start 02/23/18 at 21:00 Divalproex Sodium (Depakote Er) 500 mg QHS PO Last administered on 02/26/18 19 :48; Start 02/23/18 at 21:00; Stop 02/27/18 at 16:48; Status DC Divalproex Sodium (Depakote Er) 1,000 mg QHS PO Last administered on at 19:36; Start 02/27/18 at 21:00 Glucose (Insta-Glucose) 15 gm STK-MED ONCE .ROUTE Last administered on at 06:42; Start 03/01/18 at 06:42; Stop 03/01/18 at 06:43; Status DC Diazepam (Valium) 5 mg BID PO Last administered on 03/06/18at 08:09; Start 05/09 at 21:00; Stop 03/06/18 at 16:34; Status DC Diazepam (Valium) 2.5 mg DAILY@1400 PO Last administered on 03/06/18at 14:13; Start 03/04/18 at 14:00; Stop 03/06/18 at 16:34; Status DC Diazepam (Valium) 5 mg HS PO Last administered on 03/16/18at 19:46; Start at 21:00; Stop 03/19/18 at 08:00 Diazepam (Valium) 2.5 mg [id number] PO Last administered on 03/13/18at 17:07; Start 03/07/18 at 09:00; Stop 03/13/18 at 17:59; Status DC Artificial Tears (Refresh Classic) 1 drop PRN Q2HR PRN OS DRY EYE Last administered on 03/08/18at 14:12; Start 03/07/18 at 13:15 Diazepam (Valium) 2.5 mg 1400 PO Last administered on 03/15/18at 13:33; Start 03/14/18 at 14:00; Stop 03/16/18 at 13:00; Status DC Glucose (Insta-Glucose) 15 gm STK-MED ONCE .ROUTE Last administered on at 06:53; Start 03/16/18 at 06:53; Stop 03/16/18 at 06:54; Status DC Diazepam (Valium) 2.5 mg HS PO ; Start 03/19/18 at 21:00; Stop 03/22/18 at 08: 00 Insulin Glargine (Lantus) 40 units QHS SQ Last administered on 03/16/18at 20:48 ; Start 03/16/18 at 21:00 Benzonatate (Tessalon Perle) 100 mg [id number] PO Last administered on 03/16/18at 19:46; Start 03/16/18 at 21:00 Active Scripts Active Reported Lovenox (Enoxaparin Sodium) 40 Mg/0.4 Ml Disp.syrin 40 Mg SQ QHS Gabapentin 100 Mg Capsule 200 Mg PO Q6HRS Diazepam 5 Mg Tablet 5 Mg PO Q8HRS Ranitidine Hcl 150 Mg Tablet 150 Mg PO BID Amlodipine Besylate 10 Mg Tablet 10 Mg PO DAILY Aspirin 81 Mg Tab.chew 81 Mg PO DAILY Vitamin D3 (Cholecalciferol (Vitamin D3)) 1,000 Unit Tablet 1,000 Unit PO DAILY Synthroid (Levothyroxine Sodium) 125 Mcg Tablet 125 Mcg PO DAILYAC Lisinopril 40 Mg Tablet 40 Mg PO DAILY Lantus Solostar (Insulin Glargine,Hum.rec.anlog) 100 Unit/1 Ml Insuln.pen 45 Unit SQ QHS Lidocaine 1 Each Adh..patch 1 Each TP DAILY Lipitor (Atorvastatin Calcium) 40 Mg Tablet 40 Mg PO QHS Prazosin Hcl 1 Mg Capsule 1 Mg PO QHS Colace (Docusate Sodium) 100 Mg Capsule 100 Mg PO DAILY Coreg (Carvedilol) 12.5 Mg Tablet 12.5 Mg PO BIDWMEALS Novolog Flexpen (Insulin Aspart) 100 Unit/1 Ml Insuln.pen 12 Unit SQ TID Plavix (Clopidogrel Bisulfate) 75 Mg Tablet 75 Mg PO DAILY Levothyroxine Sodium 50 Mcg Tablet 50 Mcg PO DAILY Lortab 7.5-325 mg Tablet (Hydrocodone/Acetaminophen) 1 Each Tablet 1 Tab PO TID PRN I have reviewed the current psychotropics carefully including drug interactions. Risk benefit ratio favors no change other than as noted in my dictated progress note. 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
[2018-03-17 05:44] VITALS: BP 138/73
[2018-03-17] MEDS: LEVOTHYROXINE 125 MCG TABLET PO SCH (06:00)
--- NOTE | 2018-03-17 06:29 | NUR ---
Hallucinations reported by pt, said he was seeing different places.
[2018-03-17] MEDS: amLODIPine BESYLATE 10 MG TABLET PO SCH (07:54)
[2018-03-17] MEDS: FAMOTIDINE 20 MG TABLET PO SCH ×2 (07:54→19:33)
[2018-03-17] MEDS: BENZONATATE 100 MG CAPSULE. PO SCH ×3 (07:55→19:34)
[2018-03-17] MEDS: LISINOPRIL 20 MG TABLET PO SCH (07:55)
[2018-03-17] MEDS: ASPIRIN 81 MG TAB.CHEW PO SCH (07:55)
[2018-03-17] MEDS: CARVEDILOL 12.5 MG TABLET PO SCH ×2 (07:55→18:19)
[2018-03-17] MEDS: CHOLECALCIFEROL (VITAMIN D3) 1,000 UNIT TABLET PO SCH (07:55)
[2018-03-17] MEDS: DOCUSATE SODIUM 100 MG CAPSULE PO SCH ×2 (07:56→19:35)
[2018-03-17] MEDS: POLYETHYLENE GLYCOL 3350 17 GM PACKET. PO SCH (07:56)
[2018-03-17] MEDS: INSULIN LISPRO 300 UNITS/3 ML INSULN.PEN. SQ SCH ×6 (08:00→18:22)
[2018-03-17] MEDS: LIDOCAINE (700MG/PATCH) PATCH. TD SCH (08:04)
--- NOTE | 2018-03-17 13:45 | NUR ---
Assumed care of pt @ approx 0700. Pt sitting up in Dining Room at the time of our initial encounter. Pt oriented to self and location ("hospital"). No signs of hallucinations, delusions, or paranoia noted so far this shift. No inappropriate behaviors noted so far. Per cage shift manager's report, pt was hallucinating early this AM, stating that he was "seeing things." Pt withdrawn but cooperative. Compliant w/meds taken whole w/water, along with his SQ insulin. No needs voiced @ this time. Will continue to monitor and assist pt in working towards his treatment and discharge goals.
[2018-03-17 15:49] VITALS: BP 127/84
[2018-03-17] MEDS: ATORVASTATIN CALCIUM 20 MG TABLET PO SCH (19:33)
[2018-03-17] MEDS: risperiDONE 0.25 MG TABLET. PO SCH (19:33)
[2018-03-17] MEDS: PRAZOSIN 1 MG CAPSULE. PO SCH (19:34)
[2018-03-17] MEDS: traZODone 150 MG TABLET. PO SCH (19:34)
[2018-03-17] MEDS: diazePAM 5 MG TABLET PO SCH (19:34)
[2018-03-17] MEDS: DIVALPROEX ER 500 MG TAB.ER.24H PO SCH (19:35)
[2018-03-17] MEDS: PATCH REMOVAL. MC SCH (19:36)
[2018-03-17] MEDS: ENOXAPARIN 40 MG/0.4 ML SYRINGE. SQ SCH ×2 (19:36→21:00)
[2018-03-17] MEDS: ERYTHROMYCIN 0.5% OPHTH OINTMENT 1GM TUBE. OS SCH (19:48)
--- NOTE | 2018-03-17 20:47 | PN ---
DATE: 03/15/2018 PSYCHIATRIC PROGRESS NOTE This late entry 03/15/2018 covers elements not covered in my initial note. SUBJECTIVE: I met with the patient in the evening. The patient slept 7 hours previous night. He remains somewhat withdrawn. 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 Ambulation impaired, but no clear psychotic symptoms noted. REVIEW OF SYSTEMS: Ambulation impaired, poor vision. No CV, , pulmonary system symptoms on review. MENTAL STATUS EXAM: Oriented to himself and situation. Speech moderate latency, often responses monosyllabic. Abstraction fair. Computation, one step on serial 7's, no more. No active suicidal or homicidal ideation. Psychotic symptoms are improved. LABORATORY DATA: Reviewed. IMPRESSION: Unchanged from initial note. PLAN: No change from initial note. He slept 7 hours previous night. MAN JosueSophia AGUIRRE MD DR: DIYA/valeria JOB#: [id number] / [id number]
[2018-03-17] MEDS ORDERED: INSULIN GLARGINE 300 UNITS/3 ML INSULN.PEN. SQ SCH (21:00)
--- NOTE | 2018-03-17 21:00 | NUR ---
Behavior Intervention Response and Plan: BIRP Note: Behavior: Assumed Care of patient, patient located in Day Room at shift change. Patient exhibited the following behavior Calm, Cooperative, Drowsy. Brief assessment on rounds of vital signs, medication needs, lab studies, and pain. Treatment plan problems . Intervention: Patient assessed and the following interventions initiated safety checks 15 Minute Checks Cognitive Assessment , Head to toe Assessment , Medications. Response: After interactions and interventions patient responded in the following manner, Irritable , Drowsy ,Disorganized. Continue to assess behaviors and condition will continue to monitor throughout the shift as needed. Patient educated on ADL's, and hand hygiene. Plan: Continue to monitor Master Treatment Plan for patient's progress toward short term goals of Decreased Agitation, Decreased Anxiety, half-way goals to return to previous living setting vs placement. Continue to assess patient for changes in above assessment. Monitor for medication needs, pain, and safety concerns. Hourly rounding performed to ensure safe environment.
--- NOTE | 2018-03-17 22:00 | NUR ---
Pt refused HS Lovenox and Lantus
--- NOTE | 2018-03-17 22:04 | NUR ---
Dr Pitts called re am glucoses being low and tonight HS gluc 117, see orders.
[2018-03-17] MEDS: INSULIN GLARGINE 300 UNITS/3 ML INSULN.PEN. SQ ONE ×2 (22:09→22:15)
--- NOTE | 2018-03-17 23:38 | PDOC ---
Exam Note: Ishaan Note: Please also refer to the separate dictated note~for this date of service dictated separately.~Patient seen individually. Discussed the patient with Nursing staff reviewed the chart.~Reviewed interim history and current functioning. Reviewed vital signs,~Labs/ Radiology~and current medications noted below. Continue current treatment with the changes noted in the dictated addendum note Assessment: Vital Signs: Vital Signs Date Time Temp Pulse Resp B/P (MAP) Pulse Ox O2 Delivery O2 Flow Rate FiO2 03/17/18 19:34 52 127/84 03/17/18 15:49 97.8 20 96 Room Air I&O Intake and Output 03/17/18 07:00 Intake Total 480 ml Balance 480 ml Intake Oral 480 ml Labs: Laboratory Tests Test 03/17/18 06:01 03/17/18 07:15 03/17/18 07:42 03/17/18 07:50 Glucose (Fingerstick) 95 mg/dL (70-99) 64 mg/dL (70-99) L 60 mg/dL (70-99) L 64 mg/dL (70-99) L Test 03/17/18 07:58 03/17/18 08:58 03/17/18 11:31 03/17/18 16:19 Glucose (Fingerstick) 70 mg/dL (70-99) 122 mg/dL (70-99) H 154 mg/dL (70-99) H 182 mg/dL (70-99) H Test 03/17/18 19:16 Glucose (Fingerstick) 177 mg/dL (70-99) H Current Medications: Meds: Current Medications Acetaminophen (Tylenol) 650 mg PRN Q6HRS PRN PO PAIN / TEMP Last administered on 03/16/18at 10:20; Start 02/17/18 at 15:15 Multi-Ingredient Ointment (Analgesic [place]) 1 neha PRN QID PRN TP MUSCLE PAIN; Start 02/17/18 at 15:15 Al Hydroxide/Mg Hydroxide (Mylanta Plus Xs) 15 ml PRN AFTMEALHC PRN PO DYSPEPSIA; Start 02/17/18 at 15:15 Magnesium Hydroxide (Milk Of Magnesia) 2,400 mg PRN QHS PRN PO CONSTIPATION Last administered on 03/07/18at 17:38; Start 02/17/18 at 15:15 Vitamin D (Vitamin D3) 1,000 unit DAILY PO Last administered on 03/17/18 07: 55; Start 02/18/18 at 09:00 Diazepam (Valium) 5 mg Q8HRS PO Last administered on 03/03/18at 14:16; Start at 22:00; Stop 03/03/18 at 16:36; Status DC Gabapentin (Neurontin) 200 mg Q6HRS PO Last administered on 02/24/18at 07:43; Start 02/17/18 at 18:00; Stop 02/24/18 at 16:23; Status DC Insulin Glargine (Lantus) 45 units QHS SQ Last administered on 03/15/18 20:33 ; Start 02/17/18 at 21:00; Stop 03/16/18 at 15:54; Status DC Amlodipine Besylate (Norvasc) 10 mg DAILY PO Last administered on 03/17/18at 07 :54; Start 02/18/18 at 09:00 Aspirin (Children'S Aspirin) 81 mg DAILYWBKFT PO Last administered on at 07:55; Start 02/18/18 at 08:00 Atorvastatin Calcium (Lipitor) 40 mg QHS PO Last administered on 03/17/18 19: 33; Start 02/17/18 at 21:00 Carvedilol (Coreg) 12.5 mg BIDWMEALS PO Last administered on 03/17/18 18:19; Start 02/18/18 at 08:00 Non-Formulary Medication (Diazepam (Valium)) 10 mg Q6HRS PO ; Start 02/17/18 at 18:00; Status UNV Docusate Sodium (Colace) 100 mg DAILY PO Last administered on 02/19/18at 08:07; Start 02/18/18 at 09:00; Stop 02/19/18 at 12:17; Status DC Enoxaparin Sodium (Lovenox 40mg Syringe) 40 mg QHS SQ Last administered on at 19:47; Start 02/17/18 at 21:00 Insulin Human Lispro (HumaLOG) 12 units TIDWMEALS SQ Last administered on 03/17at 18:20; Start 02/18/18 at 08:00 Levothyroxine Sodium (Synthroid) 125 mcg DAILY06 PO Last administered on 06:15; Start 02/18/18 at 06:00; Stop 02/19/18 at 12:22; Status DC Lidocaine (Lidoderm) 1 patch DAILY TD Last administered on 03/17/18 08:04; Start 02/18/18 at 09:00 Lisinopril (Prinivil) 40 mg DAILY PO Last administered on 03/17/18 07:55; Start 02/18/18 at 09:00 Prazosin HCl (Minipress) 1 mg QHS PO Last administered on 03/17/18 19:34; Start 02/17/18 at 21:00 Famotidine (Pepcid) 20 mg BID PO Last administered on 03/17/18 19:33; Start 02/17/18 at 21:00 Influenza Virus Vaccine (Afluria Trivalent [id number] Syringe) 0.5 ml ONCE ONCE VAX IM Last administered on 02/18/18 12:05; Start 02/18/18 at 09:00; Stop at 09:01; Status DC Insulin Human Lispro (HumaLOG) 0-7 UNITS TIDWMEALS SQ Last administered on 18:22; Start 02/18/18 at 08:00 Miscellaneous (Lidoderm Patch Removal) 1 ea QHS MC Last administered on 19:36; Start 02/17/18 at 21:00 Bisacodyl (Dulcolax Supp) [address] CONSTIPATION Last administered on 02/17/18at 21:40; Start 02/17/18 at 20:45 Docusate Sodium (Colace) 100 mg BID PO Last administered on 03/17/18 19:35; Start 02/19/18 at 21:00 Polyethylene Glycol (miraLAX) 17 gm DAILY PO Last administered on 03/17/18 07 :56; Start 02/20/18 at 09:00 Magnesium Citrate (Citroma) 296 ml 1X ONCE PO Last administered on 02/19/18 12:31; Start 02/19/18 at 12:15; Stop 02/19/18 at 12:21; Status DC Levothyroxine Sodium (Synthroid) 175 mcg DAILY06 PO Last administered on 06:00; Start 02/20/18 at 06:00 Risperidone (RisperDAL) 0.5 mg HS PO Last administered on 02/21/18 20:26; Start 02/19/18 at 21:00; Stop 02/22/18 at 16:49; Status DC Acetaminophen/ Hydrocodone Bitart (Lortab 7.5/325) 1 tab PRN TID PRN PO PAIN Last administered on 03/11/18at 09:46; Start 02/19/18 at 20:45 Trazodone HCl (Desyrel) 100 mg QHS PO Last administered on 02/22/18 20:09; Start 02/21/18 at 21:00; Stop 02/23/18 at 09:47; Status DC Trazodone HCl (Desyrel) 100 mg PRN QHS PRN PO INSOMNIA; Start 02/21/18 at 16:45 ; Stop 02/23/18 at 09:47; Status DC Sulfacetamide Sodium (Sulf-10) 1 drop Q4H OS Last administered on 03/03/18at 08 :03; Start 02/22/18 at 12:30; Stop 03/03/18 at 14:03; Status DC Erythromycin (Romycin) 0.25 inch QHS OS Last administered on 03/17/18 19:48; Start 02/22/18 at 21:00 Risperidone (RisperDAL) 0.75 mg QHS PO Last administered on 03/17/18 19:33; Start 02/22/18 at 21:00 Trazodone HCl (Desyrel) 150 mg PRN QHS PRN PO INSOMNIA; Start 02/23/18 at 10:00 Trazodone HCl (Desyrel) 150 mg QHS PO Last administered on 03/17/18 19:34; Start 02/23/18 at 21:00 Divalproex Sodium (Depakote Er) 500 mg QHS PO Last administered on 02/26/18 19 :48; Start 02/23/18 at 21:00; Stop 02/27/18 at 16:48; Status DC Divalproex Sodium (Depakote Er) 1,000 mg QHS PO Last administered on 19:35; Start 02/27/18 at 21:00 Glucose (Insta-Glucose) 15 gm STK-MED ONCE .ROUTE Last administered on at 06:42; Start 03/01/18 at 06:42; Stop 03/01/18 at 06:43; Status DC Diazepam (Valium) 5 mg BID PO Last administered on 03/06/18at 08:09; Start 05/09 at 21:00; Stop 03/06/18 at 16:34; Status DC Diazepam (Valium) 2.5 mg DAILY@1400 PO Last administered on 03/06/18at 14:13; Start 03/04/18 at 14:00; Stop 03/06/18 at 16:34; Status DC Diazepam (Valium) 5 mg HS PO Last administered on 03/17/18at 19:34; Start at 21:00; Stop 03/19/18 at 08:00 Diazepam (Valium) 2.5 mg [id number] PO Last administered on 03/13/18at 17:07; Start 03/07/18 at 09:00; Stop 03/13/18 at 17:59; Status DC Artificial Tears (Refresh Classic) 1 drop PRN Q2HR PRN OS DRY EYE Last administered on 03/08/18at 14:12; Start 03/07/18 at 13:15 Diazepam (Valium) 2.5 mg 1400 PO Last administered on 03/15/18at 13:33; Start 03/14/18 at 14:00; Stop 03/16/18 at 13:00; Status DC Glucose (Insta-Glucose) 15 gm STK-MED ONCE .ROUTE Last administered on at 06:53; Start 03/16/18 at 06:53; Stop 03/16/18 at 06:54; Status DC Diazepam (Valium) 2.5 mg HS PO ; Start 03/19/18 at 21:00; Stop 03/22/18 at 08: 00 Insulin Glargine (Lantus) 40 units QHS SQ Last administered on 03/16/18at 20:48 ; Start 03/16/18 at 21:00; Stop 03/17/18 at 16:52; Status DC Benzonatate (Tessalon Perle) 100 mg [id number] PO Last administered on 03/17/18at 19:34; Start 03/16/18 at 21:00 Insulin Glargine (Lantus) 35 units QHS SQ ; Start 03/17/18 at 21:00 Insulin Glargine (Lantus) 25 units 1X ONCE SQ ; Start 03/17/18 at 22:15; Stop 03/17/18 at 22:16; Status DC Active Scripts Active Reported Lovenox (Enoxaparin Sodium) 40 Mg/0.4 Ml Disp.syrin 40 Mg SQ QHS Gabapentin 100 Mg Capsule 200 Mg PO Q6HRS Diazepam 5 Mg Tablet 5 Mg PO Q8HRS Ranitidine Hcl 150 Mg Tablet 150 Mg PO BID Amlodipine Besylate 10 Mg Tablet 10 Mg PO DAILY Aspirin 81 Mg Tab.chew 81 Mg PO DAILY Vitamin D3 (Cholecalciferol (Vitamin D3)) 1,000 Unit Tablet 1,000 Unit PO DAILY Synthroid (Levothyroxine Sodium) 125 Mcg Tablet 125 Mcg PO DAILYAC Lisinopril 40 Mg Tablet 40 Mg PO DAILY Lantus Solostar (Insulin Glargine,Hum.rec.anlog) 100 Unit/1 Ml Insuln.pen 45 Unit SQ QHS Lidocaine 1 Each Adh..patch 1 Each TP DAILY Lipitor (Atorvastatin Calcium) 40 Mg Tablet 40 Mg PO QHS Prazosin Hcl 1 Mg Capsule 1 Mg PO QHS Colace (Docusate Sodium) 100 Mg Capsule 100 Mg PO DAILY Coreg (Carvedilol) 12.5 Mg Tablet 12.5 Mg PO BIDWMEALS Novolog Flexpen (Insulin Aspart) 100 Unit/1 Ml Insuln.pen 12 Unit SQ TID Plavix (Clopidogrel Bisulfate) 75 Mg Tablet 75 Mg PO DAILY Levothyroxine Sodium 50 Mcg Tablet 50 Mcg PO DAILY Lortab 7.5-325 mg Tablet (Hydrocodone/Acetaminophen) 1 Each Tablet 1 Tab PO TID PRN I have reviewed the current psychotropics carefully including drug interactions. Risk benefit ratio favors no change other than as noted in my dictated progress note. 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
[2018-03-18] MEDS: LEVOTHYROXINE 125 MCG TABLET PO SCH (06:01)
[2018-03-18 06:13] VITALS: BP 114/70
[2018-03-18] MEDS: POLYETHYLENE GLYCOL 3350 17 GM PACKET. PO SCH (09:00)
--- NOTE | 2018-03-18 09:00 | NUR ---
Behavior Intervention Response and Plan: BIRP Note: Behavior: Assumed Care of patient, patient located in Patient Room at shift change. Patient exhibited the following behavior Calm, Cooperative, Compliant. Brief assessment on rounds of vital signs, medication needs, lab studies, and pain. Treatment plan problems 1 and 2. Intervention: Patient assessed and the following interventions initiated safety checks 15 Minute Checks Cognitive Assessment , Head to toe Assessment , Medications. Response: After interactions and interventions patient responded in the following manner, Calm , Compliant ,Cooperative. Continue to assess behaviors and condition will continue to monitor throughout the shift as needed. Patient educated on ADL's, and hand hygiene. 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 Continue to assess patient for changes in above assessment. Monitor for medication needs, pain, and safety concerns. Hourly rounding performed to ensure safe environment.
[2018-03-18] MEDS: FAMOTIDINE 20 MG TABLET PO SCH (09:13)
[2018-03-18] MEDS: CHOLECALCIFEROL (VITAMIN D3) 1,000 UNIT TABLET PO SCH (09:13)
[2018-03-18] MEDS: BENZONATATE 100 MG CAPSULE. PO SCH ×2 (09:13→14:45)
[2018-03-18] MEDS: LISINOPRIL 20 MG TABLET PO SCH (09:13)
[2018-03-18] MEDS: amLODIPine BESYLATE 10 MG TABLET PO SCH (09:15)
[2018-03-18] MEDS: CARVEDILOL 12.5 MG TABLET PO SCH (09:15)
[2018-03-18] MEDS: DOCUSATE SODIUM 100 MG CAPSULE PO SCH (09:16)
[2018-03-18] MEDS: LIDOCAINE (700MG/PATCH) PATCH. TD SCH (09:16)
[2018-03-18] MEDS: INSULIN LISPRO 300 UNITS/3 ML INSULN.PEN. SQ SCH ×4 (09:18→12:38)
[2018-03-18] MEDS: ASPIRIN 81 MG TAB.CHEW PO SCH (09:19)
[2018-03-18 15:56] VITALS: BP 93/53
[2018-03-18 16:56] LABS: BASO % 0 % (0-3); EOS % 1 % (0-3); HEMOGLOBIN 10.3 g/dL (13.0-17.5); LYMPH # 1.4 x10^3/uL (1.0-4.8); LYMPH % 23 % (24-48); MEAN CORPUSCULAR HEMOGLOBIN 31 pg (25-35); MEAN CORPUSCULAR HGB CONC 34 g/dL (31-37); MEAN CORPUSCULAR VOLUME 90 fL (79-100); MONO # 0.6 x10^3/uL (0.0-1.1); MONO % 10 % (0-9); NEUT % 67 % (31-73); PLATELET COUNT 146 x10^3/uL (140-400); RED BLOOD COUNT 3.34 x10^6/uL (4.30-5.70); RED CELL DISTRIBUTION WIDTH 15.7 % (11.5-14.5); WHITE BLOOD COUNT 6.1 x10^3/uL (4.0-11.0)
--- NOTE | 2018-03-18 16:56 | RAD ---
AP chest. HISTORY: Pneumonia, rapid response called, AP view was taken of the chest. The heart is enlarged. Mediastinum appears widened compared to the prior study. Mediastinal adenopathy or mass or hemorrhage could have this pattern. There are no new infiltrates. There is no effusion. CT of the chest could be of benefit. IMPRESSION: 1. Widening the mediastinum compared to recent studies. 2. No new infiltrates. Electronically signed by: Dusty Olivares MD (03/18/2018 4:52 PM) [id number]
[2018-03-18 17:07] LABS: ALBUMIN 2.5 g/dL (3.4-5.0); ALBUMIN/GLOBULIN RATIO 0.8 (1.0-1.7); CALCIUM 8.8 mg/dL (8.5-10.1); CREATININE 1.2 mg/dL (0.7-1.3); GFR 74.2; POTASSIUM 4.4 mmol/L (3.5-5.1); TOTAL BILIRUBIN 0.2 mg/dL (0.2-1.0); TOTAL PROTEIN 5.8 g/dL (6.4-8.2)
--- NOTE | 2018-03-18 17:30 | NUR ---
Patient was difficult to arouse this afternoon and his breathing was loud and had a gurgling sound. Upon sitting the head of the bed up, patient's breathing sounded better and he was able to take his medications. This nurse asked another nurse to auscultate his lungs as she was unclear as to whether the gurgling sound was coming from his throat or from his lungs. When the nurse attempted to listen to him, she found him extremely difficult to arouse. His vital signs were out of range, and he sounded very congested. A rapid response was called, the patient was transferred to ICU, and subsequently transferred to [facility].
--- NOTE | 2018-03-18 18:25 | NUR ---
Transition Record was faxed to follow-up provider with the following elements: Reason for admission, procedures, tests, principal diagnosis, pending studies, patient instructions, 13/12 contact information for unit, phone number to obtain pending test results, plan for follow-up care, physician follow-up, advanced directive information, and medication list with dose, duration and instructions. This information was included in the following documents: History and physical, lab results, study results, progress notes, social work planning form, DC instruction form, patient visit summary, and medication reconciliation form. Date & time record faxed: 03/19/18 4521 Record faxed to: ICU Record discussed with/ report given to: Franca
--- NOTE | 2018-03-18 19:36 | PN ---
DATE: 03/16/2018 This is a late entry of 03/16/2018, covers elements not covered in my initial note. SUBJECTIVE: I met with the patient in the evening, staffed at a treatment team meeting with the entire team in the morning. Per social service staff [facility] denied the patient and [facility] might accept him. They have screened him and we are awaiting the results. He has appeared somewhat sedated at times, but otherwise less so since we are tapering the Valium. REVIEW OF SYSTEMS: Bilateral blindness, impaired ambulation, in wheelchair. No CV, , pulmonary system symptoms on review. MENTAL STATUS EXAM: Oriented to himself and situation. Speech is coherent, often responses monosyllabic, low in volume. Abstraction fair, computation impaired, language function intact. Mood and affect somewhat withdrawn, but typical for him. No active hallucinations noted. LABORATORY DATA: Reviewed. IMPRESSION: Schizoaffective disorder, bipolar type. Rest unchanged. PLAN: Taper and stop the Valium. Currently, he is on 5 mg p.o. at bedtime, we will reduce it down to 2.5 mg for 3 days and 3 days after that, we will stop it. Continue rest unchanged. JALEEL AGUIRRE MD DR: DIYA/valeria JOB#: [id number] / [id number]
--- NOTE | 2018-03-18 20:36 | PDOC ---
Exam Note: Ishaan Note: Please also refer to the separate dictated note~for this date of service dictated separately.~Patient seen individually. Discussed the patient with Nursing staff reviewed the chart.~Reviewed interim history and current functioning. Reviewed vital signs,~Labs/ Radiology~and current medications noted below. Continue current treatment with the changes noted in the dictated addendum note Assessment: Vital Signs: Vital Signs Date Time Temp Pulse Resp B/P (MAP) Pulse Ox O2 Delivery O2 Flow Rate FiO2 03/18/18 15:56 95.2 47 20 93/53 (66) 94 Nasal Cannula 2.0 I&O Intake and Output 03/18/18 07:00 Intake Total 1080 ml Balance 1080 ml Intake Oral 1080 ml Labs: Laboratory Tests Test 03/18/18 06:07 03/18/18 08:02 03/18/18 11:44 03/18/18 16:06 Glucose (Fingerstick) 179 mg/dL (70-99) H 204 mg/dL (70-99) H 250 mg/dL (70-99) H 196 mg/dL (70-99) H Test 03/18/18 16:30 White Blood Count 6.1 x10^3/uL (4.0-11.0) Red Blood Count 3.34 x10^6/uL (4.30-5.70) L Hemoglobin 10.3 g/dL (13.0-17.5) L Hematocrit 30.0 % (39.0-53.0) L Mean Corpuscular Volume 90 fL (79-100) Mean Corpuscular Hemoglobin 31 pg (25-35) Mean Corpuscular Hemoglobin Concent 34 g/dL (31-37) Red Cell Distribution Width 15.7 % (11.5-14.5) H Platelet Count 146 x10^3/uL (140-400) Neutrophils (%) (Auto) 67 % (31-73) Lymphocytes (%) (Auto) 23 % (24-48) L Monocytes (%) (Auto) 10 % (0-9) H Eosinophils (%) (Auto) 1 % (0-3) Basophils (%) (Auto) 0 % (0-3) Neutrophils # (Auto) 4.0 x10^3uL (1.8-7.7) Lymphocytes # (Auto) 1.4 x10^3/uL (1.0-4.8) Monocytes # (Auto) 0.6 x10^3/uL (0.0-1.1) Eosinophils # (Auto) 0.0 x10^3/uL (0.0-0.7) Basophils # (Auto) 0.0 x10^3/uL (0.0-0.2) Sodium Level 136 mmol/L (136-145) Potassium Level 4.4 mmol/L (3.5-5.1) Chloride Level 102 mmol/L (98-107) Carbon Dioxide Level 34 mmol/L (21-32) H Anion Gap 0 (6-14) L Blood Urea Nitrogen 15 mg/dL (8-26) Creatinine 1.2 mg/dL (0.7-1.3) Estimated GFR (Cockcroft-Gault) 74.2 BUN/Creatinine Ratio 13 (6-20) Glucose Level 207 mg/dL (70-99) H Lactic Acid Level 1.7 mmol/L (0.4-2.0) Calcium Level 8.8 mg/dL (8.5-10.1) Total Bilirubin 0.2 mg/dL (0.2-1.0) Aspartate Amino Transferase (AST) 20 U/L (15-37) Alanine Aminotransferase (ALT) 30 U/L (16-63) Alkaline Phosphatase 78 U/L (46-116) Troponin I Quantitative 0.017 ng/mL (0-0.055) Total Protein 5.8 g/dL (6.4-8.2) L Albumin 2.5 g/dL (3.4-5.0) L Albumin/Globulin Ratio 0.8 (1.0-1.7) L Current Medications: Meds: Current Medications Acetaminophen (Tylenol) 650 mg PRN Q6HRS PRN PO PAIN / TEMP Last administered on 03/16/18at 10:20; Start 02/17/18 at 15:15; Stop 03/18/18 at 16:26; Status DC Multi-Ingredient Ointment (Analgesic [place]) 1 neha PRN QID PRN TP MUSCLE PAIN; Start 02/17/18 at 15:15; Stop 03/18/18 at 16:26; Status DC Al Hydroxide/Mg Hydroxide (Mylanta Plus Xs) 15 ml PRN AFTMEALHC PRN PO DYSPEPSIA; Start 02/17/18 at 15:15; Stop 03/18/18 at 16:26; Status DC Magnesium Hydroxide (Milk Of Magnesia) 2,400 mg PRN QHS PRN PO CONSTIPATION Last administered on 03/07/18at 17:38; Start 02/17/18 at 15:15; Stop 03/18/18 at 16:26; Status DC Vitamin D (Vitamin D3) 1,000 unit DAILY PO Last administered on 03/18/18at 09: 13; Start 02/18/18 at 09:00; Stop 03/18/18 at 16:26; Status DC Diazepam (Valium) 5 mg Q8HRS PO Last administered on 03/03/18at 14:16; Start at 22:00; Stop 03/03/18 at 16:36; Status DC Gabapentin (Neurontin) 200 mg Q6HRS PO Last administered on 02/24/18at 07:43; Start 02/17/18 at 18:00; Stop 02/24/18 at 16:23; Status DC Insulin Glargine (Lantus) 45 units QHS SQ Last administered on 03/15/18at 20:33 ; Start 02/17/18 at 21:00; Stop 03/16/18 at 15:54; Status DC Amlodipine Besylate (Norvasc) 10 mg DAILY PO Last administered on 03/18/18at 09 :15; Start 02/18/18 at 09:00; Stop 03/18/18 at 16:26; Status DC Aspirin (Children'S Aspirin) 81 mg DAILYWBKFT PO Last administered on at 09:19; Start 02/18/18 at 08:00; Stop 03/18/18 at 16:26; Status DC Atorvastatin Calcium (Lipitor) 40 mg QHS PO Last administered on 03/17/18at 19: 33; Start 02/17/18 at 21:00; Stop 03/18/18 at 16:26; Status DC Carvedilol (Coreg) 12.5 mg BIDWMEALS PO Last administered on 03/18/18at 09:15; Start 02/18/18 at 08:00; Stop 03/18/18 at 16:26; Status DC Non-Formulary Medication (Diazepam (Valium)) 10 mg Q6HRS PO ; Start 02/17/18 at 18:00; Status UNV Docusate Sodium (Colace) 100 mg DAILY PO Last administered on 02/19/18at 08:07; Start 02/18/18 at 09:00; Stop 02/19/18 at 12:17; Status DC Enoxaparin Sodium (Lovenox 40mg Syringe) 40 mg QHS SQ Last administered on at 19:47; Start 02/17/18 at 21:00; Stop 03/18/18 at 16:26; Status DC Insulin Human Lispro (HumaLOG) 12 units TIDWMEALS SQ Last administered on 03/18at 12:37; Start 02/18/18 at 08:00; Stop 03/18/18 at 16:26; Status DC Levothyroxine Sodium (Synthroid) 125 mcg DAILY06 PO Last administered on at 06:15; Start 02/18/18 at 06:00; Stop 02/19/18 at 12:22; Status DC Lidocaine (Lidoderm) 1 patch DAILY TD Last administered on 03/18/18at 09:16; Start 02/18/18 at 09:00; Stop 03/18/18 at 16:26; Status DC Lisinopril (Prinivil) 40 mg DAILY PO Last administered on 03/18/18at 09:13; Start 02/18/18 at 09:00; Stop 03/18/18 at 16:26; Status DC Prazosin HCl (Minipress) 1 mg QHS PO Last administered on 03/17/18at 19:34; Start 02/17/18 at 21:00; Stop 03/18/18 at 16:26; Status DC Famotidine (Pepcid) 20 mg BID PO Last administered on 03/18/18at 09:13; Start 02/17/18 at 21:00; Stop 03/18/18 at 16:26; Status DC Influenza Virus Vaccine (Afluria Trivalent [id number] Syringe) 0.5 ml ONCE ONCE VAX IM Last administered on 02/18/18at 12:05; Start 02/18/18 at 09:00; Stop at 09:01; Status DC Insulin Human Lispro (HumaLOG) 0-7 UNITS TIDWMEALS SQ Last administered on at 12:38; Start 02/18/18 at 08:00; Stop 03/18/18 at 16:26; Status DC Miscellaneous (Lidoderm Patch Removal) 1 ea QHS MC Last administered on at 19:36; Start 02/17/18 at 21:00; Stop 03/18/18 at 16:26; Status DC Bisacodyl (Dulcolax Supp) 10 mg PRN DAILY PRN [place] CONSTIPATION Last administered on 02/17/18at 21:40; Start 02/17/18 at 20:45; Stop 03/18/18 at 16: 26; Status DC Docusate Sodium (Colace) 100 mg BID PO Last administered on 03/18/18at 09:16; Start 02/19/18 at 21:00; Stop 03/18/18 at 16:26; Status DC Polyethylene Glycol (miraLAX) 17 gm DAILY PO Last administered on 03/18/18at 09 :00; Start 02/20/18 at 09:00; Stop 03/18/18 at 16:26; Status DC Magnesium Citrate (Citroma) 296 ml 1X ONCE PO Last administered on 02/19/18at 12:31; Start 02/19/18 at 12:15; Stop 02/19/18 at 12:21; Status DC Levothyroxine Sodium (Synthroid) 175 mcg DAILY06 PO Last administered on at 06:01; Start 02/20/18 at 06:00; Stop 03/18/18 at 16:26; Status DC Risperidone (RisperDAL) 0.5 mg HS PO Last administered on 02/21/18at 20:26; Start 02/19/18 at 21:00; Stop 02/22/18 at 16:49; Status DC Acetaminophen/ Hydrocodone Bitart (Lortab 7.5/325) 1 tab PRN TID PRN PO PAIN Last administered on 03/11/18at 09:46; Start 02/19/18 at 20:45; Stop 03/18/18 at 16:26; Status DC Trazodone HCl (Desyrel) 100 mg QHS PO Last administered on 02/22/18at 20:09; Start 02/21/18 at 21:00; Stop 02/23/18 at 09:47; Status DC Trazodone HCl (Desyrel) 100 mg PRN QHS PRN PO INSOMNIA; Start 02/21/18 at 16:45 ; Stop 02/23/18 at 09:47; Status DC Sulfacetamide Sodium (Sulf-10) 1 drop Q4H OS Last administered on 03/03/18at 08 :03; Start 02/22/18 at 12:30; Stop 03/03/18 at 14:03; Status DC Erythromycin (Romycin) 0.25 inch QHS OS Last administered on 03/17/18at 19:48; Start 02/22/18 at 21:00; Stop 03/18/18 at 16:26; Status DC Risperidone (RisperDAL) 0.75 mg QHS PO Last administered on 03/17/18at 19:33; Start 02/22/18 at 21:00; Stop 03/18/18 at 16:26; Status DC Trazodone HCl (Desyrel) 150 mg PRN QHS PRN PO INSOMNIA; Start 02/23/18 at 10:00 ; Stop 03/18/18 at 16:26; Status DC Trazodone HCl (Desyrel) 150 mg QHS PO Last administered on 03/17/18at 19:34; Start 02/23/18 at 21:00; Stop 03/18/18 at 16:26; Status DC Divalproex Sodium (Depakote Er) 500 mg QHS PO Last administered on 02/26/18at 19 :48; Start 02/23/18 at 21:00; Stop 02/27/18 at 16:48; Status DC Divalproex Sodium (Depakote Er) 1,000 mg QHS PO Last administered on at 19:35; Start 02/27/18 at 21:00; Stop 03/18/18 at 16:26; Status DC Glucose (Insta-Glucose) 15 gm STK-MED ONCE .ROUTE Last administered on at 06:42; Start 03/01/18 at 06:42; Stop 03/01/18 at 06:43; Status DC Diazepam (Valium) 5 mg BID PO Last administered on 03/06/18at 08:09; Start 05/09 at 21:00; Stop 03/06/18 at 16:34; Status DC Diazepam (Valium) 2.5 mg DAILY@1400 PO Last administered on 03/06/18at 14:13; Start 03/04/18 at 14:00; Stop 03/06/18 at 16:34; Status DC Diazepam (Valium) 5 mg HS PO Last administered on 03/17/18at 19:34; Start at 21:00; Stop 03/18/18 at 16:26; Status DC Diazepam (Valium) 2.5 mg BID92 PO Last administered on 03/13/18at 17:07; Start 03/07/18 at 09:00; Stop 03/13/18 at 17:59; Status DC Artificial Tears (Refresh Classic) 1 drop PRN Q2HR PRN OS DRY EYE Last administered on 03/08/18at 14:12; Start 03/07/18 at 13:15; Stop 03/18/18 at 16 :26; Status DC Diazepam (Valium) 2.5 mg 1400 PO Last administered on 03/15/18at 13:33; Start 03/14/18 at 14:00; Stop 03/16/18 at 13:00; Status DC Glucose (Insta-Glucose) 15 gm STK-MED ONCE .ROUTE Last administered on at 06:53; Start 03/16/18 at 06:53; Stop 03/16/18 at 06:54; Status DC Diazepam (Valium) 2.5 mg HS PO ; Start 03/19/18 at 21:00; Stop 03/19/18 at 21: 00; Status DC Insulin Glargine (Lantus) 40 units QHS SQ Last administered on 03/16/18at 20:48 ; Start 03/16/18 at 21:00; Stop 03/17/18 at 16:52; Status DC Benzonatate (Tessalon Perle) 100 mg [id number] PO Last administered on 03/18/18at 14:45; Start 03/16/18 at 21:00; Stop 03/18/18 at 16:26; Status DC Insulin Glargine (Lantus) 35 units QHS SQ ; Start 03/17/18 at 21:00; Stop at 16:26; Status DC Insulin Glargine (Lantus) 25 units 1X ONCE SQ ; Start 03/17/18 at 22:15; Stop 03/17/18 at 22:16; Status DC Active Scripts Active Reported Lovenox (Enoxaparin Sodium) 40 Mg/0.4 Ml Disp.syrin 40 Mg SQ QHS Gabapentin 100 Mg Capsule 200 Mg PO Q6HRS Diazepam 5 Mg Tablet 5 Mg PO Q8HRS Ranitidine Hcl 150 Mg Tablet 150 Mg PO BID Amlodipine Besylate 10 Mg Tablet 10 Mg PO DAILY Aspirin 81 Mg Tab.chew 81 Mg PO DAILY Vitamin D3 (Cholecalciferol (Vitamin D3)) 1,000 Unit Tablet 1,000 Unit PO DAILY Synthroid (Levothyroxine Sodium) 125 Mcg Tablet 125 Mcg PO DAILYAC Lisinopril 40 Mg Tablet 40 Mg PO DAILY Lantus Solostar (Insulin Glargine,Hum.rec.anlog) 100 Unit/1 Ml Insuln.pen 45 Unit SQ QHS Lidocaine 1 Each Adh..patch 1 Each TP DAILY Lipitor (Atorvastatin Calcium) 40 Mg Tablet 40 Mg PO QHS Prazosin Hcl 1 Mg Capsule 1 Mg PO QHS Colace (Docusate Sodium) 100 Mg Capsule 100 Mg PO DAILY Coreg (Carvedilol) 12.5 Mg Tablet 12.5 Mg PO BIDWMEALS Novolog Flexpen (Insulin Aspart) 100 Unit/1 Ml Insuln.pen 12 Unit SQ TID Plavix (Clopidogrel Bisulfate) 75 Mg Tablet 75 Mg PO DAILY Levothyroxine Sodium 50 Mcg Tablet 50 Mcg PO DAILY Lortab 7.5-325 mg Tablet (Hydrocodone/Acetaminophen) 1 Each Tablet 1 Tab PO TID PRN I have reviewed the current psychotropics carefully including drug interactions. Risk benefit ratio favors no change other than as noted in my dictated progress note. Diagnosis: Problems: (1) Major neurocognitive disorder, due to vascular disease, with behavioral disturbance, mild (2) Schizoaffective disorder, bipolar type (3) Impulse control disorder (4) Anxiety disorder JALEEL AGUIRRE MD Mar 18, 2018 20:36
--- NOTE | 2018-03-18 23:03 | DS ---
DATE OF DISCHARGE: 03/18/2018 DISCHARGE SUMMARY AND PSYCHIATRIC PROGRESS NOTE This note covers elements not covered in my initial note of 03/18/2018. REASON FOR ADMISSION: Please refer to the admission history for details. Briefly, the patient is a 62-year-old -[place] male who was referred to us from the [facility] where he was admitted for medical stabilization. Despite stabilization, he was having active auditory and visual hallucinations, was paranoid, delusional, making homicidal statements. He was deemed a potential danger, had failed outpatient psychiatric interventions resulting in this referral. SIGNIFICANT FINDINGS AND CLINICAL COURSE: Following admission, the patient was seen individually by myself from a psychiatric standpoint, medical followup per Dr. Daniels/Dr. Pitts. The patient was quite agitated, anxious, withdrawn and psychotic. He has bilateral blindness, impaired ambulation, in wheelchair, was insisting he could go home and live by himself, cook and feed himself and take care of his home and himself. Very limited insight into all of this. Given his psychosis, adjustments were made in his psychotropics. He seemed to respond to a combination of Risperdal 0.75 mg at bedtime, trazodone 150 mg at bedtime, may repeat x 1, Depakote ER 1000 mg p.o. at bedtime. Valproic acid level was therapeutic at 71 at this dosage. He had been on fairly large dosage of Valium and this was gradually tapered during this hospitalization with the last taper to 2.5 mg p.o. at bedtime starting 03/19/2018 for 3 days and then to be stopped. From a psychiatric standpoint, the patient was doing better with resolution of his psychosis, but at this stage, he was extremely sedated, withdrawn, on the morning of 03/18/2018 difficult to arouse, found to have abdominal aortic aneurysm with low blood pressure and he was transferred to [address] [place] [address] and then apparently to [facility] for further management. REVIEW OF SYSTEMS: Prior to discharge on 03/18/2018, bilateral blindness, impaired ambulation, in wheelchair, tiredness. MENTAL STATUS EXAM: Oriented to himself and situation. Speech, still has moderate latency, often responses monosyllabic. Abstraction fair. Computation, able to do one step serial 7's. No active suicidal or homicidal ideation. Mood and affect withdrawn. LABORATORY DATA: Reviewed. IMPRESSION: Schizoaffective disorder, bipolar type, depressed; anxiety disorder, unspecified; cognitive disorder, unspecified versus major neurocognitive disorder, early Alzheimer, vascular with delusions, impulse control disorder. Rest as above. Abdominal aortic aneurysm, probable. DISCHARGE MEDICATIONS: Please refer to the EMRAD. DISCHARGE INSTRUCTIONS: Further psychiatric medical followup to be determined at [facility]. Time for discharge day management is greater than 30 minutes. JALEEL AGUIRRE MD DR: DIYA/valeria JOB#: [id number] / [id number]
--- NOTE | 2018-03-18 23:19 | PN ---
DATE: 03/17/2018 PSYCHIATRIC PROGRESS NOTE This is a late entry for date of service 03/17/2018 and covers elements not covered in my initial note. SUBJECTIVE: Overall, per nursing report, the patient is doing about the same. He is fairly quiet, withdrawn, but in the morning, seemed to be hallucinating per nursing observation. He slept 8-1/4 hours previous evening. REVIEW OF SYSTEMS: Positive for bilateral blindness, impaired ambulation, in wheelchair. No CV, , GI, or pulmonary ENT system symptoms on review. MENTAL STATUS EXAM: Oriented to himself and situation. Speech has moderate latency, low in rate and rhythm, often responses monosyllabic. Abstraction fair. Computation, able to do one step serial 7's. No active suicidal or homicidal ideation. Mood and affect somewhat withdrawn. He is somewhat sedated, but we are tapering his Valium. LABORATORY DATA: Reviewed. IMPRESSION: Schizoaffective disorder, bipolar type; cognitive disorder, unspecified. PLAN: No change from a psychiatric standpoint. MAN Dilma AGUIRRE MD DR: DIYA/valeria JOB#: [id number] / [id number]
[2018-03-19] MEDS ORDERED: diazePAM 5 MG TABLET PO SCH (21:00)
--- NOTE | 2018-03-20 06:27 | EKG ---
[address] [address] Test Date: 2018-03-18 Test Time: 16:08:30 Pat Name: YASMINE CAMEJO Department: Room: [facility] 1 Gender: M Car [employer]er: : 1955 Requested By: HERACLIO RUSS Order Number: [id number] Reading MD: Mansoor Hernandez MD Measurements Intervals [place] Rate: 47 P: 23 IA: 208 QRS: -39 QRSD: 92 T: 25 QT: 484 QTc: 432 Interpretive Statements SINUS BRADYCARDIA ABNORMAL LEFT AXIS DEVIATION LOW LIMB LEAD VOLTAGE LEFT ANTERIOR FASCICULAR BLOCK QRS(T) CONTOUR ABNORMALITY CONSISTENT WITH ANTEROSEPTAL INFARCT AGE UNDETERMINED ABNORMAL ECG Electronically Signed On 03-20-2018 11:34:33 CDT by Mansoor Hernandez MD
== END 2018-03-18 16:26 | disposition short-term general hospital (02) | DRG 885 ==
LOC: GEROPSY 14:49
PROVIDERS: ADMIT Psychiatry & Neurology Psychiatry; ATTEND Psychiatry & Neurology Psychiatry
DX: F25.0 Schizoaffective disorder, bipolar type (principal); F01.51 Vascular dementia, unspecified severity, with behavioral disturbance; E66.9 Obesity, unspecified; E11.22 Type 2 diabetes mellitus with diabetic chronic kidney disease; E11.42 Type 2 diabetes mellitus with diabetic polyneuropathy; E78.5 Hyperlipidemia, unspecified; E89.0 Postprocedural hypothyroidism; F09 Unspecified mental disorder due to known physiological condition; F43.10 Post-traumatic stress disorder, unspecified; F63.9 Impulse disorder, unspecified; F60.9 Personality disorder, unspecified; G89.4 Chronic pain syndrome; G30.9 Alzheimer's disease, unspecified; H54.8 Legal blindness, as defined in USA; K59.00 Constipation, unspecified; N18.9 Chronic kidney disease, unspecified; Z53.20 Procedure and treatment not carried out because of patient's decision for unspecified reasons; K21.9 Gastro-esophageal reflux disease without esophagitis; I25.10 Atherosclerotic heart disease of native coronary artery without angina pectoris; I89.0 Lymphedema, not elsewhere classified; I12.9 Hypertensive chronic kidney disease with stage 1 through stage 4 chronic kidney disease, or unspecified chronic kidney disease; Z79.899 Other long term (current) drug therapy; I25.2 Old myocardial infarction; Z95.5 Presence of coronary angioplasty implant and graft; Z68.36 Body mass index [BMI] 36.0-36.9, adult
CPT/HCPCS: 36415; 71045; 74018; 80053; 80061; 80164; 81001; 82306; 82607; 82947; 83036; 83540; 83550; 83605; 83735; 84436; 84439; 84443; 84480; 84484; 85025; 86592; 87040; 90471; 90756; 93005; 97163; J1650; J1815; 97110; 97530; Q2035

== ENCOUNTER 2018-03-18 16:35 | Inpatient (IN) | payer MEDICARE, OTHER ==
[2018-03-18 16:25] VITALS: BP 123/69
[~2018-03-18 16:35] MED LIST changes: +AMLO10TA6 PO; +ASPI-630 PO; +ATOR40TA PO; +CARV12.5 PO; +CHOL10003 PO; +DIAZ5TAB4 PO; +DOCU-109 PO; +ENOX40DI SQ; +GABA-585 PO; +INSU100I13 SQ; +INSU100I17 SQ; +LEVO125T PO; +LIDO700A39 TP; +LISI40TA PO; +PRAZ1CAP2 PO; +RANI150T2 PO
[2018-03-18 16:49] VITALS: BP 123/65
[2018-03-18 17:00] VITALS: BP 119/74
[2018-03-18] MEDS ORDERED: IV NORMAL SALINE 1,000ML 1,000 ML IV ONE (17:00)
[2018-03-18 17:03] LABS: BGAS PH 7.45 (7.35-7.46)
[2018-03-18 17:25] VITALS: BP 140/80
[2018-03-18 17:45] VITALS: BP 122/71
--- NOTE | 2018-03-18 18:03 | NUR ---
1600- RN entered patient room, pt not as responsive as he has been. Attempting to hear lung sounds, cannot over patients snoring. Vitals taken, BP 89/59, HR 40's, O2 sats 89% on RA, normal breathing. Dr Pitts notified, RAC 20g IV placed, swan placed, labs ordered, cxray ordered pt transferred to ICU 1625. Once patient in ICU placed 2nd IV in LAC. Sister Richa notified of situation. Dr Walters consulted, dw Dr Walters stated to call if troponin elevated. 1703- Cxray- mediastinal changes and PCO2 42 on ABGs, Dr Pitts notified, orders to place on bipap, stop IVF and transfer out to [facility]. 1725 [place] accepting, report called to ICU at [facility]. EMS called 1759 Pt transferred out to [facility] via EMS on CPAP, SL and EKG. Richa notified. Addendum: 03/18/18 at 1828 by PATRICIA SEARS RN Rapid called 1610. Swan had 100ml out, cloudy yellow. Temp 95 Correction PO2 42 on ABGs
--- NOTE | 2018-03-31 07:04 | PDOC ---
Progress Note. Subjective: I was contacted by [facility] RN that patient observed to be less responsive, hypotensive, hypoxic, and bradycardic. Rapid Response protocol initiated. I requested patient be transferred to ICU and gave verbal orders for labs/CXR. Patient required Bipap respiratory support and radiology report indicated widening of the mediastinum. I spoke with instructional specialist hospitalist at [facility] Dr Lees who accepted patient for emergent transfer to [facility] for further evaluation and definitive treatment of possible aortic aneurysm. As I was instructional specialist I did not have the opportunity to examine the patient. Assessment: Rapid decline in patient's condition including decreased responsiveness, hypotension, hypoxia, and bradycardia. I had initially ordered NS IV bolus to maintain pressures, however upon learning of CXR findings ordered fluids d/c and at the time BP was acceptable range for patient in this condition. As mentioned, Dr Lees graciously accepted the patient to [facility] I ordered STAT transfer. RN reports patient left with EMS in stable condition. HERACLIO RUSS DO Mar 31, 2018 07:04
--- NOTE | 2018-03-31 07:05 | PDOC1 ---
History of Present Illness History of Present Illness I was contacted by [facility] RN that patient observed to be less responsive, hypotensive, hypoxic, and bradycardic. Rapid Response protocol initiated. I requested patient be transferred to ICU and gave verbal orders for labs/CXR. Patient required Bipap respiratory support and radiology report indicated widening of the mediastinum. I spoke with international student advisor hospitalist at [facility] Dr Lees who accepted patient for emergent transfer to [facility] for further evaluation and definitive treatment of possible aortic aneurysm. As I was international student advisor I did not have the opportunity to examine the patient. 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: Periperal neuropathy (legally blind) GI: GERD Psych: Addictions, Depression, Schizophrenia, Other (PTSD) Renal/: Chronic renal insuff Endocrine: Diabetes, Hypothyroidism Review of Systems Medications Current Medications Sodium Chloride 1,000 ml @ 1,000 mls/hr 1X ONCE IV ; Start 03/18/18 at 17:00 ; Stop 03/18/18 at 17:59; Status DC Active Scripts Active Reported Lovenox (Enoxaparin Sodium) 40 Mg/0.4 Ml Disp.syrin 40 Mg SQ QHS Gabapentin 100 Mg Capsule 200 Mg PO Q6HRS Diazepam 5 Mg Tablet 5 Mg PO Q8HRS Ranitidine Hcl 150 Mg Tablet 150 Mg PO BID Amlodipine Besylate 10 Mg Tablet 10 Mg PO DAILY Aspirin 81 Mg Tab.chew 81 Mg PO DAILY Vitamin D3 (Cholecalciferol (Vitamin D3)) 1,000 Unit Tablet 1,000 Unit PO DAILY Synthroid (Levothyroxine Sodium) 125 Mcg Tablet 125 Mcg PO DAILYAC Lisinopril 40 Mg Tablet 40 Mg PO DAILY Lantus Solostar (Insulin Glargine,Hum.rec.anlog) 100 Unit/1 Ml Insuln.pen 45 Unit SQ QHS Lidocaine 1 Each Adh..patch 1 Each TP DAILY Lipitor (Atorvastatin Calcium) 40 Mg Tablet 40 Mg PO QHS Prazosin Hcl 1 Mg Capsule 1 Mg PO QHS Colace (Docusate Sodium) 100 Mg Capsule 100 Mg PO DAILY Coreg (Carvedilol) 12.5 Mg Tablet 12.5 Mg PO BIDWMEALS Novolog Flexpen (Insulin Aspart) 100 Unit/1 Ml Insuln.pen 12 Unit SQ TID Plavix (Clopidogrel Bisulfate) 75 Mg Tablet 75 Mg PO DAILY Levothyroxine Sodium 50 Mcg Tablet 50 Mcg PO DAILY Lortab 7.5-325 mg Tablet (Hydrocodone/Acetaminophen) 1 Each Tablet 1 Tab PO TID PRN Assessment/Plan Assessment/Plan Rapid decline in patient's condition including decreased responsiveness, hypotension, hypoxia, and bradycardia. I had initially ordered NS IV bolus to maintain pressures, however upon learning of CXR findings ordered fluids d/c and at the time BP was acceptable range for patient in this condition. As mentioned, Dr Lees graciously accepted the patient to [facility] I ordered STAT transfer. RN reports patient left with EMS in stable condition. COURSE Allergies Coded Allergies Type Severity Reaction Last Updated Verified chlorpromazine HCl Allergy Severe Swelling 07/13/13 Yes aripiprazole Allergy Intermediate 02/18/18 Yes HERACLIO RUSS DO Mar 31, 2018 07:05
== END 2018-03-18 17:59 | disposition short-term general hospital (02) | DRG 206 ==
LOC: ICU 16:35
PROVIDERS: ADMIT Neuromusculoskeletal Medicine & OMM; ATTEND Neuromusculoskeletal Medicine & OMM
PROC: 5A09357 Assistance with Respiratory Ventilation, Less than 24 Consecutive Hours, Continuous Positive Airway Pressure (ICD-10-PCS; principal; 2018-03-18)
DX: R09.02 Hypoxemia (principal); I95.9 Hypotension, unspecified; R00.1 Bradycardia, unspecified; E03.9 Hypothyroidism, unspecified; E11.22 Type 2 diabetes mellitus with diabetic chronic kidney disease; F20.9 Schizophrenia, unspecified; F43.10 Post-traumatic stress disorder, unspecified; H54.8 Legal blindness, as defined in USA; I12.9 Hypertensive chronic kidney disease with stage 1 through stage 4 chronic kidney disease, or unspecified chronic kidney disease; I71.9 Aortic aneurysm of unspecified site, without rupture; I25.10 Atherosclerotic heart disease of native coronary artery without angina pectoris; K21.9 Gastro-esophageal reflux disease without esophagitis; N18.9 Chronic kidney disease, unspecified; F32.9 Major depressive disorder, single episode, unspecified; Z79.899 Other long term (current) drug therapy; Z88.8 Allergy status to other drugs, medicaments and biological substances
CPT/HCPCS: 36415; 82803

== ENCOUNTER 2019-04-14 19:54 | Emergency (ER) | payer MEDICARE ==
[~2019-04-14] VITALS: Ht 195.6 cm; Wt 98.7 kg
[~2019-04-14 19:54] MED LIST changes: -AMLO10TA6 PO; +AMLO10TA8 PO; +BISA10SU4 RC; +BISA5TAB4 PO; +CARB15DR3 EACHEYE; +HYDR-52 PO; +LIDO700A21 TP; -LIDO700A39 TP; +MORP100S3 PO; +ONDA8TAB9 PO; +POLY2500 PO; +QUET25TA5 PO
--- NOTE | 2019-04-14 20:05 | PHYS DOC ---
Past History Past Medical History: CHF, COPD, Dementia, Diabetes, Hypertension, Hypothyroid, Other Past Surgical History: Other Smoking: Non-smoker Alcohol Use: None Drug Use: None Adult General Chief Complaint Chief Complaint: PSYCH EVALUATION HPI HPI Patient is a 63 yo m p/w [facility] thought that the staff was hurting him, wrapping the cord around his neck not feeding him for two months etc etc (no evidence of any of this), obvious delusions noted per the production intern. threatening to kill himself "if they arent going to choke me, i will finish the job", trying to hurt other people. couldnt' get him under control. wanted to go to [facility]. convinced that ems was going to kill him in the ambulance production intern [place] GAVE SOME OF the above history. medication list, on seroquel 25 bid. remainder of history is limited by the patients mental status. Review of Systems Review of Systems clarke by schizophrenia Allergies Allergies Allergies Coded Allergies Type Severity Reaction Last Updated Verified chlorpromazine HCl Allergy Severe Swelling 07/13/13 Yes aripiprazole Allergy Intermediate 02/18/18 Yes Physical Exam Physical Exam Constitutional: Well developed, chronically ill appearing. HENT: Normocephalic, atraumatic, bilateral external ears normal, oropharynx moist, no oral exudates, nose normal. [] Eyes:blind. Neck: Normal range of motion, no tenderness, supple, no stridor. [] Cardiovascular:Heart rate regular rhythm, no murmur [] Lungs & Thorax: Bilateral breath sounds clear to auscultation [] Abdomen: Bowel sounds normal, soft, no tenderness, no masses, no pulsatile masses. [] Skin: Warm, dry, no erythema, no rash. [] Back: No tenderness, no CVA tenderness. [] Extremities: No tenderness, no cyanosis, no clubbing, ROM intact, no edema. [] Neurologic: Alert and oriented X 2, normal motor function, normal sensory function, no focal deficits noted. [] Psychologic: calm but paranoid EKG EKG []EKG shows a normal sinus rhythm with a rate of 60 there was no STEMI seen nonspecific changes inferiorly low voltage throughout no STEMI Radiology/Procedures Radiology/Procedures [] Impressions: FINDINGS: A frontal view of the chest is obtained. There is suspected left lower lobe atelectasis or interstitial infiltrate. There is no pleural effusion or pneumothorax. The heart is normal in size. There are surgical clips overlying the neck. IMPRESSION: Suspected left lower lobe atelectasis or interstitial infiltrate. Electronically signed by: Bárbara Evans MD (04/14/2019 8:23 PM) [facility] DICTATED AND SIGNED BY: BÁRBARA EVANS MD DATE: 04/14/192022 CC: MADDI LOWE; CECIL RUVALCABA MD ~ Course & Med Decision Making Course & Med Decision Making Pertinent Labs and Imaging studies reviewed. (See chart for details) []63-year-old male multiple medical problems history of schizophrenia on hospice for sarcoPENIA, presenting after an episode of what was reported to be suicidal statement however patient denies that he said that staff at the home were trying to hurt him clearly fixed delusions present patient was evaluated by telemetry psych I suspect overall that the patient had a episode of acute paranoia and became agitated and probably needs to have his medications adjusted. He denies suicidality in the emergency room. Of note he is on hospice and he is bedbound and blind he overall appears to be low risk for completing a suicide. Noted the chest x-ray finding given the [facility] status this could be an over read but we will cover him with doxycycline just in case. Patient was seen by the telemetry psychiatrist screening service they thought that he was safe to be transferred back to [facility] patient agreed to a safety plan he said that he did not want to hurt himself he is in a supervised setting with [id number] care no indication for inpatient admission. I tend to agree with this and to give him a dose of Zyprexa here in the emergency room and he'll be discharged in stable condition Dragon Disclaimer Dragon Disclaimer This electronic medical record was generated, in whole or in part, using a voice recognition dictation system. Departure Departure: Impression: Primary Impression: Altered mental status Disposition: 03 XFER SNF Condition: STABLE Referrals: MADDI LOWE (PCP) Scripts Doxycycline Hyclate (DOXYCYCLINE HYCLATE) 100 Mg Capsule 1 CAP PO BID for RESPIRATORY, #14 CAP Prov: CECIL RUVALCABA MD 04/14/19 CECIL RUVALCABA MD Apr 14, 2019 20:05
[2019-04-14] MEDS ORDERED: OLANZapine IM 10 MG VIAL. IM ONE (20:15)
--- NOTE | 2019-04-14 20:26 | RAD ---
EXAM: Chest, single view. HISTORY: Chest pain. COMPARISON: 12/30/2018 FINDINGS: A frontal view of the chest is obtained. There is suspected left lower lobe atelectasis or interstitial infiltrate. There is no pleural effusion or pneumothorax. The heart is normal in size. There are surgical clips overlying the neck. IMPRESSION: Suspected left lower lobe atelectasis or interstitial infiltrate. Electronically signed by: Bárbara Arreguin MD (04/14/2019 8:23 PM) [facility]
--- NOTE | 2019-04-14 20:31 | EKG ---
[address] [address] Test Date: 2019-04-14 Test Time: 20:28:57 Pat Name: YASMINE CAMEJO Department: Room: Gender: M Network Systems Analyst: : [id number] Requested By: CECIL RUVALCABA Order Number: [id number] Reading MD: Jose J Walters Measurements Intervals [place] Rate: 60 P: 0 AK: 178 QRS: -47 QRSD: 82 T: 31 QT: 426 QTc: 426 Interpretive Statements SINUS RHYTHM ABNORMAL LEFT AXIS DEVIATION LOW LIMB LEAD VOLTAGE QRS(T) CONTOUR ABNORMALITY CONSISTENT WITH INFERIOR INFARCT PROBABLY OLD ABNORMAL ECG Electronically Signed On 04-16-2019 14:32:30 ELECTRONICS TECHNICIAN APPRENTICE by Jose J Walters
[2019-04-14 20:54] LABS: BASO % 1 % (0-3); EOS % 1 % (0-3); HEMATOCRIT 32.9 % (39.0-53.0); LYMPH # 2.1 x10^3/uL (1.0-4.8); LYMPH % 34 % (24-48); MEAN CORPUSCULAR HEMOGLOBIN 31 pg (25-35); MEAN CORPUSCULAR HGB CONC 34 g/dL (31-37); MEAN CORPUSCULAR VOLUME 93 fL (79-100); MONO # 0.3 x10^3/uL (0.0-1.1); MONO % 5 % (0-9); NEUT # 3.7 x10^3uL (1.8-7.7); NEUT % 60 % (31-73); PLATELET COUNT 194 x10^3/uL (140-400); RED BLOOD COUNT 3.52 x10^6/uL (4.30-5.70); RED CELL DISTRIBUTION WIDTH 15.4 % (11.5-14.5); WHITE BLOOD COUNT 6.1 x10^3/uL (4.0-11.0)
[2019-04-14 21:06] LABS: ALBUMIN 3.7 g/dL (3.4-5.0); ALBUMIN/GLOBULIN RATIO 1.1 (1.0-1.7); CALCIUM 9.3 mg/dL (8.5-10.1); CREATININE 1.5 mg/dL (0.7-1.3); GFR 57.2; MAGNESIUM 2.3 mg/dL (1.8-2.4); TOTAL BILIRUBIN 0.7 mg/dL (0.2-1.0)
[2019-04-14] MEDS ORDERED: DOXY100C2 PO (23:32)
[2019-04-15] MEDS ORDERED: DOXYCYCLINE HYCLATE 100 MG TABLET PO ONE
[2019-04-15 00:50] VITALS: BP 109/48
== END 2019-04-15 00:58 | disposition home or self-care (01) ==
LOC: EDBD 19:54 → ER 19:54
DX: R41.82 Altered mental status, unspecified (principal); F20.9 Schizophrenia, unspecified; J44.9 Chronic obstructive pulmonary disease, unspecified; I11.0 Hypertensive heart disease with heart failure; I50.9 Heart failure, unspecified; F03.90 Unspecified dementia, unspecified severity, without behavioral disturbance, psychotic disturbance, mood disturbance, and anxiety; E03.9 Hypothyroidism, unspecified; Z88.8 Allergy status to other drugs, medicaments and biological substances
CPT/HCPCS: 36415; 71045; 80053; 83735; 85025; 93005; 99285; G0480